=== PATIENT | female | born 1970 | race Caucasian/White ===

== ENCOUNTER → 2020-08-03 10:57 | Outpatient (BNVA) | payer OTHER, SELFPAY | PROVIDERS: PCP Physician Assistant; Visit Provider Anesthesiology | DX: M96.1 Postlaminectomy syndrome, not elsewhere classified (principal); G89.4 Chronic pain syndrome; Z79.891 Long term (current) use of opiate analgesic | CPT/HCPCS: 99213 ==

== ENCOUNTER → 2020-08-19 09:40 | Outpatient (BNVA) | payer OTHER, SELFPAY | PROVIDERS: PCP Hospitalist; Visit Provider Anesthesiology | DX: G89.4 Chronic pain syndrome (principal); M96.1 Postlaminectomy syndrome, not elsewhere classified; Z79.891 Long term (current) use of opiate analgesic; Z91.09 Other allergy status, other than to drugs and biological substances; Z88.0 Allergy status to penicillin; Z88.8 Allergy status to other drugs, medicaments and biological substances | CPT/HCPCS: 99212 ==

== ENCOUNTER → 2020-09-16 16:00 | Outpatient (BNVA) | payer OTHER, SELFPAY | PROVIDERS: PCP Hospitalist; Visit Provider Anesthesiology | DX: M96.1 Postlaminectomy syndrome, not elsewhere classified (principal); G89.4 Chronic pain syndrome; Z79.891 Long term (current) use of opiate analgesic | CPT/HCPCS: 99212 ==

== ENCOUNTER → 2020-10-22 09:17 | Outpatient (BNVA) | payer OTHER, SELFPAY | PROVIDERS: PCP Hospitalist; Visit Provider Anesthesiology | DX: M96.1 Postlaminectomy syndrome, not elsewhere classified (principal); G89.4 Chronic pain syndrome; Z79.891 Long term (current) use of opiate analgesic | CPT/HCPCS: 99212; J3300 ==

== ENCOUNTER → 2020-10-29 09:11 | Outpatient (BNVA) | payer OTHER, SELFPAY | PROVIDERS: PCP Hospitalist; Visit Provider Nurse Practitioner Gerontology | DX: Z13.89 Encounter for screening for other disorder (principal) | CPT/HCPCS: Q3014 ==

== ENCOUNTER → 2020-11-16 09:29 | Outpatient (BNVA) | payer OTHER, SELFPAY | PROVIDERS: PCP Hospitalist; Visit Provider Anesthesiology | DX: M96.1 Postlaminectomy syndrome, not elsewhere classified (principal); G89.4 Chronic pain syndrome; Z79.891 Long term (current) use of opiate analgesic | CPT/HCPCS: 99212 ==

== ENCOUNTER → 2020-12-16 12:59 | Outpatient (BNVA) | payer OTHER, SELFPAY | PROVIDERS: PCP Hospitalist; Visit Provider Anesthesiology | DX: M96.1 Postlaminectomy syndrome, not elsewhere classified (principal); G89.4 Chronic pain syndrome; Z79.891 Long term (current) use of opiate analgesic | CPT/HCPCS: 99212 ==

== ENCOUNTER → 2020-12-18 08:25 | Outpatient (BNVA) | payer OTHER, SELFPAY | PROVIDERS: PCP Hospitalist; Visit Provider Nurse Practitioner Gerontology | DX: M96.1 Postlaminectomy syndrome, not elsewhere classified (principal); G89.4 Chronic pain syndrome; F17.200 Nicotine dependence, unspecified, uncomplicated; Z79.891 Long term (current) use of opiate analgesic; Z71.6 Tobacco abuse counseling | CPT/HCPCS: 82947; 99212 ==

== ENCOUNTER → 2021-01-14 13:40 | Outpatient (BNVA) | payer OTHER, SELFPAY | PROVIDERS: PCP Hospitalist; Visit Provider Anesthesiology | DX: M96.1 Postlaminectomy syndrome, not elsewhere classified (principal); G89.4 Chronic pain syndrome; F17.200 Nicotine dependence, unspecified, uncomplicated; Z79.891 Long term (current) use of opiate analgesic; Z71.6 Tobacco abuse counseling | CPT/HCPCS: 99212 ==

== ENCOUNTER 2021-02-12 09:53 | Outpatient (REF) | payer OTHER, SELFPAY ==
[2021-02-12 11:43] LABS: Alanine Aminotransferase 21 U/L (0-31); Albumin Level 4.1 g/dL (3.5-5.0); Alkaline Phosphatase 67 U/L (39-117); Anion Gap 16 (12-20); Aspartate Amino Transferase 22 U/L (5-31); Bilirubin Total 0.4 mg/dL (0.0-1.0); Blood Urea Nitrogen 13 mg/dL (9-16); Calcium 9.5 mg/dL (8.4-10.2); Carbon Dioxide 25 mmol/L (22-29); Chloride 105 mmol/L (96-108); Cholesterol 211 mg/dL; Estimated Glomerular Filt Rate > 60; Glucose Fasting 80 mg/dL (60-99); HDL Cholesterol 37 mg/dL; LDL Cholesterol Calculated 141 mg/dl; Potassium 4.6 mmol/L (3.3-5.1); Sodium 141 mmol/L (135-145); Total Protein 7.1 g/dL (6.5-8.0); Triglycerides 166 mg/dL
[2021-02-12 12:06] LABS: Creatinine Urine 128.58 mg/dL; Microalbum/Creatinine Ratio Ur 101.1 ug/mg cr
[2021-02-13 04:46] LABS: LDL Cholesterol Direct 154 mg/dL (<100)
== END 2021-02-12 09:54 | disposition home or self-care (01) ==
LOC: HO.WFDLDS 09:53
PROVIDERS: Visit Provider Nurse Practitioner Gerontology
DX: E11.65 Type 2 diabetes mellitus with hyperglycemia (principal); Z79.4 Long term (current) use of insulin
CPT/HCPCS: 36415; 80053; 80061; 82043; 83721

== ENCOUNTER → 2021-02-15 10:46 | Outpatient (BNVA) | payer OTHER, SELFPAY | PROVIDERS: PCP Hospitalist; Visit Provider Anesthesiology | DX: M96.1 Postlaminectomy syndrome, not elsewhere classified (principal); G89.4 Chronic pain syndrome; Z79.891 Long term (current) use of opiate analgesic | CPT/HCPCS: 99212 ==

== ENCOUNTER → 2021-03-03 11:20 | Outpatient (BNVA) | payer OTHER, SELFPAY | PROVIDERS: PCP Hospitalist; Visit Provider Nurse Practitioner Gerontology | DX: E11.65 Type 2 diabetes mellitus with hyperglycemia (principal); E78.5 Hyperlipidemia, unspecified; E66.09 Other obesity due to excess calories; Z79.4 Long term (current) use of insulin; Z68.37 Body mass index [BMI] 37.0-37.9, adult | CPT/HCPCS: 82947; 99212 ==

== ENCOUNTER → 2021-03-17 11:46 | Outpatient (BNVA) | payer OTHER, SELFPAY | PROVIDERS: PCP Hospitalist; Visit Provider Anesthesiology | DX: M96.1 Postlaminectomy syndrome, not elsewhere classified (principal); G89.4 Chronic pain syndrome; Z79.891 Long term (current) use of opiate analgesic | CPT/HCPCS: 99212 ==

== ENCOUNTER → 2021-04-15 10:27 | Outpatient (BNVA) | payer OTHER, SELFPAY | PROVIDERS: PCP Hospitalist; Visit Provider Anesthesiology | DX: M96.1 Postlaminectomy syndrome, not elsewhere classified (principal); G89.4 Chronic pain syndrome; Z79.891 Long term (current) use of opiate analgesic | CPT/HCPCS: 99212 ==

== ENCOUNTER 2021-04-15 11:21 | Outpatient (REF) | payer OTHER, SELFPAY ==
[2021-04-15 14:36] LABS: Estimated Average Glucose 146 mg/dL; Hemoglobin A1C 151.7544 umol/L; Hemoglobin A1c % 6.7 %
[2021-04-15 14:41] LABS: Alanine Aminotransferase 13 U/L (0-31); Albumin Level 3.8 g/dL (3.5-5.0); Alkaline Phosphatase 67 U/L (39-117); Anion Gap 13 (12-20); Aspartate Amino Transferase 17 U/L (5-31); Bilirubin Total 0.5 mg/dL (0.0-1.0); Blood Urea Nitrogen 8 mg/dL (9-16); Calcium 9.3 mg/dL (8.4-10.2); Carbon Dioxide 28 mmol/L (22-29); Chloride 103 mmol/L (96-108); Cholesterol 115 mg/dL; Creatinine Urine 202.89 mg/dL; Estimated Glomerular Filt Rate > 60; Glucose Fasting 78 mg/dL (60-99); HDL Cholesterol 36 mg/dL; LDL Cholesterol Calculated 55 mg/dl; Microalbum/Creatinine Ratio Ur 72.9 ug/mg cr; Potassium 4.5 mmol/L (3.3-5.1); Sodium 139 mmol/L (135-145); Total Protein 6.7 g/dL (6.5-8.0); Triglycerides 120 mg/dL
[2021-04-16 07:26] LABS: LDL Cholesterol Direct 60 mg/dL (<100)
== END 2021-04-15 11:22 | disposition home or self-care (01) ==
LOC: HO.WFDLDS 11:21
PROVIDERS: PCP Hospitalist; Visit Provider Nurse Practitioner Gerontology
DX: E11.65 Type 2 diabetes mellitus with hyperglycemia (principal); Z79.4 Long term (current) use of insulin
CPT/HCPCS: 36415; 80053; 80061; 82043; 83036; 83721

== ENCOUNTER → 2021-05-06 08:31 | Outpatient (BNVA) | payer OTHER, SELFPAY | PROVIDERS: PCP Hospitalist; Visit Provider Nurse Practitioner Gerontology | CPT/HCPCS: Q3014 ==

== ENCOUNTER → 2021-05-13 15:32 | Outpatient (BNVA) | payer OTHER, SELFPAY | PROVIDERS: PCP Hospitalist; Visit Provider Anesthesiology | DX: M96.1 Postlaminectomy syndrome, not elsewhere classified (principal); G89.4 Chronic pain syndrome; Z79.891 Long term (current) use of opiate analgesic | CPT/HCPCS: 99212 ==

== ENCOUNTER 2021-06-13 13:13 | Emergency (ER) | payer OTHER, SELFPAY ==
[2021-06-13] VITALS (7 sets, daily range): BP systolic 113–136; BP diastolic 62–73; PULSE 93–109; RESP 16–20; TEMP 37.1; O2SAT 96–98; BMI 34.2
--- NOTE | ~2021-06-13 | CT_ITS ---
EXAMINATION: CT ABDOMEN AND PELVIS WITH CONTRAST CLINICAL INFORMATION: Right lower quadrant, lower abdominal tenderness to palpation, diarrhea COMPARISON: None TECHNIQUE: Multidetector volumetric images were obtained from the superior aspect of the liver through the pubic symphysis following administration 85 mL of Omnipaque 350 intravenous contrast. Sagittal and coronal reformatted images were obtained on the technologist's workstation. Oral contrast: No This CT examination was performed using dose optimization techniques as appropriate, variously including the following: *Automated exposure control *Adjustment of mA and/or kV according to patient size (this includes techniques or standardized protocols for targeted exams where dose is matched to indication/reason for exam; i.e. extremities or head) *Use of iterative reconstruction technique DLP: 731 mGy-cm FINDINGS: LUNG BASES: The visualized lung bases are unremarkable. LIVER, GALLBLADDER, AND BILIARY TREE: Ill-defined 8 mm low-density in the right lobe of liver image 9/92. The gallbladder is unremarkable with no evidence of radiopaque gallstones, gallbladder wall thickening, or obvious pericholecystic inflammatory changes. PANCREAS: Unremarkable. SPLEEN: Unremarkable. ADRENAL GLANDS: Unremarkable. KIDNEYS AND URETERS: The kidneys are normal in size, shape, and attenuation. No hydronephrosis, hydroureter, or calculi seen. No perinephric stranding. BLADDER: Unremarkable. GASTROINTESTINAL TRACT: The stomach and small bowel are nondilated. There is wall thickening and hyperemia of the terminal ileum and right colon. The distal transverse colon and left colon are normal in appearance. Scattered colonic diverticulosis. ABDOMINAL WALL: Small fat-containing umbilical hernia. LYMPH NODES: Numerous prominent retroperitoneal and babar hepatis lymph nodes are present. There is a 3.0 x 1.2 cm portal caval lymph node. There is a 2.4 x 1.2 cm lymph node in the babar hepatis adjacent the pancreatic head. Innumerable retroperitoneal lymph nodes are present, among the largest measuring 10 x 12 mm. There are prominent right lower quadrant lymph nodes, adjacent the abnormal right colon. VASCULAR: Normal caliber aorta. Moderate calcified atherosclerosis. PELVIC VISCERA: The uterus and adnexa are unremarkable. OSSEOUS STRUCTURES: Multilevel degenerative changes with loss of disc height, endplate sclerosis, osteophytosis, and vacuum disc phenomenon at L4-5 and L5-S1. There is a intrathecal catheter with tip at the level of T10. The generator pack is in the left gluteal soft tissues. CT/CT abdomen pelvis w con IMPRESSION: Wall thickening and hyperemia of the terminal ileum and right colon. The appearance is nonspecific but favors an infectious or inflammatory etiology. Crohn's disease could have this appearance. Prominent to mildly enlarged retroperitoneal and babar hepatis lymphadenopathy, nonspecific, presumably reactive.
[2021-06-13 14:21] LABS: COVID-19 Test Negative (Negative); IDNOW Serial# 55D5AD1C
[2021-06-13] MEDS: Famotidine/PF 20 MG/2 ML VIAL IVPUSH (15:34)
[2021-06-13] MEDS: ondansetron HCL 4 MG/2 ML VIAL IVPUSH (15:34)
[2021-06-13] MEDS: 0.9 % Sodium Chloride 1,000 ML 999 ML IVCONT ×2 (15:34)
[2021-06-13 15:41] LABS: Glucose Urine UA NEG (NEG); Leukocyte Esterase Urine NEG (NEG); Nitrite Urine NEG (NEG); Specific Gravity - Urine >= 1.030 (1.005-1.025); UACC Culture Trigger NO; Urine Blood 1+ (NEG); Urine Ketones 5 MG/DL (NEG); Urine Protein 2+ MG/DL (NEG-TRACE)
[2021-06-13 15:50] LABS: Appearance Urine CLEAR; Color Urine YELLOW
[2021-06-13 15:55] LABS: MANUAL DIFF FLAG NO
[2021-06-13 15:55] LABS: Hyaline Casts Urine 0-2 /LPF; Mucus Urine 1+ /LPF; RBC Urine 0-2 /HPF (0); Squamous Epithelial Cell Urine 4+ /LPF
[2021-06-13 15:56] LABS: Basophils Percent Auto 0.2 % (0-2); Eosinophils Absolute Auto 0.2 X10*3/uL (0.0-0.4); Eosinophils Percent Auto 2.2 % (0-4); Hematocrit 34.2 % (37-47); Hemoglobin 10.7 g/dl (12.0-16.0); Imm Gran Abs Auto 0.07 X10*3/uL (0.00-0.03); Imm Gran Pct Auto 0.6 % (0.0-0.4); Lymphocytes Absolute Auto 2.4 X10*3/uL (1.2-4.9); Mean Corpuscular HGB Conc 31.3 g/dl (31.0-35.0); Mean Corpuscular Hemoglobin 25.8 pg (27.0-33.0); Mean Corpuscular Volume 82.4 fL (80-98); Mean Platelet Volume 8.9 fL (9.4-12.3); Monocytes Percent Auto 8.8 % (2-11); Neutrophils Absolute Auto 7.2 X10*3/uL (2.0-8.3); Neutrophils Percent Auto 66.2 % (45-73); Platelet Count 388 X10*3/uL (160-400); Red Blood Count 4.15 X10*6/uL (4.20-5.50); Red Cell Distribution Width 15.5 % (11.0-16.0); White Blood Count 10.9 X10*3/uL (4.8-10.8)
[2021-06-13 16:07] LABS: Amphetamine Screen Urine Not Detected (Not Detect); Barbiturates, Urine Not Detected (Not Detect); Benzodiazepines Screen Urine Not Detected (Not Detect); Cannabinoid Screen Urine Not Detected (Not Detect); Cocaine Screen Urine Not Detected (Not Detect); Fentanyl, urine POSITIVE (Not Detect); Opiate Screen Urine POSITIVE (Not Detect); Phencyclidine Screen Urine Not Detected (Not Detect)
[2021-06-13 16:19] LABS: Alanine Aminotransferase 17 U/L (0-31); Albumin Level 3.4 g/dL (3.5-5.0); Alkaline Phosphatase 99 U/L (39-117); Anion Gap 16 (12-20); Aspartate Amino Transferase 14 U/L (5-31); Bilirubin Direct 0.2 mg/dL (0.0-0.5); Bilirubin Total 0.4 mg/dL (0.0-1.0); Blood Urea Nitrogen 7 mg/dL (9-16); Calcium 8.3 mg/dL (8.4-10.2); Carbon Dioxide 23 mmol/L (22-29); Chloride 107 mmol/L (96-108); Estimated Glomerular Filt Rate > 60; Glucose Random 103 mg/dL (60-115); Lipase 21 U/L (8-78); Magnesium 1.7 mg/dL (1.6-2.6); Potassium 3.4 mmol/L (3.3-5.1); Sodium 143 mmol/L (135-145); Total Protein 6.3 g/dL (6.5-8.0)
--- NOTE | 2021-06-13 17:35 | ED_ITS ---
HPI - General Adult General Chief complaint: General Medical Stated complaint: fever, diarrhea Time Seen by Provider: 06/13/21 14:41 Source: patient Mode of arrival: ambulatory History of Present Illness HPI narrative: 50-year-old female with past medical history of asthma, chronic pain syndrome, diabetes, PCOS, proteinuria, sleep apnea, diabetes, presenting to the ED complaining of lower abdominal pain, nausea, vomiting, 6-8 episodes of loose diarrhea daily x 12 days with associated myalgias, dry cough, & decreased p.o. intake. Also reports a 20 lb weight loss. Admits was seen at [facility] 12 days ago and told she had the flu, symptoms have been persistent since. States she is most concerned with the diarrhea. Denies bloody stools/melena, dysuria/hematuria, CP/SOB, LE edema, suspicious food intake, recent antibiotics. Denies COVID-19 exposure. Onset (ago): day(s) Related Data Home Medications Medication Instructions Recorded Confirmed blood sugar diagnostic #10 ea 08/03/20 05/06/21 cetirizine 10 mg tablet 10 mg PO DAILY PRN 08/03/20 05/06/21 omeprazole 20 mg capsule,delayed 20 mg PO DAILY 08/03/20 05/06/21 release solriamfetol 150 mg tablet 150 mg PO BEDTIME 05/06/21 05/06/21 Previous Rx's Medication Instructions Recorded varenicline 1 mg tablet (Chantix 1 mg PO BID #56 tab 07/31/20 Continuing Month Box) gabapentin 600 mg tablet 600 mg PO TID 30 Days #90 tab 08/03/20 polyethylene glycol 3350 17 gram 17 g PO DAILY #22 packet 08/27/20 oral powder packet albuterol sulfate 90 mcg/actuation 2 puff PO Q6H PRN #18 g 08/31/20 aerosol inhaler insulin aspart U-100 100 unit/mL 10 - 26 unit SUBCUT TID 90 Days 10/29/20 (3 mL) subcutaneous pen #60 ml magnesium oxide 500 mg capsule 500 mg PO DAILY #90 cap 11/11/20 lancets 28 gauge #100 ea 11/24/20 pen needle, diabetic 32 gauge x #50 ea 11/24/20 1/4 diphenhydramine HCl 25 mg capsule 25 mg PO BEDTIME PRN #30 cap 03/02/21 (Banophen) diabetic supplies, miscellan. #100 ea 01/19/21 fluticasone propionate 50 1 spray INTRANASAL DAILY #16 ml 01/25/21 mcg/actuation nasal spray,suspension metformin 500 mg tablet,extended 1,000 mg PO BID 90 Days #360 tab 02/23/21 release 24 hr dulaglutide 0.75 mg/0.5 mL 0.75 mg SUBCUT QWEEK #2 ml 05/06/21 subcutaneous pen injector (Trulicity) insulin degludec 200 unit/mL (3 50 unit SUBCUT DAILY 30 Days #9 ml 05/06/21 mL) subcutaneous pen (Tresiba FlexTouch U-200 insulin) atorvastatin 40 mg tablet 40 mg PO DAILY #90 tab 05/11/21 flash glucose sensor (FreeStyle #2 ea 05/13/21 Bettye 2 Sensor) naloxegol 12.5 mg tablet (Movantik) 12.5 mg PO QAM 30 Days #30 tab 05/13/21 oxycodone-acetaminophen 10 mg-325 1 tab PO TID PRN 30 Days #90 tab 05/13/21 mg tablet (Percocet) flash glucose scanning reader #1 ea 05/14/21 (FreeStyle Bettye 2 Clyde) blood sugar diagnostic (FreeStyle 1 strip MISCELLANEOUS TID-QID #300 05/20/21 Lite Strips) strip ciprofloxacin HCl 500 mg tablet 500 mg PO Q12H 7 Days #14 tab 06/13/21 metronidazole 500 mg tablet 500 mg PO Q8H 7 Days #21 tab 06/13/21 (Flagyl) Allergies Allergy/AdvReac Type Severity Reaction Status Date / Time amoxicillin [From AUGMENTIN] AdvReac Intermediate VOMITING/DE Verified 05/06/21 08:49 HYDRATION NSAIDS (Non-Steroidal AdvReac Intermediate BLEEDING Verified 05/06/21 08:49 Anti-Inflamma [NSAIDS (NON-STEROIDAL ANTI-INFLAMMA] seasonal Allergy Intermediate Itchy Eyes Uncoded 05/06/21 08:49 Review of Systems Review of Systems: Constitutional: + Weight loss, No Fever, No Chills, No Night Sweats, + Fatigue, + Malaise ENT/Mouth: No Nasal Congestion, No Sinus Pain, No sore throat, No Rhinorrhea Eyes: No Eye Pain, No Discharge Cardiovascular: No Chest Pain, No SOB, No Dyspnea on Exertion Respiratory: No Cough, No Dyspnea Gastrointestinal: + Nausea, + Vomiting, No Diarrhea, No Constipation, + Abdo duncan pain, No Hematochezia, No Melena Genitourinary: No irregular bleeding, No Dysuria, No Urinary Frequency, No Hematuria,No Flank Pain, No Urinary Flow Changes Musculoskeletal: No joint pain, + Myalgias, No Joint Swelling Skin: No Skin Lesions, No rash Neuro: + Weakness, No Numbness, No Dizziness, No Headache Yes all other systems are reviewed and are negative [facility] Past Medical History Attestation statement: The following information was validated with the patient. Medical History (Updated 06/13/21 @ 19:52 by POOL Savage) Asthma BMI 37.0-37.9, adult Chronic pain syndrome 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, uncontrolled Hyperlipidemia LDL goal <100 nursing home (current) use of opiate analgesic Obesity due to excess calories PCOS (polycystic ovarian syndrome) Postlaminectomy syndrome, lumbar Proteinuria Sleep apnea Type 2 diabetes mellitus with hyperglycemia, with long-term current use of insulin Type 2 diabetes mellitus with other diabetic kidney complication Surgical History History of carpal tunnel release History of lumbar surgery History of removal of cyst History of tonsillectomy Hx of spinal surgery Family History Family History Father Diabetes Hypertension Mother Asthma Social History Social History Household Members: Children Cigarettes Per Day: 10 Smoked in Last 30 Days: Yes Use of substances other than those prescribed or required for medical reasons: No Advance Directives: No Advance Directives Information Provided: No Patient : No Physical Exam Vital Signs: Vital Signs: Last Vital Signs Temp 98.7 F 06/13/21 15:15 Pulse 93 06/13/21 19:44 Resp 20 06/13/21 19:44 BP 126/65 06/13/21 19:44 Pulse Ox 97 06/13/21 19:44 Body Mass Index 34.2 Const: General: cooperative, healthy appearing and no acute distress Orientation/consciousness: patient oriented x3 Limitations: no limitations HENMT: Head: Yes normal to inspection and Yes atraumatic Ears: hearing grossly normal bilaterally General nose exam: Normal external nose present Face and sinus: Yes normal facial exam Eyes: General: appearance normal, both eyes and all related structures EOM: EOMs intact bilaterally Neck: Neck: Yes normal visual inspection Resp: Effort & Inspection: normal respiratory effort Auscultation: clear to auscultation bilaterally, no rhonchi and no wheezes Cardio: Rate: regular rate Heart sounds: S1 normal heart sound present and S2 normal heart sound present GI: Inspection: Yes normal to inspection Palpation (GI): Soft to palpation, Tenderness to palpation present (GI) (Lower abdomen) in the RLQ, no guarding and not rigid Skin: Rashes: no rashes Wounds: no wounds Neuro: General: patient oriented x3 Gait exam (Neuro): Normal gait present Extrem: General: Yes normal to inspection Course Course Course Narrative: -mild leukocytosis of 10.9, H&H lower than priors from 2019, labs otherwise unremarkable -UA with 1+ blood and protein/not infected, tox screen positive for opiates and fentanyl -obtain records from [facility] from patient's visit on 06/01 at that time had leukocytosis of 14, negative UA, negative CXR, tested negative for COVID-19, diagnosed with viral syndrome. -C diff negative, stool leukocytes and wbc's negative 1949--CT abdomen pelvis w con IMPRESSION: Wall thickening and hyperemia of the terminal ileum and right colon. The appearance is nonspecific but favors an infectious or inflammatory etiology. Crohn's disease could have this appearance.? ? Prominent to mildly enlarged retroperitoneal and babar hepatis lymphadenopathy, nonspecific, presumably reactive. >> will treat patient as infectious colitis. Is tolerating p.o. at this time. Results discussed including worrisome signs and symptoms and strict return precautions. First dose of p.o. Flagyl given in the ED, patient feels safe for discharge home Medical Decision Making MDM Narrative Medical decision making narrative: 50-year-old female with past medical history of asthma, chronic pain syndrome, diabetes, PCOS, proteinuria, sleep apnea, diabetes, presenting to the ED complaining of lower abdominal pain, nausea, vomiting, 6-8 episodes of loose diarrhea daily x 12 days with associated myalgias, dry cough, & decreased p.o. intake. On exam initially tachycardic, NAD/nontoxic appearing, lungs CTA, abdomen soft with lower/RUQ TTP, no rebound or guarding. Concern for viral syndrome vs gastroenteritis vs appendicitis vs Diverticulitis/colitis vs infectious diarrhea. Rule out metabolic abnormalities Plan: Labs, UA, stool studies, COVID-19 testing, IVF, symptomatic treatment, CT, reassess Lab Data Result diagrams: 06/13/21 15:50 06/13/21 15:50 Labs: Lab Results 06/13/21 06/13/21 06/13/21 Range/Units 13:53 15:19 15:19 WBC (4.8-10.8) X10*3/uL RBC (4.20-5.50) X10*6/uL Hgb (12.0-16.0) g/dl Hct (37-47) % MCV (80-98) fL MCH (27.0-33.0) pg MCHC (31.0-35.0) g/dl RDW (11.0-16.0) % Plt Count (160-400) X10*3/uL MPV (9.4-12.3) fL Immature Gran % (Auto) (0.0-0.4) % Neut % (Auto) (45-73) % Lymph % (Auto) (20-40) % [place] % (Auto) (2-11) % Eos % (Auto) (0-4) % Baso % (Auto) (0-2) % Lymph # (Auto) (1.2-4.9) X10*3/uL [place] # (Auto) (0.1-1.2) X10*3/uL Eos # (Auto) (0.0-0.4) X10*3/uL Baso # (Auto) (0.0-0.2) X10*3/uL Abs Immat Gran (auto) (0.00-0.03) X10*3/uL Absolute Neuts (auto) (2.0-8.3) X10*3/uL Absolute Nucleated RBC (0.0-0.012) X10*3/uL Nucleated RBC % (auto) (0.0-0.2) /100WBC Sodium (135-145) mmol/L Potassium (3.3-5.1) mmol/L Chloride (96-108) mmol/L Carbon Dioxide (22-29) mmol/L Anion Gap (12-20) BUN (9-16) mg/dL Creatinine (0.5-1.4) mg/dL Estim Creat Clear Calc Estimated GFR Random Glucose (60-115) mg/dL Calcium (8.4-10.2) mg/dL Magnesium (1.6-2.6) mg/dL Total Bilirubin (0.0-1.0) mg/dL Direct Bilirubin (0.0-0.5) mg/dL AST (5-31) U/L ALT (0-31) U/L Alkaline Phosphatase (39-117) U/L Total Protein (6.5-8.0) g/dL Albumin (3.5-5.0) g/dL Lipase (8-78) U/L Urine Color YELLOW Urine Appearance CLEAR Urine pH 6.0 (5.0-8.0) Ur Specific [place] >= 1.030 H (1.005-1.025) Urine Protein 2+ H (NEG-TRACE) MG/DL Urine Glucose (UA) NEG (NEG) MG/DL Urine Ketones 5 (NEG) MG/DL Urine Blood 1+ H (NEG) Urine Nitrite NEG (NEG) Ur Leukocyte Esterase NEG (NEG) Urine RBC 0-2 (0) /HPF Urine WBC 1-4 (0-4) /HPF Ur Squamous Epith Cells 4+ /LPF Urine Bacteria NONE /LPF Hyaline Casts 0-2 /LPF Urine Mucus 1+ /LPF Stool Leukocytes, Qual (NEGATIVE) Urine Opiates Screen POSITIVE H (Not Detect) Urine Fentanyl Screen POSITIVE H (Not Detect) Ur Barbiturates Screen Not Detected (Not Detect) Ur Phencyclidine Scrn Not Detected (Not Detect) Ur Amphetamines Screen Not Detected (Not Detect) U Benzodiazepines Scrn Not Detected (Not Detect) Urine Cocaine Screen Not Detected (Not Detect) U Marijuana (THC) Screen Not Detected (Not Detect) C. difficile Tox B Gene (Negative) COVID-19 (FEMI) Negative (Negative) COVID-19 Clin Com See Note 06/13/21 06/13/21 06/13/21 Range/Units 15:50 15:50 17:28 WBC 10.9 H (4.8-10.8) X10*3/uL RBC 4.15 L (4.20-5.50) X10*6/uL Hgb 10.7 L (12.0-16.0) g/dl Hct 34.2 L (37-47) % MCV 82.4 (80-98) fL MCH 25.8 L (27.0-33.0) pg MCHC 31.3 (31.0-35.0) g/dl RDW 15.5 (11.0-16.0) % Plt Count 388 (160-400) X10*3/uL MPV 8.9 L (9.4-12.3) fL Immature Gran % (Auto) 0.6 H (0.0-0.4) % Neut % (Auto) 66.2 (45-73) % Lymph % (Auto) 22.0 (20-40) % [place] % (Auto) 8.8 (2-11) % Eos % (Auto) 2.2 (0-4) % Baso % (Auto) 0.2 (0-2) % Lymph # (Auto) 2.4 (1.2-4.9) X10*3/uL [place] # (Auto) 1.0 (0.1-1.2) X10*3/uL Eos # (Auto) 0.2 (0.0-0.4) X10*3/uL Baso # (Auto) 0.0 (0.0-0.2) X10*3/uL Abs Immat Gran (auto) 0.07 H (0.00-0.03) X10*3/uL Absolute Neuts (auto) 7.2 (2.0-8.3) X10*3/uL Absolute Nucleated RBC 0.000 (0.0-0.012) X10*3/uL Nucleated RBC % (auto) 0.0 (0.0-0.2) /100WBC Sodium 143 (135-145) mmol/L Potassium 3.4 D (3.3-5.1) mmol/L Chloride 107 (96-108) mmol/L Carbon Dioxide 23 (22-29) mmol/L Anion Gap 16 (12-20) BUN 7 L (9-16) mg/dL Creatinine 0.65 (0.5-1.4) mg/dL Estim Creat Clear Calc 111.0 Estimated GFR > 60 Random Glucose 103 (60-115) mg/dL Calcium 8.3 L D (8.4-10.2) mg/dL Magnesium 1.7 (1.6-2.6) mg/dL Total Bilirubin 0.4 (0.0-1.0) mg/dL Direct Bilirubin 0.2 (0.0-0.5) mg/dL AST 14 (5-31) U/L ALT 17 (0-31) U/L Alkaline Phosphatase 99 D (39-117) U/L Total Protein 6.3 L (6.5-8.0) g/dL Albumin 3.4 L (3.5-5.0) g/dL Lipase 21 (8-78) U/L Urine Color Urine Appearance Urine pH (5.0-8.0) Ur Specific Union (1.005-1.025) Urine Protein (NEG-TRACE) MG/DL Urine Glucose (UA) (NEG) MG/DL Urine Ketones (NEG) MG/DL Urine Blood (NEG) Urine Nitrite (NEG) Ur Leukocyte Esterase (NEG) Urine RBC (0) /HPF Urine WBC (0-4) /HPF Ur Squamous Epith Cells /LPF Urine Bacteria /LPF Hyaline Casts /LPF Urine Mucus /LPF Stool Leukocytes, Qual NEGATIVE (NEGATIVE) Urine Opiates Screen (Not Detect) Urine Fentanyl Screen (Not Detect) Ur Barbiturates Screen (Not Detect) Ur Phencyclidine Scrn (Not Detect) Ur Amphetamines Screen (Not Detect) U Benzodiazepines Scrn (Not Detect) Urine Cocaine Screen (Not Detect) U Marijuana (THC) Screen (Not Detect) C. difficile Tox B Gene (Negative) COVID-19 (FEMI) (Negative) COVID-19 Clin Com 06/13/21 Range/Units 17:28 WBC (4.8-10.8) X10*3/uL RBC (4.20-5.50) X10*6/uL Hgb (12.0-16.0) g/dl Hct (37-47) % MCV (80-98) fL MCH (27.0-33.0) pg MCHC (31.0-35.0) g/dl RDW (11.0-16.0) % Plt Count (160-400) X10*3/uL MPV (9.4-12.3) fL Immature Gran % (Auto) (0.0-0.4) % Neut % (Auto) (45-73) % Lymph % (Auto) (20-40) % [place] % (Auto) (2-11) % Eos % (Auto) (0-4) % Baso % (Auto) (0-2) % Lymph # (Auto) (1.2-4.9) X10*3/uL [place] # (Auto) (0.1-1.2) X10*3/uL Eos # (Auto) (0.0-0.4) X10*3/uL Baso # (Auto) (0.0-0.2) X10*3/uL Abs Immat Gran (auto) (0.00-0.03) X10*3/uL Absolute Neuts (auto) (2.0-8.3) X10*3/uL Absolute Nucleated RBC (0.0-0.012) X10*3/uL Nucleated RBC % (auto) (0.0-0.2) /100WBC Sodium (135-145) mmol/L Potassium (3.3-5.1) mmol/L Chloride (96-108) mmol/L Carbon Dioxide (22-29) mmol/L Anion Gap (12-20) BUN (9-16) mg/dL Creatinine (0.5-1.4) mg/dL Estim Creat Clear Calc Estimated GFR Random Glucose (60-115) mg/dL Calcium (8.4-10.2) mg/dL Magnesium (1.6-2.6) mg/dL Total Bilirubin (0.0-1.0) mg/dL Direct Bilirubin (0.0-0.5) mg/dL AST (5-31) U/L ALT (0-31) U/L Alkaline Phosphatase (39-117) U/L Total Protein (6.5-8.0) g/dL Albumin (3.5-5.0) g/dL Lipase (8-78) U/L Urine Color Urine Appearance Urine pH (5.0-8.0) Ur Specific [place] (1.005-1.025) Urine Protein (NEG-TRACE) MG/DL Urine Glucose (UA) (NEG) MG/DL Urine Ketones (NEG) MG/DL Urine Blood (NEG) Urine Nitrite (NEG) Ur Leukocyte Esterase (NEG) Urine RBC (0) /HPF Urine WBC (0-4) /HPF Ur Squamous Epith Cells /LPF Urine Bacteria /LPF Hyaline Casts /LPF Urine Mucus /LPF Stool Leukocytes, Qual (NEGATIVE) Urine Opiates Screen (Not Detect) Urine Fentanyl Screen (Not Detect) Ur Barbiturates Screen (Not Detect) Ur Phencyclidine Scrn (Not Detect) Ur Amphetamines Screen (Not Detect) U Benzodiazepines Scrn (Not Detect) Urine Cocaine Screen (Not Detect) U Marijuana (THC) Screen (Not Detect) C. difficile Tox B Gene NEGATIVE (Negative) COVID-19 ([facility]I) (Negative) COVID-19 Clin Com Discharge Plan Discharge Clinical Impression: Infectious colitis Patient Disposition: Home, Self-Care Instructions: Infectious Colitis (ED) Additional Instructions: You have colitis, Cipro and Flagyl are antibiotics, please take as prescribed Make sure staying hydrated Rest, practice a bland diet Please follow-up with her doctor Follow-up with GI as needed If her symptoms persist or worsen, your unable to eat or drink, pain becomes unbearable, you fevers or developed blood in her stool return to the ED Prescriptions: New metronidazole [Flagyl] 500 mg tablet 500 mg PO Q8H 7 Days Qty: 21 RF: 0 ciprofloxacin HCl 500 mg tablet 500 mg PO Q12H 7 Days Qty: 14 RF: 0 No Action varenicline [Chantix Continuing Month Box] 1 mg tablet 1 mg PO BID Qty: 56 RF: 3 polyethylene glycol 3350 17 gram powder in packet 17 g PO DAILY Qty: 22 RF: 1 albuterol sulfate 90 mcg/actuation HFA aerosol inhaler 2 puff PO Q6H PRN (Reason: shortness of breath or wheezing) Qty: 18 RF: 3 magnesium oxide 500 mg capsule 500 mg PO DAILY Qty: 90 RF: 3 diphenhydramine HCl [Banophen] 25 mg capsule 25 mg PO BEDTIME PRN (Reason: for allergies) Qty: 30 RF: 0 (DME) diabetic supplies, miscellan. Misc See Rx Instructions .ROUTE .MEDSUPPLY Qty: 100 RF: 6 fluticasone propionate 50 mcg/actuation spray,suspension 1 spray intranasal DAILY Qty: 16 RF: 4 metformin 500 mg tablet extended release 24 hr 1,000 mg PO BID 90 Days Qty: 360 RF: 1 atorvastatin 40 mg tablet 40 mg PO DAILY Qty: 90 RF: 1 (DME) FreeStyle Bettye 2 Sensor Kit See Rx Instructions .ROUTE .MEDSUPPLY Qty: 2 RF: 6 (DME) FreeStyle Bettye 2 Clyde Misc See Rx Instructions .ROUTE .MEDSUPPLY Qty: 1 RF: 0 FreeStyle Lite Strips Strip 1 strip miscellaneous TID-QID Qty: 300 RF: 12 (DME) pen needle, diabetic 32 gauge x 1/4 needle See Rx Instructions ea subcut TID Qty: 50 RF: 0 (DME) lancets 28 gauge misc See Rx Instructions ea topical DAILY Qty: 100 RF: 0 cetirizine 10 mg tablet 10 mg PO DAILY PRNRF: 0 omeprazole 20 mg capsule,delayed release(DR/EC) 20 mg PO DAILY RF: 0 (DME) FreeStyle Lite Strips Strip See Rx Instructions ea Not Applicable DAILY Qty: 10 RF: 0 gabapentin 600 mg tablet 600 mg PO TID 30 Days Qty: 90 RF: 11 insulin aspart U-100 100 unit/mL (3 mL) insulin pen 10 - 26 unit subcut TID 90 Days Qty: 60 RF: 0 Sunosi 150 mg tablet 150 mg PO BEDTIME RF: 0 Trulicity 0.75 mg/0.5 mL pen injector 0.75 mg subcut QWEEK Qty: 2 RF: 4 Tresiba FlexTouch U-200 200 unit/mL (3 mL) insulin pen 50 unit subcut DAILY 30 Days Qty: 9 RF: 4 Movantik 12.5 mg tablet 12.5 mg PO QAM 30 Days Qty: 30 RF: 12 oxycodone-acetaminophen [Percocet] 10-325 mg tablet 1 tab PO TID PRN (Reason: pain) 30 Days Qty: 90 RF: 0 Referrals: Lisa Harmon NP [Primary Care Provider] - 2 days
[2021-06-13] MEDS: iohexoL 350 MG/ML 100 ML INFUS..BTL IV (18:25)
[2021-06-13] MEDS: Acetaminophen 325 MG TABLET 650 MG PO (18:36)
[2021-06-13] MEDS: Lidocaine HCl Viscous 2 % 15 ML SOLUTION MUCOUS MEM (18:36)
[2021-06-13 18:39] LABS: CDiff Gene PCR NEGATIVE (Negative)
[2021-06-13 19:02] LABS: Leukocytes Stool Qualitative NEGATIVE (NEGATIVE)
[2021-06-13] MEDS: metroNIDAZOLE 500 MG TABLET PO (19:42)
== END 2021-06-13 20:24 | disposition home or self-care (01) ==
PROVIDERS: Physician Assistant; Emergency Provider Internal Medicine; PCP Hospitalist
DX: A09 Infectious gastroenteritis and colitis, unspecified (principal); R50.9 Fever, unspecified; R10.31 Right lower quadrant pain; E11.9 Type 2 diabetes mellitus without complications; F17.210 Nicotine dependence, cigarettes, uncomplicated; Z20.822 Contact with and (suspected) exposure to COVID-19; Z79.899 Other long term (current) drug therapy; Z71.6 Tobacco abuse counseling
CPT/HCPCS: 36415; 74177; 80048; 80076; 80307; 81001; 83690; 83735; 85025; 87045; 87046; 87186; 87493; 87635; 89055; 96365; 96375; 99284; J2405; Q9967

== ENCOUNTER → 2021-06-16 15:08 | Outpatient (BNVA) | payer OTHER, SELFPAY | PROVIDERS: PCP Hospitalist; Visit Provider Anesthesiology | DX: M96.1 Postlaminectomy syndrome, not elsewhere classified (principal); G89.4 Chronic pain syndrome; Z79.891 Long term (current) use of opiate analgesic | CPT/HCPCS: 99212 ==

== ENCOUNTER → 2021-07-14 11:49 | Outpatient (BNVA) | payer OTHER, SELFPAY | PROVIDERS: PCP Hospitalist; Visit Provider Anesthesiology | DX: Z51.81 Encounter for therapeutic drug level monitoring (principal); M96.1 Postlaminectomy syndrome, not elsewhere classified; G89.4 Chronic pain syndrome; Z79.891 Long term (current) use of opiate analgesic | CPT/HCPCS: 99212 ==

== ENCOUNTER 2021-08-04 10:38 | Outpatient (REF) | payer OTHER, SELFPAY ==
[2021-08-04 13:57] LABS: Appearance Urine CLEAR; Color Urine YELLOW; Glucose Urine UA NEG (NEG); Leukocyte Esterase Urine NEG (NEG); Nitrite Urine NEG (NEG); Urine Blood 1+ (NEG); Urine Ketones NEG (NEG); Urine Protein 1+ MG/DL (NEG-TRACE)
[2021-08-04 14:09] LABS: Squamous Epithelial Cell Urine 1+ /LPF
[2021-08-04 14:22] LABS: Estimated Average Glucose 146 mg/dL; Hemoglobin A1c % 6.7 %
[2021-08-04 14:27] LABS: Alanine Aminotransferase 19 U/L (0-31); Albumin Level 4.3 g/dL (3.5-5.0); Alkaline Phosphatase 89 U/L (39-117); Anion Gap 14 (12-20); Aspartate Amino Transferase 22 U/L (5-31); Bilirubin Total 0.6 mg/dL (0.0-1.0); Blood Urea Nitrogen 11 mg/dL (9-16); Calcium 9.7 mg/dL (8.4-10.2); Carbon Dioxide 29 mmol/L (22-29); Chloride 103 mmol/L (96-108); Estimated Glomerular Filt Rate > 60; Glucose Random 81 mg/dL (60-115); Potassium 4.8 mmol/L (3.3-5.1); Sodium 141 mmol/L (135-145); Total Protein 7.5 g/dL (6.5-8.0)
== END 2021-08-04 10:39 | disposition home or self-care (01) ==
LOC: HO.WFDLDS 10:38
PROVIDERS: Nurse Practitioner Gerontology; Visit Provider Family Medicine
DX: Z00.00 Encounter for general adult medical examination without abnormal findings (principal); E11.29 Type 2 diabetes mellitus with other diabetic kidney complication; E11.65 Type 2 diabetes mellitus with hyperglycemia; Z79.4 Long term (current) use of insulin
CPT/HCPCS: 36415; 80053; 81001; 83036

== ENCOUNTER → 2021-08-11 15:47 | Outpatient (BNVA) | payer OTHER, SELFPAY | PROVIDERS: PCP Hospitalist; Visit Provider Anesthesiology | DX: Z51.81 Encounter for therapeutic drug level monitoring (principal); M96.1 Postlaminectomy syndrome, not elsewhere classified; G89.4 Chronic pain syndrome; Z79.891 Long term (current) use of opiate analgesic | CPT/HCPCS: 99212 ==

== ENCOUNTER → 2021-09-08 08:07 | Outpatient (BNVA) | payer OTHER, SELFPAY | PROVIDERS: PCP Hospitalist; Visit Provider Anesthesiology | DX: Z51.81 Encounter for therapeutic drug level monitoring (principal); M96.1 Postlaminectomy syndrome, not elsewhere classified; G89.4 Chronic pain syndrome; Z79.891 Long term (current) use of opiate analgesic | CPT/HCPCS: 99212 ==

== ENCOUNTER 2021-09-10 14:54 | Outpatient (REF) | payer OTHER, SELFPAY ==
--- NOTE | ~2021-09-10 | MR_ITS ---
EXAMINATION: MR LUMBAR SPINE WITHOUT CONTRAST CLINICAL INFORMATION: Post laminectomy syndrome. COMPARISON: Abdominal CT from 06/13/2021. TECHNIQUE: MRI of the lumbar spine was obtained using routine sequences without contrast. FINDINGS: VERTEBRAL BODIES AND PARASPINAL STRUCTURES: A neurostimulator device is partially visualized with electrode wires entering the canal in the interlaminar spaces at the L1-L2 and T12-L1 levels. There are no compression fractures. Mild retrosubluxation and moderate loss of disc height with reduced intradiscal signal evident at the L4-L5 level. There is severe disc space narrowing with disc degeneration and vacuum phenomenon at the L5-S1 level. No marrow or soft tissue edema visible. Mild leftward curvature of the lumbar spine evident. The paraspinal soft tissues are otherwise unremarkable. The imaged bony pelvis appears normal. CONUS MEDULLARIS AND CAUDA EQUINA: Normal, terminating at the level of L1. No lower cord signal abnormality is seen. The cauda equina nerve roots are normal. There are conspicuous retroperitoneal lymph nodes, also visible on the prior CT examination, slightly improved in appearance on the current study. SPINAL LEVELS: L1-L2 and L2-L3: No disc pathology. [id number] facet arthrosis. No central canal stenosis or foraminal narrowing. L3-L4: No disc pathology. Mild facet arthropathy without central canal stenosis or foraminal narrowing. L4-L5: Moderate disc space narrowing and retrosubluxation with a broad-based central disc protrusion and endplate ridging resulting in ventral thecal sac distortion and mild mass effect upon the left L5 nerve root. Hypertrophic facet arthropathy and mild central canal stenosis. Underlying disc bulge and ossific spurring result in mild right foraminal encroachment. L5-S1: When correlated to the prior CT study, there is a broad-based central disc protrusion with endplate spurring and calcification of the annulus resulting in impression upon the ventral thecal sac and mild mass effect upon the left S1 nerve root. Moderate facet arthropathy noted with a chronic right-sided laminectomy defect. No central canal stenosis. Bulging disc and osseous spurring result in moderate left foraminal encroachment and mild right foraminal narrowing. MR/MR lumbar spine wo con IMPRESSION: Moderate spondylosis at the L4-L5 level with a retrosubluxation and broad-based central disc protrusion in conjunction with endplate ridging which results in ventral thecal sac deformity and mild mass effect upon the left L5 nerve root. Mild central canal stenosis and moderate encroachment upon the subarticular zones. Chronic postoperative changes at L5-S1 with a broad-based central disc protrusion and endplate spurring with calcification of the annulus distorting the ventral thecal sac and resulting in mild mass effect upon the left S1 nerve root. Moderate facet arthropathy and moderate left foraminal narrowing. Mild retroperitoneal adenopathy, improved when compared to the prior abdominal CT examination.
== END 2021-09-10 14:55 | disposition home or self-care (01) ==
LOC: HO.MRI 14:54
PROVIDERS: Visit Provider Anesthesiology
DX: M96.1 Postlaminectomy syndrome, not elsewhere classified (principal); G89.4 Chronic pain syndrome; Z96.82 Presence of neurostimulator; Z79.891 Long term (current) use of opiate analgesic
CPT/HCPCS: 72148

== ENCOUNTER → 2021-09-15 09:03 | Outpatient (BNVA) | payer OTHER, SELFPAY | PROVIDERS: PCP Hospitalist; Visit Provider Nurse Practitioner Gerontology | DX: E11.649 Type 2 diabetes mellitus with hypoglycemia without coma (principal); E11.29 Type 2 diabetes mellitus with other diabetic kidney complication; E78.5 Hyperlipidemia, unspecified; R80.9 Proteinuria, unspecified; E66.09 Other obesity due to excess calories; Z68.35 Body mass index [BMI] 35.0-35.9, adult | CPT/HCPCS: 82947; 99212 ==

== ENCOUNTER → 2021-10-06 10:25 | Outpatient (BNVA) | payer OTHER, SELFPAY | PROVIDERS: PCP Hospitalist; Visit Provider Anesthesiology | DX: Z51.81 Encounter for therapeutic drug level monitoring (principal); M96.1 Postlaminectomy syndrome, not elsewhere classified; G89.4 Chronic pain syndrome; Z79.891 Long term (current) use of opiate analgesic; Z96.82 Presence of neurostimulator | CPT/HCPCS: 99212 ==

== ENCOUNTER → 2021-11-01 15:21 | Outpatient (BNVA) | payer OTHER, SELFPAY | PROVIDERS: PCP Hospitalist; Visit Provider Anesthesiology | DX: G89.4 Chronic pain syndrome (principal); M96.1 Postlaminectomy syndrome, not elsewhere classified; Z79.891 Long term (current) use of opiate analgesic | CPT/HCPCS: 99212 ==

== ENCOUNTER → 2021-12-08 14:52 | Outpatient (BNVA) | payer OTHER, SELFPAY | PROVIDERS: PCP Hospitalist; Visit Provider Anesthesiology | DX: M96.1 Postlaminectomy syndrome, not elsewhere classified (principal); G89.4 Chronic pain syndrome; E11.65 Type 2 diabetes mellitus with hyperglycemia; E11.29 Type 2 diabetes mellitus with other diabetic kidney complication; E66.01 Morbid (severe) obesity due to excess calories; R80.9 Proteinuria, unspecified; J30.2 Other seasonal allergic rhinitis; Z68.37 Body mass index [BMI] 37.0-37.9, adult; Z88.0 Allergy status to penicillin; Z88.8 Allergy status to other drugs, medicaments and biological substances; Z79.891 Long term (current) use of opiate analgesic | CPT/HCPCS: 99212 ==

== ENCOUNTER 2021-12-17 12:56 | Day surgery (SDC) | payer OTHER, SELFPAY ==
--- NOTE | ~2021-12-17 | FL_ITS ---
EXAMINATION: XR FLUOROSCOPY WITH IMAGES CLINICAL INFORMATION: TFESI. COMPARISON: None. TECHNIQUE: Fluoroscopy performed by Dr. Catrachito Stanley. Fluoroscopy time: 0.2 minutes DAP: 1.9 mGy-cm2 Images: 1 FINDINGS: Images demonstrate needle placement and contrast injection adjacent to the left lateral L4 vertebral body. FL/FL guidance in OR IMPRESSION: Fluoroscopy guidance for pain management procedure.
[2021-12-17 12:37] VITALS: BMI 37.5
--- NOTE | 2021-12-17 12:40 | HO.ANESPROP2 ---
[facility] Active Problems Active Problems: All Active Problems (Updated 06/29/21 @ 14:19 by Antolin Adams MD) Diarrhea (Acute) Nausea (Acute) Low blood pressure reading (Acute) Proteinuria (Acute) Type 2 diabetes mellitus with other diabetic kidney complication (Acute) Fatigue (Acute) Type 2 diabetes mellitus with hyperglycemia, with long-term current use of insulin (Acute) Hyperlipidemia LDL goal <100 (Acute) Obesity due to excess calories (Acute) BMI 37.0-37.9, adult (Acute) 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, uncontrolled (Acute) Bursitis of both hips (Acute) Yeast infection involving the vagina and surrounding area (Acute) nursing home (current) use of opiate analgesic (Acute) Chronic pain syndrome (Acute) Postlaminectomy syndrome, lumbar (Acute) Past Medical History Medical History Asthma BMI 37.0-37.9, adult Chronic pain syndrome 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, uncontrolled Hyperlipidemia LDL goal <100 nursing home (current) use of opiate analgesic Obesity due to excess calories PCOS (polycystic ovarian syndrome) Postlaminectomy syndrome, lumbar Proteinuria Sleep apnea Type 2 diabetes mellitus with hyperglycemia, with long-term current use of insulin Type 2 diabetes mellitus with other diabetic kidney complication Family History Family History Father Diabetes Hypertension Mother Asthma Surgical History Surgical History History of carpal tunnel release History of lumbar surgery History of removal of cyst History of tonsillectomy Hx of spinal surgery History of Problems with Anesthesia: No Social History Social History Household Members: Children Housing: Apartment Alcohol intake: current Alcohol intake frequency: holidays/special occasions only Patient Tobacco Use Status: Current everyday Tobacco user Cigarettes Per Day: 10 Use of substances other than those prescribed or required for medical reasons: No Are you DNR?: No Advance Directives: No Advance Directives Information Provided: Yes Current occupational status: disabled Meds Allergies Allergy/AdvReac Type Severity Reaction Status Date / Time amoxicillin [From AUGMENTIN] AdvReac Intermediate VOMITING/DE Verified 11/01/21 15:57 HYDRATION NSAIDS (Non-Steroidal AdvReac Intermediate BLEEDING Verified 11/01/21 15:57 Anti-Inflamma [NSAIDS (NON-STEROIDAL ANTI-INFLAMMA] seasonal Allergy Intermediate Itchy Eyes Uncoded 09/15/21 09:23 Home Medications Medication Instructions Recorded Confirmed Last Taken Type cetirizine 10 mg tablet 10 mg PO DAILY PRN 08/03/20 12/01/21 Unknown History omeprazole 20 mg capsule,delayed 20 mg PO DAILY 08/03/20 12/01/21 Unknown History release solriamfetol 150 mg tablet 150 mg PO BEDTIME 05/06/21 12/01/21 Unknown History Exam Exam Date and Time: December 17, 2021 1240 Height,Weight and Vital Signs: Height 5 ft 3 in Weight 96.162 kg Airway Mallampati Class: II TM Dist: >3cm Neck ROM: Full Loose/Missing/Broken Teeth: No Heart: RRR Lungs: CTA Assessment and Plan Assessment Anesthesia Assessment: Anesthesia Plan Discussed and Chart Reviewed Final Anesthetic Review History of Problems with Anesthesia: No NPO: Yes ASA Class: III Final Preanesthetic Review: Meds/Allgs Chart Reviewed, Consent Obtained/Reviewed and Anes Risks/Benef Reviewed Patient Risk: Intermediate Procedure Risk: Low Anesthetic Plan Anesthetic Plan: MAC: Disposition: Standard PACU
[2021-12-17 13:04] VITALS: BP 155/78; PULSE 84; RESP 18; TEMP 36.4; O2SAT 97
[2021-12-17 13:04] LABS: Glucose, Whole Blood 145 mg/dL (60-115)
[2021-12-17 13:12] LABS: UPreg QC Valid YES; Urine Pregnancy NEGATIVE (NEGATIVE)
--- NOTE | 2021-12-17 13:21 | P.HPSUR_ITS ---
Pre-Procedural Eval Section A Date of Service: 12/17/21 The patient is an INPATIENT: No Changes since office visit: Yes Patient answered all questions The History & Physical has been completed within 30 days and I have reviewed it.: No Section B Chief Complaint: intervertebral disc degeneration lumbar Details of Present Illness: as above Relevant Family History (Specify if Yes): No Relevant Social History: None Present Medications: see Short Stay Collaborative assessment Medical History: No relevant PMH History of Previous Operations: Relevant previous surgery/procedure and date(s) Allergies: Allergies Allergy/AdvReac Type Severity Reaction Status Date / Time amoxicillin [From AUGMENTIN] AdvReac Intermediate VOMITING/DE Verified 11/01/21 15:57 HYDRATION NSAIDS (Non-Steroidal AdvReac Intermediate BLEEDING Verified 11/01/21 15:57 Anti-Inflamma [NSAIDS (NON-STEROIDAL ANTI-INFLAMMA] seasonal Allergy Intermediate Itchy Eyes Uncoded 09/15/21 09:23 Review of Systems Sugical H&P ROS: Negative: Constitution, Cardiovascular, Respiratory, Neurological, Psychiatric, Hem-Onc, Allergic/Immunologic, Gastrointestinal, Genitourinary, Musculoskeletal, Integumentary, Endocrine and Eyes/Ears/Nose/Throat Exam Surgical H&P Exam: Normal: HEENT, Normal: Heart, Normal: Lungs, Normal: Extremit ies, Normal: Abdomen, Normal: Skin and Normal: Neurological Plan Diagnosis/Plan: Unchanged I have reviewed the history and physical and performed a pertinent physical examination on my patient. No changes have occurred unless specified.
[2021-12-17 13:51] VITALS: BP 156/80; PULSE 86; RESP 16; TEMP 36.4; O2SAT 96
--- NOTE | 2021-12-17 13:54 | P.BOP_ITS ---
Brief Operative Note Date of Service: 12/17/21 Pre-op diagnosis: disc degeneration lumbar spine Post-op diagnosis: same Procedure: TFESI Left L4- L5 Surgeon: Catrachito Stanley MD Anesthesia: MAC Was an Medical Anthropology Director used for this Procedure?: No Estimated blood loss (mL): 0 Pathology: none sent Condition: stable Disposition: PACU
--- NOTE | 2021-12-17 13:54 | W.PM.OPN ---
Operative Note Operative Note Date of Service: 12/17/21
--- NOTE | 2021-12-17 13:54 | W.PM.OPN ---
Operative Note Operative Note Date of Service: 12/17/21 Narrative: Carlota is very pleasant pleasant 51 years old female who came to OR for the transforaminal epidural steroid injection S attempt to treat the pain radiating to the left lower extremity. This patient is suffering from postlaminectomy syndrome. She has spinal cord stimulator [employer] which helped to alleviate her pain minimally. Informed consent was obtained all questions were answered. The patient came to the operating room where she was positioned prone repeating table. Lower back of the patient was prepped with ChloraPrep and draped with sterile utility towels. Sq image of the L4 vertebra was demonstrated on the screen. Tilting machine ipsilateral into the left oblique image of the left L4 pedicle was demonstrated on the screen. 3 mm below the lowest point of the pedicle projection to the skin injection of the lidocaine 2% was performed into the skin of the patient. After that 22 gauge 5 in needle was inserted through the skin wheal and was advanced to were the L4-5 foramina on anterior posterior and oblique views. When tip of the needle entered into the silhouette of the spinal canal injection of the contrast was performed demonstrating anterior epidural spread of the contrast. After that 3 cc of lidocaine preservative-free 1% mixed with Kenalog 40 mg was injected into the needle. Upon completion of the injection the needle was removed sterile dressing was applied. The patient tolerated procedure well. She was taking outside of the operating room to recovery room where she recovered uneventfully.
[2021-12-17] MEDS: oxyCODONE HCl Immed Release 5 MG TABLET 10 MG PO (14:05)
[2021-12-17 14:06] VITALS: BP 149/86; PULSE 81; RESP 16; TEMP 36.4; O2SAT 96
[2021-12-17 14:21] VITALS: BP 145/83; PULSE 78; RESP 18; TEMP 36.4; O2SAT 97
== END 2021-12-17 15:17 | disposition home or self-care (01) ==
PROVIDERS: PCP Hospitalist; Visit Provider Anesthesiology
PROC: (CPT 64483; principal; 2021-12-17 14:10)
DX: M51.36 Other intervertebral disc degeneration, lumbar region (principal); M96.1 Postlaminectomy syndrome, not elsewhere classified; G89.4 Chronic pain syndrome; Z79.891 Long term (current) use of opiate analgesic; J45.909 Unspecified asthma, uncomplicated; E78.5 Hyperlipidemia, unspecified; G47.33 Obstructive sleep apnea (adult) (pediatric); E66.09 Other obesity due to excess calories; Z68.37 Body mass index [BMI] 37.0-37.9, adult; Z99.89 Dependence on other enabling machines and devices; E11.29 Type 2 diabetes mellitus with other diabetic kidney complication; N28.9 Disorder of kidney and ureter, unspecified; E11.65 Type 2 diabetes mellitus with hyperglycemia; Z79.4 Long term (current) use of insulin; Z88.0 Allergy status to penicillin; Z88.8 Allergy status to other drugs, medicaments and biological substances; F17.210 Nicotine dependence, cigarettes, uncomplicated; Z98.890 Other specified postprocedural states; Z79.51 Long term (current) use of inhaled steroids
CPT/HCPCS: 64483; 81025; 82947; J2250; J3300; Q9967

== ENCOUNTER → 2022-01-05 11:42 | Outpatient (BNVA) | payer OTHER, SELFPAY | PROVIDERS: PCP Hospitalist; Visit Provider Anesthesiology | DX: Z51.81 Encounter for therapeutic drug level monitoring (principal); F11.20 Opioid dependence, uncomplicated | CPT/HCPCS: 99211 ==

== ENCOUNTER → 2022-02-02 11:36 | Outpatient (BNVA) | payer OTHER, SELFPAY | PROVIDERS: PCP Hospitalist; Visit Provider Anesthesiology | DX: Z51.81 Encounter for therapeutic drug level monitoring (principal); F11.20 Opioid dependence, uncomplicated | CPT/HCPCS: 99211 ==

== ENCOUNTER → 2022-03-02 16:14 | Outpatient (BNVA) | payer OTHER, SELFPAY | PROVIDERS: PCP Hospitalist; Visit Provider Anesthesiology | DX: Z13.89 Encounter for screening for other disorder (principal) ==

== ENCOUNTER → 2022-03-08 13:33 | Outpatient (BNVA) | payer OTHER, SELFPAY | PROVIDERS: PCP Hospitalist; Referring Provider Hospitalist; Visit Provider Physician Assistant | DX: K59.03 Drug induced constipation (principal); Z79.891 Long term (current) use of opiate analgesic | CPT/HCPCS: 99202 ==

== ENCOUNTER → 2022-03-30 15:55 | Outpatient (BNVA) | payer OTHER, SELFPAY | PROVIDERS: PCP Hospitalist; Visit Provider Anesthesiology | DX: Z79.891 Long term (current) use of opiate analgesic (principal) | CPT/HCPCS: 99211 ==

== ENCOUNTER → 2022-04-27 14:50 | Outpatient (BNVA) | payer OTHER, SELFPAY | PROVIDERS: PCP Hospitalist; Visit Provider Anesthesiology | DX: G89.4 Chronic pain syndrome (principal); M96.1 Postlaminectomy syndrome, not elsewhere classified; Z79.891 Long term (current) use of opiate analgesic | CPT/HCPCS: 99212 ==

== ENCOUNTER → 2022-05-03 11:02 | Outpatient (BNVA) | payer OTHER, SELFPAY | PROVIDERS: PCP Hospitalist; Referring Provider Hospitalist; Visit Provider Physician Assistant | DX: K59.03 Drug induced constipation (principal) | CPT/HCPCS: 99212 ==

== ENCOUNTER → 2022-05-25 15:32 | Outpatient (BNVA) | payer OTHER, SELFPAY | PROVIDERS: PCP Hospitalist; Visit Provider Anesthesiology | DX: G89.4 Chronic pain syndrome (principal); M96.1 Postlaminectomy syndrome, not elsewhere classified; Z79.891 Long term (current) use of opiate analgesic | CPT/HCPCS: 99212 ==

== ENCOUNTER → 2022-06-22 15:17 | Outpatient (BNVA) | payer OTHER, SELFPAY | PROVIDERS: PCP Hospitalist; Visit Provider Anesthesiology | DX: Z51.81 Encounter for therapeutic drug level monitoring (principal); F11.20 Opioid dependence, uncomplicated | CPT/HCPCS: 99211 ==

== ENCOUNTER → 2022-08-01 14:51 | Outpatient (BNVA) | payer OTHER, SELFPAY | PROVIDERS: PCP Hospitalist; Visit Provider Anesthesiology | DX: M96.1 Postlaminectomy syndrome, not elsewhere classified (principal); G89.4 Chronic pain syndrome; Z51.81 Encounter for therapeutic drug level monitoring; Z79.891 Long term (current) use of opiate analgesic | CPT/HCPCS: 99212 ==

== ENCOUNTER 2022-08-29 11:45 | Outpatient (REF) | payer OTHER, SELFPAY ==
[2022-08-29 14:38] LABS: Rheumatoid Factor < 13.0 IU/mL (<15.0)
[2022-08-29 14:43] LABS: Erythrocyte Sedimentation Rate 34 MM/HR (0-20)
[2022-08-30 15:06] LABS: CRP High Sensitivity >10.0 mg/L
== END 2022-08-29 11:46 | disposition home or self-care (01) ==
LOC: HO.WFDLDS 11:45
PROVIDERS: Visit Provider Hospitalist
DX: M19.90 Unspecified osteoarthritis, unspecified site (principal); Z82.61 Family history of arthritis
CPT/HCPCS: 36415; 85652; 86141; 86431

== ENCOUNTER → 2022-08-31 11:36 | Outpatient (BNVA) | payer OTHER, SELFPAY | PROVIDERS: PCP Hospitalist; Visit Provider Anesthesiology | DX: Z51.81 Encounter for therapeutic drug level monitoring (principal); F11.20 Opioid dependence, uncomplicated; M96.1 Postlaminectomy syndrome, not elsewhere classified; G89.4 Chronic pain syndrome | CPT/HCPCS: 99212 ==

== ENCOUNTER 2022-09-26 11:23 | Outpatient (REF) | payer OTHER, SELFPAY ==
[2022-09-28 14:37] LABS: CRP High Sensitivity 6.1 mg/L
== END 2022-09-26 11:24 | disposition home or self-care (01) ==
LOC: HO.WFDLDS 11:23
PROVIDERS: Visit Provider Hospitalist
DX: R79.82 Elevated C-reactive protein (CRP) (principal)
CPT/HCPCS: 36415; 86141

== ENCOUNTER → 2022-09-28 12:56 | Outpatient (BNVA) | payer OTHER, SELFPAY | PROVIDERS: PCP Hospitalist; Visit Provider Anesthesiology | DX: Z51.81 Encounter for therapeutic drug level monitoring (principal); F11.20 Opioid dependence, uncomplicated | CPT/HCPCS: 99211 ==

== ENCOUNTER → 2022-10-31 15:48 | Outpatient (BNVA) | payer OTHER, SELFPAY | PROVIDERS: PCP Hospitalist; Visit Provider Anesthesiology | DX: M96.1 Postlaminectomy syndrome, not elsewhere classified (principal); G89.4 Chronic pain syndrome; Z79.891 Long term (current) use of opiate analgesic | CPT/HCPCS: 99212 ==

== ENCOUNTER → 2022-11-30 15:13 | Outpatient (BNVA) | payer OTHER, SELFPAY | PROVIDERS: PCP Hospitalist; Visit Provider Anesthesiology | DX: G89.4 Chronic pain syndrome (principal); M96.1 Postlaminectomy syndrome, not elsewhere classified; Z79.891 Long term (current) use of opiate analgesic | CPT/HCPCS: 99212 ==

== ENCOUNTER 2022-12-13 06:00 | Outpatient (REF) | payer OTHER, SELFPAY ==
--- NOTE | ~2022-12-13 | FL_ITS ---
EXAMINATION: XR FLUOROSCOPY WITH IMAGES CLINICAL INFORMATION: G89.4 - Chronic pain syndrome COMPARISON: Fluoroscopic spot views spine 12/17/2021, 12/13/2019 TECHNIQUE: Fluoroscopy Supervised By: Dr. Catrachito Stanley. Fluoroscopy Time: 0.2 minutes. Cumulative Dose: 5.82 mGy. DAP: 1.47 Gycm2. Images: 2. FINDINGS: There is interlaminar spinal needle seen overlying mid lumbar spine at level L2-L3. There are again spinal stimulator leads again noted ascending the posterior spinal canal, beginning cephalad to the spinal needle towards the thoracic spine and beyond the [id number]. FL/FL guidance in treatment room IMPRESSION: Fluoroscopy for pain management procedure.
== END 2022-12-13 06:01 | disposition home or self-care (01) ==
LOC: CF 06:00
PROVIDERS: Visit Provider Anesthesiology
DX: M96.1 Postlaminectomy syndrome, not elsewhere classified (principal); G89.4 Chronic pain syndrome; Z79.891 Long term (current) use of opiate analgesic
CPT/HCPCS: 62323; J1170

== ENCOUNTER → 2022-12-19 10:50 | Outpatient (BNVA) | payer OTHER, SELFPAY | PROVIDERS: PCP Hospitalist; Visit Provider Anesthesiology | DX: G89.4 Chronic pain syndrome (principal); M96.1 Postlaminectomy syndrome, not elsewhere classified; Z79.891 Long term (current) use of opiate analgesic | CPT/HCPCS: 99212 ==

== ENCOUNTER → 2023-01-06 15:30 | Outpatient (BNVA) | payer OTHER, SELFPAY | PROVIDERS: PCP Hospitalist; Visit Provider Anesthesiology ==

== ENCOUNTER 2023-01-31 06:10 | Outpatient (REF) | payer OTHER, SELFPAY ==
--- NOTE | ~2023-01-31 | FL_ITS ---
EXAMINATION: XR FLUOROSCOPY WITH IMAGES CLINICAL INFORMATION: Chronic lower back pain COMPARISON: 12/13/2022 and 12/17/2021 TECHNIQUE: Fluoroscopy Supervised By: Dr. Catrachito Stanley. Fluoroscopy Time: 0.2 minutes. Cumulative Dose: 5.13 mGy. DAP: 1.4 Gycm2. Images: 1. FINDINGS: Lateral image of the lumbar spine demonstrates a needle projecting from a posterior approach to the L3-L4 disc space FL/FL guidance in treatment room IMPRESSION: Intraoperative fluoroscopy for pain management procedure.
== END 2023-01-31 06:11 | disposition home or self-care (01) ==
LOC: CF 06:10
PROVIDERS: Visit Provider Anesthesiology
DX: M96.1 Postlaminectomy syndrome, not elsewhere classified (principal); G89.4 Chronic pain syndrome; Z79.891 Long term (current) use of opiate analgesic
CPT/HCPCS: 62323; J2270; Q9965

== ENCOUNTER → 2023-02-06 15:28 | Outpatient (BNVA) | payer OTHER, SELFPAY | PROVIDERS: PCP Hospitalist; Visit Provider Anesthesiology | DX: M96.1 Postlaminectomy syndrome, not elsewhere classified (principal); G89.4 Chronic pain syndrome; Z79.891 Long term (current) use of opiate analgesic | CPT/HCPCS: 99212 ==

== ENCOUNTER → 2023-03-06 12:58 | Outpatient (BNVA) | payer OTHER, SELFPAY | PROVIDERS: PCP Hospitalist; Visit Provider Registered Nurse Emergency | DX: Z79.899 Other long term (current) drug therapy (principal); Z51.81 Encounter for therapeutic drug level monitoring | CPT/HCPCS: 99211 ==

== ENCOUNTER → 2023-04-04 13:12 | Outpatient (BNVA) | payer OTHER, SELFPAY | PROVIDERS: PCP Hospitalist; Visit Provider Registered Nurse Emergency | DX: Z51.81 Encounter for therapeutic drug level monitoring (principal); M96.1 Postlaminectomy syndrome, not elsewhere classified; G89.4 Chronic pain syndrome; Z79.891 Long term (current) use of opiate analgesic | CPT/HCPCS: 99212 ==

== ENCOUNTER 2023-05-02 11:27 | Outpatient (AMB) | payer OTHER, SELFPAY ==
--- NOTE | 2023-05-02 11:29 | MHC.OFFVIS ---
Intake Vital Signs 05/02/23 11:31 Height 5 ft 2 in Weight 217 lb BMI 39.7 BP 154/69 H Blood Pressure Location Lt brachial Position Sitting Respiration 14 Pulse 79 Pulse Source Pulse Oximeter Intake Visit Reasons: Pill count/Random UDS Intake Note: Pt states she last took oxy 05/02/23 @ 9am. Pt was supposed to have 63 oxy, she presented 56. Marceilna verified with the pharmacy that Pt picked her script up on 04/23, not 04/21 Patient stated after Rose GRAHAM went into the room that she had another pill bottle in purse with extra tablets. Recounted with Shireen collection officer and total count with tabs from purse was 61 tablets. Patient is aware that at the time of the medication counts ALL medication needs to be in the same medication bottle at the time of the count, we will not except pills from her purse in the future. Patient was also sent for a random UDS, aware that she needs to have this done before 12pm today at the lab on the first floor of this building. Allergies amoxicillin [From Augmentin] Adverse Reaction (Severe, Verified 05/02/23 11:33) n/v/d clavulanic acid [From Augmentin] Adverse Reaction (Severe, Verified 05/02/23 11:33) n/v/d NSAIDS (Non-Steroidal Anti-Inflamma [NSAIDS (NON-STEROIDAL ANTI-INFLAMMA] Adverse Reaction (Intermediate, Verified 05/02/23 11:33) BLEEDING seasonal Allergy (Intermediate, Uncoded 05/02/23 11:33) Itchy Eyes clavulonic acid Adverse Reaction (Severe, Uncoded 05/02/23 11:33) Vomiting Medication List - Last Reconciled 05/02/23 by Isabel Campbell LPN albuterol sulfate 90 mcg/actuation 2 puffs PO Q6H PRN albuterol sulfate mg inhalation atorvastatin 40 mg PO DAILY blood sugar diagnostic (FreeStyle Lite Strips) 1 strip miscellaneous TID-QID celecoxib (Celebrex) 100 mg PO BID 30 days cetirizine 10 mg PO DAILY PRN clonidine HCl 0.1 mg PO BID PRN 30 days diabetic supplies, miscellan. As directed diphenhydramine HCl (Banophen) 25 mg PO BEDTIME PRN flash glucose scanning reader (S[employer] IdeasStyle Bettye 2 [place]) As directed flash glucose sensor (FreeStyle Bettye 2 Sensor kit) As directed every 2 weeks fluticasone propionate 50 mcg/actuation (Allergy Relief (fluticasone)) 2 sprays intranasal DAILY 1 month gabapentin 600 mg PO TID PRN 30 days hydroxyzine HCl 25 mg PO BID PRN 30 days insulin aspart U-100 20 - 30 units (0.2 - 0.3 mL) subcut TID 90 days insulin degludec (Tresiba FlexTouch U-200 insulin) 60 units (0.3 mL) subcut DAILY 30 days lancets 3 to 4 time a day blood sugar checks. linaclotide (Linzess) 72 mcg PO DAILY 30 days lisinopril 2.5 mg PO DAILY magnesium oxide 500 mg PO DAILY metformin ER 1,000 mg (2 x 500 mg) PO BID montelukast (Singulair) 10 mg PO BEDTIME omeprazole 20 mg PO DAILY 90 days oxycodone 10 mg PO TID PRN 30 days pen needle, diabetic tid insulin administration HPI HPI Comments History of Present Illness Details Carlota is a pleasant 52 year old female who presents to the office for follow up chronic pain and chronic opioid therapy management. She prescribed Oxycodone 10mg tablets, take one tablet three times daily as needed. Patient arrived today with the expectation of having 63 pills. Initially she presented 56 pills which were counted in the presence of 2 staff and return to the patient in the original prescription bottle. She was advised that her pill count was short greater than 2 days supply and would result in a suspension. She stated she had other pills in her purse and presented a second prescription bottle for oxycodone with her name and on the original pharmacy label from the previous month. Patient reports she locks the majority of her oxycodone tabs in a lockbox as advised but keeps 1-2 days worth in the second bottle that she carries with her. She is concerned that her purse is not secure and she could lose the bottle or someone could steal her purse so she does not want to carry the entire prescription with her. This demonstrates responsible attitude toward patient's opioid medications. Pain is reported today as 8/10 and last dose of pain medication was taken this morning. Patient denies any recent changes or exacerbations of chronic back pain and states she is able to engage in activities of daily living with the benefit she receives from her chronic opioid therapy. Patient denies untoward effects of her opioid medication including constipation, weakness, somnolence, dizziness, nausea or vomiting. Patient is still interested in trial for IDDD as previously discussed with Dr Stanley. She has trialed with morphine which provided minimal benefit and dilaudid which she had great pain relief but also side effects of nausea/vomiting. She would like to try again with dilaudid if possible, dilaudid is the only thing that helps when I'm in the hospital . Prior: Carlota is back in my office after the trial I DDD with with morphine which was performed on 01/31/2023.? She does not report the same pain evaluation as it was with Dilaudid in September.? She received 150 micro g of morphine intrathecally.? However the patient developed what looks like post dural puncture headache immediately after the procedure.? The headache went away on itself however now we are not ready to implant anything for the patient.? I suggested that we might try in the future instead of fentanyl to go ahead with bupivacaine injections small dose intrathecally and have bupivacaine as the main medication in the intrathecal space if results of the trial will have no side effects and will have good pain relief.? I warned her that she may experience weakness in bilateral lower extremities after bupivacaine injection however the weakness will be only transient. We decided to wait a month or two PA and schedule the bupivacaine trial later. Prior:? Dilaudid which was performed of 10/06/2023.? The patient reports absence of pain for the 1st 48 hours after the procedure.? However she reports severe nausea and vomiting after surgery.? This is unwanted side effects.? I offered her reach trial with morphine versus read trial with fentanyl.? The patient reported that in the past she was taking morphine as a pain medication orally.? She denies any side effects.? I will try to perform the procedure with 150 mcg intrathecally? [facility] Medical History Asthma BMI 37.0-37.9, adult Chronic pain syndrome 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, uncontrolled Hyperlipidemia LDL goal <100 residential (current) use of opiate analgesic Obesity due to excess calories PCOS (polycystic ovarian syndrome) Postlaminectomy syndrome, lumbar Proteinuria Sleep apnea Type 2 diabetes mellitus with hyperglycemia, with long-term current use of insulin Type 2 diabetes mellitus with other diabetic kidney complication Surgical History History of carpal tunnel release History of lumbar surgery History of removal of cyst History of tonsillectomy Hx of spinal surgery Family History Father Diabetes Hypertension Mother Asthma Social History Household Members: Children Housing: Apartment Alcohol intake: current Alcohol intake frequency: holidays/special occasions only Patient Tobacco Use Status: Current everyday Tobacco user Cigarettes Per Day: 10 e-Cigarette/Vaping Use: Never Used service: No Current occupational status: disabled Current occupational exposures/hazards: No Cognitive needs: No Hearing needs: No Vision needs: Yes Review of Systems Const All systems reviewed & are unremarkable except as noted in HPI and below Physical Exam Vital Signs: Last Vital Signs Pulse 79 05/02/23 11:31 Resp 14 05/02/23 11:31 BP 154/69 H 05/02/23 11:31 BMI result Body Mass Index 39.7 General: awake, alert, oriented. Answers questions appropriately. Fully engaged in examination. Skin: warm, dry, intact without visible rashes or lesions. HEENT: Normocephalic. Conjuntivae clear without exudate. Sclera non-icteric. Hearing intact. Cardiac: External chest normal in appearance. Respiratory: No signs of trauma. No signs of respiratory distress. No cough, audible wheezing or stridor. Abdomen: without gross distension. MS: No obvious swelling or deformities. Ambulates with steady gait. Neurological: Oriented to person, place, time and situation. Thought process intact. No gait abnormalities appreciated. Psychiatric: Appropriate mood and affect. Good judgment and insight. Assessment & Plan Assessment & Plan (1) Postlaminectomy syndrome, lumbar: Code(s): M96.1 - Postlaminectomy syndrome, not elsewhere classified (2) Chronic pain syndrome: Code(s): G89.4 - Chronic pain syndrome (3) residential (current) use of opiate analgesic: Comment: Pain Management-chronic pain/back Code(s): Z79.891 - residential (current) use of opiate analgesic Plan [place] was reviewed and without concerns. Patient educated today on proper storage and handling of her opioid medications. She was advised that in the future, current original prescription bottle must be presented with all remaining opioid medication for the pill count. No additional pills, in prescription bottles or not, will be included in any pill counts. If pill count is off per the contract it will result in a suspension from the opioid program; she will remain eligible for interventional procedures. Patient verbalized understanding. Will send in prescription for oxycodone 10mg po tid #90 no refills with an advanced date of 05/23/2023. Patient has narcan at home, trained in use. Random UDS ordered today. Patient would like to proceed with IDDD, has been cleared by psych. Will discuss case with Dr Stanley and schedule for trial per his instruction. Per previous note from Dr Stanley: She reported absence of pain for 48 hours after the trial of Dilaudid. However she reported for 6 hours of severe intractable nausea vomiting. Trial of morphine 150 mcg resulted an substantial less pain improvement compared to Dilaudid. On top of that she developed transient post dural puncture headache. Will wait for couple of months and let her dura matter heal before new trial. I suggest bupivacaine as the start next time. She would need to understand to suspend her opioid medications for 6 weeks before the implant if she likes results of the trial. To help her with opioid withdrawal I will start her on clonidine is 0.1 mg b.i.d. p.r.n. opioid withdrawal as well as hydroxyzine 25 mg p.r.n. opioid withdrawal q.d. Patient to follow-up in the office in 1 month, sooner if needed. All questions and concerns have been answered and patient agrees with the plan. 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
[2023-05-02 11:31] VITALS: BP 154/69; PULSE 79; RESP 14; BMI 39.7
== END 2023-05-02 12:16 | disposition home or self-care (01) ==
PROVIDERS: PCP Hospitalist; Visit Provider Registered Nurse Emergency
DX: M96.1 Postlaminectomy syndrome, not elsewhere classified (principal); G89.4 Chronic pain syndrome; Z79.891 Long term (current) use of opiate analgesic
CPT/HCPCS: 99213

== ENCOUNTER → 2023-05-02 11:27 | Outpatient (BNVA) | payer OTHER, SELFPAY | PROVIDERS: PCP Hospitalist; Visit Provider Registered Nurse Emergency | DX: M96.1 Postlaminectomy syndrome, not elsewhere classified (principal); Z79.891 Long term (current) use of opiate analgesic; G89.4 Chronic pain syndrome | CPT/HCPCS: 99212 ==

== ENCOUNTER 2023-05-22 09:56 | Outpatient (AMB) | payer OTHER, SELFPAY ==
--- NOTE | 2023-05-22 10:03 | MHC.PC.OV ---
Vital Signs 05/22/23 10:05 Height 5 ft 2 in Weight 218 lb 6 oz BMI 39.9 BP 138/72 Blood Pressure Location Rt brachial Position Sitting Respiration 14 Pulse 82 Pulse Source Pulse Oximeter Temp 96.5 F L Temp Source Temporal Artery Scan Pulse Oximetry (%) 95 Oxygen Delivery Method Room Air Intake Visit Reasons: A1C, Medication Issue, Cough Intake Note: Patient presents today for a 3 month follow up for diabetes with a last A1C of 9.5 on 01/16/23. Patient reports she has not had Metformin for about 1 month due to the pharmacy not receiving refills. Patient recalls she is not able to take her Trulicity due to the harsh side effects. The other medication patient has not been able to refill is her lisinopril due to pharmacy states they are waiting for a refill. Patient states she has had a cough from seasonal allergic reaction. This cough began at the end of February 2023 and has not subsided. Patient states the cough wakes her up at night and she has tried cough medicines OTC (i.e. nyquil, robitussin) with no relief. Home Health Assistant Required: No Accompanied by: Self / Same As Patient Allergies amoxicillin [From Augmentin] Adverse Reaction (Severe, Verified 05/22/23 10:16) n/v/d clavulanic acid [From Augmentin] Adverse Reaction (Severe, Verified 05/22/23 10:16) n/v/d NSAIDS (Non-Steroidal Anti-Inflamma [NSAIDS (NON-STEROIDAL ANTI-INFLAMMA] Adverse Reaction (Intermediate, Verified 05/22/23 10:16) BLEEDING seasonal Allergy (Intermediate, Uncoded 05/22/23 10:16) Itchy Eyes clavulonic acid Adverse Reaction (Severe, Uncoded 05/22/23 10:16) Vomiting Medication List - Last Reconciled 05/22/23 by Buddy Martin, PUBLICATIONS SALES REPRESENTATIVE albuterol sulfate 90 mcg/actuation 2 puffs PO Q6H PRN albuterol sulfate mg inhalation atorvastatin 40 mg PO DAILY blood sugar diagnostic (FreeStyle Lite Strips) 1 strip miscellaneous TID-QID celecoxib 100 mg PO BID cetirizine 10 mg PO DAILY PRN clonidine HCl 0.1 mg PO BID PRN 30 days diabetic supplies, miscellan. As directed diphenhydramine HCl (Banophen) 25 mg PO BEDTIME PRN flash glucose scanning reader (FreeStyle Bettye 2 Stirling) As directed flash glucose sensor (FreeStyle Bettye 2 Sensor kit) As directed every 2 weeks fluticasone propionate 50 mcg/actuation (Allergy Relief (fluticasone)) 2 sprays intranasal DAILY 1 month gabapentin 600 mg PO TID PRN 30 days hydroxyzine HCl 25 mg PO BID PRN 30 days insulin aspart U-100 20 - 30 units (0.2 - 0.3 mL) subcut TID 90 days insulin degludec (Tresiba FlexTouch U-200 insulin) 60 units (0.3 mL) subcut DAILY 30 days lancets 3 to 4 time a day blood sugar checks. linaclotide (Linzess) 72 mcg PO DAILY 30 days lisinopril 2.5 mg PO DAILY magnesium oxide 500 mg PO DAILY metformin ER 1,000 mg (2 x 500 mg) PO BID montelukast (Singulair) 10 mg PO BEDTIME omeprazole 20 mg PO DAILY 90 days oxycodone 10 mg PO TID PRN 30 days pen needle, diabetic tid insulin administration Tobacco use date assessed: 01/16/23 Dental Screening Dental Screen Date: 05/22/23 Did you have a dental visit in the last 12 months?: No Did you have a dental problem in the last 6 months where you did not have access to dental care?: No Was dental information given to patient?: Patient has dentist HPI HPI Comments History of Present Illness Details 52-year-old female presents for diabetes follow-up. She states she ran out of metformin a month ago; she is on 1000 mg twice daily. She has also been out of lisinopril for the past 2 months. She states she has been taking Tresiba every night as prescribed. She was followed by [facility] end[facility]inology. She notes she was discharged in December 2021 and was told to follow-up with her PCP for management of her diabetes. She states she is followed by Ophthalmology and had a normal eye exam on 03/30/2023. She reports intermittent nonproductive cough since February; the cough interrupts her sleep; she attributes her symptoms to seasonal allergy. Cetirizine, montelukast, and Benadryl, and vbgd-vmv-qzqjzcu remedies have not provided relief. She has not had blood work in 2 years. [facility] Medical History Asthma BMI 37.0-37.9, adult Chronic pain syndrome 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, uncontrolled Hyperlipidemia LDL goal <100 intermediate (current) use of opiate analgesic Obesity due to excess calories PCOS (polycystic ovarian syndrome) Postlaminectomy syndrome, lumbar Proteinuria Sleep apnea Type 2 diabetes mellitus with hyperglycemia, with long-term current use of insulin Type 2 diabetes mellitus with other diabetic kidney complication Surgical History History of carpal tunnel release History of lumbar surgery History of removal of cyst History of tonsillectomy Hx of spinal surgery Family History Father Diabetes Hypertension Mother Asthma Social History Household Members: Children Housing: Apartment Alcohol intake: current Alcohol intake frequency: holidays/special occasions only Patient Tobacco Use Status: Current everyday Tobacco user Cigarettes Per Day: 10 e-Cigarette/Vaping Use: Never Used service: No Current occupational status: disabled Current occupational exposures/hazards: No Cognitive needs: No Hearing needs: No Vision needs: Yes Questionnaire Thrive Questionnaire Date Thrive assessed: 04/21/22 EDWIGE-7 AMB Questionnaire EDWIGE-7 Date EDWIGE - 7 assessed: 04/21/22 Source: Developed by Drs. Yrn Alexander, Frieda Rivera, John Archuleta and colleagues, with an educational cerdick from [employer]. Review of Systems Const Details: Const Denies chills, Denies fatigue, Denies fever(s), Denies headache(s) and Denies weakness ENT Denies dizziness and Denies headache(s) Card Denies chest pain, Denies lightheadedness, Denies dyspnea and Denies other (Palpitations) Resp Reports cough, Denies dyspnea, Denies wheezing and Denies other ( shortness of breath) GI Denies abdominal pain, Denies melena, Denies hematochezia, Denies change in bowel habits, Denies dyspepsia and Denies nausea Denies hematuria and Denies dysuria Musc Denies abnormal gait, Denies myalgias, Denies arthralgias, Denies numbness and Denies tingling Skin/Breast Denies rash, Denies unusual bruising and Denies wounds Neuro Denies abnormal gait, Denies dizziness, Denies headache(s), Denies memory loss, Denies numbness, Denies Sensory deficit (Neuro), Denies tingling and Denies weakness Psych Denies anxiety, Denies depression, Denies memory loss Endo Denies cold intolerance, Denies fatigue, Denies heat intolerance, Denies polydipsia and Denies polyuria Aller/Immun Denies wheezing Physical exam (Primary Care) Vital Signs: Last Vital Signs Temp 96.5 F L 05/22/23 10:05 Pulse 82 05/22/23 10:05 Resp 14 05/22/23 10:05 BP 138/72 05/22/23 10:05 Pulse Ox 95 05/22/23 10:05 Oxygen Delivery Method Room Air 05/22/23 10:05 BMI result Body Mass Index 39.9 Tobacco/Smoking Status: Tobacco use Status Tobacco use date assessed 01/16/23 05/22/23 10:04 Patient Tobacco Use Status Current everyday Tobacco 05/22/23 10:04 e-Cigarette/Vaping Use Never Used 05/22/23 10:04 Thrive Assessment: Date of Thrive Assessment Date Thrive assessed 04/21/22 05/22/23 10:04 Const Other: General: no acute distress and well developed Nutritional Appearance: well nourished Orientation/consciousness: patient oriented x3 HENMT Head is normocephalic Bilateral ear canal and TM are normal Nasal turbinates and oropharynx are pink and moist Sinuses are nontender with palpation No auricular or cervical lymphadenopathyc Eyes General: appearance normal, both eyes and all related structures Pupils: Equal, round and reactive pupils present EOM: EOMs intact bilaterally Resp Effort & Inspection: normal respiratory effort Auscultation: clear to auscultation bilaterally Cardio Rate: regular rate Rhythm: regular rhythm Heart sounds: S1 normal heart sound present, S2 normal heart sound present, no gallops, no murmurs and no rubs GI Palpation (GI): No Abdominal aortic bruit present, Soft to palpation, nontender, No hepatosplenomegaly present and No Rebound tenderness present Auscultation: normal bowel sounds General: Yes no CVA tenderness Back/Spine/Pelvis Back: no CVA tenderness Cervical Spine: cervical ROM normal and No Cervical spine tenderness Thoracic/Lumbar Spine: thoraco-lumbar ROM normal, No pain with thoraco-lumbar ROM, No thoracic spinal tenderness and No lumbar spinal tenderness Extrem General: Yes normal to inspection, No edema and No calf tenderness Skin General: warm and dry. Normal skin color. Normal skin turgor Lesions: no lesions Rashes: no rashes Trauma: no lacerations or abrasions Wounds: no wounds Nails: normal Neuro General: patient oriented x3, gait normal and no focal neuro deficit Cranial nerves: Yes Equal, round and reactive pupils present Cognition (Neuro): normal cognition Gait exam (Neuro): Normal gait present Sensory Exam: No Sensory deficit (Neuro) Psych Appearance: grossly normal Affect: normal affect Attitude: cooperative Thought process: Normal thought process present Results AMB Hemoglobin A1c AMB Hemoglobin A1c 10.9 % Last Edit by Lyla Rhoades on 05/22/23 10:30 Assessment and Plan Assessment & Plan (1) Type 2 diabetes mellitus with hyperglycemia, with long-term current use of insulin: Code(s): E11.65 - Type 2 diabetes mellitus with hyperglycemia; Z79.4 - 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 Take as prescribed Also refilled lisinopril. Take as prescribed continue to take Tresiba as prescribed ADA diet and routine exercise encouraged Labs ordered Follow-up with PCP in 3 months or return sooner with symptoms or concerns Verbalized understanding and agreed with treatment plan. (2) Cough: Code(s): R05.9 - Cough, unspecified Plan: She reports intermittent nonproductive cough since February; the cough interrupts her sleep; she attributes her symptoms to seasonal allergy. Cetirizine, montelukast, and Benadryl, and xcaf-sfo-sbhytfs remedies have not provided relief. Likely allergies, though possibly viral illness No exam evidence of bacterial infection Viral illness There is no antibiotic medication for viruses.? They must run their course.? Most average 5-7 days but 7-10 days is not uncommon and up to 14 days is still possible.? A cough is often the last symptom to resolve and this can last for weeks in some cases. Rest Hydrate well -? Drink plenty of fluids.? Especially water. Tylenol or ibuprofen for muscle aches, headache, fever/discomfort Allergies Continue with current treatment regimen Dextromethorphan as prescribed Return for new or worsening symptoms Verbalized understanding and agreed with treatment plan. Orders: Orders Complete Blood Count Auto Diff Today E11.65 - Type 2 diabetes mellitus with hyperglycemia, Z79.4 - intermediate (current) use of insulin Comprehensive [place]. Panel Fast Today E11.65 - Type 2 diabetes mellitus with hyperglycemia, Z79.4 - intermediate (current) use of insulin Lipid Panel Today E11.65 - Type 2 diabetes mellitus with hyperglycemia, Z79.4 - middle or intermediate school principal (current) use of insulin TSH reflex Free T4 Today E11.65 - Type 2 diabetes mellitus with hyperglycemia, Z79.4 - middle or intermediate school principal (current) use of insulin Microalbumin, Random (w Creat) Today E11.65 - Type 2 diabetes mellitus with hyperglycemia, Z79.4 - intermediate (current) use of insulin AMB Hemoglobin A1c Today Z13.9 - Encounter for screening, unspecified Medications: New dextromethorphan HBr 20 mg (15 mL) PO TID 5 days PRN 118 mL 1RF cough Refilled lisinopril 2.5 mg PO DAILY 90 tabs 1RF metformin ER 1,000 mg (2 x 500 mg) PO BID 360 tabs 1RF E11.65 - Type 2 diabetes mellitus with hyperglycemia, Z79.4 - middle or intermediate school principal (current) use of insulin Coding Level of Care Code Est Pt Level 3 (51557) Diagnoses Type 2 diabetes mellitus with hyperglycemia, with long-term current use of insulin E11.65; Z79.4 Cough R05.9
[2023-05-22 10:05] VITALS: BP 138/72; PULSE 82; RESP 14; TEMP 35.8; O2SAT 95; BMI 39.9
== END 2023-05-22 10:52 | disposition home or self-care (01) ==
PROVIDERS: PCP Hospitalist; Visit Provider Nurse Practitioner Family
DX: E11.65 Type 2 diabetes mellitus with hyperglycemia (principal); Z79.4 Long term (current) use of insulin; R05.9 Cough, unspecified
CPT/HCPCS: 99213

== ENCOUNTER 2023-05-22 10:55 | Outpatient (REF) | payer OTHER, SELFPAY ==
[2023-05-22 14:16] LABS: MANUAL DIFF FLAG NO
[2023-05-22 14:31] LABS: Basophils Absolute Auto 0.1 X10*3/uL (0.0-0.2); Basophils Percent Auto 0.7 % (0-2); Eosinophils Absolute Auto 0.4 X10*3/uL (0.0-0.4); Hematocrit 42.1 % (37.0-47.0); Hemoglobin 12.8 g/dl (12.0-16.0); Imm Gran Abs Auto 0.05 X10*3/uL (0.00-0.03); Imm Gran Pct Auto 0.4 % (0.0-0.4); Lymphocytes Absolute Auto 2.7 X10*3/uL (1.2-4.9); Lymphocytes Percent Auto 21.8 % (20-40); Mean Corpuscular HGB Conc 30.4 g/dl (31.0-35.0); Mean Corpuscular Hemoglobin 26.1 pg (27.0-33.0); Mean Corpuscular Volume 85.7 fL (80.0-98.0); Mean Platelet Volume 10.3 fL (9.4-12.3); Monocytes Absolute Auto 0.7 X10*3/uL (0.1-1.2); Monocytes Percent Auto 5.8 % (2-11); Neutrophils Absolute Auto 8.4 x10*3/uL (2.0-8.3); Neutrophils Percent Auto 68.3 % (45-73); Platelet Count 332 X10*3/uL (160-400); Red Blood Count 4.91 X10*6/uL (4.20-5.50); Red Cell Distribution Width 15.2 % (11.0-16.0); White Blood Count 12.3 X10*3/uL (4.8-10.8)
[2023-05-22 15:04] LABS: Alanine Aminotransferase 30 U/L (0-31); Albumin Level 3.7 g/dL (3.5-5.0); Alkaline Phosphatase 98 U/L (39-117); Anion Gap 11 (12-20); Aspartate Amino Transferase 45 U/L (5-31); Bilirubin Total 0.8 mg/dL (0.0-1.0); Blood Urea Nitrogen 9 mg/dL (9-16); Calcium 9.3 mg/dL (8.4-10.2); Carbon Dioxide 29 mmol/L (22-29); Chloride 101 mmol/L (96-108); Cholesterol 143 mg/dL; Estimated Glomerular Filt Rate > 60; Glucose Fasting 234 mg/dL (60-99); HDL Cholesterol 29 mg/dL; LDL Cholesterol Calculated 80 mg/dl; Potassium 4.2 mmol/L (3.3-5.1); Sodium 137 mmol/L (135-145); Total Protein 7.4 g/dL (6.5-8.0); Triglycerides 170 mg/dL
[2023-05-22 15:09] LABS: TSH reflex Free T4 3.64 uIU/mL (0.32-4.0)
[2023-05-22 16:20] LABS: Creatinine Urine 167.09 mg/dL
[2023-05-22 16:33] LABS: Microalbum/Creatinine Ratio Ur 1046.7 ug/mg cr
== END 2023-05-22 10:56 | disposition home or self-care (01) ==
LOC: HO.WFDLDS 10:55
PROVIDERS: Visit Provider Nurse Practitioner Family
DX: E11.65 Type 2 diabetes mellitus with hyperglycemia (principal); Z79.4 Long term (current) use of insulin
CPT/HCPCS: 36415; 80053; 80061; 82043; 84443; 85025

== ENCOUNTER 2023-05-30 11:31 | Outpatient (AMB) | payer OTHER, SELFPAY ==
--- NOTE | 2023-05-30 11:56 | MHC.OFFVIS ---
Intake Intake Visit Reasons: PILL COUNT Allergies amoxicillin [From Augmentin] Adverse Reaction (Severe, Verified 05/22/23 10:16) n/v/d clavulanic acid [From Augmentin] Adverse Reaction (Severe, Verified 05/22/23 10:16) n/v/d NSAIDS (Non-Steroidal Anti-Inflamma [NSAIDS (NON-STEROIDAL ANTI-INFLAMMA] Adverse Reaction (Intermediate, Verified 05/22/23 10:16) BLEEDING seasonal Allergy (Intermediate, Uncoded 05/22/23 10:16) Itchy Eyes clavulonic acid Adverse Reaction (Severe, Uncoded 05/22/23 10:16) Vomiting HPI HPI Comments History of Present Illness Details Carlota is a pleasant 52 year old female who presents to the office today for follow up chronic pain and chronic opioid therapy management. Patient is prescribed oxycodone 10mg po TID prn. Patient arrived today with the expectation of having 69 pills, she presented 70 pills which were counted in the presence of two staff members and returned to the patient in the original prescription bottle. This demonstrates responsible attitude toward patient's opioid medications. Pain is reported today as 8/10 and last dose of pain medication was taken at 08:30 this morning. Pain is adequatelyl managed on current opioid regimen. Patient denies any recent changes or exacerbations of chronic back pain and states she is able to engage in activities of daily living with minimal interruption due to chronic pain. Patient denies side effects including somnolence, constipation, itching, dyspnea, rash, dizziness or weakness. Patient is interested in trial for IDDD as previously discussed with Dr Stanley. She has current Psych eval clearance for implant. Previous visit with Dr Stanley: Carlota is back in my office after the trial I DDD with with morphine which was performed on 01/31/2023.? She does not report the same pain evaluation as it was with Dilaudid in September.? She received 150 micro g of morphine intrathecally.? However the patient developed what looks like post dural puncture headache immediately after the procedure.? The headache went away on itself however now we are not ready to implant anything for the patient.? I suggested that we might try in the future instead of fentanyl to go ahead with bupivacaine injections small dose intrathecally and have bupivacaine as the main medication in the intrathecal space if results of the trial will have no side effects and will have good pain relief.? I warned her that she may experience weakness in bilateral lower extremities after bupivacaine injection however the weakness will be only transient. We decided to wait a month or two PA and schedule the bupivacaine trial later. Prior:? Dilaudid which was performed of 10/06/2023.? The patient reports absence of pain for the 1st 48 hours after the procedure.? However she reports severe nausea and vomiting after surgery.? This is unwanted side effects.? I offered her reach trial with morphine versus read trial with fentanyl.? The patient reported that in the past she was taking morphine as a pain medication orally.? She denies any side effects.? I will try to perform the procedure with 150 mcg intrathecally? [facility] Medical History Asthma BMI 37.0-37.9, adult Chronic pain syndrome 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, uncontrolled Hyperlipidemia LDL goal <100 director 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 (current) use of opiate analgesic Obesity due to excess calories PCOS (polycystic ovarian syndrome) Postlaminectomy syndrome, lumbar Proteinuria Sleep apnea Type 2 diabetes mellitus with hyperglycemia, with long-term current use of insulin Type 2 diabetes mellitus with other diabetic kidney complication Surgical History History of carpal tunnel release History of lumbar surgery History of removal of cyst History of tonsillectomy Hx of spinal surgery Family History Father Diabetes Hypertension Mother Asthma Social History Household Members: Children Housing: Apartment Alcohol intake: current Alcohol intake frequency: holidays/special occasions only Patient Tobacco Use Status: Current everyday Tobacco user Cigarettes Per Day: 10 e-Cigarette/Vaping Use: Never Used service: No Current occupational status: disabled Current occupational exposures/hazards: No Cognitive needs: No Hearing needs: No Vision needs: Yes Review of Systems Const All systems reviewed & are unremarkable except as noted in HPI and below Physical Exam General: awake, alert, oriented. Answers questions appropriately. Fully engaged in examination. Skin: warm, dry, intact without visible rashes or lesions. HEENT: Normocephalic. Conjuntivae clear without exudate. Sclera non-icteric. Hearing intact. Cardiac: External chest normal in appearance. Respiratory: No signs of trauma. No signs of respiratory distress. No cough, audible wheezing or stridor. Abdomen: without gross distension. MS: No obvious swelling or deformities. Ambulates with steady gait. Neurological: Oriented to person, place, time and situation. Thought process intact. No gait abnormalities appreciated. Psychiatric: Appropriate mood and affect. Good judgment and insight. Results Reviewed Results Reviewed: A neurostimulator device is partially visualized with electrode wires entering the canal in the interlaminar spaces at the L1-L2 and T12-L1 levels. There are no compression fractures. Mild retrosubluxation and moderate loss of disc height with reduced intradiscal signal evident at the L4-L5 level. There is severe disc space narrowing with disc degeneration and vacuum phenomenon at the L5-S1 level. No marrow or soft tissue edema visible. Mild leftward curvature of the lumbar spine evident. The paraspinal soft tissues are otherwise unremarkable. The imaged bony pelvis appears normal. CONUS MEDULLARIS AND CAUDA EQUINA: Normal, terminating at the level of L1. No lower cord signal abnormality is seen. The cauda equina nerve roots are normal. There are conspicuous retroperitoneal lymph nodes, also visible on the prior CT examination, slightly improved in appearance on the current study. SPINAL LEVELS: L1-L2 and L2-L3: No disc pathology. Bvxy-sb-ncvibxiz facet arthrosis. No central canal stenosis or foraminal narrowing. L3-L4: No disc pathology. Mild facet arthropathy without central canal stenosis or foraminal narrowing. L4-L5: Moderate disc space narrowing and retrosubluxation with a broad-based central disc protrusion and endplate ridging resulting in ventral thecal sac distortion and mild mass effect upon the left L5 nerve root. Hypertrophic facet arthropathy and mild central canal stenosis. Underlying disc bulge and ossific spurring result in mild right foraminal encroachment. L5-S1: When correlated to the prior CT study, there is a broad-based central disc protrusion with endplate spurring and calcification of the annulus resulting in impression upon the ventral thecal sac and mild mass effect upon the left S1 nerve root. Moderate facet arthropathy noted with a chronic right-sided laminectomy defect. No central canal stenosis. Bulging disc and osseous spurring result in moderate left foraminal encroachment and mild right foraminal narrowing. IMPRESSION: Moderate spondylosis at the L4-L5 level with a retrosubluxation and broad-based central disc protrusion in conjunction with endplate ridging which results in ventral thecal sac deformity and mild mass effect upon the left L5 nerve root. Mild central canal stenosis and moderate encroachment upon the subarticular zones. ? Chronic postoperative changes at L5-S1 with a broad-based central disc protrusion and endplate spurring with calcification of the annulus distorting the ventral thecal sac and resulting in mild mass effect upon the left S1 nerve root. Moderate facet arthropathy and moderate left foraminal narrowing. ? Mild retroperitoneal adenopathy, improved when compared to the prior abdominal CT examination. Assessment & Plan Assessment & Plan (1) Postlaminectomy syndrome, lumbar: Code(s): M96.1 - Postlaminectomy syndrome, not elsewhere classified (2) Chronic pain syndrome: Code(s): G89.4 - Chronic pain syndrome (3) director 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 (current) use of opiate analgesic: Comment: Pain Management-chronic pain/back Code(s): Z79.891 - prison (current) use of opiate analgesic Plan [place] was reviewed and without concerns. Will send in prescription for oxycodone 10mg po tid #90 no refills with an advanced date of 06/22/2023. Patient has narcan at home, trained in use. Patient would like to proceed with IDDD, has been cleared by psych. Procedure order placed for ITDDD trial with bupivicaine. Patient aware that she would need to stop opiates for 6 weeks prior to implant and is agreeable to plan. Per previous note from Dr Stanley: She reported absence of pain for 48 hours after the trial of Dilaudid. However she reported for 6 hours of severe intractable nausea vomiting. Trial of morphine 150 mcg resulted an substantial less pain improvement compared to Dilaudid. On top of that she developed transient post dural puncture headache. Will wait for couple of months and let her dura matter heal before new trial. I suggest bupivacaine as the start next time. She would need to understand to suspend her opioid medications for 6 weeks before the implant if she likes results of the trial. To help her with opioid withdrawal I will start her on clonidine is 0.1 mg b.i.d. p.r.n. opioid withdrawal as well as hydroxyzine 25 mg p.r.n. opioid withdrawal q.d. Patient to follow-up in the office in 1 month, sooner if needed. All questions and concerns have been answered and patient agrees with the plan. Coding Level of Care Code Est Pt Level 3 (32154) Diagnoses Postlaminectomy syndrome, lumbar M96.1 Chronic pain syndrome G89.4 director 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 (current) use of opiate analgesic Z79.891
== END 2023-05-30 11:52 | disposition home or self-care (01) ==
PROVIDERS: PCP Hospitalist; Visit Provider Registered Nurse Emergency
DX: M96.1 Postlaminectomy syndrome, not elsewhere classified (principal); G89.4 Chronic pain syndrome; Z79.891 Long term (current) use of opiate analgesic
CPT/HCPCS: 99213

== ENCOUNTER → 2023-05-30 11:31 | Outpatient (BNVA) | payer OTHER, SELFPAY | PROVIDERS: PCP Hospitalist; Visit Provider Registered Nurse Emergency | DX: G89.4 Chronic pain syndrome (principal); M96.1 Postlaminectomy syndrome, not elsewhere classified; Z79.891 Long term (current) use of opiate analgesic | CPT/HCPCS: 99212 ==

== ENCOUNTER 2023-06-27 11:29 | Outpatient (AMB) | payer OTHER, SELFPAY ==
[2023-06-27 11:32] VITALS: BP 172/76; PULSE 93; RESP 14; O2SAT 94; BMI 39.7
--- NOTE | 2023-06-27 11:32 | MHC.OFFVIS ---
Intake Vital Signs 06/27/23 11:32 Height 5 ft 2 in Weight 217 lb BMI 39.7 BP 172/76 H Blood Pressure Location Lt brachial Position Sitting Respiration 14 Pulse 93 Pulse Source Pulse Oximeter Pulse Oximetry (%) 94 Oxygen Delivery Method Room Air Intake Visit Reasons: Pill Count Intake Note: Pt states she last took oxy 06/27/23 @ 8am Allergies amoxicillin [From Augmentin] Adverse Reaction (Severe, Verified 06/27/23 11:35) n/v/d clavulanic acid [From Augmentin] Adverse Reaction (Severe, Verified 06/27/23 11:35) n/v/d NSAIDS (Non-Steroidal Anti-Inflamma [NSAIDS (NON-STEROIDAL ANTI-INFLAMMA] Adverse Reaction (Intermediate, Verified 06/27/23 11:35) BLEEDING seasonal Allergy (Intermediate, Uncoded 06/27/23 11:35) Itchy Eyes clavulonic acid Adverse Reaction (Severe, Uncoded 06/27/23 11:35) Vomiting Medication List - Last Reconciled 06/27/23 by Isabel Campbell LPN albuterol sulfate 90 mcg/actuation 2 puffs PO Q6H PRN albuterol sulfate mg inhalation atorvastatin 40 mg PO DAILY blood sugar diagnostic (FreeStyle Lite Strips) 1 strip miscellaneous TID-QID celecoxib 100 mg PO BID cetirizine 10 mg PO DAILY PRN clonidine HCl 0.1 mg PO BID PRN 30 days diabetic supplies, miscellan. As directed diphenhydramine HCl (Banophen) 25 mg PO BEDTIME PRN flash glucose scanning reader (Everest [employer] Bettye 2 [place]) As directed flash glucose sensor (FreeStyle Bettye 2 Sensor kit) As directed every 2 weeks fluticasone propionate 50 mcg/actuation (Allergy Relief (fluticasone)) 2 sprays intranasal DAILY 1 month gabapentin 600 mg PO TID PRN 30 days hydroxyzine HCl 25 mg PO BID PRN 30 days insulin aspart U-100 20 - 30 units (0.2 - 0.3 mL) subcut TID 90 days insulin degludec (Tresiba FlexTouch U-200 insulin) 60 units (0.3 mL) subcut DAILY 30 days lancets 3 to 4 time a day blood sugar checks. linaclotide (Linzess) 72 mcg PO DAILY 30 days lisinopril 2.5 mg PO DAILY magnesium oxide 500 mg PO DAILY metformin ER 1,000 mg (2 x 500 mg) PO BID montelukast (Singulair) 10 mg PO BEDTIME omeprazole 20 mg PO DAILY 90 days oxycodone 10 mg PO TID PRN 30 days pen needle, diabetic tid insulin administration HPI HPI Comments History of Present Illness Details Carlota is a very pleasant 52 year old female who presents to the office today for follow up chronic pain and chronic opioid therapy management. Patient is prescribed oxycodone 10mg po TID prn. Patient arrived today with the expectation of having 72 pills, she presented 75 pills which were counted in the presence of two staff members and returned to the patient in the original prescription bottle. This demonstrates responsible attitude toward patient's opioid medications. Pain is reported today as 8/10 and last dose of pain medication was taken at 08:00 this morning. Pain is adequately managed on current opioid regimen. She is scheduled for ITDD trial with Bupivacaine in 1 week. She is hoping this will provide some relief, she states pain is worse with the recent weather changes. She is able to engage in activities of daily living with minimal interruption due to chronic pain with relief provided by the opioid pain medications. Patient denies side effects including somnolence, constipation, itching, dyspnea, rash, dizziness or weakness. Previous visit with Dr Stanley: Carlota is back in my office after the trial I DDD with with morphine which was performed on 01/31/2023.? She does not report the same pain evaluation as it was with Dilaudid in September.? She received 150 micro g of morphine intrathecally.? However the patient developed what looks like post dural puncture headache immediately after the procedure.? The headache went away on itself however now we are not ready to implant anything for the patient.? I suggested that we might try in the future instead of fentanyl to go ahead with bupivacaine injections small dose intrathecally and have bupivacaine as the main medication in the intrathecal space if results of the trial will have no side effects and will have good pain relief.? I warned her that she may experience weakness in bilateral lower extremities after bupivacaine injection however the weakness will be only transient. We decided to wait a month or two PA and schedule the bupivacaine trial later. Prior:? Dilaudid which was performed of 10/06/2023.? The patient reports absence of pain for the 1st 48 hours after the procedure.? However she reports severe nausea and vomiting after surgery.? This is unwanted side effects.? I offered her reach trial with morphine versus read trial with fentanyl.? The patient reported that in the past she was taking morphine as a pain medication orally.? She denies any side effects.? I will try to perform the procedure with 150 mcg intrathecally? 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 Obesity due to excess calories PCOS (polycystic ovarian syndrome) Postlaminectomy syndrome, lumbar Proteinuria Sleep apnea Type 2 diabetes mellitus with hyperglycemia, with long-term current use of insulin Type 2 diabetes mellitus with other diabetic kidney complication Surgical History History of carpal tunnel release History of lumbar surgery History of removal of cyst History of tonsillectomy Hx of spinal surgery Family History Father Diabetes Hypertension Mother Asthma Social History Household Members: Children Housing: Apartment Alcohol intake: current Alcohol intake frequency: holidays/special occasions only Patient Tobacco Use Status: Current everyday Tobacco user Cigarettes Per Day: 10 e-Cigarette/Vaping Use: Never Used service: No Current occupational status: disabled Current occupational exposures/hazards: No Cognitive needs: No Hearing needs: No Vision needs: Yes Review of Systems Const All systems reviewed & are unremarkable except as noted in HPI and below Physical Exam Vital Signs: Last Vital Signs Pulse 93 06/27/23 11:32 Resp 14 06/27/23 11:32 BP 172/76 H 06/27/23 11:32 Pulse Ox 94 06/27/23 11:32 Oxygen Delivery Method Room Air 06/27/23 11:32 BMI result Body Mass Index 39.7 General: awake, alert, oriented. Answers questions appropriately. Fully engaged in examination. Skin: warm, dry, intact without visible rashes or lesions. HEENT: Normocephalic. Hearing intact. Cardiac: External chest normal in appearance. Respiratory: No signs of respiratory distress. Abdomen: without gross distension. MS: No obvious swelling or deformities. Ambulates with steady gait. Neurological: Oriented to person, place, time and situation. Thought process intact. No gait abnormalities appreciated. Psychiatric: Appropriate mood and affect. Good judgment and insight. 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 No obvious signs of diversion, abuse or misuse of the opioid medications. Will send in prescription for oxycodone 10mg po tid #90 no refills with an advanced date of 07/22/2023. Patient has been cleared by psych. ITDDD trial with bupivicaine has been scheduled, patient has been notified of the appointment and pre-procedure instructions. Patient aware that she would need to stop opiates for 6 weeks prior to implant and is agreeable to plan. Per previous note from Dr Stanley: She reported absence of pain for 48 hours after the trial of Dilaudid. However she reported for 6 hours of severe intractable nausea vomiting. Trial of morphine 150 mcg resulted an substantial less pain improvement compared to Dilaudid. On top of that she developed transient post dural puncture headache. Will wait for couple of months and let her dura matter heal before new trial. I suggest bupivacaine as the start next time. She would need to understand to suspend her opioid medications for 6 weeks before the implant if she likes results of the trial. To help her with opioid withdrawal I will start her on clonidine is 0.1 mg b.i.d. p.r.n. opioid withdrawal as well as hydroxyzine 25 mg p.r.n. opioid withdrawal q.d. Patient to follow-up in the office in 1 month, sooner if needed. All questions and concerns have been answered and patient agrees with the plan. Medications: Refilled oxycodone Partial Fill upon patient request. 10 mg PO TID PRN 90 tabs 0RF pain 30 days G89.4 - Chronic pain syndrome, M96.1 - Postlaminectomy syndrome, not elsewhere classified Coding Level of Care Code Est Pt Level 3 (09434) Diagnoses Postlaminectomy syndrome, lumbar M96.1 Chronic pain syndrome G89.4 [facility] (current) use of opiate analgesic Z79.891
== END 2023-06-27 11:52 | disposition home or self-care (01) ==
PROVIDERS: PCP Hospitalist; Visit Provider Registered Nurse Emergency
DX: G89.4 Chronic pain syndrome (principal); M96.1 Postlaminectomy syndrome, not elsewhere classified; Z79.891 Long term (current) use of opiate analgesic
CPT/HCPCS: 99213

== ENCOUNTER → 2023-06-27 11:29 | Outpatient (BNVA) | payer OTHER, SELFPAY | PROVIDERS: PCP Hospitalist; Visit Provider Registered Nurse Emergency | DX: G89.4 Chronic pain syndrome (principal); M96.1 Postlaminectomy syndrome, not elsewhere classified; Z79.891 Long term (current) use of opiate analgesic | CPT/HCPCS: 99212 ==

== ENCOUNTER 2023-07-04 06:10 | Outpatient (REF) | payer OTHER, SELFPAY ==
--- NOTE | ~2023-07-04 | FL_ITS ---
EXAMINATION: XR FLUOROSCOPY WITH IMAGES CLINICAL INFORMATION: Chronic pain syndrome. COMPARISON: None available. TECHNIQUE: Fluoroscopy Supervised By: Dr. Catrachito Stanley. Fluoroscopy Time: 0.1 minute. Cumulative Dose: 3.70 mGy. DAP: 0.0642 Gycm2. Images: 1. FINDINGS: Single lateral image demonstrates needle projecting over the lumbar spinal canal. FL/FL guidance in treatment room IMPRESSION: Fluoroscopy guidance for pain management procedure
== END 2023-07-04 06:11 | disposition home or self-care (01) ==
LOC: CF 06:10
PROVIDERS: Visit Provider Anesthesiology
DX: M96.1 Postlaminectomy syndrome, not elsewhere classified (principal); G89.4 Chronic pain syndrome; Z79.891 Long term (current) use of opiate analgesic
CPT/HCPCS: 62323

== ENCOUNTER 2023-07-04 09:04 | Outpatient (AMB) | payer OTHER, SELFPAY ==
[2023-07-04 09:33] VITALS: BP 134/62; PULSE 86; RESP 16; O2SAT 95; BMI 39.7
--- NOTE | 2023-07-04 09:33 | A.OFFVIS_ITS ---
Intake Vital Signs 07/04/23 09:33 07/04/23 09:39 07/04/23 10:39 Height 5 ft 2 in 5 ft 2 in Weight 217 lb 217 lb BMI 39.7 39.7 BP 134/62 138/60 124/60 Blood Pressure Location Lt brachial Lt brachial Rt brachial Position Sitting Supine Sitting Respiration 16 16 16 Pulse 86 71 60 Pulse Source Pulse Oximeter Pulse Oximeter Pulse Oximeter Pulse Oximetry (%) 95 96 94 Oxygen Delivery Method Room Air Room Air Room Air Comment pre-op post-op 10:15 am Intake Visit Reasons: ITDD TRIAL WITH BUPI/LOCAL Allergies amoxicillin [From Augmentin] Adverse Reaction (Severe, Verified 07/04/23 09:34) n/v/d clavulanic acid [From Augmentin] Adverse Reaction (Severe, Verified 07/04/23 09:34) n/v/d NSAIDS (Non-Steroidal Anti-Inflamma [NSAIDS (NON-STEROIDAL ANTI-INFLAMMA] Adverse Reaction (Intermediate, Verified 07/04/23 09:34) BLEEDING seasonal Allergy (Intermediate, Uncoded 06/27/23 11:35) Itchy Eyes clavulonic acid Adverse Reaction (Severe, Uncoded 06/27/23 11:35) Vomiting [facility] Medical History Asthma BMI 37.0-37.9, adult Chronic pain syndrome 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, uncontrolled Hyperlipidemia LDL goal <100 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 Obesity due to excess calories PCOS (polycystic ovarian syndrome) Postlaminectomy syndrome, lumbar Proteinuria Sleep apnea Type 2 diabetes mellitus with hyperglycemia, with long-term current use of insulin Type 2 diabetes mellitus with other diabetic kidney complication Surgical History History of carpal tunnel release History of lumbar surgery History of removal of cyst History of tonsillectomy Hx of spinal surgery Family History Father Diabetes Hypertension Mother Asthma Social History Household Members: Children Housing: Apartment Alcohol intake: current Alcohol intake frequency: holidays/special occasions only Patient Tobacco Use Status: Current everyday Tobacco user Cigarettes Per Day: 10 e-Cigarette/Vaping Use: Never Used service: No Current occupational status: disabled Current occupational exposures/hazards: No Cognitive needs: No Hearing needs: No Vision needs: Yes Physical Exam Vital Signs: Last Vital Signs Pulse 60 07/04/23 10:39 Resp 16 07/04/23 10:39 BP 124/60 07/04/23 10:39 Pulse Ox 94 07/04/23 10:39 Oxygen Delivery Method Room Air 07/04/23 10:39 BMI result Body Mass Index 39.7 Assessment & Plan Assessment & Plan (1) Postlaminectomy syndrome, lumbar: Code(s): M96.1 - Postlaminectomy syndrome, not elsewhere classified Plan: Intrathecal pain pump trial Informed consent was explained to the patient. All questions were explained and answered.? The patient was taken inside of the operating room where he was positioned prone on the operating table.? Time-out was performed delineating patient's name and date of , correct site, side, the nature of the procedure, patient's allergy, preoperative antibiotic if needed.? All operating room staff And the patient were participating in OR time-out procedure. ?the patient's lower back was prepped with ChloraPrep and draped with sterile? utility draped.? Sterilely draped C-arm was brought over the operating field and sq picture of? lumbar vertebrae were delineated on the screen. the target of needle insertion was chosen between L3 and L4 vertebrae. The projection of the left lamina of the L4 vertebra was chosen as the starting point of the injection.? 22 gauge 3-1/2 inch [place] needle was inserted through the skin after skin wheal was raised with lidocaine 2%.? The needle was directed to the L3- L4 interlaminar space.? The advancement of the needle was performed on intermittent anterior posterior and lateral views.? On anterior posterior view needle was kept strictly in the midline.? On the lateral view needle entered in the projection of the center of the spinal canal.? At that moment the stylet was removed from the needle and clear flow CSF was detected in the needle hub.? After that? 0.9 mL of the solution containing 2.25 mg of bupivacaine PF was injected into the needle.? After that needle was removed sterile dressing was applied.? Patient tolerated procedure well.? She was taken outside of the operating room to the recovery room where she recovered uneventfully.? (2) Chronic pain syndrome: Code(s): G89.4 - Chronic pain syndrome (3) 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: Comment: Pain Management-chronic pain/back Code(s): Z79.891 - 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 Plan Continue current doses of the opioid medications. She is due on 11/16/2022. continue gabapentin with her refills. She reports difficulty walking and tiredness with walking. On MRI she had the compression of passing left L5 nerve root at between L4 and L5. Spinal cord stimulator unfortunately does not work for the patient. She was denied surgery in the past. Transforaminal epidural steroid injections unfortunately resulted in no pain improvement. She is interested with the pain pump now. She was approved by psych evaluation. She will be scheduled for the trial. She would need to stop the medication 2 days before trial. She would need to understand to suspend her opioid medications for 6 weeks before the implant if she likes results of the trial. To help her with opioid withdrawal I will start her on clonidine is 0.1 mg b.i.d. p.r.n. opioid withdrawal as well as hydroxyzine 25 mg p.r.n. opioid withdrawal q.d.. 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
[2023-07-04 09:39] VITALS: BP 138/60; PULSE 71; RESP 16; O2SAT 96; BMI 39.7
[2023-07-04 10:39] VITALS: BP 124/60; PULSE 60; RESP 16; O2SAT 94
== END 2023-07-04 10:27 | disposition home or self-care (01) ==
LOC: HO.PMCPRC 09:04
PROVIDERS: PCP Hospitalist; Visit Provider Anesthesiology
DX: G89.4 Chronic pain syndrome (principal); M96.1 Postlaminectomy syndrome, not elsewhere classified; Z79.891 Long term (current) use of opiate analgesic
CPT/HCPCS: 62323

== ENCOUNTER 2023-07-07 09:59 | Outpatient (AMB) | payer OTHER, SELFPAY ==
--- NOTE | 2023-07-07 10:00 | A.OFFVIS_ITS ---
Intake Vital Signs 07/07/23 10:06 Height 5 ft 2 in Weight 217 lb BMI 39.7 BP 137/65 Blood Pressure Location Lt brachial Position Sitting Respiration 16 Pulse 96 Pulse Source Pulse Oximeter Pulse Oximetry (%) 95 Oxygen Delivery Method Room Air Intake Visit Reasons: ITDD TRIAL WITH BUPI 07/04/23 Allergies amoxicillin [From Augmentin] Adverse Reaction (Severe, Verified 07/07/23 10:07) n/v/d clavulanic acid [From Augmentin] Adverse Reaction (Severe, Verified 07/07/23 10:07) n/v/d NSAIDS (Non-Steroidal Anti-Inflamma [NSAIDS (NON-STEROIDAL ANTI-INFLAMMA] Adverse Reaction (Intermediate, Verified 07/07/23 10:07) BLEEDING seasonal Allergy (Intermediate, Uncoded 06/27/23 11:35) Itchy Eyes clavulonic acid Adverse Reaction (Severe, Uncoded 06/27/23 11:35) Vomiting HPI HPI Comments History of Present Illness Details Carlota is a very pleasant 52 year old female who presents to the office today for follow up 2 days s/p ITDDD trial with Bupivacaine. Patient reports relief of bilateral leg pain for several hours after the procedure. Left leg pain returned in the evening and right leg pain returned the following day. She denies relief of her back pain, she states her upper back pain is her most bothersome pain at this time. She reports her chronic opioid medications help her pain and provide improvement in function and mobility. She does not want to continue with ITDDD trials any longer as none have provided her relief of her upper back, lower back and leg pain. She has SCS that has never worked for her, she would like it explanted. She does not charge it any longer, it just sits there . She was told by neurosurgery that surgical intervention for her back pain would only be an option for cauda equina symptoms which she currently denies. Previous visit with Dr Stanley: Carlota is back in my office after the trial I DDD with with morphine which was performed on 01/31/2023.? She does not report the same pain evaluation as it was with Dilaudid in September.? She received 150 micro g of morphine intrathecally.? However the patient developed what looks like post dural puncture headache immediately after the procedure.? The headache went away on itself however now we are not ready to implant anything for the patient.? I suggested that we might try in the future instead of fentanyl to go ahead with bupivacaine injections small dose intrathecally and have bupivacaine as the main medication in the intrathecal space if results of the trial will have no side effects and will have good pain relief.? I warned her that she may experience weakness in bilateral lower extremities after bupivacaine injection however the weakness will be only transient. We decided to wait a month or two PA and schedule the bupivacaine trial later. Prior:? Dilaudid which was performed of 10/06/2023.? The patient reports absence of pain for the 1st 48 hours after the procedure.? However she reports severe nausea and vomiting after surgery.? This is unwanted side effects.? I offered h er reach trial with morphine versus read trial with fentanyl.? The patient reported that in the past she was taking morphine as a pain medication orally.? She denies any side effects.? I will try to perform the procedure with 150 mcg intrathecally? 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 Obesity due to excess calories PCOS (polycystic ovarian syndrome) Postlaminectomy syndrome, lumbar Proteinuria Sleep apnea Type 2 diabetes mellitus with hyperglycemia, with long-term current use of insulin Type 2 diabetes mellitus with other diabetic kidney complication Surgical History History of carpal tunnel release History of lumbar surgery History of removal of cyst History of tonsillectomy Hx of spinal surgery Family History Father Diabetes Hypertension Mother Asthma Social History Household Members: Children Housing: Apartment Alcohol intake: current Alcohol intake frequency: holidays/special occasions only Patient Tobacco Use Status: Current everyday Tobacco user Cigarettes Per Day: 10 e-Cigarette/Vaping Use: Never Used service: No Current occupational status: disabled Current occupational exposures/hazards: No Cognitive needs: No Hearing needs: No Vision needs: Yes Review of Systems Const All systems reviewed & are unremarkable except as noted in HPI and below Physical Exam Vital Signs: Last Vital Signs Pulse 96 07/07/23 10:06 Resp 16 07/07/23 10:06 BP 137/65 07/07/23 10:06 Pulse Ox 95 07/07/23 10:06 Oxygen Delivery Method Room Air 07/07/23 10:06 BMI result Body Mass Index 39.7 General: awake, alert, oriented. Answers questions appropriately. Fully engaged in examination. Skin: warm, dry, intact without visible rashes or lesions. HEENT: Normocephalic. Hearing intact. Cardiac: External chest normal in appearance. Respiratory: No signs of respiratory distress. Abdomen: without gross distension. MS: No obvious swelling or deformities. Ambulates with steady gait. Neurological: Oriented to person, place, time and situation. Thought process intact. No gait abnormalities appreciated. Psychiatric: Appropriate mood and affect. Good judgment and insight. Results Reviewed Results Reviewed: A neurostimulator device is partially visualized with electrode wires entering the canal in the interlaminar spaces at the L1-L2 and T12-L1 levels. There are no compression fractures. Mild retrosubluxation and moderate loss of disc height with reduced intradiscal signal evident at the L4-L5 level. There is severe disc space narrowing with disc degeneration and vacuum phenomenon at the L5-S1 level. No marrow or soft tissue edema visible. Mild leftward curvature of the lumbar spine evident. The paraspinal soft tissues are otherwise unremarkable. The imaged bony pelvis appears normal. CONUS MEDULLARIS AND CAUDA EQUINA: Normal, terminating at the level of L1. No lower cord signal abnormality is seen. The cauda equina nerve roots are normal. There are conspicuous retroperitoneal lymph nodes, also visible on the prior CT examination, slightly improved in appearance on the current study. SPINAL LEVELS: L1-L2 and L2-L3: No disc pathology. Hfck-[id number]-flzftmdr facet arthrosis. No central canal stenosis or foraminal narrowing. L3-L4: No disc pathology. Mild facet arthropathy without central canal stenosis or foraminal narrowing. L4-L5: Moderate disc space narrowing and retrosubluxation with a broad-based central disc protrusion and endplate ridging resulting in ventral thecal sac distortion and mild mass effect upon the left L5 nerve root. Hypertrophic facet arthropathy and mild central canal stenosis. Underlying disc bulge and ossific spurring result in mild right foraminal encroachment. L5-S1: When correlated to the prior CT study, there is a broad-based central disc protrusion with endplate spurring and calcification of the annulus resulting in impression upon the ventral thecal sac and mild mass effect upon the left S1 nerve root. Moderate facet arthropathy noted with a chronic right-sided laminectomy defect. No central canal stenosis. Bulging disc and osseous spurring result in moderate left foraminal encroachment and mild right foraminal narrowing. IMPRESSION: Moderate spondylosis at the L4-L5 level with a retrosubluxation and broad-based central disc protrusion in conjunction with endplate ridging which results in ventral thecal sac deformity and mild mass effect upon the left L5 nerve root. Mild central canal stenosis and moderate encroachment upon the subarticular zones. ? Chronic postoperative changes at L5-S1 with a broad-based central disc protrusion and endplate spurring with calcification of the annulus distorting the ventral thecal sac and resulting in mild mass effect upon the left S1 nerve root. Moderate facet arthropathy and moderate left foraminal narrowing. ? Mild retroperitoneal adenopathy, improved when compared to the prior abdominal CT examination. Assessment & Plan Assessment & Plan (1) Postlaminectomy syndrome, lumbar: Code(s): M96.1 - Postlaminectomy syndrome, not elsewhere classified (2) Chronic pain syndrome: Code(s): G89.4 - Chronic pain syndrome (3) nursing home (current) use of opiate analgesic: Comment: Pain Management-chronic pain/back Code(s): Z79.891 - terminal carman (current) use of opiate analgesic Plan Carlota presented back to the office today for follow-up 2 days status post intrathecal drug delivery trial with bupivacaine. She denies relief of her back pain following the trial. She reports relief of her bilateral leg pain, but states she does not think this warrants proceeding with implant as it does not provide her enough coverage. Discussed with patient that this is targeted drug delivery, and does not provide coverage from cervical through bilateral lower extremities she no longer wishes to proceed with further ITDDD trials. Per previous note from Dr Stanley: She reported absence of pain for 48 hours after the trial of Dilaudid. However she reported for 6 hours of severe intractable nausea vomiting. Trial of morphine 150 mcg resulted an substantial less pain improvement compared to Dilaudid. On top of that she developed transient post dural puncture headache. Will wait for couple of months and let her dura matter heal before new trial. I suggest bupivacaine as the start next time. She would need to understand to suspend her opioid medications for 6 weeks before the implant if she likes results of the trial. To help her with opioid withdrawal I will start her on clonidine is 0.1 mg b.i.d. p.r.n. opioid withdrawal as well as hydroxyzine 25 mg p.r.n. opioid withdrawal q.d. Patient will continue with chronic opioid medication management. All questions and concerns were answered during the visit. Follow-up as scheduled. Coding Level of Care Code Est Pt Level 3 (96731) Diagnoses Postlaminectomy syndrome, lumbar M96.1 Chronic pain syndrome G89.4 nursing home (current) use of opiate analgesic Z79.891
[2023-07-07 10:06] VITALS: BP 137/65; PULSE 96; RESP 16; O2SAT 95; BMI 39.7
== END 2023-07-07 10:16 | disposition home or self-care (01) ==
PROVIDERS: PCP Hospitalist; Visit Provider Registered Nurse Emergency
DX: M96.1 Postlaminectomy syndrome, not elsewhere classified (principal); G89.4 Chronic pain syndrome; Z79.891 Long term (current) use of opiate analgesic
CPT/HCPCS: 99213

== ENCOUNTER → 2023-07-07 09:59 | Outpatient (BNVA) | payer OTHER, SELFPAY | PROVIDERS: PCP Hospitalist; Visit Provider Registered Nurse Emergency | DX: G89.4 Chronic pain syndrome (principal); M96.1 Postlaminectomy syndrome, not elsewhere classified; Z79.891 Long term (current) use of opiate analgesic | CPT/HCPCS: 99212 ==

== ENCOUNTER 2023-07-21 08:10 | Day surgery (SDC) | payer OTHER, SELFPAY ==
[2023-07-19 15:10] VITALS: BMI 39.7
[2023-07-21] VITALS (20 sets, daily range): BP systolic 113–152; BP diastolic 53–84; PULSE 69–88; RESP 16–24; TEMP 36.1–36.6; O2SAT 92–99
--- NOTE | ~2023-07-21 | FL_ITS ---
EXAMINATION: XR FLUOROSCOPY WITH IMAGES CLINICAL INFORMATION: Removal of spinal stimulator. COMPARISON: Prior examinations, most recently 07/12/2023. TECHNIQUE: Fluoroscopy Supervised By: Dr. Catrachito Stanley. Fluoroscopy Time: 0.1 minutes. Cumulative Dose: 6.52 mGy. DAP: 1.77 Gycm2. Images: 1. FINDINGS: Previously noted spinal stimulator leads appear to have been removed. Catheter material projects over the lumbar spine. FL/FL guidance in OR IMPRESSION: Intraoperative fluoroscopic guidance is provided during spinal stimulator explant. Please see the patient's Operative Report for full procedural details.
--- NOTE | 2023-07-21 08:15 | MHC.SHP ---
Pre-Procedural Eval Section A Date of Service: 07/21/23 The patient is an INPATIENT: No Changes since office visit: Yes Patient answered all questions The History & Physical has been completed within 30 days and I have reviewed it.: No Section B Chief Complaint: Postlaminectomy syndrome,Chronic pain syndrome Details of Present Illness: As above Relevant Family History (Specify if Yes): No Relevant Social History: None Present Medications: see Short Stay Collaborative assessment Medical History: No relevant PMH History of Previous Operations: No relevant previous surgery Allergies: Allergies Allergy/AdvReac Type Severity Reaction Status Date / Time amoxicillin [From Augmentin] AdvReac Severe n/v/d Verified 07/07/23 10:07 clavulanic acid AdvReac Severe n/v/d Verified 07/07/23 10:07 [From Augmentin] NSAIDS (Non-Steroidal AdvReac Intermediate BLEEDING Verified 07/07/23 10:07 Anti-Inflamma [NSAIDS (NON-STEROIDAL ANTI-INFLAMMA] clavulonic acid AdvReac Severe Vomiting Uncoded 06/27/23 11:35 Review of Systems Sugical H&P ROS: Negative: Cardiovascular, Respiratory, Neurological, Psychiatric, Hem-Onc, Allergic/Immunologic, Gastrointestinal, Genitourinary, Musculoskeletal, Integumentary, Endocrine and Eyes/Ears/Nose/Throat and Yes, Specify: Constitution Exam Surgical H&P Exam: Normal: HEENT, Normal: Heart, Normal: Lungs, Normal: Extremities, Normal: Abdomen, Normal: Skin and Normal: Neurological Plan Diagnosis/Plan: Unchanged I have reviewed the history and physical and performed a pertinent physical examination on my patient. No changes have occurred unless specified. Time Spent With Patient Time: Total time managing care of this patient today __ 5__ minutes.
--- NOTE | 2023-07-21 08:30 | HO.ANESPROP2 ---
[facility] Active Problems Active Problems: All Active Problems (Updated 07/21/23 @ 08:17 by Sun Fuentes RN) Cough (Acute) Vasomotor symptoms due to menopause (Acute) Morbid obesity (Acute) Elevated C-reactive protein (CRP) (Acute) FHx: rheumatoid arthritis (Acute) Generalized arthritis (Acute) Constipation due to pain medication (Acute) Cigarette smoker motivated to quit (Acute) Seasonal allergies (Acute) Acute viral bronchitis (Acute) Diarrhea (Acute) Nausea (Acute) Low blood pressure reading (Acute) Fatigue (Acute) Bursitis of both hips (Acute) Yeast infection involving the vagina and surrounding area (Acute) Asthma (Acute) Proteinuria (Acute) Type 2 diabetes mellitus with other diabetic kidney complication (Acute) Type 2 diabetes mellitus with hyperglycemia, with long-term current use of insulin (Acute) Hyperlipidemia LDL goal <100 (Acute) Obesity due to excess calories (Acute) BMI 37.0-37.9, adult (Acute) 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, uncontrolled (Acute) 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 (Acute) Chronic pain syndrome (Acute) Postlaminectomy syndrome, lumbar (Acute) Past Medical History Medical History Menopause Proteinuria Type 2 diabetes mellitus with other diabetic kidney complication Sleep apnea PCOS (polycystic ovarian syndrome) Asthma Type 2 diabetes mellitus with hyperglycemia, with long-term current use of insulin Hyperlipidemia LDL goal <100 Obesity due to excess calories BMI 37.0-37.9, adult 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, uncontrolled 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 Chronic pain syndrome Postlaminectomy syndrome, lumbar Family History Family History Father Diabetes Hypertension Mother Asthma Family history of problems with anesthesia: No Surgical History Surgical History Hx of spinal surgery History of removal of cyst History of carpal tunnel release History of lumbar surgery History of tonsillectomy History of Problems with Anesthesia: No Social History Social History Household Members: Children Housing: Apartment Alcohol intake: current Alcohol intake frequency: holidays/special occasions only Patient Tobacco Use Status: Current everyday Tobacco user Cigarettes Per Day: 10 e-Cigarette/Vaping Use: Never Used Advance Directives: No Advance Directives Information Provided: Yes service: No Current occupational status: disabled Current occupational exposures/hazards: No Cognitive needs: No Hearing needs: No Vision needs: Yes Meds Allergies Allergy/AdvReac Type Severity Reaction Status Date / Time amoxicillin [From Augmentin] AdvReac Severe n/v/d Verified 07/21/23 08:21 clavulanic acid AdvReac Severe n/v/d Verified 07/21/23 08:21 [From Augmentin] NSAIDS (Non-Steroidal AdvReac Intermediate BLEEDING Verified 07/21/23 08:21 Anti-Inflamma [NSAIDS (NON-STEROIDAL ANTI-INFLAMMA] clavulonic acid AdvReac Severe Vomiting Uncoded 07/21/23 08:21 Active Medications: Current Medications Lactated Ringer's (Lr) 1,000 mls @ 80 mls/hr IVCONT .[id number] CALI Last Admin: 07/21/23 08:26 Dose: 80 mls/hr Clindamycin Phosphate (Cleocin) 900 mg in 50 mls @ 50 mls/hr IV PREOP ONE Stop: 07/21/23 09:12 Home Medications Medication Instructions Recorded Confirmed Last Taken Type albuterol sulfate 2.5 mg/3 mL mg inhalation 03/24/22 06/27/23 Unknown History (0.083 %) solution for nebulization Exam Exam Date and Time: July 21, 2023 0830 Height,Weight and Vital Signs: Height 5 ft 2 in Weight 98.43 kg Airway Mallampati Class: III TM Dist: >3cm Neck ROM: Full Assessment and Plan Assessment Anesthesia Assessment: Anesthesia Plan Discussed and Chart Reviewed Final Anesthetic Review Family History of Problems with Anesthesia: No History of Problems with Anesthesia: No NPO: Yes ASA Class: III Final Preanesthetic Review: No Changes in Pt Med Stat, Meds/Allgs Chart Reviewed, Consent Obtained/Reviewed and Anes Risks/Benef Reviewed Patient Risk: Intermediate Procedure Risk: Low Anesthetic Plan Anesthetic Plan: GA Disposition: Standard PACU
--- NOTE | 2023-07-21 08:45 | PC.NURSE ---
dr. coy aware that patient is a smoker and lcta but occ. cough noted from smoking. patient instructed by doctor to use three puffs of inhaler. completed. dr. coy also aware that patient gave self 10 units of novolog for poc of 170 at home at 0700. poc here is 172. okay to proceed.
--- NOTE | 2023-07-21 10:06 | PM.OP ---
Brief Operative Note Date of Service: 07/21/23 Pre-op diagnosis: malfunctioning spinal cord stimulator Post-op diagnosis: same Procedure: explantation of spinal cord stimulator and epidural stimulating leads Implants: none Surgeon: Catrachito Stanley MD Anesthesia: GETA Was an Social And Political Studies Professor used for this Procedure?: No Estimated blood loss (mL): 18 Condition: stable Disposition: PACU
--- NOTE | 2023-07-21 10:07 | W.PM.OPN ---
Operative Note Operative Note Date of Service: 07/21/23 Narrative: Carlota is very pleasant 52 years old female who went to the operating room today for removal of spinal cord stimulator. She reported that her spinal cord stimulator lost ability to cover her pain and she stop charging the device. She was very adamant on removal of the spinal cord stimulator. Informed consent was explained including risks benefits and alternatives, she was explained that it is not necessary to remove spinal cord stimulator because she can have MRI with that and it does not affect her life. However she cited discomfort in the area of the spinal cord stimulator and insisted on the removal. The patient came to the operating room positioned supine in stretcher, ASA monitors were applied and general endotracheal anesthesia was induced. The patient was transferred on the operating table prone. All pressure points were protected. Time-out was performed delineating correct site and side of the procedure, name it is worse of the patient, risk of fire, need for DVT prophylaxis, antibiotics administered. She received 900 mg of clindamycin approximately 30 minutes before onset of the procedure. Her entire back and left upper buttock were prepped with ChloraPrep twice and draped with full body drape including Ioban film. Local anesthetic mixture of lidocaine 2% and ropivacaine 0.5% 1-1 was injected in the area of previous incision. 6 cm incision was made along side the previously healed scar using 10 blade scalpel. The capsule of the spinal cord stimulator was found in the wound, small incision was made on the capsule and then hemostat clamp was inserted into the pocket advanced medially and laterally and the capsule was incised over the hemostat. The spinal cord stimulator was found in the pocket the anchoring sutures were severed and the spinal cord stimulator was delivered to the level of the skin. sterilely draped C-arm was brought of the operating field and sq picture of the lumbar spine and thoracic spine were demonstrated on the screen. Gentle traction was applied on both stimulating leads and leads were dislodged from its position the thoracic epidural space and continued to withdraw to the pocket. The leads were completely removed and tips were intact. All 8 electrodes on both leads were intact. The image of the lumbar spine without presence of the any metal artifacts was demonstrated and saved on the screen. After that the capsule of the pocket was excised using sharp dissection and electrocautery, thorough hemostasis was obtained. The pocket was irrigated with normal saline containing vancomycin. After that 0-0 Polysorb suture was used to close the wound and kt were applied to the level of the skin. Sterile dressing with bacitracin was applied and fixed to the skin to the Tegaderm drape. The patient tolerated procedure well she was transferred supine on the stretcher extubated and transferred stable to PACU. She recovered from the procedure without immediate complications.
== END 2023-07-21 13:40 | disposition home or self-care (01) ==
PROVIDERS: PCP Family Medicine; Visit Provider Anesthesiology
PROC: (CPT 63661; principal; 2023-07-21 09:10)
DX: T85.840A Pain due to nervous system prosthetic devices, implants and grafts, initial encounter (principal); G89.4 Chronic pain syndrome; M96.1 Postlaminectomy syndrome, not elsewhere classified; Y75.2 Prosthetic and other implants, materials and neurological devices associated with adverse incidents; E11.65 Type 2 diabetes mellitus with hyperglycemia; J45.909 Unspecified asthma, uncomplicated; Z79.891 Long term (current) use of opiate analgesic; Z88.1 Allergy status to other antibiotic agents; Z88.8 Allergy status to other drugs, medicaments and biological substances; F17.210 Nicotine dependence, cigarettes, uncomplicated
CPT/HCPCS: 63661; 63688; 82947; J0131; J1100; J1170; J2250; J2405; J2795; J3010; J3370

== ENCOUNTER → 2023-07-21 08:10 | Outpatient (BNV) | payer OTHER, SELFPAY | PROVIDERS: PCP Family Medicine; Visit Provider Anesthesiology | DX: T85.112A Breakdown (mechanical) of implanted electronic neurostimulator of spinal cord electrode (lead), initial encounter (principal) | CPT/HCPCS: 63661; 63688 ==

== ENCOUNTER 2023-07-26 11:15 | Outpatient (AMB) | payer OTHER, SELFPAY ==
--- NOTE | 2023-07-26 11:32 | MHC.OFFVIS ---
Intake Vital Signs 07/26/23 11:33 Weight 220 lb BP 150/80 H Blood Pressure Location Lt brachial Position Sitting Respiration 16 Pulse 90 Pulse Source Pulse Oximeter Pulse Oximetry (%) 97 Oxygen Delivery Method Room Air Intake Visit Reasons: PILL COUNT Allergies amoxicillin [From Augmentin] Adverse Reaction (Severe, Verified 07/26/23 11:34) n/v/d clavulanic acid [From Augmentin] Adverse Reaction (Severe, Verified 07/26/23 11:34) n/v/d NSAIDS (Non-Steroidal Anti-Inflamma [NSAIDS (NON-STEROIDAL ANTI-INFLAMMA] Adverse Reaction (Intermediate, Verified 07/26/23 11:34) BLEEDING clavulonic acid Adverse Reaction (Severe, Uncoded 07/21/23 08:21) Vomiting HPI HPI Comments History of Present Illness Details Carlota is a very pleasant 52 year old female who presents to the office today for follow up s/p SCS expland 07/21/2023 and chronic opioid therapy management. Patient reports she tolerated the procedure well. She has been suffering with pain at the site, worse with lying down. Unable to lie on her left side d/t discomfort at the site. She denies redness, drainage or fever. Reports in the days after there was some swelling that has since resolved. After the procedure she was advised by Dr Stanley that she could take up to 5 oxycodone tabs daily as needed for her pain to help with post op pain. She has been taking the extra pills with improvement in her pain. Overall she feels better having the SCS removed. Patient is prescribed oxycodone 10mg po TID prn. Patient arrived today with the expectation of having 78 pills, she presented 73 pills which were counted in the presence of two staff members and returned to the patient in the original prescription bottle. This did not account for the extra pills that she has been taking post op per Dr Stanley. Given extra tabs allowed she would be expected to have the 73 pills she presented with. This demonstrates responsible attitude toward patient's opioid medications. Pain is reported today as 8/10 and last dose of pain medication was taken at 09:00 this morning. Pain is adequately managed on current opioid regimen. She denies side effects including abd pain, constipation, nausea, shortness of breath or drowsiness. Patient has narcan at home and is trained in the use. Prior: Carlota is a very pleasant 52 year old female who presents to the office today for follow up 2 days s/p ITDDD trial with Bupivacaine. Patient reports relief of bilateral leg pain for several hours after the procedure. Left leg pain returned in the evening and right leg pain returned the following day. She denies relief of her back pain, she states her upper back pain is her most bothersome pain at this time. She reports her chronic opioid medications help her pain and provide improvement in function and mobility. She does not want to continue with ITDDD trials any longer as none have provided her relief of her upper back, lower back and leg pain. She has SCS that has never worked for her, she would like it explanted. She does not charge it any longer, it just sits there . She was told by neurosurgery that surgical intervention for her back pain would only be an option for cauda equina symptoms which she currently denies. Previous visit with Dr Stanley: Carlota is back in my office after the trial I DDD with with morphine which was performed on 01/31/2023.? She does not report the same pain evaluation as it was with Dilaudid in September.? She received 150 micro g of morphine intrathecally.? However the patient developed what looks like post dural puncture headache immediately after the procedure.? The headache went away on itself however now we are not ready to implant anything for the patient.? I suggested that we might try in the future instead of fentanyl to go ahead with bupivacaine injections small dose intrathecally and have bupivacaine as the main medication in the intrathecal space if results of the trial will have no side effects and will have good pain relief.? I warned her that she may experience weakness in bilateral lower extremities after bupivacaine injection however the weakness will be only transient. We decided to wait a month or two PA and schedule the bupivacaine trial later. Prior:? Dilaudid which was performed of 10/06/2023.? The patient reports absence of pain for the 1st 48 hours after the procedure.? However she reports severe nausea and vomiting after surgery.? This is unwanted side effects.? I offered her reach trial with morphine versus read trial with fentanyl.? The patient reported that in the past she was taking morphine as a pain medication orally.? She denies any side effects.? I will try to perform the procedure with 150 mcg intrathecally? [facility] Medical History Menopause Proteinuria Type 2 diabetes mellitus with other diabetic kidney complication Sleep apnea PCOS (polycystic ovarian syndrome) Asthma Type 2 diabetes mellitus with hyperglycemia, with long-term current use of insulin Hyperlipidemia LDL goal <100 Obesity due to excess calories BMI 37.0-37.9, adult 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, uncontrolled 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 Chronic pain syndrome Postlaminectomy syndrome, lumbar Surgical History Hx of spinal surgery History of removal of cyst History of carpal tunnel release History of lumbar surgery History of tonsillectomy Family History Father Diabetes Hypertension Mother Asthma Social History Household Members: Children Housing: Apartment Alcohol intake: current Alcohol intake frequency: holidays/special occasions only Patient Tobacco Use Status: Current everyday Tobacco user Cigarettes Per Day: 10 e-Cigarette/Vaping Use: Never Used service: No Current occupational status: disabled Current occupational exposures/hazards: No Cognitive needs: No Hearing needs: No Vision needs: Yes Review of Systems Const All systems reviewed & are unremarkable except as noted in HPI and below Physical Exam Vital Signs: Last Vital Signs Pulse 90 07/26/23 11:33 Resp 16 07/26/23 11:33 BP 150/80 H 07/26/23 11:33 Pulse Ox 97 07/26/23 11:33 Oxygen Delivery Method Room Air 07/26/23 11:33 General: awake, alert, oriented. Answers questions appropriately. Fully engaged in examination. Skin: warm, dry, intact without visible rashes or lesions. Dressing removed, surrounding area cleansed with chloraprep. [place] intact, incision dry, clean without redness, warmth or drainage. New dressing applied. HEENT: Normocephalic. Hearing intact. Cardiac: External chest normal in appearance. Respiratory: No signs of respiratory distress. Abdomen: without gross distension. MS: No obvious swelling or deformities. Ambulates with steady gait. Neurological: Oriented to person, place, time and situation. Thought process intact. No gait abnormalities appreciated. Psychiatric: Appropriate mood and affect. Good judgment and insight. Results Reviewed Results Reviewed: A neurostimulator device is partially visualized with electrode wires entering the canal in the interlaminar spaces at the L1-L2 and T12-L1 levels. There are no compression fractures. Mild retrosubluxation and moderate loss of disc height with reduced intradiscal signal evident at the L4-L5 level. There is severe disc space narrowing with disc degeneration and vacuum phenomenon at the L5-S1 level. No marrow or soft tissue edema visible. Mild leftward curvature of the lumbar spine evident. The paraspinal soft tissues are otherwise unremarkable. The imaged bony pelvis appears normal. CONUS MEDULLARIS AND CAUDA EQUINA: Normal, terminating at the level of L1. No lower cord signal abnormality is seen. The cauda equina nerve roots are normal. There are conspicuous retroperitoneal lymph nodes, also visible on the prior CT examination, slightly improved in appearance on the current study. SPINAL LEVELS: L1-L2 and L2-L3: No disc pathology. [id number] facet arthrosis. No central canal stenosis or foraminal narrowing. L3-L4: No disc pathology. Mild facet arthropathy without central canal stenosis or foraminal narrowing. L4-L5: Moderate disc space narrowing and retrosubluxation with a broad-based central disc protrusion and endplate ridging resulting in ventral thecal sac distortion and mild mass effect upon the left L5 nerve root. Hypertrophic facet arthropathy and mild central canal stenosis. Underlying disc bulge and ossific spurring result in mild right foraminal encroachment. L5-S1: When correlated to the prior CT study, there is a broad-based central disc protrusion with endplate spurring and calcification of the annulus resulting in impression upon the ventral thecal sac and mild mass effect upon the left S1 nerve root. Moderate facet arthropathy noted with a chronic right-sided laminectomy defect. No central canal stenosis. Bulging disc and osseous spurring result in moderate left foraminal encroachment and mild right foraminal narrowing. IMPRESSION: Moderate spondylosis at the L4-L5 level with a retrosubluxation and broad-based central disc protrusion in conjunction with endplate ridging which results in ventral thecal sac deformity and mild mass effect upon the left L5 nerve root. Mild central canal stenosis and moderate encroachment upon the subarticular zones. ? Chronic postoperative changes at L5-S1 with a broad-based central disc protrusion and endplate spurring with calcification of the annulus distorting the ventral thecal sac and resulting in mild mass effect upon the left S1 nerve root. Moderate facet arthropathy and moderate left foraminal narrowing. ? Mild retroperitoneal adenopathy, improved when compared to the prior abdominal CT examination. 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 Dressing changed today, incision healing well without signs of infection. Masspat was reviewed and without concerns. No obvious signs of diversion, abuse or misuse of the opioid medications. Will send in prescription for oxycodone 10mg po tid #90 no refills with an advanced date of 08/17/2023, early refill to accommodate for increased dosing d/t post op pain. Patient to follow-up in the office in 1 week for staple removal, sooner if needed. All questions and concerns have been answered and patient agrees with the plan. 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
[2023-07-26 11:33] VITALS: BP 150/80; PULSE 90; RESP 16; O2SAT 97
== END 2023-07-26 11:40 | disposition home or self-care (01) ==
PROVIDERS: PCP Hospitalist; Visit Provider Registered Nurse Emergency
DX: G89.4 Chronic pain syndrome (principal); Z79.891 Long term (current) use of opiate analgesic; M96.1 Postlaminectomy syndrome, not elsewhere classified
CPT/HCPCS: 99213

== ENCOUNTER → 2023-07-26 11:15 | Outpatient (BNVA) | payer OTHER, SELFPAY | PROVIDERS: PCP Hospitalist; Visit Provider Registered Nurse Emergency | DX: G89.4 Chronic pain syndrome (principal); M96.1 Postlaminectomy syndrome, not elsewhere classified; Z79.891 Long term (current) use of opiate analgesic | CPT/HCPCS: 99212 ==

== ENCOUNTER 2023-08-02 11:02 | Outpatient (AMB) | payer OTHER, SELFPAY ==
--- NOTE | 2023-08-02 11:13 | MHC.OFFVIS ---
Intake Vital Signs 08/02/23 11:16 Height 5 ft 2 in Weight 212 lb BMI 38.8 BP 154/75 H Blood Pressure Location Lt brachial Position Sitting Respiration 18 Pulse 92 Pulse Source Pulse Oximeter Pulse Oximetry (%) 95 Oxygen Delivery Method Room Air Intake Visit Reasons: s/p SCS Explant 07/21/23 Allergies amoxicillin [From Augmentin] Adverse Reaction (Severe, Verified 08/02/23 11:17) n/v/d clavulanic acid [From Augmentin] Adverse Reaction (Severe, Verified 08/02/23 11:17) n/v/d NSAIDS (Non-Steroidal Anti-Inflamma [NSAIDS (NON-STEROIDAL ANTI-INFLAMMA] Adverse Reaction (Intermediate, Verified 08/02/23 11:17) BLEEDING clavulonic acid Adverse Reaction (Severe, Uncoded 07/21/23 08:21) Vomiting HPI HPI Comments History of Present Illness Details Carlota is a very pleasant 52 year old female who presents to the office today for follow up s/p SCS expland 07/21/2023 and staple removal. Patient tolerated well, denies untoward effects. Pain at site improved but still with some tenderness to palpation. Denies fevers, redness, drainage or swelling at site. She has been taking her prescribed opioids as instructed, no longer taking the additional doses that were allowed for her post op pain. Patient has narcan at home and is trained in the use. Previous visit with Dr Stanley: Carlota is back in my office after the trial I DDD with with morphine which was performed on 01/31/2023.? She does not report the same pain evaluation as it was with Dilaudid in September.? She received 150 micro g of morphine intrathecally.? However the patient developed what looks like post dural puncture headache immediately after the procedure.? The headache went away on itself however now we are not ready to implant anything for the patient.? I suggested that we might try in the future instead of fentanyl to go ahead with bupivacaine injections small dose intrathecally and have bupivacaine as the main medication in the intrathecal space if results of the trial will have no side effects and will have good pain relief.? I warned her that she may experience weakness in bilateral lower extremities after bupivacaine injection however the weakness will be only transient. We decided to wait a month or two PA and schedule the bupivacaine trial later. Prior:? Dilaudid which was performed of 10/06/2023.? The patient reports absence of pain for the 1st 48 hours after the procedure.? However she reports severe nausea and vomiting after surgery.? This is unwanted side effects.? I offered her reach trial with morphine versus read trial with fentanyl.? The patient reported that in the past she was taking morphine as a pain medication orally.? She denies any side effects.? I will try to perform the procedure with 150 mcg intrathecally? [facility] Medical History Menopause Proteinuria Type 2 diabetes mellitus with other diabetic kidney complication Sleep apnea PCOS (polycystic ovarian syndrome) Asthma Type 2 diabetes mellitus with hyperglycemia, with long-term current use of insulin Hyperlipidemia LDL goal <100 Obesity due to excess calories BMI 37.0-37.9, adult 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, uncontrolled longterm (current) use of opiate analgesic Chronic pain syndrome Postlaminectomy syndrome, lumbar Surgical History Hx of spinal surgery History of removal of cyst History of carpal tunnel release History of lumbar surgery History of tonsillectomy Family History Father Diabetes Hypertension Mother Asthma Social History Household Members: Children Housing: Apartment Alcohol intake: current Alcohol intake frequency: holidays/special occasions only Patient Tobacco Use Status: Current everyday Tobacco user Cigarettes Per Day: 10 e-Cigarette/Vaping Use: Never Used service: No Current occupational status: disabled Current occupational exposures/hazards: No Cognitive needs: No Hearing needs: No Vision needs: Yes Review of Systems Const All systems reviewed & are unremarkable except as noted in HPI and below Physical Exam Vital Signs: Last Vital Signs Pulse 92 08/02/23 11:16 Resp 18 08/02/23 11:16 BP 154/75 H 08/02/23 11:16 Pulse Ox 95 08/02/23 11:16 Oxygen Delivery Method Room Air 08/02/23 11:16 BMI result Body Mass Index 38.8 General: awake, alert, oriented. Answers questions appropriately. Fully engaged in examination. Skin: Left lower back: Dressing removed, surrounding area cleansed with chloraprep. 9 kt removed. Incision healing well. area dry, clean, without redness, warmth or drainage. New dressing applied. HEENT: Normocephalic. Hearing intact. Cardiac: External chest normal in appearance. Respiratory: No signs of respiratory distress. Abdomen: without gross distension. MS: No obvious swelling or deformities. Ambulates with steady gait. Neurological: Oriented to person, place, time and situation. Thought process intact. No gait abnormalities appreciated. Psychiatric: Appropriate mood and affect. Good judgment and insight. 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 Left lower back: Dressing removed, surrounding area cleansed with chloraprep. 9 kt removed. Incision healing well. area dry, clean, without redness, warmth or drainage. New dressing applied. Patient advised on wound care and precautions. Continue to monitor blood sugars closely. C/W oxycodone as prescribed. All questions and concerns have been answered and patient agrees with the plan. Follow up as planned for next pill count. Coding Level of Care Code Est Pt Level 3 (40874) Diagnoses Postlaminectomy syndrome, lumbar M96.1 Chronic pain syndrome G89.4 longterm (current) use of opiate analgesic Z79.891
[2023-08-02 11:16] VITALS: BP 154/75; PULSE 92; RESP 18; O2SAT 95; BMI 38.8
== END 2023-08-02 11:37 | disposition home or self-care (01) ==
PROVIDERS: PCP Hospitalist; Visit Provider Registered Nurse Emergency
DX: M96.1 Postlaminectomy syndrome, not elsewhere classified (principal); G89.4 Chronic pain syndrome; Z79.891 Long term (current) use of opiate analgesic
CPT/HCPCS: 99213

== ENCOUNTER → 2023-08-02 11:02 | Outpatient (BNVA) | payer OTHER, SELFPAY | PROVIDERS: PCP Hospitalist; Visit Provider Registered Nurse Emergency | DX: M96.1 Postlaminectomy syndrome, not elsewhere classified (principal); G89.4 Chronic pain syndrome; Z79.891 Long term (current) use of opiate analgesic | CPT/HCPCS: 99212 ==

== ENCOUNTER 2023-08-31 10:54 | Outpatient (AMB) | payer OTHER, SELFPAY ==
--- NOTE | 2023-08-31 11:01 | A.OFFVIS_ITS ---
Intake Vital Signs 08/31/23 11:02 Height 5 ft 2 in Weight 212 lb BMI 38.8 BP 145/80 H Blood Pressure Location Lt brachial Position Sitting Respiration 16 Pulse 81 Pulse Source Pulse Oximeter Pulse Oximetry (%) 96 Oxygen Delivery Method Room Air Intake Visit Reasons: PILL COUNT Allergies amoxicillin [From Augmentin] Adverse Reaction (Severe, Verified 08/31/23 11:01) n/v/d clavulanic acid [From Augmentin] Adverse Reaction (Severe, Verified 08/31/23 11:01) n/v/d NSAIDS (Non-Steroidal Anti-Inflamma [NSAIDS (NON-STEROIDAL ANTI-INFLAMMA] Adverse Reaction (Intermediate, Verified 08/31/23 11:01) BLEEDING clavulonic acid Adverse Reaction (Severe, Uncoded 07/21/23 08:21) Vomiting HPI HPI Comments History of Present Illness Details Carlota is a very pleasant 53 year old female who presents to the office today for follow chronic pain and chronic opioid medication managemen. She is prescribed oxycodone 10mg po TID prn. Patient arrived today with the expectation of having 48 pills, she presented 50 pills which were counted in the presence of two staff members and returned to the patient in the original prescription bottle. This demonstrates responsible attitude toward patient's opioid medications. Pain is reported today as 8/10 and last dose of pain medication was taken at 08:30 this morning. Pain is adequately managed on current opioid regimen. She denies side effects including abd pain, constipation, nausea, shortness of breath or drowsiness. Patient has narcan at home and is trained in the use. Today she is requesting xray of thoracic spine d/t continued pain across the bra line. She had discussed previously with Dr Stanley who advised this would be done after her SCS explant incisions healed. Previous visit with Dr Stanley: Carlota is back in my office after the trial I DDD with with morphine which was performed on 01/31/2023.? She does not report the same pain evaluation as it was with Dilaudid in September.? She received 150 micro g of morphine intrathecally.? However the patient developed what looks like post dural puncture headache immediately after the procedure.? The headache went away on itself however now we are not ready to implant anything for the patient.? I suggested that we might try in the future instead of fentanyl to go ahead with bupivacaine injections small dose intrathecally and have bupivacaine as the main medication in the intrathecal space if results of the trial will have no side effects and will have good pain relief.? I warned her that she may experience weakness in bilateral lower extremities after bupivacaine injection however the weakness will be only transient. We decided to wait a month or two PA and schedule the bupivacaine trial later. Prior:? Dilaudid which was performed of 10/06/2023.? The patient reports absence of pain for the 1st 48 hours after the procedure.? However she reports severe nausea and vomiting after surgery.? This is unwanted side effects.? I offered her reach trial with morphine versus read trial with fentanyl.? The patient reported that in the past she was taking morphine as a pain medication orally.? She denies any side effects.? I will try to perform the procedure with 150 mcg intrathecally? [facility] Medical History (Updated 08/31/23 @ 11:16 by Rose Wilson APRN, JEFFERY) Menopause Proteinuria Type 2 diabetes mellitus with other diabetic kidney complication Sleep apnea PCOS (polycystic ovarian syndrome) Asthma Type 2 diabetes mellitus with hyperglycemia, with long-term current use of insulin Hyperlipidemia LDL goal <100 Obesity due to excess calories BMI 37.0-37.9, adult 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, uncontrolled prison (current) use of opiate analgesic Chronic pain syndrome Postlaminectomy syndrome, lumbar Surgical History Hx of spinal surgery History of removal of cyst History of carpal tunnel release History of lumbar surgery History of tonsillectomy Family History Father Diabetes Hypertension Mother Asthma Social History Household Members: Children Housing: Apartment Alcohol intake: current Alcohol intake frequency: holidays/special occasions only Patient Tobacco Use Status: Current everyday Tobacco user Cigarettes Per Day: 10 e-Cigarette/Vaping Use: Never Used service: No Current occupational status: disabled Current occupational exposures/hazards: No Cognitive needs: No Hearing needs: No Vision needs: Yes Review of Systems Const All systems reviewed & are unremarkable except as noted in HPI and below Physical Exam Vital Signs: Last Vital Signs Pulse 81 08/31/23 11:02 Resp 16 08/31/23 11:02 BP 145/80 H 08/31/23 11:02 Pulse Ox 96 08/31/23 11:02 Oxygen Delivery Method Room Air 08/31/23 11:02 BMI result Body Mass Index 38.8 General: awake, alert, oriented. Answers questions appropriately. Fully engaged in examination. Skin: warm, dry, intact without visible rashes or lesions. HEENT: Normocephalic. Hearing intact. Cardiac: External chest normal in appearance. Respiratory: No signs of respiratory distress. Abdomen: without gross distension. MS: No obvious swelling or deformities. Ambulates with steady gait. Neurological: Oriented to person, place, time and situation. Thought process intact. No gait abnormalities appreciated. Psychiatric: Appropriate mood and affect. Good judgment and insight. 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 No obvious signs of diversion, abuse or misuse of the opioid medications. Will send in prescription for oxycodone 10mg po tid #90 no refills with an advanced date of 09/15/2023 Xray thoracic spine ordered All questions and concerns have been answered and patient agrees with the plan. Patient will follow up in 1 month, sooner if needed. Orders: Orders XR thoracic spine 3V Today M54.6 - Pain in thoracic spine Medications: Refilled oxycodone Partial Fill upon patient request. 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
[2023-08-31 11:02] VITALS: BP 145/80; PULSE 81; RESP 16; O2SAT 96; BMI 38.8
== END 2023-08-31 11:18 | disposition home or self-care (01) ==
PROVIDERS: PCP Hospitalist; Visit Provider Registered Nurse Emergency
DX: M96.1 Postlaminectomy syndrome, not elsewhere classified (principal); G89.4 Chronic pain syndrome; Z79.891 Long term (current) use of opiate analgesic
CPT/HCPCS: 99213

== ENCOUNTER → 2023-08-31 10:54 | Outpatient (BNVA) | payer OTHER, SELFPAY | PROVIDERS: PCP Hospitalist; Visit Provider Registered Nurse Emergency | DX: Z51.81 Encounter for therapeutic drug level monitoring (principal); M96.1 Postlaminectomy syndrome, not elsewhere classified; G89.4 Chronic pain syndrome; Z79.891 Long term (current) use of opiate analgesic | CPT/HCPCS: 99212 ==

== ENCOUNTER 2023-09-28 11:04 | Outpatient (AMB) | payer OTHER, SELFPAY ==
--- NOTE | 2023-09-28 11:20 | A.OFFVIS_ITS ---
Intake Vital Signs 09/28/23 11:21 Height 5 ft 2 in Weight 217 lb 2 oz BMI 39.7 BP 160/72 H Blood Pressure Location Lt brachial Position Sitting Respiration 16 Pulse 79 Pulse Source Pulse Oximeter Pulse Oximetry (%) 98 Oxygen Delivery Method Room Air Intake Visit Reasons: Medication Count/confirmed Allergies amoxicillin [From Augmentin] Adverse Reaction (Severe, Verified 09/28/23 11:19) n/v/d clavulanic acid [From Augmentin] Adverse Reaction (Severe, Verified 09/28/23 11:19) n/v/d NSAIDS (Non-Steroidal Anti-Inflamma [NSAIDS (NON-STEROIDAL ANTI-INFLAMMA] Adverse Reaction (Intermediate, Verified 09/28/23 11:19) BLEEDING clavulonic acid Adverse Reaction (Severe, Uncoded 07/21/23 08:21) Vomiting HPI HPI Comments History of Present Illness Details Carlota is a very pleasant 53 year old female who presents to the office today for follow chronic pain and chronic opioid medication managemen. She is prescribed oxycodone 10mg po TID prn. Patient arrived today with the expectation of having 54 pills, she presented 53 pills which were counted in the presence of two staff members and returned to the patient in the original prescription bottle. This demonstrates responsible attitude toward patient's opioid medications. Pain is reported today as 7/10 and last dose of pain medication was taken at 08:00 this morning. Pain is adequately managed on current opioid regimen. She denies side effects including abd pain, constipation, nausea, shortness of breath or drowsiness. Previous visit with Dr Stanley: Carlota is back in my office after the trial I DDD with with morphine which was p erformed on 01/31/2023.? She does not report the same pain evaluation as it was with Dilaudid in September.? She received 150 micro g of morphine intrathecally.? However the patient developed what looks like post dural puncture headache immediately after the procedure.? The headache went away on itself however now we are not ready to implant anything for the patient.? I suggested that we might try in the future instead of fentanyl to go ahead with bupivacaine injections small dose intrathecally and have bupivacaine as the main medication in the intrathecal space if results of the trial will have no side effects and will have good pain relief.? I warned her that she may experience weakness in bilateral lower extremities after bupivacaine injection however the weakness will be only transient. We decided to wait a month or two PA and schedule the bupivacaine trial later. Prior:? Dilaudid which was performed of 10/06/2023.? The patient reports absence of pain for the 1st 48 hours after the procedure.? However she reports severe nausea and vomiting after surgery.? This is unwanted side effects.? I offered her reach trial with morphine versus read trial with fentanyl.? The patient reported that in the past she was taking morphine as a pain medication orally.? She denies any side effects.? I will try to perform the procedure with 150 mcg intrathecally? 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 Chronic pain syndrome Postlaminectomy syndrome, lumbar Surgical History Hx of spinal surgery History of removal of cyst History of carpal tunnel release History of lumbar surgery History of tonsillectomy Family History Father Diabetes Hypertension Mother Asthma Social History Household Members: Children Housing: Apartment Alcohol intake: current Alcohol intake frequency: holidays/special occasions only Patient Tobacco Use Status: Current everyday Tobacco user Cigarettes Per Day: 10 e-Cigarette/Vaping Use: Never Used service: No Current occupational status: disabled Current occupational exposures/hazards: No Cognitive needs: No Hearing needs: No Vision needs: Yes Review of Systems Const All systems reviewed & are unremarkable except as noted in HPI and below Physical Exam Vital Signs: Last Vital Signs Pulse 79 09/28/23 11:21 Resp 16 09/28/23 11:21 BP 160/72 H 09/28/23 11:21 Pulse Ox 98 09/28/23 11:21 Oxygen Delivery Method Room Air 09/28/23 11:21 BMI result Body Mass Index 39.7 General: awake, alert, oriented. Answers questions appropriately. Fully engaged in examination. Skin: warm, dry, intact without visible rashes or lesions. HEENT: Normocephalic. Hearing intact. Cardiac: External chest normal in appearance. Respiratory: No signs of respiratory distress. Abdomen: without gross distension. MS: No obvious swelling or deformities. Ambulates with steady gait. Neurological: Oriented to person, place, time and situation. Thought process intact. No gait abnormalities appreciated. Psychiatric: Appropriate mood and affect. Good judgment and insight. Results Reviewed Results Reviewed: A neurostimulator device is partially visualized with electrode wires entering the canal in the interlaminar spaces at the L1-L2 and T12-L1 levels. There are no compression fractures. Mild retrosubluxation and moderate loss of disc height with reduced intradiscal signal evident at the L4-L5 level. There is severe disc space narrowing with disc degeneration and vacuum phenomenon at the L5-S1 level. No marrow or soft tissue edema visible. Mild leftward curvature of the lumbar spine evident. The paraspinal soft tissues are otherwise unremarkable. The imaged bony pelvis appears normal. CONUS MEDULLARIS AND CAUDA EQUINA: Normal, terminating at the level of L1. No lower cord signal abnormality is seen. The cauda equina nerve roots are normal. There are conspicuous retroperitoneal lymph nodes, also visible on the prior CT examination, slightly improved in appearance on the current study. SPINAL LEVELS: L1-L2 and L2-L3: No disc pathology. Cled-jw-[id number] facet arthrosis. No central canal stenosis or foraminal narrowing. L3-L4: No disc pathology. Mild facet arthropathy without central canal stenosis or foraminal narrowing. L4-L5: Moderate disc space narrowing and retrosubluxation with a broad-based central disc protrusion and endplate ridging resulting in ventral thecal sac distortion and mild mass effect upon the left L5 nerve root. Hypertrophic facet arthropathy and mild central canal stenosis. Underlying disc bulge and ossific spurring result in mild right foraminal encroachment. L5-S1: When correlated to the prior CT study, there is a broad-based central disc protrusion with endplate spurring and calcification of the annulus resulting in impression upon the ventral thecal sac and mild mass effect upon the left S1 nerve root. Moderate facet arthropathy noted with a chronic right-sided laminectomy defect. No central canal stenosis. Bulging disc and osseous spurring result in moderate left foraminal encroachment and mild right foraminal narrowing. IMPRESSION: Moderate spondylosis at the L4-L5 level with a retrosubluxation and broad-based central disc protrusion in conjunction with endplate ridging which results in ventral thecal sac deformity and mild mass effect upon the left L5 nerve root. Mild central canal stenosis and moderate encroachment upon the subarticular zones. ? Chronic postoperative changes at L5-S1 with a broad-based central disc protrusion and endplate spurring with calcification of the annulus distorting the ventral thecal sac and resulting in mild mass effect upon the left S1 nerve root. Moderate facet arthropathy and moderate left foraminal narrowing. ? Mild retroperitoneal adenopathy, improved when compared to the prior abdominal CT examination. 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 No obvious signs of diversion, abuse or misuse of the opioid medications. Will send in prescription for oxycodone 10mg po tid #90 no refills with an advanced date of 10/16/2023 All questions and concerns have been answered and patient agrees with the plan. Patient will follow up in 1 month, sooner if needed. Medications: Refilled oxycodone Partial Fill upon patient request. 10 mg PO TID 30 days PRN 90 tabs 0RF pain G89.4 - Chronic pain syndrome, M96.1 - Postlaminectomy syndrome, not elsewhere classified Coding Level of Care Code Est Pt Level 4 (95146) Diagnoses Postlaminectomy syndrome, lumbar M96.1 Chronic pain syndrome G89.4 senior care (current) use of opiate analgesic Z79.891
[2023-09-28 11:21] VITALS: BP 160/72; PULSE 79; RESP 16; O2SAT 98; BMI 39.7
== END 2023-09-28 11:20 | disposition home or self-care (01) ==
PROVIDERS: PCP Hospitalist; Visit Provider Registered Nurse Emergency
DX: M96.1 Postlaminectomy syndrome, not elsewhere classified (principal); G89.4 Chronic pain syndrome; Z79.891 Long term (current) use of opiate analgesic
CPT/HCPCS: 99214

== ENCOUNTER → 2023-09-28 11:04 | Outpatient (BNVA) | payer OTHER, SELFPAY | PROVIDERS: PCP Hospitalist; Visit Provider Registered Nurse Emergency | DX: Z51.81 Encounter for therapeutic drug level monitoring (principal); M96.1 Postlaminectomy syndrome, not elsewhere classified; G89.4 Chronic pain syndrome; Z79.891 Long term (current) use of opiate analgesic | CPT/HCPCS: 99212 ==

== ENCOUNTER 2023-10-06 10:34 | Outpatient (AMB) | payer OTHER, SELFPAY ==
--- NOTE | 2023-10-06 10:40 | MHC.OFFVIS ---
Intake Vital Signs 10/06/23 10:45 Height 5 ft 2 in Weight 220 lb BMI 40.2 BP 107/56 L Blood Pressure Location Lt brachial Position Sitting Pulse 85 Intake Visit Reasons: F/U - Jenni Patient Intake Note: Carlota presents in the office as a follow up opinion from Jenni. CC: She would like to talk about increasing Linzess. Allergies amoxicillin [From Augmentin] Adverse Reaction (Severe, Verified 10/06/23 10:42) n/v/d clavulanic acid [From Augmentin] Adverse Reaction (Severe, Verified 10/06/23 10:42) n/v/d NSAIDS (Non-Steroidal Anti-Inflamma [NSAIDS (NON-STEROIDAL ANTI-INFLAMMA] Adverse Reaction (Intermediate, Verified 10/06/23 10:42) BLEEDING clavulonic acid Adverse Reaction (Severe, Uncoded 10/06/23 10:42) Vomiting HPI F/U - Jenni Patient HPI Details 53 yr old f here for f/u She has chronic constipation she does really well with linaclotide, but 145 mcg works better for her appetite is good she is on chronic opiate for severe back pain not taking nsaids chronic cough CT 2020-- right sided colonic and TI thickening, hyperemia EXAM: GENERAL: The patient is well developed and nontoxic. VITAL SIGNS:see workflow HEENT: Nonicteric sclerae, PERRLA, EOMI. Oropharynx clear. Moist mucous membranes. Conjunctivae appear well perfused. No thyroid mass. CHEST: Chest wall is nontender. HEART: Regular rate and rhythm without murmurs. LUNGS: Clear to auscultation bilaterally. ABDOMEN: Soft, positive bowel sounds, nontender, no organomegaly.no flank tenderness SKIN: No rash, no excessive bruising, petechiae, or purpura. NEUROLOGIC: Cranial nerves II-XII intact without motor/sensory deficit. Psych: nml affect A/P: 1/constipation--slow transit also due to opiate use--does well with linalcotide, smoker as well 2/ possible corhns with abn imaging 2020 3/ chronic cough, ? 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 Chronic pain syndrome Postlaminectomy syndrome, lumbar Surgical History (Updated 10/06/23 @ 10:42 by RACHEL Winslow) History of esophagogastroduodenoscopy (EGD) Hx of spinal surgery History of removal of cyst History of carpal tunnel release History of lumbar surgery History of tonsillectomy Family History Father Diabetes Hypertension Mother Asthma Social History Household Members: Children Housing: Apartment Alcohol intake: current Alcohol intake frequency: holidays/special occasions only Patient Tobacco Use Status: Current everyday Tobacco user Cigarettes Per Day: 10 e-Cigarette/Vaping Use: Never Used service: No Current occupational status: disabled Current occupational exposures/hazards: No Cognitive needs: No Hearing needs: No Vision needs: Yes Physical Exam Vital Signs: Last Vital Signs Pulse 85 10/06/23 10:45 BP 107/56 L 10/06/23 10:45 BMI result Body Mass Index 40.2 Assessment & Plan Assessment & Plan (1) Cough: Code(s): R05.9 - Cough, unspecified Plan: A/P: 1/constipation--slow transit also due to opiate use--does well with linalcotide, smoker as well 2/ possible corhns with abn imaging 2020 3/ chronic cough, ? copd PLAN: 1/ colonoscopy for further evalaution and r/o crohns, also add EGD 2/ cxr for chronic cough--if neg refer pulm for PFT and eval Orders: Orders XR chest 2V Today R05.9 - Cough, unspecified Medications: New linaclotide 145 mcg PO DAILY 90 caps 2RF Discontinued magnesium oxide Discontinued Reason: Duplicate 500 mg PO DAILY 90 caps 3RF hydroxyzine HCl Discontinued Reason: Patient no longer taking 25 mg PO BID 30 days PRN 60 tabs 8RF for itch clonidine HCl Discontinued Reason: Patient no longer taking 0.1 mg PO BID 30 days PRN 60 tabs 8RF opioid withdrawal Coding Level of Care Code Est Pt Level 4 (09977) Diagnoses Cough R05.9
[2023-10-06 10:45] VITALS: BP 107/56; PULSE 85; BMI 40.2
== END 2023-10-06 11:29 | disposition home or self-care (01) ==
PROVIDERS: PCP Hospitalist; Visit Provider Internal Medicine Gastroenterology
DX: R05.9 Cough, unspecified (principal)
CPT/HCPCS: 99214

== ENCOUNTER → 2023-10-06 10:34 | Outpatient (BNVA) | payer OTHER, SELFPAY | PROVIDERS: PCP Hospitalist; Visit Provider Internal Medicine Gastroenterology | DX: R05.9 Cough, unspecified (principal) | CPT/HCPCS: 99212 ==

== ENCOUNTER 2023-10-12 14:01 | Outpatient (REF) | payer OTHER, SELFPAY | END 2023-10-12 14:02 | disposition home or self-care (01) | LOC: HO.XRAY 14:01 | PROVIDERS: Absent Provider Registered Nurse Emergency; Visit Provider Dentist Pediatric Dentistry | DX: R05.9 Cough, unspecified (principal); M54.6 Pain in thoracic spine | CPT/HCPCS: 71046; 72072 ==

== ENCOUNTER 2023-10-27 11:25 | Outpatient (AMB) | payer OTHER, SELFPAY ==
[2023-10-27 11:38] VITALS: BP 126/67; PULSE 90; RESP 16; O2SAT 96; BMI 40.0
--- NOTE | 2023-10-27 11:38 | MHC.OFFVIS ---
Intake Vital Signs 10/27/23 11:38 Height 5 ft 2 in Weight 218 lb 8 oz BMI 40.0 BP 126/67 Blood Pressure Location Lt brachial Position Sitting Respiration 16 Pulse 90 Pulse Source Pulse Oximeter Pulse Oximetry (%) 96 Oxygen Delivery Method Room Air Intake Visit Reasons: PILL COUNT - Confirmed Allergies amoxicillin [From Augmentin] Adverse Reaction (Severe, Verified 10/27/23 11:37) n/v/d clavulanic acid [From Augmentin] Adverse Reaction (Severe, Verified 10/27/23 11:37) n/v/d NSAIDS (Non-Steroidal Anti-Inflamma [NSAIDS (NON-STEROIDAL ANTI-INFLAMMA] Adverse Reaction (Intermediate, Verified 10/27/23 11:37) BLEEDING clavulonic acid Adverse Reaction (Severe, Uncoded 10/06/23 10:42) Vomiting HPI HPI Comments History of Present Illness Details Carlota is a very pleasant 53 year old female who presents to the office today for follow chronic pain and chronic opioid medication managemen. She is prescribed oxycodone 10mg po TID prn. Patient arrived today with the expectation of having 60 pills, she presented 59 pills which were counted in the presence of two staff members and returned to the patient in the original prescription bottle. This demonstrates responsible attitude toward patient's opioid medications. Pain is reported today as 7/10 and last dose of pain medication was taken at 08:30 this morning. She denies side effects including abd pain, constipation, nausea, shortness of breath or drowsiness. Recent TS XR reviewed, results as per below. Continues with pain across middle back, at bra line. She contributes some of her pain to weight gain since starting menopause. She is on wait list for weight management. Scheduled for pcp visit with new provider as her old pcp has left the practice. She plans to discuss medication for weight loss at that visit. Previous visit with Dr Stanley: Carlota is back in my office after the trial I DDD with with morphine which was performed on 01/31/2023.? She does not report the same pain evaluation as it was with Dilaudid in September.? She received 150 micro g of morphine intrathecally.? However the patient developed what looks like post dural puncture headache immediately after the procedure.? The headache went away on itself however now we are not ready to implant anything for the patient.? I suggested that we might try in the future instead of fentanyl to go ahead with bupivacaine injections small dose intrathecally and have bupivacaine as the main medication in the intrathecal space if results of the trial will have no side effects and will have good pain relief.? I warned her that she may experience weakness in bilateral lower extremities after bupivacaine injection however the weakness will be only transient. We decided to wait a month or two PA and schedule the bupivacaine trial later. Prior:? Dilaudid which was performed of 10/06/2023.? The patient reports absence of pain for the 1st 48 hours after the procedure.? However she reports severe nausea and vomiting after surgery.? This is unwanted side effects.? I offered her reach trial with morphine versus read trial with fentanyl.? The patient reported that in the past she was taking morphine as a pain medication orally.? She denies any side effects.? I will try to perform the procedure with 150 mcg intrathecally? 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 Chronic pain syndrome Postlaminectomy syndrome, lumbar Surgical History (Updated 10/06/23 @ 10:42 by RACHEL Winslow) History of esophagogastroduodenoscopy (EGD) Hx of spinal surgery History of removal of cyst History of carpal tunnel release History of lumbar surgery History of tonsillectomy Family History Father Diabetes Hypertension Mother Asthma Social History Household Members: Children Housing: Apartment Alcohol intake: current Alcohol intake frequency: holidays/special occasions only Patient Tobacco Use Status: Current everyday Tobacco user Cigarettes Per Day: 10 e-Cigarette/Vaping Use: Never Used service: No Current occupational status: disabled Current occupational exposures/hazards: No Cognitive needs: No Hearing needs: No Vision needs: Yes Review of Systems Const All systems reviewed & are unremarkable except as noted in HPI and below Physical Exam Vital Signs: Last Vital Signs Pulse 90 01/12/24 11:38 Resp 16 10/27/23 11:38 BP 126/67 10/27/23 11:38 Pulse Ox 96 10/27/23 11:38 Oxygen Delivery Method Room Air 10/27/23 11:38 BMI result Body Mass Index 40.0 General: awake, alert, oriented. Answers questions appropriately. Fully engaged in examination. Skin: warm, dry, intact without visible rashes or lesions. HEENT: Normocephalic. Hearing intact. Cardiac: External chest normal in appearance. Respiratory: No signs of respiratory distress. Abdomen: without gross distension. MS: No obvious swelling or deformities. Ambulates with steady gait. Neurological: Oriented to person, place, time and situation. Thought process intact. No gait abnormalities appreciated. Psychiatric: Appropriate mood and affect. Good judgment and insight. Results Reviewed Results Reviewed: 10/12/2023 XR/XR thoracic spine 3V FINDINGS: There are mild multilevel degenerative changes of thoracic spine with marginal spurring. Pedicles are preserved there is no evidence of fractures soft tissues unremarkable. There is no spondylolysis or listhesis. IMPRESSION: Mild degenerative changes with marginal spurring. Thoracic spine. Assessment & Plan Assessment & Plan (1) Postlaminectomy syndrome, lumbar: Code(s): M96.1 - Postlaminectomy syndrome, not elsewhere classified (2) Chronic pain syndrome: Code(s): G89.4 - Chronic pain syndrome (3) longterm (current) use of opiate analgesic: Comment: Pain Management-chronic pain/back Code(s): Z79.891 - longterm (current) use of opiate analgesic Plan Masspat was reviewed and without concerns. No obvious signs of diversion, abuse or misuse of the opioid medications. Will send in prescription for oxycodone 10mg po tid #90 no refills with an advanced date of 11/16/2023 Trial Tizanidine 2mg po TID as needed All questions and concerns have been answered and patient agrees with the plan. Patient will follow up in 1 month, sooner if needed. Medications: New tizanidine 2 mg PO TID PRN 90 tabs 0RF muscle spasticity Refilled oxycodone Partial Fill upon patient request. 10 mg PO TID 30 days PRN 90 tabs 0RF pain G89.4 - Chronic pain syndrome, M96.1 - Postlaminectomy syndrome, not elsewhere classified Coding Level of Care Code Est Pt Level 4 (96747) Diagnoses Postlaminectomy syndrome, lumbar M96.1 Chronic pain syndrome G89.4 longterm (current) use of opiate analgesic Z79.891
== END 2023-10-27 11:58 | disposition home or self-care (01) ==
PROVIDERS: PCP Hospitalist; Visit Provider Registered Nurse Emergency
DX: G89.4 Chronic pain syndrome (principal); M96.1 Postlaminectomy syndrome, not elsewhere classified; Z79.891 Long term (current) use of opiate analgesic
CPT/HCPCS: 99214

== ENCOUNTER → 2023-10-27 11:25 | Outpatient (BNVA) | payer OTHER, SELFPAY | PROVIDERS: PCP Hospitalist; Visit Provider Registered Nurse Emergency | DX: G89.4 Chronic pain syndrome (principal); M96.1 Postlaminectomy syndrome, not elsewhere classified; Z79.891 Long term (current) use of opiate analgesic | CPT/HCPCS: 99212 ==

== ENCOUNTER 2023-11-22 10:30 | Outpatient (AMB) | payer OTHER, SELFPAY ==
--- NOTE | 2023-11-22 10:43 | MHC.PC.OV ---
Vital Signs 11/22/23 10:45 Height 5 ft 2 in Weight 223 lb BMI 40.8 BP 124/78 Blood Pressure Location Rt brachial Position Sitting Respiration 13 Pulse 96 Pulse Source Pulse Oximeter Temp 97.6 F Temp Source Temporal Artery Scan Pulse Oximetry (%) 99 Oxygen Delivery Method Room Air Intake Visit Reasons: tranfer care from chon Intake Note: Patient would like to discuss diabetes and hasnt been on her insulin for almost a year. Patient would like to be switched off lipitor and has been having a cough as a side effect from medication.\ Patient needs refills on her pen needles, insulin. Assistant Therapy Aide Required: No Accompanied by: Family/Other Allergies Seasonal Allergies Allergy (Intermediate, Verified 11/22/23 11:21) Cough amoxicillin [From Augmentin] Adverse Reaction (Severe, Verified 11/22/23 11:21) n/v/d clavulanic acid [From Augmentin] Adverse Reaction (Severe, Verified 11/22/23 11:21) n/v/d NSAIDS (Non-Steroidal Anti-Inflamma [NSAIDS (NON-STEROIDAL ANTI-INFLAMMA] Adverse Reaction (Intermediate, Verified 11/22/23 11:21) BLEEDING clavulonic acid Adverse Reaction (Severe, Uncoded 10/06/23 10:42) Vomiting Medication List - Last Reconciled 11/22/[address] [facility]- albuterol sulfate 90 mcg/actuation 2 puffs PO Q6H PRN albuterol sulfate mg inhalation atorvastatin 40 mg PO DAILY blood sugar diagnostic (FreeStyle Lite Strips) 1 strip miscellaneous TID-QID celecoxib 100 mg PO BID cetirizine 10 mg PO DAILY PRN diabetic supplies, miscellan. As directed diphenhydramine HCl (Banophen) 25 mg PO BEDTIME PRN flash glucose scanning reader (FreeStyle Bettye 2 [place]) As directed flash glucose sensor (FreeStyle Bettye 2 Sensor kit) As directed every 2 weeks fluticasone propionate 50 mcg/actuation (Allergy Relief (fluticasone)) 2 sprays intranasal DAILY 1 month gabapentin 600 mg PO TID PRN 30 days insulin aspart U-100 20 - 30 units (0.2 - 0.3 mL) subcut TID 90 days insulin degludec (Tresiba FlexTouch U-200 insulin) 60 units (0.3 mL) subcut DAILY 30 days lancets 3 to 4 time a day blood sugar checks. linaclotide 145 mcg PO DAILY lisinopril 2.5 mg PO DAILY magnesium oxide 500 mg PO DAILY metformin ER 1,000 mg (2 x 500 mg) PO BID montelukast (Singulair) 10 mg PO BEDTIME omeprazole 20 mg PO DAILY 90 days oxycodone 10 mg PO TID PRN 30 days pen needle, diabetic tid insulin administration solriamfetol (Sunosi) 150 mg PO DAILY tizanidine 2 mg PO TID PRN Tobacco use date assessed: 01/16/23 Dental Screening Dental Screen Date: 11/22/23 Did you have a dental visit in the last 12 months?: No Did you have a dental problem in the last 6 months where you did not have access to dental care?: No Was dental information given to patient?: Yes HPI HPI Comments History of Present Illness Details 53-year-old female with type 2 diabetes with complications, diabetic kidney disease hypertension hyperlipidemia, obesity obstructive sleep apnea, PCOS, asthma, chronic pain syndrome, diverticulosis, coronary artery disease, 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 Ordered today Colon: [facility] GI, plan for first colon 01/2024 Dexa: ordered today HgA1c 9.2% today DME [place]: [facility] -2022 - asked to sign SILVINO today to get most recent exam Complex patient. DM was on trulicity but this caused intolerable GI side effects. She is maintained on insulin. At the time of the visit her CGM is reading low blood sugar with a reading of 63. Three glucose tabs were administered and she was monitored for 15 minutes a recheck her blood glucose was 58. She was given another 3 glucose tabs along with a granola bar and monitored until her blood sugar latrell above 80. Obesity - interested in wt loss without surgery -- Refer to [facility] Metabolic clinic Chronic Bronchitis On ACEI - coughing, would like to come off the CLAIRE if she is able. She has not maintained on a daily controller inhaler and does not think that she needs 1. She is not managed by pulmonology. She continues to smoke. Margie only reports she is up-to-date on her vaccinations Unaware for DM kidney disease - discussed today. Plan to repeat labs and refer to Renal. [facility] Medical History (Updated 11/22/23 @ 17:06 by Bhumika Lucas, [facility]) Menopause Proteinuria Type 2 diabetes mellitus with other diabetic kidney complication Sleep apnea PCOS (polycystic ovarian syndrome) Asthma Type 2 diabetes mellitus with hyperglycemia, with long-term current use of insulin Hyperlipidemia LDL goal <100 Obesity due to excess calories BMI 37.0-37.9, adult 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, uncontrolled emt intermediate (current) use of opiate analgesic Chronic pain syndrome Postlaminectomy syndrome, lumbar Surgical History History of esophagogastroduodenoscopy (EGD) Hx of spinal surgery History of removal of cyst History of carpal tunnel release History of lumbar surgery History of tonsillectomy Family History Father Diabetes Hypertension Mother Asthma Social History Household Members: Children Housing: Apartment Alcohol intake: current Alcohol intake frequency: holidays/special occasions only Patient Tobacco Use Status: Current everyday Tobacco user Cigarette Packs Per Day: 0.5 Cigarettes Per Day: 10 Years Smoked: 30 e-Cigarette/Vaping Use: Never Used service: No Current occupational status: disabled Current occupational exposures/hazards: No Cognitive needs: No Hearing needs: No Vision needs: Yes Questionnaire PHQ-9 Over the last 2 weeks, how often have you been bothered by any of the following problems? 1. Little interest or pleasure in doing things: not at all 2. Feeling down, depressed, or hopeless: not at all 3. Trouble falling or staying asleep, or sleeping too much: nearly every day 4. Feeling tired or having little energy: nearly every day 5. Poor appetite or overeating: nearly every day 6. Feeling bad about yourself - or that you are a failure or have let yourself or your family down: not at all 7. Trouble concentrating on things, such as reading the newspaper or watching television: not at all 8. Moving or speaking so slowly that other people could have noticed. Or the opposite - being so fidgety or restless that you have been moving around a lot more than usual: not at all 9. Thoughts that you would be better off or of hurting yourself in some way: not at all Total score: 9 Depression Screening Interpretation: Positive Depression Screening Follow-up: Existing condition and In treatment Depression Screening Done: Yes 32873 - PHQ-9 Billing: Yes Source: Developed by Drs. Yrn Alexander, Frieda Rivera, John Archuleta and colleagues, with an educational cedrick from [employer]. Thrive Questionnaire Date Thrive assessed: 11/22/23 I am a: Patient What is your living situation today?: I have a steady place to live Within the past 12 months, did the food you bought not last and you didn't have the money to get more?: Never true Within the past 12 months, did you worry whether your food would run out before you got money to buy more?: Never true Do you have trouble paying for medicines?: No Do you have trouble getting transportation to medical appointments?: No Do you have trouble paying your heating and electricity bill?: Yes Do you have trouble taking care of your child, family member or friend?: No Do you have trouble with day-to-day activities such as bathing, preparing meals, shopping, managing finances, etc.?: No Are you currently unemployed and looking for a job?: No Are you interested in more education?: No Please select the resources that you would like help with: None Currently or been in a relationship where the following occur: no concerns reported THRIVE Score: 1 AUDIT C Alcohol Use Questionnaire (AUDIT-C) 1. How often do you have a drink containing alcohol?: Monthly or less 2. How many drinks containing alcohol do you have on a typical day when you are drinking?: 1 or 2 3. How often do you have six or more drinks on one occasion?: Never Total Score: 1 EDWIGE-7 AMB Questionnaire EDWIGE-7 Date EDWIGE - 7 assessed: 11/22/23 Feeling nervous, anxious, or on edge: 0 = Not at all Not being able to stop or control worryin = Not at all Worrying too much about different things: 1 = Several days Trouble relaxin = Not at all Being so restless that it is hard to sit still: 0 = Not at all Becoming easily annoyed or irritable: 3 = Nearly every day Feeling afraid as if something awful might happen: 0 = Not at all Total EDWIGE-7 score (0-4 normal; 5-9 mild; 10-14 moderate; 15-21 severe): 4 Source: Developed by Drs. Yrn Alexander, Frieda Rivera, John Archuleta and colleagues, with an educational cedrick from [employer]. EDWIGE-7 Assessment Billing EDWIGE-7 Assessment Tool: EDWIGE-7 Assessment 73038 ACT Questionnaire In the past 4 weeks, how much of the time did your asthma keep you from getting as much done at work, school or at home?: None of the time During the past 4 weeks, how often have you had shortness of breath?: 1-2 times a week During the past 4 weeks, how often did your asthma symptoms wake you up at night or earlier than usual in the morning?: 4 or more nights a week During the past 4 weeks, how often have you had to use your rescue inhaler or nebulizer medication?: Not at all How would you rate your asthma control during the past 4 weeks?: Somewhat controlled ACT Interpretation: Positive Score: 18 Review of Systems Const All systems reviewed & are unremarkable except as noted in HPI and below Physical exam (Primary Care) Vital Signs: Last Vital Signs Temp 97.6 F 11/22/23 10:45 Pulse 96 11/22/23 10:45 Resp 13 11/22/23 10:45 BP 124/78 11/22/23 10:45 Pulse Ox 99 11/22/23 10:45 Oxygen Delivery Method Room Air 11/22/23 10:45 BMI result Body Mass Index 40.8 BMI Assessment/Plan discussion: High BMI High, discussed plan: weight reduction and other (Referred to the metabolic clinic at [facility] [place] Tobacco/Smoking Status: Tobacco use Status Tobacco use date assessed 01/16/23 11/22/23 10:44 Patient Tobacco Use Status Current everyday Tobacco 11/22/23 10:44 e-Cigarette/Vaping Use Never Used 11/22/23 10:44 Are you ready to quit: No Tobacco cessation counseling provided: Yes Items discussed: QuitWorks Relapse Prevention: discussed the importance of a supportive environment, discussed negative mood or depression after quitting and weight gain after smoking is common Number of minutes spent counselin CPT code: 97606 - 4-10 Minutes PHQ-9: PHQ-9 Score PHQ-9: Total score 9 11/22/23 15:43 Depression Screening Interpretation: Positive Depression Screening Follow-up: Existing condition and In treatment Thrive Assessment: Date of Thrive Assessment Date Thrive assessed 11/22/23 11/22/23 11:07 Currently or been in a relationship where the following occur: no concerns reported Const Other: Awake alert oriented accompanied by her mother and 13-year-old daughter Mucous membranes moist Lung sounds clear to auscultation bilat Regular rate and rhythm Bilateral lower extremities with trace edema, skin intact, monofilament testing within normal limits, abnormal vibratory sensations bilat Office Procedures Diabetic Foot Exam G9226 - Diabetic Foot Exam Results AMB Hemoglobin A1c AMB Hemoglobin A1c 9.2 % Last Edit by Latia Haynes MA on 11/22/23 11:50 Results Reviewed Results Reviewed: Laboratory Last Values Hgb A1c (Clinic) 9.2 % (4.0-6.0) H 11/22/23 11:49 Assessment and Plan Assessment & Plan (1) Type 2 diabetes mellitus with other diabetic kidney complication: Comment: Referred to nephrology for further evaluation and treatment Code(s): E11.29 - Type 2 diabetes mellitus with other diabetic kidney complication (2) Type 2 diabetes mellitus with hyperglycemia, with long-term current use of insulin: Comment: On insulin. Not interested in referral to endocrinology at this time. Uses a CGM Diabetic [facility] [place] I do not have the most recent exam I have told her to get this for me. The last night was able to review did have signs of diabetic retinopathy She is on CLAIRE inhibitor however she reports this is causing a cough. I will review her most recent labs that I have ordered today and order an Arb if this is appropriate to do so for renal protection Code(s): E11.65 - Type 2 diabetes mellitus with hyperglycemia; Z79.4 - emt intermediate (current) use of insulin (3) Hyperlipidemia due to type 2 diabetes mellitus: Comment: HGB A1c 9.2% today Code(s): E11.69 - Type 2 diabetes mellitus with other specified complication; E78.5 - Hyperlipidemia, unspecified (4) Menopause: Comment: age 51, DEXA ordered today Code(s): Z78.0 - Asymptomatic menopausal state (5) Peripheral sensory neuropathy due to type 2 diabetes mellitus: Code(s): E11.42 - Type 2 diabetes mellitus with diabetic polyneuropathy (6) Hypoglycemia due to insulin: Code(s): E16.0 - Drug-induced hypoglycemia without coma; T38.3X5A - Adverse effect of insulin and oral hypoglycemic [antidiabetic] drugs, initial encounter Plan: See the treatment provided above in the HPI. This resolved prior to discharge. Plan Total time spent caring for the patient today was 75 minutes. This includes time spent before the visit reviewing the chart, time spent during the visit, and time spent after the visit on documentation This note is constructed using voice recognition software. While every effort has been made to ensure accuracy in service team leader, still errors may have been included Sometimes, these errors may affect the content or meaning of the given sentence . I will see her back in 6 weeks to follow-up on her chronic conditions that will need very close interval follow ups Orders: Orders LDL Cholesterol Direct Today E11.29 - Type 2 diabetes mellitus with other diabetic kidney complication, E11.65 - Type 2 diabetes mellitus with hyperglycemia, E11.69 - Type 2 diabetes mellitus with other specified complication, E78.5 - Hyperlipidemia, unspecified, Z79.4 - MCC (current) use of insulin Vitamin B12 and Folate Today E11.29 - Type 2 diabetes mellitus with other diabetic kidney complication, E11.65 - Type 2 diabetes mellitus with hyperglycemia, E11.69 - Type 2 diabetes mellitus with other specified complication, E78.5 - Hyperlipidemia, unspecified, Z79.4 - emt intermediate (current) use of insulin XR DEXA axial skeleton Today Z78.0 - Asymptomatic menopausal state Comprehensive Met. Panel Today E11.29 - Type 2 diabetes mellitus with other diabetic kidney complication, E11.65 - Type 2 diabetes mellitus with hyperglycemia, E11.69 - Type 2 diabetes mellitus with other specified complication, E78.5 - Hyperlipidemia, unspecified, Z79.4 - emt intermediate (current) use of insulin TSH reflex Free T4 Today E11.29 - Type 2 diabetes mellitus with other diabetic kidney complication, E11.65 - Type 2 diabetes mellitus with hyperglycemia, E11.69 - Type 2 diabetes mellitus with other specified complication, E78.5 - Hyperlipidemia, unspecified, Z79.4 - emt intermediate (current) use of insulin Vitamin D 1,25 dihydroxy Today E11.29 - Type 2 diabetes mellitus with other diabetic kidney complication, E11.65 - Type 2 diabetes mellitus with hyperglycemia, E11.69 - Type 2 diabetes mellitus with other specified complication, E78.5 - Hyperlipidemia, unspecified, Z79.4 - MCC (current) use of insulin Microalbumin, Random (w Creat) Today E11.29 - Type 2 diabetes mellitus with other diabetic kidney complication, E11.65 - Type 2 diabetes mellitus with hyperglycemia, E11.69 - Type 2 diabetes mellitus with other specified complication, E78.5 - Hyperlipidemia, unspecified, Z79.4 - MCC (current) use of insulin MM tomosynthesis screening BI Today Z12.31 - Encounter for screening mammogram for malignant neoplasm of breast AMB Hemoglobin A1c Today E11.29 - Type 2 diabetes mellitus with other diabetic kidney complication, E11.65 - Type 2 diabetes mellitus with hyperglycemia, Z79.4 - emt intermediate (current) use of insulin AMB Diabetic Foot Exam Today E11.42 - Type 2 diabetes mellitus with diabetic polyneuropathy, E11.65 - Type 2 diabetes mellitus with hyperglycemia, Z79.4 - emt intermediate (current) use of insulin Referrals Nephrology Referral E11.29 - Type 2 diabetes mellitus with other diabetic kidney complication Medical Weight Management Referral E11.29 - Type 2 diabetes mellitus with other diabetic kidney complication, E11.65 - Type 2 diabetes mellitus with hyperglycemia, E11.69 - Type 2 diabetes mellitus with other specified complication, E78.5 - Hyperlipidemia, unspecified, Z79.4 - emt intermediate (current) use of insulin Medications: Refilled insulin degludec (Tresiba FlexTouch U-200 insulin) 60 units (0.3 mL) subcut DAILY 30 days 9 mL 4RF E11.65 - Type 2 diabetes mellitus with hyperglycemia pen needle, diabetic tid insulin administration 100 ea 11RF insulin aspart U-100 per sliding scale 20 - 30 units (0.2 - 0.3 mL) subcut TID 90 days 60 mL 2RF E11.65 - Type 2 diabetes mellitus with hyperglycemia, Z79.4 - emt intermediate (current) use of insulin Coding Level of Care Code Est Pt Level 5 (70616) Diagnoses Type 2 diabetes mellitus with other diabetic kidney complication E11.29 Type 2 diabetes mellitus with hyperglycemia, with long-term current use of insulin E11.65; Z79.4 Hyperlipidemia due to type 2 diabetes mellitus E11.69; E78.5 Menopause Z78.0 Peripheral sensory neuropathy due to type 2 diabetes mellitus E11.42 Hypoglycemia due to insulin E16.0; T38.3X5A CPT Codes Diabetic Foot Exam - CPT: G9226 - Diabetic Foot Exam ([id number]) Additional Codes EDWIGE-7 Assessment Billing - EDWIGE-7 Assessment Tool: EDWIGE-7 Assessment 63529 ([id number]) Vital Signs *Quality* - CPT code: 42537 - 4-10 Minutes ([id number])
[2023-11-22 10:45] VITALS: BP 124/78; PULSE 96; RESP 13; TEMP 36.4; O2SAT 99; BMI 40.8
== END 2023-11-22 12:01 | disposition home or self-care (01) ==
PROVIDERS: PCP Nurse Practitioner Family; Visit Provider Nurse Practitioner Family
DX: E11.29 Type 2 diabetes mellitus with other diabetic kidney complication (principal); E11.65 Type 2 diabetes mellitus with hyperglycemia; Z79.4 Long term (current) use of insulin; E11.42 Type 2 diabetes mellitus with diabetic polyneuropathy; E11.69 Type 2 diabetes mellitus with other specified complication; E78.5 Hyperlipidemia, unspecified; Z78.0 Asymptomatic menopausal state; E16.0 Drug-induced hypoglycemia without coma; T38.3X5A Adverse effect of insulin and oral hypoglycemic [antidiabetic] drugs, initial encounter
CPT/HCPCS: 83036; 99215

== ENCOUNTER 2023-11-22 12:02 | Outpatient (REF) | payer OTHER, SELFPAY ==
[2023-11-22 15:44] LABS: Alanine Aminotransferase 39 U/L (0-31); Albumin Level 4.1 g/dL (3.5-5.0); Alkaline Phosphatase 110 U/L (39-117); Anion Gap 11 (12-20); Aspartate Amino Transferase 47 U/L (5-31); Bilirubin Total 0.6 mg/dL (0.0-1.0); Blood Urea Nitrogen 12 mg/dL (9-16); Calcium 9.5 mg/dL (8.4-10.2); Carbon Dioxide 29 mmol/L (22-29); Chloride 104 mmol/L (96-108); Estimated Glomerular Filt Rate > 60; Glucose Random 64 mg/dL (60-115); Potassium 4.1 mmol/L (3.3-5.1); Sodium 140 mmol/L (135-145); Total Protein 7.9 g/dL (6.5-8.0)
[2023-11-22 16:00] LABS: Microalbum/Creatinine Ratio Ur 596.5 ug/mg cr (<30); TSH reflex Free T4 4.33 uIU/mL (0.32-4.0)
[2023-11-22 16:13] LABS: Folate 9.7 ng/mL (> or = 4.0); Vitamin B12 499 pg/mL (200-900)
[2023-11-22 16:46] LABS: Free T4 (Free Thyroxine) 1.02 ng/dL (0.71-1.85)
[2023-11-23 13:14] LABS: LDL Cholesterol Direct 108 mg/dL (<100)
[2023-11-27 01:48] LABS: VITAMIN D (1,25 OH) D3 49 pg/mL; Vit D (1,25-Dihydroxy) Total 49 pg/mL (18-72); Vitamin D (1,25 OH) D2 <8 pg/mL
== END 2023-11-22 12:03 | disposition home or self-care (01) ==
LOC: HO.WFDLDS 12:02
PROVIDERS: Visit Provider Nurse Practitioner Family
DX: E11.69 Type 2 diabetes mellitus with other specified complication (principal); E11.29 Type 2 diabetes mellitus with other diabetic kidney complication; E11.65 Type 2 diabetes mellitus with hyperglycemia; E78.5 Hyperlipidemia, unspecified; Z79.4 Long term (current) use of insulin
CPT/HCPCS: 36415; 80053; 82043; 82570; 82607; 82652; 82746; 83721; 84439; 84443

== ENCOUNTER 2023-11-24 08:33 | Outpatient (REF) | payer OTHER, SELFPAY | END 2023-11-24 08:34 | disposition home or self-care (01) | LOC: HO.LAB 08:33 | PROVIDERS: PCP Nurse Practitioner Family; Visit Provider Physician Assistant Surgical | DX: E66.9 Obesity, unspecified (principal) | CPT/HCPCS: 99453 ==

== ENCOUNTER 2023-11-24 11:41 | Outpatient (AMB) | payer OTHER, SELFPAY ==
--- NOTE | 2023-11-24 12:34 | A.OFFVIS_ITS ---
Intake VS Expanded 11/24/23 12:57 BP 133/64 Blood Pressure Location Rt brachial Blood Pressure Position Sitting Pulse 88 Pulse Source Pulse Oximeter Temp 97.1 F Temperature Source Temporal Artery Scan Pulse Oximetry 95 Oxygen Delivery Method Room Air Height 5 ft 2 in Weight 217 lb 6.4 oz BMI 39.8 Body Fat % 41.9 Body Fat Mass 91.0 Fat Free Mass 126.4 Visceral Fat Rating 12.0 Body Water % 41.4 Body Water Mass 90.0 Muscle Mass/Score 120.0 Basal Metabolic Rate/Score 1,748 Intake Visit Reasons: metabolic group clinic Historiography Professor Required: No Allergies Seasonal Allergies Allergy (Intermediate, Verified 11/24/23 12:36) Cough amoxicillin [From Augmentin] Adverse Reaction (Severe, Verified 11/24/23 12:36) n/v/d clavulanic acid [From Augmentin] Adverse Reaction (Severe, Verified 11/24/23 12:36) n/v/d NSAIDS (Non-Steroidal Anti-Inflamma [NSAIDS (NON-STEROIDAL ANTI-INFLAMMA] Adverse Reaction (Intermediate, Verified 11/24/23 12:36) BLEEDING clavulonic acid Adverse Reaction (Severe, Uncoded 10/06/23 10:42) Vomiting Medication List - Last Reconciled 11/24/23 by POOL Chadwick albuterol sulfate 90 mcg/actuation 2 puffs PO Q6H PRN albuterol sulfate mg inhalation atorvastatin 40 mg PO DAILY blood sugar diagnostic (FreeStyle Lite Strips) 1 strip miscellaneous TID-QID celecoxib 100 mg PO BID cetirizine 10 mg PO DAILY PRN diabetic supplies, [place]an. As directed diphenhydramine HCl (Banophen) 25 mg PO BEDTIME PRN flash glucose scanning reader (FreeStyle Bettye 2 [place]) As directed flash glucose sensor (FreeStyle Bettye 2 Sensor kit) As directed every 2 weeks fluticasone propionate 50 mcg/actuation (Allergy Relief (fluticasone)) 2 sprays intranasal DAILY 1 month gabapentin 600 mg PO TID PRN 30 days insulin aspart U-100 20 - 30 units (0.2 - 0.3 mL) subcut TID 90 days insulin degludec (Tresiba FlexTouch U-200 insulin) 60 units (0.3 mL) subcut KIRILL LY 30 days lancets 3 to 4 time a day blood sugar checks. linaclotide 145 mcg PO DAILY lisinopril 2.5 mg PO DAILY magnesium oxide 500 mg PO DAILY metformin ER 1,000 mg (2 x 500 mg) PO BID montelukast (Singulair) 10 mg PO BEDTIME omeprazole 20 mg PO DAILY 90 days oxycodone 10 mg PO TID PRN 30 days pen needle, diabetic tid insulin administration solriamfetol (Sunosi) 150 mg PO DAILY tizanidine 2 mg PO TID PRN HPI HPI Comments History of Present Illness Details Patient is a pleasant 53-year-old female who presents to the office today for the metabolic clinic. She has a longstanding history of obesity and diabetes. She is tried multiple fad diets without sustained success. She wishes to achieve a healthy lifestyle and improve obesity related conditions including diabetes and hyperlipidemia. [facility] Medical History Menopause Proteinuria Type 2 diabetes mellitus with other diabetic kidney complication Sleep apnea PCOS (polycystic ovarian syndrome) Asthma Type 2 diabetes mellitus with hyperglycemia, with long-term current use of insulin Hyperlipidemia LDL goal <100 Obesity due to excess calories BMI 37.0-37.9, adult 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, uncontrolled cell stripper final (current) use of opiate analgesic Chronic pain syndrome Postlaminectomy syndrome, lumbar Surgical History History of esophagogastroduodenoscopy (EGD) Hx of spinal surgery History of removal of cyst History of carpal tunnel release History of lumbar surgery Family History Father Diabetes Hypertension Mother Asthma Social History Household Members: Children Housing: Apartment Alcohol intake: current Alcohol intake frequency: holidays/special occasions only Patient Tobacco Use Status: Current everyday Tobacco user Cigarette Packs Per Day: 0.5 Cigarettes Per Day: 10 Years Smoked: 30 e-Cigarette/Vaping Use: Never Used service: No Current occupational status: disabled Current occupational exposures/hazards: No Cognitive needs: No Hearing needs: No Vision needs: Yes Physical Exam Vital Signs: Last Vital Signs Temp 97.1 F 11/24/23 12:57 Pulse 88 11/24/23 12:57 BP 133/64 11/24/23 12:57 Pulse Ox 95 11/24/23 12:57 Oxygen Delivery Method Room Air 11/24/23 12:57 BMI result Body Mass Index 39.8 Assessment & Plan Assessment & Plan (1) Obesity (BMI 30-39.9): Code(s): E66.9 - Obesity, unspecified Plan: Pt wishes to continue in the metabolic clinic. Body composition scale was provided. Her most recent HgbA1c was 9.2. She has been given a meal plan using Celebrate protein powder and celebrate bars, 8-10am shake 1.5 scoops in 15 oz almond milk 11-1 pm another shake 1-3pm bar 4-6pm meal with 8 forks protein and 8 forks salad/vegetables Drinking 64 oz water daily Given exercise plan utilizing treadmill/elliptical/rowing machine/stationary bie or walking outside. goal of 300 calories burned daily or 2000 calories burned per week. Coding Level of Care Code 09457 RPM Intital setup, edu Diagnoses Obesity (BMI 30-39.9) E66.9
[2023-11-24 12:57] VITALS: BP 133/64; PULSE 88; TEMP 36.2; O2SAT 95; BMI 39.8
== END 2023-11-24 15:20 | disposition home or self-care (01) ==
LOC: HO.META 11:41
PROVIDERS: PCP Nurse Practitioner Family; Visit Provider Physician Assistant Surgical
DX: E66.9 Obesity, unspecified (principal)

== ENCOUNTER 2023-12-01 14:16 | Outpatient (AMB) | payer OTHER, SELFPAY ==
--- NOTE | 2023-12-01 13:42 | MHC.OFFVISWM ---
Intake Intake Visit Reasons: (tv) f/u Allergies Seasonal Allergies Allergy (Intermediate, Verified 11/24/23 12:36) Cough amoxicillin [From Augmentin] Adverse Reaction (Severe, Verified 11/24/23 12:36) n/v/d clavulanic acid [From Augmentin] Adverse Reaction (Severe, Verified 11/24/23 12:36) n/v/d NSAIDS (Non-Steroidal Anti-Inflamma [NSAIDS (NON-STEROIDAL ANTI-INFLAMMA] Adverse Reaction (Intermediate, Verified 11/24/23 12:36) BLEEDING clavulonic acid Adverse Reaction (Severe, Uncoded 10/06/23 10:42) Vomiting HPI HPI Comments History of Present Illness Details The patient is a pleasant 53-year-old female who returns to the office today for follow-up. She was part of the metabolic clinic. She is following the meal plan although she would like to change one of the bars for a y[place]i yogurt w berries. BS have been under 200 much less than the 300s. Insulin dose has decreased to 1 per day from 3 times per day. 20 down from 30-40 tid. She states she has also stopped the metformin BS running 140-150 Will decrease tresiba to 40 units nightly. State she is interested in SWL at this time. Drinking 48 oz water Exercise plan: walking outside 5 x per week, 20-min gym membership at [facility] Medical History Menopause Proteinuria Type 2 diabetes mellitus with other diabetic kidney complication Sleep apnea PCOS (polycystic ovarian syndrome) Asthma Type 2 diabetes mellitus with hyperglycemia, with long-term current use of insulin Hyperlipidemia LDL goal <100 Obesity due to excess calories BMI 37.0-37.9, adult 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, uncontrolled 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 Chronic pain syndrome Postlaminectomy syndrome, lumbar Surgical History History of esophagogastroduodenoscopy (EGD) Hx of spinal surgery History of removal of cyst History of carpal tunnel release History of lumbar surgery Family History Father Diabetes Hypertension Mother Asthma Social History Household Members: Children Housing: Apartment Alcohol intake: current Alcohol intake frequency: holidays/special occasions only Patient Tobacco Use Status: Current everyday Tobacco user Cigarette Packs Per Day: 0.5 Cigarettes Per Day: 10 Years Smoked: 30 e-Cigarette/Vaping Use: Never Used service: No Current occupational status: disabled Current occupational exposures/hazards: No Cognitive needs: No Hearing needs: No Vision needs: Yes Assessment & Plan Assessment & Plan (1) Obesity (BMI 30-39.9): Code(s): E66.9 - Obesity, unspecified Plan: Patient wishes to join the Surgical weight loss program. We will transition her over. In the meantime, she wishes to use a yogurt with [place] berries instead of 1 of the protein bars which she is able to do. I have also encouraged her to decrease her Tresiba at night from 60 down to 40. We are doing this as she has noticed several episodes of hypoglycemia requiring glucose tabs. She has also discontinued metformin of her own accord. Her rapid acting insulin requirements have decreased now to 1 or 2 times daily, 20 units, down from 30-40 units. Telehealth Telehealth Location of provider rendering services: practice address Location of patient: other Patient Identification confirmed using: Name, : Yes Telehealth method: voice only Patient verbally consented to treatment: Yes Patient verbally consented to billing insurance company: Yes Patient informed of any privacy concerns related to visit: Yes Minutes spent on Phone/Video with Pt.: 20 Coding Level of Care Code Tele Est Pt Level 2 (60771) Diagnoses Obesity (BMI 30-39.9) E66.9 Time Spent (min) 15
== END 2023-12-01 14:16 | disposition home or self-care (01) ==
LOC: HO.META 14:16
PROVIDERS: PCP Nurse Practitioner Family; Visit Provider Physician Assistant Surgical
DX: E66.9 Obesity, unspecified (principal)
CPT/HCPCS: 99212

== ENCOUNTER → 2023-12-01 14:16 | Outpatient (BNVA) | payer OTHER, SELFPAY | PROVIDERS: PCP Nurse Practitioner Family; Visit Provider Physician Assistant Surgical ==

== ENCOUNTER 2023-12-08 10:32 | Outpatient (AMB) | payer OTHER, SELFPAY ==
--- NOTE | 2023-12-08 10:34 | HO.NEPHOV ---
HPI HPI Comments History of Present Illness Details I had the delight of seeing Carlota in consultation for proteinuria. She is 53 years of age and has been a diabetic from her 20s. Her blood sugars had not been well controlled all along. She has dyslipidemia and is on statins. She has no hypertension. She was told that she has some early signs of diabetic retinopathy in the eyes. She denies any coronary artery disease, congestive heart failure, CVA, renal artery stenosis, peripheral arterial disease or carotid stenosis. She is actively trying to lose some weight. Her serum creatinine is normal. She has no edema. She does not get recurrent urinary infections. She denies any macroscopic hematuria. She does not take any nonsteroidal anti-inflammatories. She has no epistaxis, photosensitivity, joint swellings, skin rashes. She is very worried and concerned about her protein in the urine. She has a family member in [place] who recently from ESRD due to diabetic nephropathy. She is smoker [facility] Medical History Menopause Proteinuria Type 2 diabetes mellitus with other diabetic kidney complication Sleep apnea PCOS (polycystic ovarian syndrome) Asthma Type 2 diabetes mellitus with hyperglycemia, with long-term current use of insulin Hyperlipidemia LDL goal <100 Obesity due to excess calories BMI 37.0-37.9, adult 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, uncontrolled residential (current) use of opiate analgesic Chronic pain syndrome Postlaminectomy syndrome, lumbar Surgical History History of esophagogastroduodenoscopy (EGD) Hx of spinal surgery History of removal of cyst History of carpal tunnel release History of lumbar surgery Family History Father Diabetes Hypertension Mother Asthma Social History Household Members: Children Housing: Apartment Alcohol intake: current Alcohol intake frequency: holidays/special occasions only Patient Tobacco Use Status: Current everyday Tobacco user Cigarette Packs Per Day: 0.5 Cigarettes Per Day: 10 Years Smoked: 30 e-Cigarette/Vaping Use: Never Used service: No Current occupational status: disabled Current occupational exposures/hazards: No Cognitive needs: No Hearing needs: No Vision needs: Yes Vital Signs 12/08/23 10:36 Height 5 ft 2 in Weight 217 lb 6 oz BMI 39.8 BP 128/70 Blood Pressure Location Lt brachial Position Sitting Pulse 77 Pulse Source Pulse Oximeter Pulse Oximetry (%) 95 Oxygen Delivery Method Room Air Physical Exam Vital Signs: Last Vital Signs Pulse 77 12/08/23 10:36 BP 128/70 12/08/23 10:36 Pulse Ox 95 12/08/23 10:36 Oxygen Delivery Method Room Air 12/08/23 10:36 BMI result Body Mass Index 39.8 Const General: comfortable and no acute distress Orientation/consciousness: patient oriented x3 HEENT Head: Yes normocephalic Mouth: Normal oral and palatal mucosa present Eyes EOM: EOMs intact bilaterally Neck Neck: Yes supple Resp Auscultation: clear to auscultation bilaterally Cardio Jugular venous distension: no JVD Rate: regular rate GI Palpation (GI): Soft to palpation Auscultation: normal bowel sounds General: Yes no CVA tenderness Back/Spine/Pelvis Back: no CVA tenderness Skin General skin exam: no rashes or lesions noted Neuro General: patient oriented x3 and moves all extremities Extrem General: Yes no pedal edema Assessment & Plan Assessment & Plan (1) Proteinuria: Code(s): R80.9 - Proteinuria, unspecified Qualifiers: Proteinuria type: unspecified Qualified Code(s): R80.9 - Proteinuria, unspecified Plan Carlota has diabetic nephropathy. She has significant proteinuria. Her blood pressure is at goal. Her diabetes is poorly controlled. She is a candidate for Jardiance or Farxiga ( she says she is type 2 diabetic). She does not get recurrent UTIs. She has no edema. I have ordered workup. I increased her lisinopril to 2.5 mg twice daily. She needs to lose weight. She needs to keep her blood sugar better controlled. She should avoid nonsteroidal anti-inflammatories and maintain good hydration. I did not make any other medication changes today. More than 50% of the time spent discussing about proteinuria, chronic kidney disease and management strategies. Answered all her questions. Follow-up appointment given. Orders: Orders UA and rflx microscopic Today E11.21 - Type 2 diabetes mellitus with diabetic nephropathy, R80.9 - Proteinuria, unspecified Hepatitis C Antibody Reflex Today E11.21 - Type 2 diabetes mellitus with diabetic nephropathy, R80.9 - Proteinuria, unspecified Myeloperoxidase Antibody Today E11.21 - Type 2 diabetes mellitus with diabetic nephropathy, R80.9 - Proteinuria, unspecified Proteinase 3 PR3 Antibodies Today E11.21 - Type 2 diabetes mellitus with diabetic nephropathy, R80.9 - Proteinuria, unspecified Anti Glomerular Basement Memb Today E11.21 - Type 2 diabetes mellitus with diabetic nephropathy, R80.9 - Proteinuria, unspecified Complement C4 Today E11.21 - Type 2 diabetes mellitus with diabetic nephropathy, R80.9 - Proteinuria, unspecified Immunoglobulin A Today E11.21 - Type 2 diabetes mellitus with diabetic nephropathy, R80.9 - Proteinuria, unspecified Blood Urea Nitrogen Today E11.21 - Type 2 diabetes mellitus with diabetic nephropathy Electrolytes Today E11.21 - Type 2 diabetes mellitus with diabetic nephropathy Protein Creatinine Ratio, Ur Today E11.21 - Type 2 diabetes mellitus with diabetic nephropathy, R80.9 - Proteinuria, unspecified Immunofixation Pnl, Serum Today E11.21 - Type 2 diabetes mellitus with diabetic nephropathy, R80.9 - Proteinuria, unspecified Hepatitis B Surface Antigen Today E11.21 - Type 2 diabetes mellitus with diabetic nephropathy, R80.9 - Proteinuria, unspecified Hepatitis B Core Antibody Today E11.21 - Type 2 diabetes mellitus with diabetic nephropathy, R80.9 - Proteinuria, unspecified Anti DNA DS Antibody Today E11.21 - Type 2 diabetes mellitus with diabetic nephropathy, R80.9 - Proteinuria, unspecified Complement C3 Today E11.21 - Type 2 diabetes mellitus with diabetic nephropathy, R80.9 - Proteinuria, unspecified Phospholipase A2 Receptor Pnl Today E11.21 - Type 2 diabetes mellitus with diabetic nephropathy, R80.9 - Proteinuria, unspecified Creatinine Today E11.21 - Type 2 diabetes mellitus with diabetic nephropathy Immunofixation, Random Urine Today R80.9 - Proteinuria, unspecified Medications: Changed From lisinopril 2.5 mg PO DAILY 90 tabs 1RF To lisinopril 2.5 mg PO BID 90 days 180 tabs 1RF Coding Level of Care Code New Pt Level 4 (12255) Diagnoses Proteinuria, unspecified type R80.9 Proteinuria type: unspecified Results Reviewed Nephrology Results: Sodium 140 mmol/L (135-145) 11/22/23 Potassium 4.1 mmol/L (3.3-5.1) 11/22/23 Chloride 104 mmol/L (96-108) 11/22/23 Carbon Dioxide 29 mmol/L (22-29) 11/22/23 BUN 12 mg/dL (9-16) 11/22/23 Creatinine 0.68 mg/dL (0.5-1.4) 11/22/23 Calcium 9.5 mg/dL (8.4-10.2) 11/22/23 Urine Creatinine 103.60 mg/dL 11/22/23
[2023-12-08 10:36] VITALS: BP 128/70; PULSE 77; O2SAT 95; BMI 39.8
== END 2023-12-08 11:16 | disposition home or self-care (01) ==
PROVIDERS: PCP Nurse Practitioner Family; Visit Provider Internal Medicine Nephrology
DX: R80.9 Proteinuria, unspecified (principal)
CPT/HCPCS: 99204

== ENCOUNTER → 2023-12-08 10:32 | Outpatient (BNVA) | payer OTHER, SELFPAY | PROVIDERS: PCP Nurse Practitioner Family; Visit Provider Internal Medicine Nephrology | DX: R80.9 Proteinuria, unspecified (principal) | CPT/HCPCS: 99202 ==

== ENCOUNTER 2023-12-22 11:01 | Outpatient (AMB) | payer OTHER, SELFPAY ==
--- NOTE | 2023-12-22 10:29 | A.OFFVIS_ITS ---
Intake VS Expanded 12/22/23 10:30 Height 5 ft 2 in Weight 215 lb 5 oz BMI 39.4 Intake Visit Reasons: Metabolic Clinic to [facility] Allergies Seasonal Allergies Allergy (Intermediate, Verified 12/08/23 10:38) Cough amoxicillin [From Augmentin] Adverse Reaction (Severe, Verified 12/08/23 10:38) n/v/d clavulanic acid [From Augmentin] Adverse Reaction (Severe, Verified 12/08/23 10:38) n/v/d NSAIDS (Non-Steroidal Anti-Inflamma [NSAIDS (NON-STEROIDAL ANTI-INFLAMMA] Adverse Reaction (Intermediate, Verified 12/08/23 10:38) BLEEDING clavulonic acid Adverse Reaction (Severe, Uncoded 10/06/23 10:42) Vomiting HPI HPI Comments History of Present Illness Details The patient is a pleasant 53 year old female who returns to the clinic for pre-operative surgical weight loss management. She started in the metabolic clinic but then decided to transition to the Surgical weight Loss pathway. They were last seen in the office on 12/01/23, recorded weight at that time was 217 pounds, with a BMI of 39.8. Today's weight is 215.5 pounds and BMI is 39.4. There has been a weight loss of 1.5 pounds since initiating the surgical weight loss program on 11/24/2023 with a total body weight loss of 0.87 %. Pre op work up completed as follows: [facility] classes:? 0 appts: needs scheduling ? ? RD appts: needs scheduling Labs: ordered H. pylori: ordered CXR: ordered EKG: ordered ABD U/S: needs scheduling UGI: needs scheduling The patient reports she has been following the meal plan, feels she is hungry late morning and around 2 pm. She sticks to to the plan. The patient does have a body composition scale. They also have been communicating weekly. Blood sugars have improved. 15 u fast acting insulin after dinner (down from 30-40 TID). States she has been using wolof dressing on her salad. Long acting insulin down to 40 u daily (from 60). No more metformin, BS 120 during the day. Current meal plan includes: Celebrate rebuild 1.5 scoops in 12 oz unsweetened almond milk at 8-10am another shake 11-1 pm Celebrate protein bar at 1-3 pm meal at 4-6 pm 8 forks protein and 8 forks salad/veg another bar at 7-9 pm Drinking 48-64 oz water, no soda or juice Still smoking little under 1/2 PPD Current exercise plan includes: Joined PF treadmill, weights 30 min on treadmill, 150 calories, speed 2, incline 0 PFSH Medical History Menopause Proteinuria Type 2 diabetes mellitus with other diabetic kidney complication Sleep apnea PCOS (polycystic ovarian syndrome) Asthma Type 2 diabetes mellitus with hyperglycemia, with long-term current use of insulin Hyperlipidemia LDL goal <100 Obesity due to excess calories BMI 37.0-37.9, adult 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, uncontrolled 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) use of opiate analgesic Chronic pain syndrome Postlaminectomy syndrome, lumbar Surgical History History of esophagogastroduodenoscopy (EGD) Hx of spinal surgery History of removal of cyst History of carpal tunnel release History of lumbar surgery Family History Father Diabetes Hypertension Mother Asthma Social History Household Members: Children Housing: Apartment Alcohol intake: current Alcohol intake frequency: holidays/special occasions only Patient Tobacco Use Status: Current everyday Tobacco user Cigarette Packs Per Day: 0.5 Cigarettes Per Day: 10 Years Smoked: 30 e-Cigarette/Vaping Use: Never Used service: No Current occupational status: disabled Current occupational exposures/hazards: No Cognitive needs: No Hearing needs: No Vision needs: Yes Review of Systems Const All systems reviewed & are unremarkable except as noted in HPI and below Assessment & Plan Assessment & Plan (1) Obesity (BMI 30-39.9): Code(s): E66.9 - Obesity, unspecified Plan: Discussed the importance of following the meal plan closely. She will stop using [place] dressing and just have vegetables at night to see if this positively impact her sugars. She has already discontinued the metformin, decrease her reliance on insulin significantly and overall is satisfied with the meal plan. She has been using 8 oz of milk instead of the initial recommended 15. I have suggested she decrease this now to 12 oz of milk. With regards to exercise, she will increase her speed on the treadmill to 2.2, changing incline from 0 through 4 every 3 minutes. She will start the recumbent bike with a goal of 12 mph, increasing the resistance has previously discussed. She will try to go to the gym 5 days per week with a goal of burning 400 calories per session. Additionally, I have requested that she buy a yoga mat for at home and watch stretching for beginning as videos. She was instructed to stretch every morning when she wakes up and before exercise. Orders: Orders Insulin Today E11.21 - Type 2 diabetes mellitus with diabetic nephropathy, E11.6 5 - Type 2 diabetes mellitus with hyperglycemia, E11.69 - Type 2 diabetes mellitus with other specified complication, E66.9 - Obesity, unspecified, E78.5 - Hyperlipidemia, unspecified H Pylori Breath Test Today E11.21 - Type 2 diabetes mellitus with diabetic nephropathy, E11.65 - Type 2 diabetes mellitus with hyperglycemia, E11.69 - Type 2 diabetes mellitus with other specified complication, E66.9 - Obesity, unspecified, E78.5 - Hyperlipidemia, unspecified IRON PROFILE Today E11.21 - Type 2 diabetes mellitus with diabetic nephropathy, E11.65 - Type 2 diabetes mellitus with hyperglycemia, E11.69 - Type 2 diabetes mellitus with other specified complication, E66.9 - Obesity, unspecified, E78.5 - Hyperlipidemia, unspecified Vitamin B1 Today E11.21 - Type 2 diabetes mellitus with diabetic nephropathy, E11.65 - Type 2 diabetes mellitus with hyperglycemia, E11.69 - Type 2 diabetes mellitus with other specified complication, E66.9 - Obesity, unspecified, E78.5 - Hyperlipidemia, unspecified Vitamin A Today E11.21 - Type 2 diabetes mellitus with diabetic nephropathy, E11.65 - Type 2 diabetes mellitus with hyperglycemia, E11.69 - Type 2 diabetes mellitus with other specified complication, E66.9 - Obesity, unspecified, E78.5 - Hyperlipidemia, unspecified Ferritin Today E11.21 - Type 2 diabetes mellitus with diabetic nephropathy, E11.65 - Type 2 diabetes mellitus with hyperglycemia, E11.69 - Type 2 diabetes mellitus with other specified complication, E66.9 - Obesity, unspecified, E78.5 - Hyperlipidemia, unspecified Vitamin D 25-OH Total Today E11.21 - Type 2 diabetes mellitus with diabetic nephropathy, E11.65 - Type 2 diabetes mellitus with hyperglycemia, E11.69 - Type 2 diabetes mellitus with other specified complication, E66.9 - Obesity, unspecified, E78.5 - Hyperlipidemia, unspecified ECG 12 lead EKG Today E11.21 - Type 2 diabetes mellitus with diabetic nephropathy, E11.65 - Type 2 diabetes mellitus with hyperglycemia, E11.69 - Type 2 diabetes mellitus with other specified complication, E66.9 - Obesity, unspecified, E78.5 - Hyperlipidemia, unspecified FL upper GI w air Today E11.21 - Type 2 diabetes mellitus with diabetic nephropathy, E11.65 - Type 2 diabetes mellitus with hyperglycemia, E11.69 - Type 2 diabetes mellitus with other specified complication, E66.9 - Obesity, unspecified, E78.5 - Hyperlipidemia, unspecified Complete Blood Count Auto Diff Today E11.21 - Type 2 diabetes mellitus with diabetic nephropathy, E11.65 - Type 2 diabetes mellitus with hyperglycemia, E11.69 - Type 2 diabetes mellitus with other specified complication, E66.9 - Obesity, unspecified, E78.5 - Hyperlipidemia, unspecified Lipid Panel Today E11.21 - Type 2 diabetes mellitus with diabetic nephropathy, E11.65 - Type 2 diabetes mellitus with hyperglycemia, E11.69 - Type 2 diabetes mellitus with other specified complication, E66.9 - Obesity, unspecified, E78.5 - Hyperlipidemia, unspecified Vitamin B12 and Folate Today E11.21 - Type 2 diabetes mellitus with diabetic nephropathy, E11.65 - Type 2 diabetes mellitus with hyperglycemia, E11.69 - Type 2 diabetes mellitus with other specified complication, E66.9 - Obesity, unspecified, E78.5 - Hyperlipidemia, unspecified Zinc Today E11.21 - Type 2 diabetes mellitus with diabetic nephropathy, E11.65 - Type 2 diabetes mellitus with hyperglycemia, E11.69 - Type 2 diabetes mellitus with other specified complication, E66.9 - Obesity, unspecified, E78.5 - Hyperlipidemia, unspecified C Reactive Protein Today E11.21 - Type 2 diabetes mellitus with diabetic nephropathy, E11.65 - Type 2 diabetes mellitus with hyperglycemia, E11.69 - Type 2 diabetes mellitus with other specified complication, E66.9 - Obesity, unspecified, E78.5 - Hyperlipidemia, unspecified US abdomen comp w elastography Today E11.21 - Type 2 diabetes mellitus with diabetic nephropathy, E11.65 - Type 2 diabetes mellitus with hyperglycemia, E11.69 - Type 2 diabetes mellitus with other specified complication, E66.9 - Obesity, unspecified, E78.5 - Hyperlipidemia, unspecified XR chest 2V Today E11.21 - Type 2 diabetes mellitus with diabetic nephropathy, E11.65 - Type 2 diabetes mellitus with hyperglycemia, E11.69 - Type 2 diabetes mellitus with other specified complication, E66.9 - Obesity, unspecified, E78.5 - Hyperlipidemia, unspecified Referrals Nutrition/Dietitian Referral E11.21 - Type 2 diabetes mellitus with diabetic nephropathy, E11.65 - Type 2 diabetes mellitus with hyperglycemia, E11.69 - Type 2 diabetes mellitus with other specified complication, E66.9 - Obesity, unspecified, E78.5 - Hyperlipidemia, unspecified Behavioral Health Referral E11.21 - Type 2 diabetes mellitus with diabetic nephropathy, E11.65 - Type 2 diabetes mellitus with hyperglycemia, E11.69 - Type 2 diabetes mellitus with other specified complication, E66.9 - Obesity, unspecified, E78.5 - Hyperlipidemia, unspecified Telehealth Telehealth Location of provider rendering services: practice address Location of patient: address on file Patient Identification confirmed using: Name, : Yes Telehealth method: voice only Patient verbally consented to treatment: Yes Patient verbally consented to billing insurance company: Yes Patient informed of any privacy concerns related to visit: Yes Minutes spent on Phone/Video with Pt.: 20 Coding Level of Care Code Tele Est Pt Level 3 (87845) Diagnoses Obesity (BMI 30-39.9) E66.9 Time Spent (min) 35
[2023-12-22 10:30] VITALS: BMI 39.4
== END 2023-12-22 11:42 | disposition home or self-care (01) ==
LOC: HO.HBS 11:01
PROVIDERS: PCP Nurse Practitioner Family; Visit Provider Physician Assistant Surgical
DX: E66.9 Obesity, unspecified (principal); Z68.39 Body mass index [BMI] 39.0-39.9, adult
CPT/HCPCS: 99442

== ENCOUNTER → 2023-12-22 11:01 | Outpatient (BNVA) | payer OTHER, SELFPAY | PROVIDERS: PCP Nurse Practitioner Family; Visit Provider Physician Assistant Surgical | DX: E11.21 Type 2 diabetes mellitus with diabetic nephropathy (principal); E66.9 Obesity, unspecified; E11.69 Type 2 diabetes mellitus with other specified complication; E78.5 Hyperlipidemia, unspecified; E11.65 Type 2 diabetes mellitus with hyperglycemia ==

== ENCOUNTER 2023-12-29 11:08 | Outpatient (AMB) | payer OTHER, SELFPAY ==
[2023-12-29 11:18] VITALS: BP 136/62; PULSE 80; RESP 18; O2SAT 95; BMI 38.5
--- NOTE | 2023-12-29 11:18 | A.OFFVIS_ITS ---
Intake Vital Signs 12/29/23 11:18 Height 5 ft 2 in Weight 210 lb 4 oz BMI 38.5 BP 136/62 Blood Pressure Location Lt brachial Position Sitting Respiration 18 Pulse 80 Pulse Source Pulse Oximeter Pulse Oximetry (%) 95 Oxygen Delivery Method Room Air Intake Visit Reasons: Pill count Allergies Seasonal Allergies Allergy (Intermediate, Verified 12/29/23 11:18) Cough amoxicillin [From Augmentin] Adverse Reaction (Severe, Verified 12/29/23 11:18) n/v/d clavulanic acid [From Augmentin] Adverse Reaction (Severe, Verified 12/29/23 11:18) n/v/d NSAIDS (Non-Steroidal Anti-Inflamma [NSAIDS (NON-STEROIDAL ANTI-INFLAMMA] Adverse Reaction (Intermediate, Verified 12/29/23 11:18) BLEEDING clavulonic acid Adverse Reaction (Severe, Uncoded 10/06/23 10:42) Vomiting HPI HPI Comments History of Present Illness Details Carlota is a very pleasant 53 year old female who presents to the office today for follow chronic pain and chronic opioid medication managemen. She is prescribed oxycodone 10mg po TID prn. Patient arrived today with the expectation of having 48 pills, she presented 48 pills which were counted in the presence of two staff members and returned to the patient in the original prescription bottle. This demonstrates responsible attitude toward patient's opioid medications. Pain is reported today as 8/10 and last dose of pain medication was taken at 08:00 this morning. She denies side effects including abd pain, constipation, nausea, shortness of breath or drowsiness. Initially patient presented bottle for Pill count, 44 pills in the bottle. Patient was advised that her count was short by #4 Pills which would ultimately result in a suspension. She immediately reached into her purse and retrieved her weekly medication organizer and retrieved 4 Tablets. A 2nd staff member was brought into the room to confirm, pill identification was verified against the description on the bottle. With these additional 4 pills her account was then appropriate. She was recently evaluated by weight management, discussed surgical options. Advised to start carb restriction and 6 days per week at the gym. She went to the gym 1 day and states that her chronic pain became significant and she could not tolerate it. She is going to put weight loss surgery on hold at this time Previous visit with Dr Stanley: Carlota is back in my office after the trial I DDD with with morphine which was performed on 01/31/2023.? She does not report the same pain evaluation as it was with Dilaudid in September.? She received 150 micro g of morphine intrathecally.? However the patient developed what looks like post dural puncture headache immediately after the procedure.? The headache went away on itself however now we are not ready to implant anything for the patient.? I suggested that we might try in the future instead of fentanyl to go ahead with bupivacaine injections small dose intrathecally and have bupivacaine as the main medication in the intrathecal space if results of the trial will have no side effects and will have good pain relief.? I warned her that she may experience weakness in bilateral lower extremities after bupivacaine injection however the weakness will be only transient. We decided to wait a month or two PA and schedule the bupivacaine trial later. Prior:? Dilaudid which was performed of 10/06/2023.? The patient reports absence of pain for the 1st 48 hours after the procedure.? However she reports severe nausea and vomiting after surgery.? This is unwanted side effects.? I offered her reach trial with morphine versus read trial with fentanyl.? The patient reported that in the past she was taking morphine as a pain medication orally.? She denies any side effects.? I will try to perform the procedure with 150 mcg intrathecally? [facility] Medical History Menopause Proteinuria Type 2 diabetes mellitus with other diabetic kidney complication Sleep apnea PCOS (polycystic ovarian syndrome) Asthma Type 2 diabetes mellitus with hyperglycemia, with long-term current use of insulin Hyperlipidemia LDL goal <100 Obesity due to excess calories BMI 37.0-37.9, adult 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, uncontrolled senior living (current) use of opiate analgesic Chronic pain syndrome Postlaminectomy syndrome, lumbar Surgical History History of esophagogastroduodenoscopy (EGD) Hx of spinal surgery History of removal of cyst History of carpal tunnel release History of lumbar surgery Family History Father Diabetes Hypertension Mother Asthma Social History Household Members: Children Housing: Apartment Alcohol intake: current Alcohol intake frequency: holidays/special occasions only Patient Tobacco Use Status: Current everyday Tobacco user Cigarette Packs Per Day: 0.5 Cigarettes Per Day: 10 Years Smoked: 30 e-Cigarette/Vaping Use: Never Used service: No Current occupational status: disabled Current occupational exposures/hazards: No Cognitive needs: No Hearing needs: No Vision needs: Yes Review of Systems Const All systems reviewed & are unremarkable except as noted in HPI and below Physical Exam Vital Signs: Last Vital Signs Pulse 80 12/29/23 11:18 Resp 18 12/29/23 11:18 BP 136/62 12/29/23 11:18 Pulse Ox 95 12/29/23 11:18 Oxygen Delivery Method Room Air 12/29/23 11:18 BMI result Body Mass Index 38.5 General: awake, alert, oriented. Answers questions appropriately. Fully engaged in examination. Skin: warm, dry, intact without visible rashes or lesions. HEENT: Normocephalic. Hearing intact. Cardiac: External chest normal in appearance. Respiratory: No signs of respiratory distress. Abdomen: without gross distension. MS: No obvious swelling or deformities. Ambulates with steady gait. Neurological: Oriented to person, place, time and situation. Thought process intact. No gait abnormalities appreciated. Psychiatric: Appropriate mood and affect. Good judgment and insight. Results Reviewed Results Reviewed: 10/12/2023 XR/XR thoracic spine 3V FINDINGS: There are mild multilevel degenerative changes of thoracic spine with marginal spurring. Pedicles are preserved there is no evidence of fractures soft tissues unremarkable. There is no spondylolysis or listhesis. IMPRESSION: Mild degenerative changes with marginal spurring. Thoracic spine. Assessment & Plan Assessment & Plan (1) Postlaminectomy syndrome, lumbar: Code(s): M96.1 - Postlaminectomy syndrome, not elsewhere classified (2) Chronic pain syndrome: Code(s): G89.4 - Chronic pain syndrome (3) senior living (current) use of opiate analgesic: Comment: Pain Management-chronic pain/back Code(s): Z79.891 - senior living (current) use of opiate analgesic Plan [place] was reviewed and without concerns. No obvious signs of diversion, abuse or misuse of the opioid medications. Contract rules and guidelines were reiterated with patient today. Patient was advised that at every appointment all of her pills must be the original prescription container. Patient verbalized understanding. Will send in prescription for oxycodone 10mg po tid #90 no refills with an advanced date of 01/14/2024 Continue with tizanidine 3 times daily as needed All questions and concerns have been answered and patient agrees with the plan. Patient will follow up in 1 month, sooner if needed. Medications: Refilled oxycodone Partial Fill upon patient request. 10 mg PO TID 30 days PRN 90 tabs 0RF pain G89.4 - Chronic pain syndrome, M96.1 - Postlaminectomy syndrome, not elsewhere classified Coding Level of Care Code Est Pt Level 4 (65761) Diagnoses Postlaminectomy syndrome, lumbar M96.1 Chronic pain syndrome G89.4 senior living (current) use of opiate analgesic Z79.891
== END 2023-12-29 11:41 | disposition home or self-care (01) ==
PROVIDERS: PCP Nurse Practitioner Family; Visit Provider Registered Nurse Emergency
DX: G89.4 Chronic pain syndrome (principal); M96.1 Postlaminectomy syndrome, not elsewhere classified; Z79.891 Long term (current) use of opiate analgesic
CPT/HCPCS: 99214

== ENCOUNTER → 2023-12-29 11:08 | Outpatient (BNVA) | payer OTHER, SELFPAY | PROVIDERS: PCP Nurse Practitioner Family; Visit Provider Registered Nurse Emergency | DX: M96.1 Postlaminectomy syndrome, not elsewhere classified (principal); G89.4 Chronic pain syndrome; Z79.891 Long term (current) use of opiate analgesic; Z51.81 Encounter for therapeutic drug level monitoring | CPT/HCPCS: 99212 ==

== ENCOUNTER 2024-01-03 10:23 | Outpatient (AMB) | payer OTHER, SELFPAY ==
--- NOTE | 2024-01-03 10:30 | A.OFFPC_ITS ---
Vital Signs 01/03/24 10:37 Height 5 ft 3 in Weight 215 lb 6 oz BMI 38.1 BP 110/60 Blood Pressure Location Rt brachial Position Sitting Pulse 69 Pulse Source Pulse Oximeter Pulse Oximetry (%) 98 Oxygen Delivery Method Room Air Intake Visit Reasons: complex dz mgmt Allergies Seasonal Allergies Allergy (Intermediate, Verified 01/03/24 10:40) Cough amoxicillin [From Augmentin] Adverse Reaction (Severe, Verified 01/03/24 10:40) n/v/d clavulanic acid [From Augmentin] Adverse Reaction (Severe, Verified 01/03/24 10:40) n/v/d NSAIDS (Non-Steroidal Anti-Inflamma [NSAIDS (NON-STEROIDAL ANTI-INFLAMMA] Adverse Reaction (Intermediate, Verified 01/03/24 10:40) BLEEDING clavulonic acid Adverse Reaction (Severe, Uncoded 10/06/23 10:42) Vomiting Medication List - Last Reconciled 01/03/24 by Bhumika Lucas, PLASTIC MOLDING OPERATOR- albuterol sulfate 90 mcg/actuation 2 puffs PO Q6H PRN albuterol sulfate mg inhalation atorvastatin 40 mg PO DAILY blood sugar diagnostic (FreeStyle Lite Strips) 1 strip miscellaneous TID-QID celecoxib 100 mg PO BID cetirizine 10 mg PO DAILY PRN diabetic supplies, miscellan. As directed diphenhydramine HCl (Banophen) 25 mg PO BEDTIME PRN flash glucose scanning reader (FreeStyle Bettye 2 [place]) As directed flash glucose sensor (FreeStyle Bettye 2 Sensor kit) As directed every 2 weeks fluticasone propionate 50 mcg/actuation (Allergy Relief (fluticasone)) 2 sprays intranasal DAILY 1 month gabapentin 600 mg PO TID PRN 30 days insulin aspart U-100 20 - 30 units (0.2 - 0.3 mL) subcut TID 90 days insulin degludec (Tresiba FlexTouch U-200 insulin) 40 units subcut DAILY lancets 3 to 4 time a day blood sugar checks. linaclotide 145 mcg PO DAILY lisinopril 2.5 mg PO BID 90 days magnesium oxide 500 mg PO DAILY metformin ER 1,000 mg (2 x 500 mg) PO BID montelukast (Singulair) 10 mg PO BEDTIME omeprazole 20 mg PO DAILY 90 days oxycodone 10 mg PO TID PRN 30 days pen needle, diabetic tid insulin administration solriamfetol (Sunosi) 150 mg PO DAILY tizanidine 2 mg PO TID PRN Tobacco use date assessed: 01/16/23 HPI HPI Comments History of Present Illness Details 53-year-old female with type 2 diabetes with complications, diabetic kidney disease hypertension hyperlipidemia, obesity obstructive sleep apnea, PCOS, asthma, chronic pain syndrome, diverticulosis, coronary artery disease, 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 Ordered 11/2023 Colon: [facility] [place] [facility], plan for first colon 01/2024 Dexa: ordered 11/2023 HgA1c 9.2% 11/2023 DME [place]: [facility] -2022 - asked to sign SILVINO to get most recent exam Here today to f/u on chronic dz mgmt: Had appt w/ Met[facility]. Feels overwhelmed by this. Was referred to Surgical pathway. She is not interested in this. Feels like she is starving herself. Working out as much as she can. Pain limits her. DM: cont to use insulin and CGM. Having lots of low sugars w/ diet change. Tresi ba decreased to 40 units by [facility]. She stopped using Metformin about the same time d/t cont low blood sugars. No longer taking Fast acting before each meal, uses depending on what she eats and what her sugar is. Has had some readings 300 mg/dl. CGM using as directed; log reviewed today. CGM 30 day avg 152 14 day 160 Time in target 64% 10% > 240, 23% 181-240, < 3% <70 Labs from 11/22/2023 show a BUN of 12, creatinine 0.68, EGFR greater than 60, AST 47, ALT 39, direct LDL 108, TSH 4.33, urine microalbumin creatinine ratio elevated at 596.5 12/08/23 Renal increased lisinopril to 2. 5 mg b.i.d. states she has a candidate for Jardiance or Farxiga Plan: start janumet, stop metformin, tresiba 40 units at lunch time, 10 units TID and only ISS for correction at HS < 200 NO insulin 201-250 2 251-300 4 301-250 6 351-400 8 401 > 10 units PFSH Medical History (Updated 01/03/24 @ 12:22 by Bhumika Lucas, [facility]) Thoracic back pain Vasomotor symptoms due to menopause Elevated C-reactive protein (CRP) Menopause Proteinuria Type 2 diabetes mellitus with other diabetic kidney complication Sleep apnea PCOS (polycystic ovarian syndrome) Asthma Type 2 diabetes mellitus with hyperglycemia, with long-term current use of insulin Hyperlipidemia LDL goal <100 Obesity due to excess calories BMI 37.0-37.9, adult 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5 Cigarettes Per Day: 10 Years Smoked: 30 e-Cigarette/Vaping Use: Never Used service: No Current occupational status: disabled Current occupational exposures/hazards: No Cognitive needs: No Hearing needs: No Vision needs: Yes Questionnaire PHQ-9 Over the last 2 weeks, how often have you been bothered by any of the following problems? Depression Screening Interpretation: Positive Depression Screening Follow-up: Existing condition and In treatment Depression Screening Done: Yes Source: Developed by Drs. Yrn Alexander, Frieda Rivera, John Archuleta and colleagues, with an educational cedrick from [employer]. Thrive Questionnaire Date Thrive assessed: 11/22/23 Currently or been in a relationship where the following occur: no concerns reported THRIVE Score: 0 EDWIGE-7 AMB Questionnaire EDWIGE-7 Date EDWIGE - 7 assessed: 11/22/23 Source: Developed by Frieda Copeland Kurt Kroenke and colleagues, with an educational cedrick from [employer]. Physical exam (Primary Care) Vital Signs: Last Vital Signs Pulse 69 01/03/24 10:37 Pulse Ox 98 01/03/24 10:37 Oxygen Delivery Method Room Air 01/03/24 10:37 BMI result Body Mass Index 38.1 BMI Assessment/Plan discussion: High BMI High, discussed plan: weight reduction and other (Referred to the metabolic clinic at [facility] [place]) Tobacco/Smoking Status: Tobacco use Status Tobacco use date assessed 01/16/23 01/03/24 10:30 Patient Tobacco Use Status Current everyday Tobacco 01/03/24 10:30 e-Cigarette/Vaping Use Never Used 01/03/24 10:30 Are you ready to quit: No Tobacco cessation counseling provided: Yes Items discussed: [employer]uitWorks Relapse Prevention: discussed the importance of a supportive environment, discussed negative mood or depression after quitting and weight gain after smoking is common Number of minutes spent counselin CPT code: 05995 - 4-10 Minutes Depression Screening Interpretation: Positive Depression Screening Follow-up: Existing condition and In treatment Thrive Assessment: Date of Thrive Assessment Date Thrive assessed 11/22/23 01/03/24 10:30 Currently or been in a relationship where the following occur: no concerns reported Const Other: Awake alert oriented Mucous membranes moist Lung sounds clear to auscultation bilat Regular rate and rhythm Bilateral lower extremities with trace edema, skin intact, monofilament testing within normal limits, abnormal vibratory sensations bilat Assessment and Plan Assessment & Plan (1) Diabetic nephropathy: Comment: renal 12/08/23 diabetic nephropathy. She has significant proteinuria. Her blood pressure is at goal. Her diabetes is poorly controlled. She is a candidate for Jardiance or Farxiga ( she says she is type 2 diabetic). She does not get recurrent UTIs. She has no edema. I have ordered workup. I increased her lisinopril to 2.5 mg twice daily. She needs to lose weight. She needs to keep her blood sugar better controlled. She should avoid nonsteroidal anti- inflammatories and maintain good hydration. I did not make any other medication changes today. More than 50% of the time spent discussing about proteinuria, chronic kidney disease and management strategies. Code(s): E11.21 - Type 2 diabetes mellitus with diabetic nephropathy Qualifiers: Diabetes mellitus type: type 2 Qualified Code(s): E11.21 - Type 2 diabetes mellitus with diabetic nephropathy (2) Morbid obesity: Comment: was referred to Met clinic, did not like. Sent to surgical wt loss, has no interest in surgery discussed Macronutrient style eating. Given specific info tailored to her today. She voiced interest in enrolling in [employer]. Code(s): E66.01 - Morbid (severe) obesity due to excess calories (3) Type 2 diabetes mellitus with hyperglycemia, with long-term current use of insulin: Comment: On insulin. Not interested in referral to endocrinology at this time. Uses a CGM Diabetic [facility] [place] I do not have the most recent exam I have told her to get this for me. The last note I was able to review did have signs of diabetic retinopathy She is on CLAIRE inhibitor lisinopril 2.5 mg po BID increased by renal 11/2023, tolerating w/o uptick in cough. BP at goal. On Metformin ER 1000mg BID, Tresiba 60 units at HS and Aspart 20-30 units TID. She has been skipping her metformin and not taking aspart consistently. CGM reviewed. Plan: DC metformin 1000mg BID. START Janumet 50/1000mg po BID. DECREASE tresiba from 60 units QHS to 40 units Q noon. DECREASE preprandial Insulin aspart to 10 units TID w meals. ISS at HS only. 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 THIS INCLUDES TIME SPENT BEFORE THE VISIT REVIEWING THE CHART, TIME SPENT DURING THE VISIT, AND TIME SPENT AFTER THE VISIT ON DOCUMENTATION THIS NOTE IS CONSTRUCTED USING VOICE RECOGNITION SOFTWARE. WHILE EVERY EFFORT HAS BEEN MADE TO ENSURE ACCURACY IN PRINTER SLOTTER HELPER, STILL ERRORS MAY HAVE BEEN INCLUDED SOMETIMES, THESE ERRORS MAY AFFECT THE CONTENT OR MEANING OF THE GIVEN SENTENCE . Medications: New sitagliptin phos-metformin 50-1,000 mg ER (Janumet XR) 1 tab PO DAILY 60 tabs 3RF Changed From insulin degludec (Tresiba FlexTouch U-200 insulin) 40 units subcut DAILY E11.65 - Type 2 diabetes mellitus with hyperglycemia To insulin degludec (Tresiba FlexTouch U-200 insulin) 40 units (0.2 mL) subcut DAILY 30 days 6 mL 0RF E11.65 - Type 2 diabetes mellitus with hyperglycemia Discontinued metformin ER Discontinued Reason: Doctor's Order 1,000 mg (2 x 500 mg) PO BID 360 tabs 1RF E11.65 - Type 2 diabetes mellitus with hyperglycemia, Z79.4 - penitentiary (current) use of insulin Patient Instructions: Protein 84?Range: 81 - 117 CarbsIncludes Sugar 183?Range: 146 - 204 FatIncludes Saturated Fat 39?Range: 31 - 55 Sugar <37? Saturated Fat <16? Food Energy 1,371? Coding Level of Care Code Est Pt Level 5 (51346) Diagnoses Diabetic nephropathy associated with type 2 diabetes mellitus E11.21 Diabetes mellitus type: type 2 Morbid obesity E66.01 Type 2 diabetes mellitus with hyperglycemia, with long-term current use of insulin E11.65; Z79.4 Additional Codes Vital Signs *Quality* - CPT code: 60989 - 4-10 Minutes ([id number])
[2024-01-03 10:37] VITALS: BP 110/60; PULSE 69; O2SAT 98; BMI 38.1
== END 2024-01-03 11:18 | disposition home or self-care (01) ==
PROVIDERS: PCP Nurse Practitioner Family; Visit Provider Nurse Practitioner Family
DX: E11.21 Type 2 diabetes mellitus with diabetic nephropathy (principal); E11.65 Type 2 diabetes mellitus with hyperglycemia; Z79.4 Long term (current) use of insulin; E66.01 Morbid (severe) obesity due to excess calories; Z68.38 Body mass index [BMI] 38.0-38.9, adult
CPT/HCPCS: 99215

== ENCOUNTER 2024-01-10 11:53 | Outpatient (AMB) | payer OTHER, SELFPAY ==
--- NOTE | 2024-01-10 12:00 | A.OFFPC_ITS ---
Vital Signs 01/10/24 12:03 Height 5 ft 3 in Weight 214 lb BMI 37.9 BP 108/62 Blood Pressure Location Lt brachial Position Sitting Pulse 89 Pulse Source Pulse Oximeter Pulse Oximetry (%) 96 Oxygen Delivery Method Room Air Intake Visit Reasons: DM f/u Intake Note: Patient is here for her diabetes follow up. Allergies Seasonal Allergies Allergy (Intermediate, Verified 01/10/24 12:04) Cough amoxicillin [From Augmentin] Adverse Reaction (Severe, Verified 01/10/24 12:04) n/v/d clavulanic acid [From Augmentin] Adverse Reaction (Severe, Verified 01/10/24 12:04) n/v/d NSAIDS (Non-Steroidal Anti-Inflamma [NSAIDS (NON-STEROIDAL ANTI-INFLAMMA] Adverse Reaction (Intermediate, Verified 01/10/24 12:04) BLEEDING clavulonic acid Adverse Reaction (Severe, Uncoded 01/10/24 12:04) Vomiting Medication List - Last Reconciled 01/10/24 by Bhumika Lucas, [facility]- albuterol sulfate 90 mcg/actuation 2 puffs PO Q6H PRN albuterol sulfate mg inhalation atorvastatin 40 mg PO DAILY blood sugar diagnostic (FreeStyle Lite Strips) USE 1 STRIP 3 TO 4 TIMES DAILY celecoxib 100 mg PO BID cetirizine 10 mg PO DAILY PRN diabetic supplies, miscellan. As directed diphenhydramine HCl (Banophen) 25 mg PO BEDTIME PRN flash glucose scanning reader (FreeStyle Bettye 2 [place]) As directed flash glucose sensor (FreeStyle Bettye 2 Sensor kit) As directed every 2 weeks fluticasone propionate 50 mcg/actuation (Allergy Relief (fluticasone)) 2 sprays intranasal DAILY 1 month gabapentin 600 mg PO TID PRN 30 days insulin aspart U-100 20 - 30 units (0.2 - 0.3 mL) subcut TID 90 days insulin degludec (Tresiba FlexTouch U-200 insulin) 40 units (0.2 mL) subcut DAILY 30 days lancets 3 to 4 time a day blood sugar checks. linaclotide 145 mcg PO DAILY lisinopril 2.5 mg PO BID 90 days magnesium oxide 500 mg PO DAILY montelukast 10 mg PO BEDTIME omeprazole 20 mg PO DAILY oxycodone 10 mg PO TID PRN 30 days pen needle, diabetic tid insulin administration sitagliptin phos-metformin 50-1,000 mg ER (Janumet XR) 1 tab PO BID solriamfetol (Sunosi) 150 mg PO DAILY tizanidine 2 mg PO TID PRN Tobacco use date assessed: 01/10/24 Dental Screening Dental Screen Date: 01/10/24 HPI HPI Comments History of Present Illness Details 53-year-old female with type 2 diabetes with complications, diabetic kidney disease hypertension hyperlipidemia, obesity obstructive sleep apnea, PCOS, asthma, chronic pain syndrome, diverticulosis, coronary artery disease, 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 Ordered 11/2023 Colon: [facility], plan for first colon 01/2024 Dexa: ordered 11/2023 HgA1c 9.2% 11/2023 DME [place]: [facility] -2022 - asked to sign SILVINO to get most recent exam Labs from 11/22/2023 show a BUN of 12, creatinine 0.68, EGFR greater than 60, AST 47, ALT 39, direct LDL 108, TSH 4.33, urine microalbumin creatinine ratio elevated at 596.5 Here today for close interval fu of DM: Has lost 1 lb. No side effects. Feels really good after medication changes; has not needed ISS. time in target 88% !!! >240 3% <1% less than 70 [facility] Medical History (Updated 01/10/24 @ 12:30 by Bhumika Lucas, [facility]-) Thoracic back pain Vasomotor symptoms due to menopause Elevated C-reactive protein (CRP) Menopause Proteinuria Type 2 diabetes mellitus with other diabetic kidney complication Sleep apnea PCOS (polycystic ovarian syndrome) Asthma Type 2 diabetes mellitus with hyperglycemia, with long-term current use of insulin Hyperlipidemia LDL goal <100 Obesity due to excess calories BMI 37.0-37.9, adult 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, uncontrolled [facility] (current) use of opiate analgesic Chronic pain syndrome Postlaminectomy syndrome, lumbar Surgical History History of esophagogastroduodenoscopy (EGD) Hx of spinal surgery History of removal of cyst History of carpal tunnel release History of lumbar surgery Family History Father Diabetes Hypertension Mother Asthma Social History Household Members: Children Housing: Apartment Alcohol intake: current Alcohol intake frequency: holidays/special occasions only Patient Tobacco Use Status: Current everyday Tobacco user Cigarette Packs Per Day: 0.5 Cigarettes Per Day: 10 Years Smoked: 30 e-Cigarette/Vaping Use: Never Used service: No Current occupational status: disabled Current occupational exposures/hazards: No Cognitive needs: No Hearing needs: No Vision needs: Yes Questionnaire Thrive Questionnaire Date Thrive assessed: 11/22/23 EDWIGE-7 AMB Questionnaire EDWIGE-7 Date EDWIGE - 7 assessed: 11/22/23 Source: Developed by Drs. Yrn Alexander, Frieda Rivera, John Archuleta and colleagues, with an educational cedrick from [employer]. Review of Systems Const All systems reviewed & are unremarkable except as noted in HPI and below Physical exam (Primary Care) Vital Signs: Last Vital Signs Pulse 89 01/10/24 12:03 BP 108/62 01/10/24 12:03 Pulse Ox 96 01/10/24 12:03 Oxygen Delivery Method Room Air 01/10/24 12:03 BMI result Body Mass Index 37.9 Tobacco/Smoking Status: Tobacco use Status Tobacco use date assessed 01/10/24 01/10/24 12:05 Patient Tobacco Use Status Current everyday Tobacco 01/10/24 12:00 e-Cigarette/Vaping Use Never Used 01/10/24 12:00 Thrive Assessment: Date of Thrive Assessment Date Thrive assessed 11/22/23 01/10/24 12:00 Const Other: awake alert accompanied by Inocente Oconnor Speaking in full sentences Assessment and Plan Assessment & Plan (1) Type 2 diabetes mellitus with hyperglycemia, with long-term current use of insulin: Comment: On insulin. Not interested in referral to endocrinology at this time. Uses a CGM Di[facility] [place] I do not have the most recent exam I have told her to get this for me. The last note I was able to review did have signs of diabetic retinopathy She is on CLAIRE inhibitor lisinopril 2.5 mg po BID increased by renal 11/2023, tolerating w/o uptick in cough. BP at goal. Plan: Doing GREAT with current regimen. CGM in target 88%, Cont Janumet 50/1000mg po BID, tresiba 40 units Q noon & preprandial Insulin asp art to 10 units TID w meals. ISS at HS only. 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 While every effort has been made to ensure accuracy in multi disciplined language analyst, still errors may have been included Sometimes, these errors may affect the content or meaning of the given sentence . Total time spent caring for the patient today was 40 minutes. This includes time spent before the visit reviewing the chart, time spent during the visit, and time spent after the visit on documentation Plan RTO in February with labs 1 week before for chronic dz mgmt, sooner PRN Orders: Orders Comprehensive [place]. 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
[2024-01-10 12:03] VITALS: BP 108/62; PULSE 89; O2SAT 96; BMI 37.9
== END 2024-01-10 12:26 | disposition home or self-care (01) ==
PROVIDERS: PCP Nurse Practitioner Family; Visit Provider Nurse Practitioner Family
DX: E11.65 Type 2 diabetes mellitus with hyperglycemia (principal); Z79.4 Long term (current) use of insulin
CPT/HCPCS: 99214

== ENCOUNTER 2024-01-24 09:56 | Outpatient (REF) | payer OTHER, SELFPAY ==
--- NOTE | ~2024-01-24 | MM_ITS ---
EXAMINATION: BONE DENSITOMETRY CLINICAL INDICATION: Asymptomatic menopausal state. COMPARISON: This is the patient's baseline examination. TECHNIQUE: Using a [employer] DXA System (software version: 13.1) manufactured by [employer], dual-energy x-ray absorptiometry was performed of the lumbar spine and left hip. The images are of good technical quality. Summary results are attached. FINDINGS: LEFT FEMUR, NECK: BMD 1.234 g/cm2, Z-score 1.6, T-score 1.4, normal. LEFT FEMUR, TOTAL: BMD 1.219 g/cm2, Z-score 1.4, T-score 1.7, normal. AP SPINE L1-L4: BMD 1.527 g/cm2, Z-score 2.3, T-score 2.9, normal. IDENTIFIED RISK FACTORS: Menopause, current smoker. HISTORY OF FRACTURE: None listed. MEDICATIONS: None listed. MM/XR DEXA axial skeleton IMPRESSION: 1. DIAGNOSIS: Normal bone density based on the lowest T-score value of 1.4 in the femoral neck applying World Health Organization criteria. 2. 10-YEAR FRACTURE RISK PREDICTION, FRAX: According to the guidelines, FRAX calculation should only be performed on patients in the osteopenia bone density category. Therefore, FRAX was not performed on this patient. 3. Treatment Recommendations: NOF guidelines recommend consideration for treatment in postmenopausal women and men age 50 and older presenting with the following: -A hip or vertebral (clinical or morphometric) fracture. -T-score less than or equal to -2.5 at the femoral neck or spine after appropriate evaluation to exclude secondary causes. -Low bone mass at the hip or spine and a 10-year fracture probability by FRAX of greater than or equal to 3% for hip fracture or greater than or equal to 20% for major osteoporotic fracture based on the [place] adapted WHO algorithm. 4. Other Recommendations: All treatment decisions require clinical judgment and consideration of individual patient factors, including patient preferences, comorbidities, previous drug use, risk factors not captured in the FRAX model (e.g. frailty, falls, vitamin D deficiency, increased bone turnover, interval significant decline in bone density) and possible under or overestimation of fracture risk by FRAX. FUTURE SCAN RECOMMENDATION: People with diagnosed cases of osteoporosis or at high risk for fracture should have regular bone mineral density tests. For patients eligible for Medicare, routine testing is allowed once every 2 years. The testing frequency can be increased to one year for patients who have rapidly progressing disease, those who are receiving or discontinuing medical therapy to restore bone mass, or have additional risk factors.
--- NOTE | ~2024-01-24 | MM_ITS ---
EXAMINATION: MM SCREENING DIGITAL BREAST TOMOSYNTHESIS, BILATERAL CLINICAL INFORMATION: Screening. Asymptomatic. COMPARISON: Mammography: There are no prior mammograms for comparison. TECHNIQUE: Digital breast tomosynthesis is performed in both the craniocaudal and mediolateral oblique views along with computer-aided detection (CAD). Synthesized 2D images are generated from the tomosynthesis. FINDINGS: There are scattered areas of fibroglandular density (ACR BI-RADS breast composition Category b). There are no significant masses, abnormal calcifications, or other abnormalities. MM/MM tomosynthesis screening BI IMPRESSION: No mammographic evidence of malignancy. ASSESSMENT: BI-RADS BI-RADS 1 - Negative RECOMMENDATION: Routine annual mammography screening. 1 year F/U This examination should not preclude the clinical evaluation of a suspicious palpable abnormality. This patient's information was entered into a reminder system with a target due date for their next mammogram.
== END 2024-01-24 09:57 | disposition home or self-care (01) ==
LOC: HO.MAMMO 09:56
PROVIDERS: PCP Nurse Practitioner Family; Visit Provider Nurse Practitioner Family
DX: Z12.31 Encounter for screening mammogram for malignant neoplasm of breast (principal); Z13.820 Encounter for screening for osteoporosis; Z78.0 Asymptomatic menopausal state
CPT/HCPCS: 77063; 77067; 77080

== ENCOUNTER → 2024-01-24 11:00 | Outpatient (BNV) | payer OTHER, SELFPAY | PROVIDERS: PCP Nurse Practitioner Family; Visit Provider Radiology Diagnostic Radiology | DX: Z12.31 Encounter for screening mammogram for malignant neoplasm of breast (principal) | CPT/HCPCS: 77063; 77067 ==

== ENCOUNTER 2024-01-25 10:46 | Day surgery (SDC) | payer OTHER, SELFPAY ==
[2024-01-22 15:57] VITALS: BMI 37.9
[2024-01-23 14:22] VITALS: BMI 38.1
--- NOTE | 2024-01-24 10:34 | P.CONAN_ITS ---
Documented by User: Dee Shah NP 01/24/24 10:39 HPI - Anesthesia Eval Consult details Narrative: 53yo F for Upper Endoscopy and Colonoscopy s/p spinal stim implant 07/2023 with GA-ETT 7 Anesthesia Pre-Procedure Meds Is the patient on any of the following meds?: Any other SGL-1 drugs or drugs that delay gastric emptying (Januvia combo) PMFSH Active Problems Active Problems: All Active Problems Diabetic nephropathy (Acute) Obesity (BMI 30-39.9) (Acute) Peripheral sensory neuropathy due to type 2 diabetes mellitus (Acute) Hyperlipidemia due to type 2 diabetes mellitus (Acute) Morbid obesity (Acute) FHx: rheumatoid arthritis (Acute) Generalized arthritis (Acute) Constipation due to pain medication (Acute) Cigarette smoker motivated to quit (Acute) Seasonal allergies (Acute) Bursitis of both hips (Acute) Menopause (Acute) Asthma (Acute) Proteinuria (Acute) Type 2 diabetes mellitus with other diabetic kidney complication (Acute) Type 2 diabetes mellitus with hyperglycemia, with long-term current use of insulin (Acute) Hyperlipidemia LDL goal <100 (Acute) 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, uncontrolled (Acute) 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 (Acute) Chronic pain syndrome (Acute) Postlaminectomy syndrome, lumbar (Acute) Past Medical History Medical History (Updated 01/23/24 @ 14:21 by Ketty Carnes RN) Chronic cough Chronic prescription opiate use Thoracic back pain Menopause Vasomotor symptoms due to menopause Elevated C-reactive protein (CRP) Proteinuria Type 2 diabetes mellitus with other diabetic kidney complication Sleep apnea PCOS (polycystic ovarian syndrome) Asthma Type 2 diabetes mellitus with hyperglycemia, with long-term current use of insulin Hyperlipidemia LDL goal <100 Obesity due to excess calories BMI 37.0-37.9, adult 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, uncontrolled 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 Chronic pain syndrome Postlaminectomy syndrome, lumbar Family History Family History Father Diabetes Hypertension Mother Asthma Family history of problems with anesthesia: No Surgical History Surgical History History of esophagogastroduodenoscopy (EGD) Hx of spinal surgery History of removal of cyst History of carpal tunnel release History of lumbar surgery History of Problems with Anesthesia: No Social History Social History (Updated 01/23/24 @ 14:21 by Ketty Carnes RN) Household Members: Family and Children Housing: Apartment Are you a primary dog day care attendant to a significant other at home: No Do you presently have visiting nurse or other home services: No Alcohol intake: current Alcohol intake frequency: holidays/special occasions only Patient Tobacco Use Status: Current everyday Tobacco user Tobacco use type: Cigarette Cigarettes Per Day: 4 Years Smoked: 30 e-Cigarette/Vaping Use: Never Used Use of substances other than those prescribed or required for medical reasons: No Are you DNR?: No Advance Directives: No Advance Directives Information Provided: Yes Advance Directives on File: No Recently lost weight without trying: No Nutrition Risks: No Nutritional Risk Patient : No FDLMP: 05/2022 Poor oral hygiene: No service: No Current occupational status: disabled Current occupational exposures/hazards: No Cognitive needs: No Hearing needs: No Vision needs: Yes Meds Allergies Allergy/AdvReac Type Severity Reaction Status Date / Time Seasonal Allergies Allergy Intermediate Cough Verified 01/25/24 11:10 amoxicillin [From Augmentin] AdvReac Severe n/v/d Verified 01/25/24 11:10 clavulanic acid AdvReac Severe n/v/d Verified 01/25/24 11:10 [From Augmentin] NSAIDS (Non-Steroidal AdvReac Intermediate BLEEDING Verified 01/25/24 11:10 Anti-Inflamma [NSAIDS (NON-STEROIDAL ANTI-INFLAMMA] Home Medications ?Medication ?Instructions ?Recorded ?Confirmed ?Last Taken ?Type albuterol sulfate 2.5 mg/3 mL mg inhalation 03/24/22 01/10/24 Unknown History (0.083 %) solution for nebulization magnesium oxide 500 mg PO DAILY 09/28/23 01/23/24 Unknown History solriamfetol 150 mg tablet (Sunosi) 150 mg PO DAILY 10/06/23 01/23/24 Unknown History Exam Height,Weight and Vital Signs: Height 5 ft 3 in Weight 97.522 kg Pertinent Lab Results Pertinent Lab Results: Laboratory Tests 05/22/23 11/22/23 11:00 12:05 WBC 12.3 H Hgb 12.8 Hct 42.1 Plt Count 332 Sodium 140 Potassium 4.1 Chloride 104 Carbon Dioxide 29 BUN 12 Creatinine 0.68 Assessment and Plan Assessment Anesthesia Assessment: Chart Reviewed Final Anesthetic Review Family History of Problems with Anesthesia: No History of Problems with Anesthesia: No Documented by User: Kevan Guillaume MD 01/25/24 11:16 HPI - Anesthesia Eval Anesthesia Pre-Procedure Meds If Yes to any meds - educate patient: Pt education - increased risk of aspiration PMFSH Past Medical History Medical History (Updated 01/23/24 @ 14:21 by Ketty Carnes, RN) Chronic cough Chronic prescription opiate use Thoracic back pain Menopause Vasomotor symptoms due to menopause Elevated C-reactive protein (CRP) Proteinuria Type 2 diabetes mellitus with other diabetic kidney complication Sleep apnea PCOS (polycystic ovarian syndrome) Asthma Type 2 diabetes mellitus with hyperglycemia, with long-term current use of insulin Hyperlipidemia LDL goal <100 Obesity due to excess calories BMI 37.0-37.9, adult 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, uncontrolled 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 Chronic pain syndrome Postlaminectomy syndrome, lumbar Family History Family History Father Diabetes Hypertension Mother Asthma Surgical History Surgical History History of esophagogastroduodenoscopy (EGD) Hx of spinal surgery History of removal of cyst History of carpal tunnel release History of lumbar surgery Social History Social History (Updated 01/23/24 @ 14:21 by Ketty Carnes RN) Household Members: Family and Children Housing: Apartment Are you a primary dog day care attendant to a significant other at home: No Do you presently have visiting nurse or other home services: No Alcohol intake: current Alcohol intake frequency: holidays/special occasions only Patient Tobacco Use Status: Current everyday Tobacco user Tobacco use type: Cigarette Cigarettes Per Day: 4 Years Smoked: 30 e-Cigarette/Vaping Use: Never Used Use of substances other than those prescribed or required for medical reasons: No Are you DNR?: No Advance Directives: No Advance Directives Information Provided: Yes Advance Directives on File: No Recently lost weight without trying: No Nutrition Risks: No Nutritional Risk Patient : No FDLMP: 05/2022 Poor oral hygiene: No service: No Current occupational status: disabled Current occupational exposures/hazards: No Cognitive needs: No Hearing needs: No Vision needs: Yes Meds Allergies Allergy/AdvReac Type Severity Reaction Status Date / Time Seasonal Allergies Allergy Intermediate Cough Verified 01/25/24 11:10 amoxicillin [From Augmentin] AdvReac Severe n/v/d Verified 01/25/24 11:10 clavulanic acid AdvReac Severe n/v/d Verified 01/25/24 11:10 [From Augmentin] NSAIDS (Non-Steroidal AdvReac Intermediate BLEEDING Verified 01/25/24 11:10 Anti-Inflamma [NSAIDS (NON-STEROIDAL ANTI-INFLAMMA] Home Medications ?Medication ?Instructions ?Recorded ?Confirmed ?Last Taken ?Type albuterol sulfate 2.5 mg/3 mL mg inhalation 03/24/22 01/10/24 Unknown History (0.083 %) solution for nebulization magnesium oxide 500 mg PO DAILY 09/28/23 01/23/24 Unknown History solriamfetol 150 mg tablet (Sunosi) 150 mg PO DAILY 10/06/23 01/23/24 Unknown History Exam Airway Mallampati Class: II TM Dist: >3cm Neck ROM: Full Loose/Missing/Broken Teeth: No Heart: rrr Lungs: rhonchi Assessment and Plan Assessment Anesthesia Assessment: Anesthesia Plan Discussed and Smoking Cess. Discussed Final Anesthetic Review NPO: Yes ASA Class: III Final Preanesthetic Review: No Changes in Pt Med Stat, Meds/Allgs Chart Reviewed, Consent Obtained/Reviewed and Anes Risks/Benef Reviewed Patient Risk: Intermediate Procedure Risk: Intermediate Anesthetic Plan Anesthetic Plan: MAC: Disposition: Standard PACU
[2024-01-25] MEDS: Lactated Ringers 1,000 ML 100 ML IVCONT (11:27)
[2024-01-25 11:28] VITALS: BP 106/56; PULSE 84; RESP 18; TEMP 36.6; O2SAT 96
[2024-01-25 11:36] LABS: Glucose, Whole Blood 133 mg/dL (60-115)
--- NOTE | 2024-01-25 11:58 | P.HPSUR_ITS ---
Pre-Procedural Eval Section A - 24 Hr Update-Section A only Date of Service: 01/25/24 Section B - Complete if H&P > 30 days Chief Complaint: abdominal pain Relevant Family History (Specify if Yes): No Relevant Social History: Tobacco Use Present Medications: see Short Stay Collaborative assessment Medical History: Significant History (Chronic cough Chronic prescription opiate use Thoracic back pain Menopause Vasomotor symptoms due to menopause Elevated C- reactive protein (CRP) Proteinuria Type 2 diabetes mellitus with other diabetic kidney complication Sleep apnea PCOS (polycystic ovarian syndrome) Asthma Type 2 diabetes mellitus) History of Previous Operations: Relevant previous surgery/procedure and date(s) (History of esophagogastroduodenoscopy (EGD) Hx of spinal surgery History of removal of cyst History of carpal tunnel release History of lumbar surgery) Allergies: Allergies Allergy/AdvReac Type Severity Reaction Status Date / Time Seasonal Allergies Allergy Intermediate Cough Verified 01/25/24 11:10 amoxicillin [From Augmentin] AdvReac Severe n/v/d Verified 01/25/24 11:10 clavulanic acid AdvReac Severe n/v/d Verified 01/25/24 11:10 [From Augmentin] NSAIDS (Non-Steroidal AdvReac Intermediate BLEEDING Verified 01/25/24 11:10 Anti-Inflamma [NSAIDS (NON-STEROIDAL ANTI-INFLAMMA] Review of Systems Sugical H&P ROS: Negative: Constitution, Cardiovascular, Respiratory, Neurological, Psychiatric, Hem-Onc, Allergic/Immunologic, Gastrointestinal, Genitourinary, Musculoskeletal, Integumentary, Endocrine and Eyes/Ears/Nose/Throat Exam Surgical H&P Exam: Normal: HEENT, Normal: Heart, Normal: Lungs, Normal: Extremities, Normal: Abdomen, Normal: Skin and Normal: Neurological Plan Diagnosis/Plan: Unchanged I have reviewed the history and physical and performed a pertinent physical examination on my patient. No changes have occurred unless specified. Time Spent With Patient Time: Total time managing care of this patient today ____ minutes.
--- NOTE | 2024-01-25 11:59 | P.OP_ITS ---
Operative Note Operative Note Date of Service: 01/25/24 Narrative: Operative Information Procedure Description: EGD, Colonoscopy Indication: abdominal pain Anesthesia: MAC FLEXIBLE TRANSORAL UPPER GASTROINTESTINAL ENDOSCOPY AND COLONOSCOPY PROCEDURE NOTE UPPER ENDOSCOPY Consent: Indications for the procedure and potential complications of bleeding, perforation, reaction to medications and missed diagnosis were discussed with the patient and informed consent was obtained. Instrument: Olympus GIF H 190 J mid size upper endoscope Monitoring: Vital signs and clinical assessment, continuous EKG monitoring, Pulse oximetry, Carbon Dioxide monitoring and blood pressure monitoring were done throughout the procedure. Procedure: The patient was placed in the left lateral decubitis position and pre-procedure medications were administered and a bite block was placed. The endoscope was inserted into the mouth and advanced under direct vision to the third part of duodenum. A careful inspection was made as the upper endoscope was withdrawn including a retroflexed examination of the proximal stomach; Findings and interventions are described below. Findings: Larynx:normal Esophagus: GE junction at 40 cm, diaphragm hiatus at 40 cm, normal mucosa Stomach: Patchy erythema with bilious fluid noted in stomach. Biopsies were obtained. Grade 2 flap valve on retroflexed examination of the cardia. Duodenum: Normal bulb and descending duodenum, bx taken Intervention: Biopsies as noted above, COLONOSCOPY Instrument: Olympus variable stiffness pediatric scope 190L Colonoscopy Monitoring: Vital signs and clinical assessment, continuous EKG monitoring, Pulse oximetry, Carbon Dioxide monitoring and blood pressure monitoring were done throughout the procedure. Colon withdrawal time was 12 minutes. Procedure: The patient was placed in the left lateral decubitis position and pre-procedure medications were administered. After a digital rectal examination of the ano-rectum, the video colonoscope was inserted into the rectum and advanced through the colon to the cecum/TI. The colonoscope was slowly withdrawn in a retrograde panoramic fashion and the colon mucosa was carefully examined including a retroflexed view of the rectum. Findings and interventions are described below. Procedure Difficulty:moderate Findings: Terminal Ileum-normal, bx taken Random bx taken from right and then left colon in separate jars Cecum:normal Ascending Colon: normal Transverse Colon -normal Descending Colon: 6-8 mm sessile polyp removed with cold snare Sigmoid Colon: normal Rectum: Retroflexion with small to medium internal hemorrhoids, grade I Anorectum - normal Colon preparation: [place] Bowel Preparation Scale Right colon; 2 Transverse colon: 2 Left colon; 3 (0 = Unprepared colon segment with mucosa not seen due to solid stool that cannot be cleared. 1 = Portion of mucosa of the colon segment seen, but other areas of the colon segment not well seen due to staining, residual stool and/or opaque liquid. 2 = Minor amount of residual staining, small fragments of stool and/or opaque liquid, but mucosa of colon segment seen well. 3 = Entire mucosa of colon segment seen well with no residual staining, small fragments of stool or opaque liquid) Impression and Post Procedure Diagnosis: Endoscopy Findings: bile acid reflux gastritis Colonoscopy Findings: colon polyp internal hemorrhoids Plan: Await Pathology results Repeat Colonoscopy in 5-6 years due to polyp or earlier if clinically indicated High fiber diet leaflet avoid straining at stool, epsom salts and sitz bath, anusol supps or cream can consider trial of ursodiol or welchol for bile acid xs Above findings were reviewed with the patient and relevant handouts were provided if indicated.
[2024-01-25 13:00] VITALS: BP 106/57; PULSE 75; RESP 12; TEMP 36.1; O2SAT 97
[2024-01-25 13:15] VITALS: BP 108/37; PULSE 77; RESP 16; TEMP 36.1; O2SAT 96
== END 2024-01-25 13:40 | disposition home or self-care (01) ==
PROVIDERS: PCP Nurse Practitioner Family; Visit Provider Internal Medicine Gastroenterology
PROC: (CPT 45385; principal; 2024-01-25 13:00)
DX: R10.9 Unspecified abdominal pain (principal); K63.5 Polyp of colon; K64.0 First degree hemorrhoids; K59.09 Other constipation; K29.50 Unspecified chronic gastritis without bleeding; K21.9 Gastro-esophageal reflux disease without esophagitis; G89.4 Chronic pain syndrome; M54.9 Dorsalgia, unspecified; R05.3 Chronic cough; I10 Essential (primary) hypertension; E78.5 Hyperlipidemia, unspecified; E11.29 Type 2 diabetes mellitus with other diabetic kidney complication; N28.9 Disorder of kidney and ureter, unspecified; E11.3292 Type 2 diabetes mellitus with mild nonproliferative diabetic retinopathy without macular edema, left eye; E11.65 Type 2 diabetes mellitus with hyperglycemia; E66.09 Other obesity due to excess calories; J45.909 Unspecified asthma, uncomplicated; G47.33 Obstructive sleep apnea (adult) (pediatric); Z68.37 Body mass index [BMI] 37.0-37.9, adult; Z79.891 Long term (current) use of opiate analgesic; Z79.4 Long term (current) use of insulin; Z79.51 Long term (current) use of inhaled steroids; Z79.899 Other long term (current) drug therapy; Z88.1 Allergy status to other antibiotic agents; F17.210 Nicotine dependence, cigarettes, uncomplicated
CPT/HCPCS: 45385; 45380; 43239; 82947; 88305; 88313; 88342; J2704

== ENCOUNTER → 2024-01-25 10:46 | Outpatient (BNV) | payer OTHER, SELFPAY | PROVIDERS: PCP Nurse Practitioner Family; Visit Provider Internal Medicine Gastroenterology | DX: K63.5 Polyp of colon (principal); K64.0 First degree hemorrhoids; K29.60 Other gastritis without bleeding; K31.9 Disease of stomach and duodenum, unspecified; R10.9 Unspecified abdominal pain | CPT/HCPCS: 43239; 45380; 45385 ==

== ENCOUNTER 2024-01-26 10:58 | Outpatient (AMB) | payer OTHER, SELFPAY ==
[2024-01-26 11:07] VITALS: BP 153/67; PULSE 84; RESP 18; O2SAT 96; BMI 38.3
--- NOTE | 2024-01-26 11:07 | A.OFFVIS_ITS ---
Intake Vital Signs 01/26/24 11:07 Height 5 ft 3 in Weight 216 lb BMI 38.3 BP 153/67 H Blood Pressure Location Lt brachial Position Sitting Respiration 18 Pulse 84 Pulse Source Pulse Oximeter Pulse Oximetry (%) 96 Oxygen Delivery Method Room Air Intake Visit Reasons: PILL COUNT/ Random UDS Allergies Seasonal Allergies Allergy (Intermediate, Verified 01/26/24 11:05) Cough amoxicillin [From Augmentin] Adverse Reaction (Severe, Verified 01/26/24 11:05) n/v/d clavulanic acid [From Augmentin] Adverse Reaction (Severe, Verified 01/26/24 11:05) n/v/d NSAIDS (Non-Steroidal Anti-Inflamma [NSAIDS (NON-STEROIDAL ANTI-INFLAMMA] Adverse Reaction (Intermediate, Verified 01/26/24 11:05) BLEEDING HPI HPI Comments History of Present Illness Details Carlota is a very pleasant 53 year old female who presents to the office today for follow chronic pain and chronic opioid medication managemen. She is prescribed oxycodone 10mg po TID prn. Patient arrived today with the expectation of having 54 pills, she presented 53 pills which were counted in the presence of two staff members and returned to the patient in the original prescription bottle. This demonstrates responsible attitude toward patient's opioid medications. Pain is reported today as 8/10 and last dose of pain medication was taken at 08:00 this morning. Denies side effects including abd pain, constipation, nausea, shortness of jordy ath, urinary retention or drowsiness. Previous visit with Dr Stanley: Carlota is back in my office after the trial I DDD with with morphine which was performed on 01/31/2023.? She does not report the same pain evaluation as it was with Dilaudid in September.? She received 150 micro g of morphine intrathecally.? However the patient developed what looks like post dural puncture headache immediately after the procedure.? The headache went away on itself however now we are not ready to implant anything for the patient.? I suggested that we might try in the future instead of fentanyl to go ahead with bupivacaine injections small dose intrathecally and have bupivacaine as the main medication in the intrathecal space if results of the trial will have no side effects and will have good pain relief.? I warned her that she may experience weakness in bilateral lower extremities after bupivacaine injection however the weakness will be only transient. We decided to wait a month or two PA and schedule the bupivacaine trial later. Prior:? Dilaudid which was performed of 10/06/2023.? The patient reports absence of pain for the 1st 48 hours after the procedure.? However she reports severe nausea and vomiting after surgery.? This is unwanted side effects.? I offered her reach trial with morphine versus read trial with fentanyl.? The patient reported that in the past she was taking morphine as a pain medication orally.? She denies any side effects.? I will try to perform the procedure with 150 mcg intrathecally? 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 Chronic pain syndrome Postlaminectomy syndrome, lumbar Surgical History History of esophagogastroduodenoscopy (EGD) Hx of spinal surgery History of removal of cyst History of carpal tunnel release History of lumbar surgery Family History Father Diabetes Hypertension Mother Asthma Social History (Updated 01/23/24 @ 14:21 by Ketty Carnes RN) Household Members: Family and Children Housing: Apartment Are you a primary personal care aid to a significant other at home: No Do you presently have visiting nurse or other home services: No Alcohol intake: current Alcohol intake frequency: holidays/special occasions only Patient Tobacco Use Status: Current everyday Tobacco user Tobacco use type: Cigarette Cigarettes Per Day: 4 Years Smoked: 30 e-Cigarette/Vaping Use: Never Used service: No Current occupational status: disabled Current occupational exposures/hazards: No Cognitive needs: No Hearing needs: No Vision needs: Yes Review of Systems Const All systems reviewed & are unremarkable except as noted in HPI and below Physical Exam Vital Signs: Last Vital Signs Pulse 84 01/26/24 11:07 Resp 18 01/26/24 11:07 BP 153/67 H 01/26/24 11:07 Pulse Ox 96 01/26/24 11:07 Oxygen Delivery Method Room Air 01/26/24 11:07 BMI result Body Mass Index 38.3 General: awake, alert, oriented. Answers questions appropriately. Fully engaged in examination. Skin: warm, dry, intact without visible rashes or lesions. HEENT: Normocephalic. Hearing intact. Cardiac: External chest normal in appearance. Respiratory: No signs of respiratory distress. Abdomen: without gross distension. MS: No obvious swelling or deformities. Ambulates with steady gait. Neurological: Oriented to person, place, time and situation. Thought process intact. No gait abnormalities appreciated. Psychiatric: Appropriate mood and affect. Good judgment and insight. Results Reviewed Results Reviewed: 10/12/2023 XR/XR thoracic spine 3V FINDINGS: There are mild multilevel degenerative changes of thoracic spine with marginal spurring. Pedicles are preserved there is no evidence of fractures soft tissues unremarkable. There is no spondylolysis or listhesis. IMPRESSION: Mild degenerative changes with marginal spurring. Thoracic spine. 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 No obvious signs of diversion, abuse or misuse of the opioid medications. Random UDS clinic today, review at next visit Will send in prescription for oxycodone 10mg po tid #90 no refills with an advanced date of 02/13/2024 Continue with tizanidine 3 times daily as needed All questions and concerns have been answered and patient agrees with the plan. Patient will follow up in 1 month, sooner if needed. Medications: Refilled oxycodone Partial Fill upon patient request. 10 mg PO TID 30 days PRN 90 tabs 0RF pain G89.4 - Chronic pain syndrome, M96.1 - Postlaminectomy syndrome, not elsewhere classified Coding Level of Care Code Est Pt Level 4 (60048) Diagnoses Postlaminectomy syndrome, lumbar M96.1 Chronic pain syndrome G89.4 [facility] (current) use of opiate analgesic Z79.891
== END 2024-01-26 11:20 | disposition home or self-care (01) ==
PROVIDERS: PCP Nurse Practitioner Family; Visit Provider Registered Nurse Emergency
DX: G89.4 Chronic pain syndrome (principal); M96.1 Postlaminectomy syndrome, not elsewhere classified; Z79.891 Long term (current) use of opiate analgesic
CPT/HCPCS: 99214

== ENCOUNTER → 2024-01-26 10:58 | Outpatient (BNVA) | payer OTHER, SELFPAY | PROVIDERS: PCP Nurse Practitioner Family; Visit Provider Registered Nurse Emergency | DX: Z51.81 Encounter for therapeutic drug level monitoring (principal); M96.1 Postlaminectomy syndrome, not elsewhere classified; G89.4 Chronic pain syndrome; Z79.891 Long term (current) use of opiate analgesic | CPT/HCPCS: 99212 ==

== ENCOUNTER 2024-02-05 10:49 | Outpatient (AMB) | payer OTHER, SELFPAY ==
--- NOTE | 2024-02-05 10:51 | A.OFFVIS_ITS ---
Vital Signs 02/05/24 10:56 Height 5 ft 3 in Weight 218 lb BMI 38.6 BP 123/58 L Blood Pressure Location Lt brachial Position Sitting Pulse 75 Intake Visit Reasons: S/P Double; Dr. Huang Intake Note: Carlota presents in the office as a follow up EGD and COLO. CC: Was a January patient but wants to establish care with Sal. No concerns since her procedures. Allergies Seasonal Allergies Allergy (Intermediate, Verified 02/05/24 10:57) Cough amoxicillin [From Augmentin] Adverse Reaction (Severe, Verified 02/05/24 10:57) n/v/d clavulanic acid [From Augmentin] Adverse Reaction (Severe, Verified 02/05/24 10:57) n/v/d NSAIDS (Non-Steroidal Anti-Inflamma [NSAIDS (NON-STEROIDAL ANTI-INFLAMMA] Adverse Reaction (Intermediate, Verified 02/05/24 10:57) BLEEDING HPI HPI S/P Double; Dr. Huang: Details: 53 yr old f here for f/u INTERIM: Constipation well controlled with linaclotide she has issues with bloating occ abdominal pain issues with heartburn--prilosec works well for her for the most part reviewed path results with her TESTS: CT 2020-- right sided colonic and TI thickening, hyperemia EGD/Colonoscopy:02/06 Endoscopy Findings: bile acid reflux gastritis Colonoscopy Findings: colon polyp internal hemorrhoids Plan: Await Pathology results Repeat Colonoscopy in 5-6 years due to polyp or earlier if clinically indicated High fiber diet leaflet avoid straining at stool, epsom salts and sitz bath, anusol supps or cream can consider trial of ursodiol or welchol for bile acid xs PAth: reactive gastropathy, lymphoid aggregates EXAM: GENERAL: The patient is well developed and nontoxic. VITAL SIGNS:see workflow HEENT: Nonicteric sclerae, PERRLA, EOMI. Oropharynx clear. Moist mucous membranes. Conjunctivae appear well perfused. No thyroid mass. CHEST: Chest wall is nontender. HEART: Regular rate and rhythm without murmurs. LUNGS: Clear to auscultation bilaterally. ABDOMEN: Soft, positive bowel sounds, tender epigastric area, no organomegaly.no flank tenderness SKIN: No rash, no excessive bruising, petechiae, or purpura. NEUROLOGIC: Cranial nerves II-XII intact without motor/sensory deficit. Psych: nml affect A/P: 1/constipation--slow transit also due to opiate use--doing well with linalcotide, smoker as well 2/ possible corhns with abn imaging 2020 but colonoscopy was normal apart from lymphoid aggregates 3/ suspected bile acid reflux gastritis PLAN: 1/ trial of urosdiol to see if helps, hold on mesalamine for the moment [facility]LY [facility] Medical History (Updated 02/05/24 @ 11:33 by Kera Huang MD) Chronic cough Chronic prescription opiate use Thoracic back pain Menopause Vasomotor symptoms due to menopause Elevated C-reactive protein (CRP) Proteinuria Type 2 diabetes mellitus with other diabetic kidney complication Sleep apnea PCOS (polycystic ovarian syndrome) Asthma Type 2 diabetes mellitus with hyperglycemia, with long-term current use of insulin Hyperlipidemia LDL goal <100 Obesity due to excess calories BMI 37.0-37.9, adult 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, uncontrolled 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 Chronic pain syndrome Postlaminectomy syndrome, lumbar Surgical History (Updated 02/05/24 @ 10:57 by RACHEL Winslow) Hx of colonoscopy History of esophagogastroduodenoscopy (EGD) Hx of spinal surgery History of removal of cyst History of carpal tunnel release History of lumbar surgery Family History Father Diabetes Hypertension Mother Asthma Social History Household Members: Family and Children Housing: Apartment Are you a primary social worker palliative care to a significant other at home: No Do you presently have visiting nurse or other home services: No Alcohol intake: current Alcohol intake frequency: holidays/special occasions only Patient Tobacco Use Status: Current everyday Tobacco user Tobacco use type: Cigarette Cigarettes Per Day: 4 Years Smoked: 30 e-Cigarette/Vaping Use: Never Used service: No Current occupational status: disabled Current occupational exposures/hazards: No Cognitive needs: No Hearing needs: No Vision needs: Yes Physical Exam Vital Signs: Last Vital Signs Pulse 75 02/05/24 10:56 BP 123/58 L 02/05/24 10:56 BMI result Body Mass Index 38.6 Assessment & Plan Assessment & Plan (1) Gastritis, bile acid reflux: Code(s): K29.60 - Other gastritis without bleeding Category: Medical Plan: A/P: 1/constipation--slow transit also due to opiate use--doing well with linalcotide, smoker as well 2/ possible corhns with abn imaging 2020 but colonoscopy was normal apart from lymphoid aggregates 3/ suspected bile acid reflux gastritis PLAN: 1/ trial of urosdiol to see if helps, hold on mesalamine for the moment Medications: New ursodiol 500 mg PO BID 90 tabs 2RF
[2024-02-05 10:56] VITALS: BP 123/58; PULSE 75; BMI 38.6
== END 2024-02-05 11:47 | disposition home or self-care (01) ==
LOC: HO.HGI 10:49
PROVIDERS: PCP Nurse Practitioner Family; Visit Provider Internal Medicine Gastroenterology
DX: K29.60 Other gastritis without bleeding (principal)
CPT/HCPCS: 99213

== ENCOUNTER → 2024-02-05 10:49 | Outpatient (BNVA) | payer OTHER, SELFPAY | PROVIDERS: PCP Nurse Practitioner Family; Visit Provider Internal Medicine Gastroenterology | DX: K29.60 Other gastritis without bleeding (principal); K59.01 Slow transit constipation; F17.210 Nicotine dependence, cigarettes, uncomplicated | CPT/HCPCS: 99212 ==

== ENCOUNTER 2024-02-22 10:10 | Outpatient (REF) | payer OTHER, SELFPAY ==
[2024-02-22 11:53] LABS: Estimated Average Glucose 177 mg/dL; Hemoglobin A1c % 7.8 % (<6.0)
[2024-02-22 11:55] LABS: Appearance Urine Clear; Color Urine Yellow; Glucose Urine UA Negative (Negative); Leukocyte Esterase Urine Trace (Negative); Nitrite Urine Negative (Negative); PH 8.5 (5.0-9.0); UMIC TRIGGER UA YES; Urine Blood Negative (Negative); Urine Ketones Negative (Negative); Urine Protein 100 (2+) mg/dL (Neg-Trace)
[2024-02-22 12:17] LABS: Bacteria Urine None Seen (None Seen); Hyaline Casts Urine 0-2 /LPF (0-2); RBC Urine 0-2 /HPF (0-2); WBC Urine 0-5 /HPF (0-5)
[2024-02-22 12:17] LABS: Alanine Aminotransferase 26 U/L (0-31); Albumin Level 3.9 g/dL (3.5-5.0); Alkaline Phosphatase 86 U/L (39-117); Anion Gap 15 (12-20); Aspartate Amino Transferase 30 U/L (5-31); Bilirubin Total 0.5 mg/dL (0.0-1.0); Blood Urea Nitrogen 12 mg/dL (9-16); Calcium 9.5 mg/dL (8.4-10.2); Carbon Dioxide 27 mmol/L (22-29); Chloride 102 mmol/L (96-108); Cholesterol 166 mg/dL (<200); Estimated Glomerular Filt Rate > 60; Glucose Fasting 161 mg/dL (60-99); HDL Cholesterol 35 mg/dL (>40); LDL Cholesterol Calculated 98 mg/dL (<100); Potassium 4.3 mmol/L (3.3-5.1); Sodium 140 mmol/L (135-145); Total Protein 7.5 g/dL (6.5-8.0); Triglycerides 168 mg/dL (<150)
[2024-02-22 12:41] LABS: Protein/Creatinine Ratio, Ur 1.12 (<0.2); Total Protein Urine Random 123 mg/dL (<12)
[2024-02-22 12:43] LABS: HBsAGNum1 0.28 S/CO (0.00-0.99); Hepatitis B Core Antibody Nonreactive (Nonreactive); Hepatitis B Surface Antigen Negative (Negative); ~HepC Num1 0.22 S/CO (0.00-0.79); ~Hepatitis C Antibody Nonreactive (Nonreactive)
[2024-02-22 12:46] LABS: Vitamin B12 504 pg/mL (200-900)
[2024-02-23 11:09] LABS: Complement C3 124 mg/dL (83-193)
[2024-02-27 23:28] LABS: IgA 336 mg/dL (47-310); IgG 1068 mg/dL (600-1640); IgM 251 mg/dL (50-300)
[2024-02-29 08:04] LABS: Anti DNA DS Antibody <1 IU/mL; Anti Glomerular Basement Memb <1.0 AI; Myeloperoxidase Antibody <1.0 AI; Proteinase 3 PR3 Antibodies <1.0 AI
[2024-03-01 23:09] LABS: Phospholipase A2 IgG ELISA <4 RU/mL; Phospholipase A2 IgG IFA NEGATIVE (NEGATIVE)
== END 2024-02-22 10:11 | disposition home or self-care (01) ==
LOC: HO.WFDLDS 10:10
PROVIDERS: Internal Medicine Nephrology; Visit Provider Nurse Practitioner Family
DX: R80.9 Proteinuria, unspecified (principal); E11.21 Type 2 diabetes mellitus with diabetic nephropathy; E11.65 Type 2 diabetes mellitus with hyperglycemia; Z79.4 Long term (current) use of insulin
CPT/HCPCS: 36415; 80053; 80061; 81001; 82570; 82607; 82784; 83036; 83520; 84156; 86021; 86160; 86225; 86255; 86334; 86335; 86704; 86803; 87340

== ENCOUNTER 2024-02-23 11:28 | Outpatient (AMB) | payer OTHER, SELFPAY ==
[2024-02-23 11:37] VITALS: BP 151/72; PULSE 93; RESP 16; O2SAT 94; BMI 38.6
--- NOTE | 2024-02-23 11:37 | A.OFFVIS_ITS ---
Vital Signs 02/23/24 11:37 Height 5 ft 3 in Weight 218 lb BMI 38.6 BP 151/72 H Blood Pressure Location Lt brachial Position Sitting Respiration 16 Pulse 93 Pulse Source Pulse Oximeter Pulse Oximetry (%) 94 Oxygen Delivery Method Room Air Intake Visit Reasons: PILL COUNT Allergies Seasonal Allergies Allergy (Intermediate, Verified 02/23/24 11:38) Cough amoxicillin [From Augmentin] Adverse Reaction (Severe, Verified 02/23/24 11:38) n/v/d clavulanic acid [From Augmentin] Adverse Reaction (Severe, Verified 02/23/24 11:38) n/v/d NSAIDS (Non-Steroidal Anti-Inflamma [NSAIDS (NON-STEROIDAL ANTI-INFLAMMA] Adverse Reaction (Intermediate, Verified 02/23/24 11:38) BLEEDING HPI Comments Details: Carolta is a very pleasant 53 year old female who presents to the office today for follow chronic pain and chronic opioid medication management. She is prescribed oxycodone 10mg po TID prn. Patient arrived today with the expectation of having 60 pills, she presented 59 pills which were counted in the presence of two staff members and returned to the patient in the original prescription bottle. This demonstrates responsible attitude toward patient's opioid medications. Pain is reported today as 9/10 and last dose of pain medication was taken at 08:00 this morning. Denies side effects including abd pain, constipation, nausea, shortness of breath, urinary retention or drowsiness. Patient with right hip pain, has received steroid injection in the past with good effect. Would like to repeat the injection. Previous visit with Dr Stanley: Carlota is back in my office after the trial I DDD with with morphine which was performed on 01/31/2023.? She does not report the same pain evaluation as it was with Dilaudid in September.? She received 150 micro g of morphine intrathecally.? However the patient developed what looks like post dural puncture headache immediately after the procedure.? The headache went away on itself however now we are not ready to implant anything for the patient.? I suggested that we might try in the future instead of fentanyl to go ahead with bupivacaine injections small dose intrathecally and have bupivacaine as the main medication in the intrathecal space if results of the trial will have no side effects and will have good pain relief.? I warned her that she may experience weakness in bilateral lower extremities after bupivacaine injection however the weakness will be only transient. We decided to wait a month or two PA and schedule the bupivacaine trial later. Prior:? Dilaudid which was performed of 10/06/2023.? The patient reports absence of pain for the 1st 48 hours after the procedure.? However she reports severe nausea and vomiting after surgery.? This is unwanted side effects.? I offered her reach trial with morphine versus read trial with fentanyl.? The patient reported that in the past she was taking morphine as a pain medication orally.? She denies any side effects.? I will try to perform the procedure with 150 mcg intrathecally? 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 Chronic pain syndrome Postlaminectomy syndrome, lumbar Surgical History (Updated 02/05/24 @ 10:57 by RACHEL Winslow) Hx of colonoscopy History of esophagogastroduodenoscopy (EGD) Hx of spinal surgery History of removal of cyst History of carpal tunnel release History of lumbar surgery Family History Father Diabetes Hypertension Mother Asthma Social History Household Members: Family and Children Housing: Apartment Are you a primary childcare provider to a significant other at home: No Do you presently have visiting nurse or other home services: No Alcohol intake: current Alcohol intake frequency: holidays/special occasions only Patient Tobacco Use Status: Current everyday Tobacco user Tobacco use type: Cigarette Cigarettes Per Day: 4 Years Smoked: 30 e-Cigarette/Vaping Use: Never Used service: No Current occupational status: disabled Current occupational exposures/hazards: No Cognitive needs: No Hearing needs: No Vision needs: Yes Review of Systems Const All systems reviewed & are unremarkable except as noted in HPI and below Physical Exam Vital Signs: Last Vital Signs Pulse 93 02/23/24 11:37 Resp 16 02/23/24 11:37 BP 151/72 H 02/23/24 11:37 Pulse Ox 94 02/23/24 11:37 Oxygen Delivery Method Room Air 02/23/24 11:37 BMI result Body Mass Index 38.6 General: awake, alert, oriented. Answers questions appropriately. Fully engaged in examination. Skin: warm, dry, intact without visible rashes or lesions. HEENT: Normocephalic. Hearing intact. Cardiac: External chest normal in appearance. Respiratory: No signs of respiratory distress. Abdomen: without gross distension. MS: No obvious swelling or deformities. Ambulates with steady gait. Pain with I/E rotation right hip Neurological: Oriented to person, place, time and situation. Thought process intact. Psychiatric: Appropriate mood and affect. Good judgment and insight. Results Reviewed Results Reviewed: 10/12/2023 XR/XR thoracic spine 3V FINDINGS: There are mild multilevel degenerative changes of thoracic spine with marginal spurring. Pedicles are preserved there is no evidence of fractures soft tissues unremarkable. There is no spondylolysis or listhesis. IMPRESSION: Mild degenerative changes with marginal spurring. Thoracic spine. 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 No obvious signs of diversion, abuse or misuse of the opioid medications. Will send in prescription for oxycodone 10mg po tid #90 no refills with an advanced date of 03/14/2024 Continue with tizanidine 3 times daily as needed Will schedule for right fluoroscopy guided intra-articular hip injection with local anesthetic. All questions and concerns have been answered and patient agrees with the plan. Patient will follow up in 1 month, sooner if needed. Medications: Refilled oxycodone Partial Fill upon patient request. 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
== END 2024-02-23 11:54 | disposition home or self-care (01) ==
PROVIDERS: PCP Nurse Practitioner Family; Visit Provider Registered Nurse Emergency
DX: G89.4 Chronic pain syndrome (principal); M16.11 Unilateral primary osteoarthritis, right hip; M96.1 Postlaminectomy syndrome, not elsewhere classified; Z79.891 Long term (current) use of opiate analgesic
CPT/HCPCS: 99214

== ENCOUNTER → 2024-02-23 11:28 | Outpatient (BNVA) | payer OTHER, SELFPAY | PROVIDERS: PCP Nurse Practitioner Family; Visit Provider Registered Nurse Emergency | DX: G89.4 Chronic pain syndrome (principal); M96.1 Postlaminectomy syndrome, not elsewhere classified; M16.11 Unilateral primary osteoarthritis, right hip; Z79.891 Long term (current) use of opiate analgesic | CPT/HCPCS: 99212 ==

== ENCOUNTER 2024-03-06 11:57 | Outpatient (AMB) | payer OTHER, SELFPAY ==
--- NOTE | 2024-03-06 11:58 | HO.NEPHOV ---
Vital Signs 03/06/24 11:59 Height 5 ft 3 in Weight 216 lb 4 oz BMI 38.3 BP 140/70 H Blood Pressure Location Lt brachial Position Sitting Pulse 80 Pulse Source Pulse Oximeter Pulse Oximetry (%) 95 Oxygen Delivery Method Room Air Intake Visit Reasons: Proteinuria/ 3 MO FU/ Confirmed Preparation Room Manager Required: No Accompanied by: Spouse Allergies Seasonal Allergies Allergy (Intermediate, Verified 03/06/24 12:01) Cough amoxicillin [From Augmentin] Adverse Reaction (Severe, Verified 03/06/24 12:01) n/v/d clavulanic acid [From Augmentin] Adverse Reaction (Severe, Verified 03/06/24 12:01) n/v/d NSAIDS (Non-Steroidal Anti-Inflamma [NSAIDS (NON-STEROIDAL ANTI-INFLAMMA] Adverse Reaction (Intermediate, Verified 03/06/24 12:01) BLEEDING HPI Comments Details: I had the delight of seeing Carlota in consultation for proteinuria. She is 53 years of age and has been a diabetic from her 20s. Her blood sugars had not been well controlled all along. She has dyslipidemia and is on statins. She has no hypertension. She was told that she has some early signs of diabetic retinopathy in the eyes. She denies any coronary artery disease, congestive heart failure, CVA, renal artery stenosis, peripheral arterial disease or carotid stenosis. She is actively trying to lose some weight. Her serum creatinine is normal. She has no edema. She does not get recurrent urinary infections. She denies any macroscopic hematuria. She does not take any nonsteroidal anti-inflammatories. She has no epistaxis, photosensitivity, joint swellings, skin rashes. She is very worried and concerned about her protein in the urine. She has a family member in [place] who recently from ESRD due to diabetic nephropathy. 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 Chronic pain syndrome Postlaminectomy syndrome, lumbar Surgical History (Updated 02/05/24 @ 10:57 by RACHEL Winslow) Hx of colonoscopy History of esophagogastroduodenoscopy (EGD) Hx of spinal surgery History of removal of cyst History of carpal tunnel release History of lumbar surgery Family History Father Diabetes Hypertension Mother Asthma Social History Household Members: Family and Children Housing: Apartment Are you a primary medicare interviewer to a significant other at home: No Do you presently have visiting nurse or other home services: No Alcohol intake: current Alcohol intake frequency: holidays/special occasions only Patient Tobacco Use Status: Current everyday Tobacco user Tobacco use type: Cigarette Cigarettes Per Day: 4 Years Smoked: 30 e-Cigarette/Vaping Use: Never Used service: No Current occupational status: disabled Current occupational exposures/hazards: No Cognitive needs: No Hearing needs: No Vision needs: Yes Physical Exam Const General: comfortable and no acute distress Orientation/consciousness: patient oriented x3 HEENT Head: Yes normocephalic Mouth: Normal oral and palatal mucosa present Eyes EOM: EOMs intact bilaterally Neck Neck: Yes supple Resp Auscultation: clear to auscultation bilaterally Cardio Jugular venous distension: no JVD Rate: regular rate GI Palpation (GI): Soft to palpation Auscultation: normal bowel sounds General: Yes no CVA tenderness Back/Spine/Pelvis Back: no CVA tenderness Skin General skin exam: no rashes or lesions noted Neuro General: patient oriented x3 and moves all extremities Extrem General: Yes no pedal edema Results Reviewed Nephrology Results: Sodium 140 mmol/L (135-145) 02/22/24 Potassium 4.3 mmol/L (3.3-5.1) 02/22/24 Chloride 102 mmol/L (96-108) 02/22/24 Carbon Dioxide 27 mmol/L (22-29) 02/22/24 BUN 12 mg/dL (9-16) 02/22/24 Creatinine 0.64 mg/dL (0.5-1.4) 02/22/24 Calcium 9.5 mg/dL (8.4-10.2) 02/22/24 Urine Protein 100 (2+) mg/dL (Neg-Trace) H 02/22/24 Urine Creatinine 110.20 mg/dL 02/22/24 Protein/Creatinin Ratio 1.12 (<0.2) H 02/22/24 Assessment & Plan Assessment & Plan (1) Proteinuria: Code(s): R80.9 - Proteinuria, unspecified Category: Medical Qualifiers: Proteinuria type: unspecified Qualified Code(s): R80.9 - Proteinuria, unspecified Plan Carlota likely has diabetic nephropathy. She has significant proteinuria. Her blood pressure is at goal. Her diabetes is poorly controlled. She is a candidate for Jardiance or Farxiga ( she says she is type 2 diabetic). She does not get recurrent UTIs. She has no edema. Workup has been negative to date. I increased her lisinopril to 5 mg twice daily. I have discussed about renal biopsy which she wants to wait . She needs to lose weight. She needs to keep her blood sugar better controlled. She is a great candidate for Jardiance or Farxiga. She should avoid nonsteroidal anti-inflammatories and maintain good hydration. I did not make any other medication changes today. More than 50% of the time spent discussing about proteinuria, chronic kidney disease and management strategies. Answered all her questions. Follow-up appointment given. Orders: Orders Protein Creatinine Ratio, Ur Today R80.9 - Proteinuria, unspecified Medications: Changed From lisinopril 2.5 mg PO BID 90 days 180 tabs 1RF To lisinopril 5 mg PO BID 90 days 180 tabs 1RF Coding Level of Care Code Est Pt Level 4 (32240) Diagnoses Proteinuria, unspecified type R80.9 Proteinuria type: unspecified
[2024-03-06 11:59] VITALS: BP 140/70; PULSE 80; O2SAT 95; BMI 38.3
== END 2024-03-06 12:22 | disposition home or self-care (01) ==
PROVIDERS: PCP Nurse Practitioner Family; Visit Provider Internal Medicine Nephrology
DX: R80.9 Proteinuria, unspecified (principal)
CPT/HCPCS: 99214

== ENCOUNTER → 2024-03-06 11:57 | Outpatient (BNVA) | payer OTHER, SELFPAY | PROVIDERS: PCP Nurse Practitioner Family; Visit Provider Internal Medicine Nephrology | DX: R80.9 Proteinuria, unspecified (principal); E11.65 Type 2 diabetes mellitus with hyperglycemia; E11.29 Type 2 diabetes mellitus with other diabetic kidney complication; E78.5 Hyperlipidemia, unspecified; Z79.899 Other long term (current) drug therapy | CPT/HCPCS: 99212 ==

== ENCOUNTER 2024-03-14 12:14 | Outpatient (AMB) | payer OTHER, SELFPAY ==
--- NOTE | 2024-03-14 12:29 | MHC.PC.OV ---
Vital Signs 03/14/24 12:31 Height 5 ft 3 in Weight 213 lb 2 oz BMI 37.7 BP 118/70 Blood Pressure Location Rt brachial Position Sitting Respiration 14 Pulse 73 Pulse Source Pulse Oximeter Pulse Oximetry (%) 94 Oxygen Delivery Method Room Air Intake Visit Reasons: DM f/u Intake Note: Follow up diabetes Hand Driller Required: No Allergies Seasonal Allergies Allergy (Intermediate, Verified 03/14/24 12:46) Cough amoxicillin [From Augmentin] Adverse Reaction (Severe, Verified 03/14/24 12:46) n/v/d clavulanic acid [From Augmentin] Adverse Reaction (Severe, Verified 03/14/24 12:46) n/v/d NSAIDS (Non-Steroidal Anti-Inflamma [NSAIDS (NON-STEROIDAL ANTI-INFLAMMA] Adverse Reaction (Intermediate, Verified 03/14/24 12:46) BLEEDING Medication List - Last Reconciled 03/14/24 by Bhumika Lucas, LEASING PROPERTY MANAGER- albuterol sulfate 90 mcg/actuation 2 puffs PO Q6H PRN albuterol sulfate mg inhalation atorvastatin 40 mg PO DAILY blood sugar diagnostic (FreeStyle Lite Strips) USE 1 STRIP 3 TO 4 TIMES DAILY celecoxib 100 mg PO BID cetirizine 10 mg PO DAILY diabetic supplies, miscellan. As directed diphenhydramine HCl (Banophen) 25 mg PO BEDTIME PRN flash glucose scanning reader (FreeStyle Bettye 2 Opal) As directed flash glucose sensor (FreeStyle Bettye 2 Sensor kit) As directed every 2 weeks fluticasone propionate 50 mcg/actuation 1 spray intranasal BID gabapentin 600 mg PO TID PRN 30 days insulin aspart U-100 20 - 30 units (0.2 - 0.3 mL) subcut TID 90 days insulin degludec (Tresiba FlexTouch U-200 insulin) 40 units (0.2 mL) subcut DAILY 30 days lancets 3 to 4 time a day blood sugar checks. linaclotide 145 mcg PO DAILY lisinopril 5 mg PO BID 90 days magnesium oxide mg PO DAILY montelukast 10 mg PO BEDTIME omeprazole 20 mg PO DAILY oxycodone 10 mg PO TID PRN 30 days pen needle, diabetic tid insulin administration sitagliptin phos-metformin 50-1,000 mg ER (Janumet XR) 1 tab PO BID solriamfetol (Sunosi) 150 mg PO DAILY tizanidine 2 mg PO TID PRN ursodiol 500 mg PO BID Tobacco use date assessed: 03/14/24 Dental Screening Dental Screen Date: 01/10/24 HPI HPI Comments History of Present Illness Details 53-year-old female with type 2 diabetes with complications, diabetic kidney disease hypertension hyperlipidemia, obesity obstructive sleep apnea, PCOS, asthma, chronic pain syndrome, diverticulosis, coronary artery disease, mild nonproliferative diabetic retinopathy in the left eye, current smoker, bile acid gastritis s/p spinal surgery, tonsillectomy carpal tunnel release Specialists Endocrinology - no longer active GI Pain management Optho Bariatrics Renal Health maintenance Mammo:01/2024 BI-RADS BI-RADS 1 - Negative Colon: [facility], Colon and EGD 01/2024: Plan: Await Pathology results Repeat Colonoscopy in 5-6 years due to polyp or earlier if clinically indicated High fiber diet leaflet avoid straining at stool, epsom salts and sitz bath, anusol supps or cream can consider trial of ursodiol or welchol for bile acid xs Dexa: 01/2024 WNL HgA1c 9.2% 11/2023 DME [place]: [facility] -2022 - asked to sign SILVINO to get most recent exam Here today for complex disease management. Since the last office visit she was diagnosed with bile acid gastritis and started on Urosdial. Reports she was having epigastric pain which is now resolved after taking the medication. Her A1c has improved to 7.8% on her current medication regimen. She reports tolerance and compliance. She continues to use the CGM. Her lipid profile continues to show an LDL greater than 70. Additional details on labs listed below. Today she reports concern about not losing weight. She was following a controlled diet and losing some weight however she has returned to a regular diet. She wonders if she can started GLP 1. Taking 15 units of fast acting before meals, self increased from 10 units after restarting a regular diet. Cont to take 40 units of tresiba at noon time Denies hypoglycemia. cont to be ff'd by Renal, further increase in lisinopril from 2.5mg BID to 5mg BID d/t proteinuria. Next appt 05/2024 Labs 02/22/2024 showed normal electrolytes, normal renal function, fasting glucose 161, hemoglobin A1c 7.8%, normal LFTs, triglycerides 168, total cholesterol 166, LDL 98, HDL 35, vitamin B12 normal [facility] Medical History (Updated 03/15/24 @ 16:53 by Bhumika Lucas, [facility]) Diabetic nephropathy Chronic cough Chronic prescription opiate use Thoracic back pain Menopause Vasomotor symptoms due to menopause Elevated C-reactive protein (CRP) Proteinuria Type 2 diabetes mellitus with other diabetic kidney complication Sleep apnea PCOS (polycystic ovarian syndrome) Asthma Type 2 diabetes mellitus with hyperglycemia, with long-term current use of insulin Hyperlipidemia LDL goal <100 Obesity due to excess calories BMI 37.0-37.9, adult 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, 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 Chronic pain syndrome Postlaminectomy syndrome, lumbar Surgical History Hx of colonoscopy History of esophagogastroduodenoscopy (EGD) Hx of spinal surgery History of removal of cyst History of carpal tunnel release History of lumbar surgery Family History Father Diabetes Hypertension Mother Asthma Social History Household Members: Family and Children Housing: Apartment Are you a primary care manager cna to a significant other at home: No Do you presently have visiting nurse or other home services: No Alcohol intake: current Alcohol intake frequency: holidays/special occasions only Patient Tobacco Use Status: Current everyday Tobacco user Tobacco use type: Cigarette Cigarettes Per Day: 4 Years Smoked: 30 e-Cigarette/Vaping Use: Never Used service: No Current occupational status: disabled Current occupational exposures/hazards: No Cognitive needs: No Hearing needs: No Vision needs: Yes Questionnaire Thrive Questionnaire Date Thrive assessed: 11/22/23 EDWIGE-7 AMB Questionnaire EDWIGE-7 Date EDWIGE - 7 assessed: 11/22/23 Source: Developed by Drs. Yrn Alexander, Frieda Rivera, John Archuleta and colleagues, with an educational cedrick from [employer]. Review of Systems Const All systems reviewed & are unremarkable except as noted in HPI and below Physical exam (Primary Care) Vital Signs: Last Vital Signs Pulse 73 03/14/24 12:31 Resp 14 05/30/24 12:31 BP 118/70 03/14/24 12:31 Pulse Ox 94 03/14/24 12:31 Oxygen Delivery Method Room Air 03/14/24 12:31 BMI result Body Mass Index 37.7 BMI Assessment/Plan discussion: High BMI High, discussed plan: lifestyle Tobacco/Smoking Status: Tobacco use Status Tobacco use date assessed 03/14/24 03/14/24 12:30 Patient Tobacco Use Status Current everyday Tobacco 03/14/24 12:30 Tobacco use type Cigarette 03/14/24 12:30 e-Cigarette/Vaping Use Never Used 03/14/24 12:30 Thrive Assessment: Date of Thrive Assessment Date Thrive assessed 11/22/23 03/14/24 12:30 Const Other: Awake alert oriented accompanied by her mother and 13-year-old daughter Mucous membranes moist Lung sounds clear to auscultation bilat Regular rate and rhythm Bilateral lower extremities with trace edema, skin intact, monofilament testing within normal limits, abnormal vibratory sensations bilat Assessment and Plan Assessment & Plan (1) Hyperlipidemia due to type 2 diabetes mellitus: Code(s): E11.69 - Type 2 diabetes mellitus with other specified complication; E78.5 - Hyperlipidemia, unspecified (2) Morbid obesity: Code(s): E66.01 - Morbid (severe) obesity due to excess calories (3) Type 2 diabetes mellitus with hyperglycemia, with long-term current use of insulin: Comment: On insulin. Not interested in referral to endocrinology at this time. Uses a CGM Di[facility] [place] I do not have the most recent exam I have told her to get this for me. The last note I was able to review did have signs of diabetic retinopathy She is on CLAIRE inhibitor lisinopril 2.5 mg po BID increased by renal 11/2023, tolerating w/o uptick in cough. BP at goal. Plan: Doing GREAT with current regimen. CGM in target 88%, Cont Janumet 50/1000mg po BID, tresiba 40 units Q noon & preprandial Insulin aspart to 10 units TID w meals. ISS at HS only. < 200 NO insulin 201-250 2 251-300 4 301-250 6 351-400 8 401 > 10 units Code(s): E11.65 - Type 2 diabetes mellitus with hyperglycemia; Z79.4 - correction (current) use of insulin Plan This note is constructed using voice recognition software. While every effort has been made to ensure accuracy in vfx artist, still errors may have been included Sometimes, these errors may affect the content or meaning of the given sentence . Total time spent caring for the patient today was 50 minutes. This includes time spent before the visit reviewing the chart, time spent during the visit, and time spent after the visit on documentation Orders: Orders Hemoglobin A1c 05/13/24 E11.65 - Type 2 diabetes mellitus with hyperglycemia, E11.69 - Type 2 diabetes mellitus with other specified complication, E78.5 - Hyperlipidemia, unspecified, Z79.4 - terminal computer operator (current) use of insulin Lipid Panel 05/13/24 E11.65 - Type 2 diabetes mellitus with hyperglycemia, E11.69 - Type 2 diabetes mellitus with other specified complication, E78.5 - Hyperlipidemia, unspecified, Z79.4 - terminal computer operator (current) use of insulin Medications: New atorvastatin 80 mg PO QPM 90 tabs 0RF semaglutide (Ozempic) for 4 weeks 0.25 mg (0.368 mL) subcut QWEEK 12 mL 0RF Discontinued atorvastatin Discontinued Reason: Doctor's Order 40 mg PO DAILY 90 tabs 3RF E78.5 - Hyperlipidemia, unspecified Patient Instructions: The plan for today will be to increase her statin from 40 mg to 80 mg daily to achieve an LDL goal of less than 70. She wishes to start a GLP 1 to help control her diabetes as well as assist in weight loss. I have sent in a prescription for Ozempic. I have advised for her to let me know if she has an affordable [id number] cost and that she is able to get this medication. Once we confirm this we can start to taper down on her insulin with a goal of getting her off of her insulin. Return to the office 3 months with me 30 min fu chronic conditions, labs 1 week before Coding Level of Care Code Est Pt Level 5 (63385) Diagnoses Hyperlipidemia due to type 2 diabetes mellitus E11.69; E78.5 Morbid obesity E66.01 Type 2 diabetes mellitus with hyperglycemia, with long-term current use of insulin E11.65; Z79.4
[2024-03-14 12:31] VITALS: BP 118/70; PULSE 73; RESP 14; O2SAT 94; BMI 37.7
== END 2024-03-14 13:07 | disposition home or self-care (01) ==
PROVIDERS: PCP Nurse Practitioner Family; Visit Provider Nurse Practitioner Family
DX: E11.69 Type 2 diabetes mellitus with other specified complication (principal); E66.01 Morbid (severe) obesity due to excess calories; E11.65 Type 2 diabetes mellitus with hyperglycemia; Z79.4 Long term (current) use of insulin; Z68.37 Body mass index [BMI] 37.0-37.9, adult; E78.5 Hyperlipidemia, unspecified
CPT/HCPCS: 99215

== ENCOUNTER 2024-03-22 10:48 | Outpatient (AMB) | payer OTHER, SELFPAY ==
--- NOTE | 2024-03-22 11:01 | A.OFFVIS_ITS ---
Vital Signs 03/22/24 11:02 Height 5 ft 3 in Weight 208 lb BMI 36.8 BP 133/66 Blood Pressure Location Lt brachial Position Sitting Respiration 18 Pulse 83 Pulse Source Pulse Oximeter Pulse Oximetry (%) 96 Oxygen Delivery Method Room Air Intake Visit Reasons: PILL COUNT Allergies Seasonal Allergies Allergy (Intermediate, Verified 03/14/24 12:46) Cough amoxicillin [From Augmentin] Adverse Reaction (Severe, Verified 03/14/24 12:46) n/v/d clavulanic acid [From Augmentin] Adverse Reaction (Severe, Verified 03/14/24 12:46) n/v/d NSAIDS (Non-Steroidal Anti-Inflamma [NSAIDS (NON-STEROIDAL ANTI-INFLAMMA] Adverse Reaction (Intermediate, Verified 03/14/24 12:46) BLEEDING HPI Comments Details: Carlota is a very pleasant 53 year old female who presents to the office today for follow chronic pain and chronic opioid medication management. She is prescribed oxycodone 10mg po TID prn. Patient arrived today with the expectation of having 66 pills, she presented 65 pills which were counted in the presence of two staff members and returned to the patient in the original prescription bottle. This demonstrates responsible attitude toward patient's opioid medications. Pain is reported today as 7/10 and last dose of pain medication was taken at 07:30 this morning. Denies side effects including abd pain, constipation, nausea, shortness of breath, urinary retention or drowsiness. Just starting on Ozempic for diabetes/weight loss. hoping weight loss with improve her pain. Previous visit with Dr Stanley: Carlota is back in my office after the trial I DDD with with morphine which was performed on 01/31/2023.? She does not report the same pain evaluation as it was with Dilaudid in September.? She received 150 micro g of morphine intrathecally.? However the patient developed what looks like post dural puncture headache immediately after the procedure.? The headache went away on itself however now we are not ready to implant anything for the patient.? I suggested that we might try in the future instead of fentanyl to go ahead with bupivacaine injections small dose intrathecally and have bupivacaine as the main medication in the intrathecal space if results of the trial will have no side effects and will have good pain relief.? I warned her that she may experience weakness in dewayne ateral lower extremities after bupivacaine injection however the weakness will be only transient. We decided to wait a month or two PA and schedule the bupivacaine trial later. Prior:? Dilaudid which was performed of 10/06/2023.? The patient reports absence of pain for the 1st 48 hours after the procedure.? However she reports severe nausea and vomiting after surgery.? This is unwanted side effects.? I offered her reach trial with morphine versus read trial with fentanyl.? The patient reported that in the past she was taking morphine as a pain medication orally.? She denies any side effects.? I will try to perform the procedure with 150 mcg intrathecally? 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 Chronic pain syndrome Postlaminectomy syndrome, lumbar Surgical History Hx of colonoscopy History of esophagogastroduodenoscopy (EGD) Hx of spinal surgery History of removal of cyst History of carpal tunnel release History of lumbar surgery Family History Father Diabetes Hypertension Mother Asthma Social History Household Members: Family and Children Housing: Apartment Are you a primary resident care aid to a significant other at home: No Do you presently have visiting nurse or other home services: No Alcohol intake: current Alcohol intake frequency: holidays/special occasions only Patient Tobacco Use Status: Current everyday Tobacco user Tobacco use type: Cigarette Cigarettes Per Day: 4 Years Smoked: 30 e-Cigarette/Vaping Use: Never Used service: No Current occupational status: disabled Current occupational exposures/hazards: No Cognitive needs: No Hearing needs: No Vision needs: Yes Review of Systems Const All systems reviewed & are unremarkable except as noted in HPI and below Physical Exam Vital Signs: Last Vital Signs Pulse 83 06/07/24 11:02 Resp 18 03/22/24 11:02 BP 133/66 03/22/24 11:02 Pulse Ox 96 03/22/24 11:02 Oxygen Delivery Method Room Air 03/22/24 11:02 BMI result Body Mass Index 36.8 General: awake, alert, oriented. Answers questions appropriately. Fully engaged in examination. Skin: warm, dry, intact without visible rashes or lesions. HEENT: Normocephalic. Hearing intact. Cardiac: External chest normal in appearance. Respiratory: No signs of respiratory distress. Abdomen: without gross distension. MS: No obvious swelling or deformities. Neurological: Oriented to person, place, time and situation. Thought process intact. Psychiatric: Appropriate mood and affect. Good judgment and insight. Results Reviewed Results Reviewed: 10/12/2023 XR/XR thoracic spine 3V FINDINGS: There are mild multilevel degenerative changes of thoracic spine with marginal spurring. Pedicles are preserved there is no evidence of fractures soft tissues unremarkable. There is no spondylolysis or listhesis. IMPRESSION: Mild degenerative changes with marginal spurring. Thoracic spine. 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 No obvious signs of diversion, abuse or misuse of the opioid medications. Will send in prescription for oxycodone 10mg po tid #90 no refills with an advanced date of 04/13/2024 Continue with tizanidine 3 times daily as needed All questions and concerns have been answered and patient agrees with the plan. Patient will follow up in 1 month, sooner if needed. Medications: Refilled oxycodone Partial Fill upon patient request. 10 mg PO TID PRN 90 tabs 0RF pain 30 days G89.4 - Chronic pain syndrome, M96.1 - Postlaminectomy syndrome, not elsewhere classified Coding Level of Care Code Est Pt Level 4 (49526) Diagnoses Postlaminectomy syndrome, lumbar M96.1 Chronic pain syndrome G89.4 half-way (current) use of opiate analgesic Z79.891
[2024-03-22 11:02] VITALS: BP 133/66; PULSE 83; RESP 18; O2SAT 96; BMI 36.8
== END 2024-03-22 11:13 | disposition home or self-care (01) ==
PROVIDERS: PCP Nurse Practitioner Family; Visit Provider Registered Nurse Emergency
DX: G89.4 Chronic pain syndrome (principal); M96.1 Postlaminectomy syndrome, not elsewhere classified; Z79.891 Long term (current) use of opiate analgesic
CPT/HCPCS: 99214

== ENCOUNTER → 2024-03-22 10:48 | Outpatient (BNVA) | payer OTHER, SELFPAY | PROVIDERS: PCP Nurse Practitioner Family; Visit Provider Registered Nurse Emergency | DX: Z51.81 Encounter for therapeutic drug level monitoring (principal); M96.1 Postlaminectomy syndrome, not elsewhere classified; G89.4 Chronic pain syndrome; Z79.891 Long term (current) use of opiate analgesic | CPT/HCPCS: 99212 ==

== ENCOUNTER 2024-04-02 06:11 | Outpatient (REF) | payer OTHER, SELFPAY ==
--- NOTE | ~2024-04-02 | FL_ITS ---
EXAMINATION: XR FLUOROSCOPY WITH IMAGES CLINICAL INFORMATION: Right hip bursitis. COMPARISON: None available. TECHNIQUE: Fluoroscopy Supervised By: Dr. Catrachito Stanley. Fluoroscopy Time: 0.2 minutes. Cumulative Dose: 5.32 mGy. DAP: 1.42 Gy-cm2. Images: 1. FINDINGS: Intraoperative fluoroscopy and spot films were performed during a procedure in the OR. A needle is seen overlying the right hip joint with contrast media seen intra-articular. Please correlate with Dr. Catrachito Stanley's report for complete details. FL/FL guidance in treatment room IMPRESSION: Intraoperative fluoroscopy and spot films were obtained. Please see Dr. Catrachito Stanley's report for complete details.
== END 2024-04-02 06:12 | disposition home or self-care (01) ==
LOC: CF 06:11
PROVIDERS: Visit Provider Anesthesiology
DX: M70.71 Other bursitis of hip, right hip (principal); M70.72 Other bursitis of hip, left hip; M16.11 Unilateral primary osteoarthritis, right hip
CPT/HCPCS: 20610; J2795; J3301; Q9967

== ENCOUNTER 2024-04-02 13:18 | Outpatient (AMB) | payer OTHER, SELFPAY ==
--- NOTE | 2024-04-02 13:29 | A.OFFVIS_ITS ---
Vital Signs 04/02/24 13:30 04/02/24 14:41 Height 5 ft 3 in 5 ft 3 in Weight 208 lb 208 lb BMI 36.8 36.8 BP 110/60 114/62 Blood Pressure Location Lt brachial Lt brachial Position Sitting Sitting Respiration 16 16 Pulse 82 92 Pulse Source Pulse Oximeter Pulse Oximeter Pulse Oximetry (%) 96 96 Oxygen Delivery Method Room Air Room Air Comment pre-op post-op Intake Visit Reasons: RIGHT HIP INJECTION Allergies Seasonal Allergies Allergy (Intermediate, Verified 04/02/24 13:29) Cough amoxicillin [From Augmentin] Adverse Reaction (Severe, Verified 04/02/24 13:29) n/v/d clavulanic acid [From Augmentin] Adverse Reaction (Severe, Verified 04/02/24 13:29) n/v/d NSAIDS (Non-Steroidal Anti-Inflamma [NSAIDS (NON-STEROIDAL ANTI-INFLAMMA] Adverse Reaction (Intermediate, Verified 04/02/24 13:29) [facility] Medical History (Updated 04/02/24 @ 15:27 by Catrachito Stanley MD) Diabetic nephropathy Chronic cough Chronic prescription opiate use Thoracic back pain Menopause Vasomotor symptoms due to menopause Elevated C-reactive protein (CRP) Proteinuria Type 2 diabetes mellitus with other diabetic kidney complication Sleep apnea PCOS (polycystic ovarian syndrome) Asthma Type 2 diabetes mellitus with hyperglycemia, with long-term current use of insulin Hyperlipidemia LDL goal <100 Obesity due to excess calories BMI 37.0-37.9, adult 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, 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 Chronic pain syndrome Postlaminectomy syndrome, lumbar Surgical History Hx of colonoscopy History of esophagogastroduodenoscopy (EGD) Hx of spinal surgery History of removal of cyst History of carpal tunnel release History of lumbar surgery Family History Father Diabetes Hypertension Mother Asthma Social History Household Members: Family and Children Housing: Apartment Are you a primary summer child caregiver to a significant other at home: No Do you presently have visiting nurse or other home services: No Alcohol intake: current Alcohol intake frequency: holidays/special occasions only Patient Tobacco Use Status: Current everyday Tobacco user Tobacco use type: Cigarette Cigarettes Per Day: 4 Years Smoked: 30 e-Cigarette/Vaping Use: Never Used service: No Current occupational status: disabled Current occupational exposures/hazards: No Cognitive needs: No Hearing needs: No Vision needs: Yes Physical Exam Vital Signs: Last Vital Signs Pulse 92 04/02/24 14:41 Resp 16 04/02/24 14:41 BP 114/62 04/02/24 14:41 Pulse Ox 96 04/02/24 14:41 Oxygen Delivery Method Room Air 04/02/24 14:41 BMI result Body Mass Index 36.8 Assessment & Plan Assessment & Plan (1) Osteoarthritis of right hip: Code(s): M16.11 - Unilateral primary osteoarthritis, right hip Category: Medical (2) Right hip pain: Code(s): M25.551 - Pain in right hip Category: Medical Plan Right hip steroid injection. Informed consent was explained to the patient. All questions were explained and answered. The patient was taken inside of the operating room where she was positioned left lateral decubitus on operating table.. Time-out was performed delineating patient's name and date of , correct site, side, the nature of the procedure, patient's allergy, preoperative antibiotic if needed, need for VT prophylaxis.. All operating room staff was participating in OR time-out procedure. Right hip area of the patient was prepped with ChloraPrep and draped with sterile towels. C-arm was brought over the operating field and picture of left and right lateral views of the bilateral hip joints were delineated on the screen. The smaller joint silhouette was chosen as the target. Projection of the right trochanter to the skin was chosen as the initial needle insertion point. After that the skin and subcutaneous tissues was anesthetized with 2% lidocaine 2.5 mL. 22 gauge 5 in long needle was inserted through the skin and started to advance to the joint space under intermittent lateral and anterior posterior views. When needle entered the capsule of the joint small amount of the contrast was injected delineating intra-articular space. After that treatment solution containing 3 cc of lidocaine 2%, 2 cc of bupivacaine 0.5% and 40 mg of Kenalog was injected into the joint. The needle was withdrawn sterile dressing was applied.The patient tolerated procedure well Orders: Orders FL guidance in treatment room Today M70.71 - Other bursitis of hip, right hip, M70.72 - Other bursitis of hip, left hip Coding Level of Care Code Procedure Only Diagnoses Osteoarthritis of right hip M16.11 Right hip pain M25.551
[2024-04-02 13:30] VITALS: BP 110/60; PULSE 82; RESP 16; O2SAT 96; BMI 36.8
[2024-04-02 14:41] VITALS: BP 114/62; PULSE 92; RESP 16; O2SAT 96; BMI 36.8
== END 2024-04-02 14:03 | disposition home or self-care (01) ==
LOC: HO.PMCPRC 13:18
PROVIDERS: PCP Nurse Practitioner Family; Visit Provider Anesthesiology
DX: M16.11 Unilateral primary osteoarthritis, right hip (principal); M25.551 Pain in right hip
CPT/HCPCS: 20610; 77002

== ENCOUNTER 2024-04-26 12:51 | Outpatient (AMB) | payer OTHER, SELFPAY ==
--- NOTE | 2024-04-26 13:08 | MHC.OFFVIS ---
Vital Signs 04/26/24 13:09 Height 5 ft 3 in BP 153/73 H Blood Pressure Location Lt brachial Position Sitting Pulse 86 Pulse Source Pulse Oximeter Pulse Oximetry (%) 96 Oxygen Delivery Method Room Air Intake Visit Reasons: RIGHT HIP INJECTION/PILL COUNT Allergies Seasonal Allergies Allergy (Intermediate, Verified 04/02/24 13:29) Cough amoxicillin [From Augmentin] Adverse Reaction (Severe, Verified 04/02/24 13:29) n/v/d clavulanic acid [From Augmentin] Adverse Reaction (Severe, Verified 04/02/24 13:29) n/v/d NSAIDS (Non-Steroidal Anti-Inflamma [NSAIDS (NON-STEROIDAL ANTI-INFLAMMA] Adverse Reaction (Intermediate, Verified 04/02/24 13:29) BLEEDING HPI Comments Details: Carlota is a very pleasant 53 year old female who presents to the office today for follow chronic pain and chronic opioid medication management. She is prescribed oxycodone 10mg po TID prn. Patient arrived today with the expectation of having 48 pills, she presented 50 pills which were counted in the presence of two staff members and returned to the patient in the original prescription bottle. This demonstrates responsible attitude toward patient's opioid medications. Pain is reported today as 7/10 and last dose of pain medication was taken at 08:00 this morning. Denies side effects including abd pain, constipation, nausea, shortness of breath, urinary retention or drowsiness. Right hip injection performed last month, patient reports 70% pain relief with improvement in function and mobility. Has been suffering with some right thoracic muscle spasms for last 1 week. She was evaluated in the emergency room and given Toradol injections with some improvement of her pain. Reports the tizanidine does not provide her any improvement, she would like to try to for muscle relaxer. Previous visit with Dr Stanley: Carlota is back in my office after the trial I DDD with with morphine which was performed on 01/31/2023.? She does not report the same pain evaluation as it was with Dilaudid in September.? She received 150 micro g of morphine intrathecally.? However the patient developed what looks like post dural puncture headache immediately after the procedure.? The headache went away on itself however now we are not ready to implant anything for the patient.? I suggested that we might try in the future instead of fentanyl to go ahead with bupivacaine injections small dose intrathecally and have bupivacaine as the main medication in the intrathecal space if results of the trial will have no side effects and will have good pain relief.? I warned her that she may experience weakness in bilateral lower extremities after bupivacaine injection however the weakness will be only transient. We decided to wait a month or two PA and schedule the bupivacaine trial later. Prior:? Dilaudid which was performed of 10/06/2023.? The patient reports absence of pain for the 1st 48 hours after the procedure.? However she reports severe nausea and vomiting after surgery.? This is unwanted side effects.? I offered her reach trial with morphine versus read trial with fentanyl.? The patient reported that in the past she was taking morphine as a pain medication orally.? She denies any side effects.? I will try to perform the procedure with 150 mcg intrathecally? 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 Chronic pain syndrome Postlaminectomy syndrome, lumbar Surgical History Hx of colonoscopy History of esophagogastroduodenoscopy (EGD) Hx of spinal surgery History of removal of cyst History of carpal tunnel release History of lumbar surgery Family History Father Diabetes Hypertension Mother Asthma Social History Household Members: Family and Children Housing: Apartment Are you a primary home care music therapist to a significant other at home: No Do you presently have visiting nurse or other home services: No Alcohol intake: current Alcohol intake frequency: holidays/special occasions only Patient Tobacco Use Status: Current everyday Tobacco user Tobacco use type: Cigarette Cigarettes Per Day: 4 Years Smoked: 30 e-Cigarette/Vaping Use: Never Used service: No Current occupational status: disabled Current occupational exposures/hazards: No Cognitive needs: No Hearing needs: No Vision needs: Yes Review of Systems Const All systems reviewed & are unremarkable except as noted in HPI and below Physical Exam Vital Signs: Last Vital Signs Pulse 86 04/26/24 13:09 BP 153/73 H 04/26/24 13:09 Pulse Ox 96 04/26/24 13:09 Oxygen Delivery Method Room Air 04/26/24 13:09 General: awake, alert, oriented. Answers questions appropriately. Fully engaged in examination. Skin: warm, dry, intact without visible rashes or lesions. HEENT: Normocephalic. Hearing intact. Cardiac: External chest normal in appearance. Respiratory: No signs of respiratory distress. Abdomen: without gross distension. MS: No obvious swelling or deformities. Neurological: Oriented to person, place, time and situation. Thought process intact. Psychiatric: Appropriate mood and affect. Good judgment and insight. Results Reviewed Results Reviewed: 10/12/2023 XR/XR thoracic spine 3V FINDINGS: There are mild multilevel degenerative changes of thoracic spine with marginal spurring. Pedicles are preserved there is no evidence of fractures soft tissues unremarkable. There is no spondylolysis or listhesis. IMPRESSION: Mild degenerative changes with marginal spurring. Thoracic spine. Assessment & Plan Assessment & Plan (1) Postlaminectomy syndrome, lumbar: Code(s): M96.1 - Postlaminectomy syndrome, not elsewhere classified Category: Medical (2) Chronic pain syndrome: Code(s): G89.4 - Chronic pain syndrome Category: Medical (3) FDC (current) use of opiate analgesic: Comment: Pain Management-chronic pain/back Code(s): Z79.891 - superintendent terminal (current) use of opiate analgesic Category: Medical (4) Myofascial muscle pain: Code(s): M79.18 - Myalgia, other site Category: Medical Plan Masspat was reviewed and without concerns. No obvious signs of diversion, abuse or misuse of the opioid medications. Will send in prescription for oxycodone 10mg po tid #90 no refills with an advanced date of 05/13/2024 Discontinue tizanidine, new Rx for cyclobenzaprine 5 mg p.o. t.i.d.. Patient advised on cautions for use. May cause drowsiness, no driving while taking this medication. Diclofenac 3% topical, apply to most painful area twice daily as needed All questions and concerns have been answered and patient agrees with the plan. Patient will follow up in 1 month, sooner if needed. Medications: New cyclobenzaprine 5 mg PO TID PRN 90 tabs 1RF muscle spasm diclofenac sodium 3% apply to most painful area twice daily as needed for pain 1 appl topical BID 100 grams 0RF Refilled oxycodone Partial Fill upon patient request. 10 mg PO TID PRN 90 tabs 0RF pain 30 days G89.4 - Chronic pain syndrome, M96.1 - Postlaminectomy syndrome, not elsewhere classified Discontinued tizanidine Discontinued Reason: Patient no longer taking 2 mg PO TID PRN 90 tabs 6RF muscle spasticity Coding Level of Care Code Est Pt Level 4 (81235) Diagnoses Postlaminectomy syndrome, lumbar M96.1 Chronic pain syndrome G89.4 FDC (current) use of opiate analgesic Z79.891 Myofascial muscle pain M79.18
[2024-04-26 13:09] VITALS: BP 153/73; PULSE 86; O2SAT 96
== END 2024-04-26 13:28 | disposition home or self-care (01) ==
PROVIDERS: PCP Nurse Practitioner Family; Visit Provider Registered Nurse Emergency
DX: G89.4 Chronic pain syndrome (principal); M96.1 Postlaminectomy syndrome, not elsewhere classified; M79.18 Myalgia, other site; Z79.891 Long term (current) use of opiate analgesic
CPT/HCPCS: 99214

== ENCOUNTER → 2024-04-26 12:51 | Outpatient (BNVA) | payer OTHER, SELFPAY | PROVIDERS: PCP Nurse Practitioner Family; Visit Provider Registered Nurse Emergency | DX: Z51.81 Encounter for therapeutic drug level monitoring (principal); M96.1 Postlaminectomy syndrome, not elsewhere classified; M79.18 Myalgia, other site; G89.4 Chronic pain syndrome; Z79.891 Long term (current) use of opiate analgesic | CPT/HCPCS: 99212 ==

== ENCOUNTER 2024-06-01 20:09 | Emergency (ER) | payer OTHER, SELFPAY ==
--- NOTE | ~2024-06-01 | US_ITS ---
EXAMINATION: US ABDOMEN LIMITED CLINICAL INFORMATION: Right upper quadrant pain.. COMPARISON: None available. TECHNIQUE: Real-time imaging of the right upper quadrant abdominal viscera. FINDINGS: PANCREAS: The visualized portions of the pancreas are unremarkable. LIVER: Liver is of increased parenchymal echotexture with apparent focal fatty sparing near the gallbladder. No focal hepatic lesion. There is no intrahepatic biliary duct dilatation seen. GALLBLADDER: Normal. The gallbladder is physiologically distended without evidence of stones, sludge, polyps, wall thickening or pericholecystic fluid. COMMON BILE DUCT: Normal in caliber measuring 0.6 cm in diameter. RIGHT KIDNEY: Normal. No hydronephrosis. No renal calculi or focal parenchymal lesions. The kidney measures 11.7 cm in maximum dimension. FREE FLUID: None. US/US abdomen limited IMPRESSION: There is generalized increase in hepatic echotexture, consistent with fatty infiltration or hepatocellular disease. No focal hepatic mass or intrahepatic biliary dilatation is seen. No gallstones.
--- NOTE | ~2024-06-01 | CT_ITS ---
EXAMINATION: CT ABDOMEN AND PELVIS WITHOUT CONTRAST CLINICAL INFORMATION: Abdominal pain. COMPARISON: None available. TECHNIQUE: Multidetector volumetric imaging was performed from the superior aspect of the liver through the pubic symphysis. Sagittal and coronal reformatted images were obtained on the technologist's workstation. This CT examination was performed using dose optimization techniques as appropriate, variously including the following: *Automated exposure control *Adjustment of mA and/or kV according to patient size (this includes techniques or standardized protocols for targeted exams where dose is matched to indication/reason for exam; i.e. extremities or head) *Use of iterative reconstruction technique DLP: 752 mGy-cm FINDINGS: LUNG BASES: The visualized lung bases are unremarkable. LIVER, GALLBLADDER, AND BILIARY TREE: The liver is of diminished attenuation. No focal liver lesions are seen. There is no intrahepatic biliary duct dilatation. The gallbladder is unremarkable with no evidence of radiopaque gallstones, gallbladder wall thickening, or obvious pericholecystic inflammatory changes. PANCREAS: There appears to be infiltrative change along the pancreatic head. SPLEEN: Unremarkable. ADRENAL GLANDS: Unremarkable. KIDNEYS AND URETERS: The kidneys are normal in size, shape, and attenuation. There is a 5 mm calculus lower pole left kidney. There is no hydronephrosis. BLADDER: Unremarkable. GASTROINTESTINAL TRACT: The small and large bowel are unremarkable. The appendix is not seen. ABDOMINAL WALL: No significant hernia is appreciated. LYMPH NODES: There are numerous nonspecific retroperitoneal lymph nodes measuring up to 1.8 cm. VASCULAR: There is mild atherosclerotic plaque of the abdominal aorta and iliac arteries. PELVIC VISCERA: Unremarkable. OSSEOUS STRUCTURES: There is diffuse thoracolumbar degenerative change most pronounced at L4-L5 and L5-S1 with prominent posterior osteophytes at L4-L5 and L5-S1 resulting in spinal canal and neuroforaminal narrowing. CT/CT abdomen pelvis wo IV con IMPRESSION: 1. There appears to be mild infiltrative change along the pancreatic head. This is a very subtle finding and needs correlation with pancreatic enzymes. 2. There are numerous nonspecific retroperitoneal lymph nodes measuring up to 1.8 cm. 3. There is a 5 mm calculus lower pole left kidney. There is no hydronephrosis. 4. Hepatic steatosis. 5. There is diffuse thoracolumbar degenerative change most pronounced at L4-L5 and L5-S1 with prominent posterior osteophytes at L4-L5 and L5-S1 resulting in spinal canal and neuroforaminal narrowing. Fleischner guidelines were followed.
--- NOTE | 2024-06-01 20:30 | ED_ITS ---
HPI - Abdominal Pain General Chief Complaint: Abdominal Pain Stated Complaint: upper abd pain Time Seen by Provider: 06/01/24 23:09 Source: patient Mode of arrival: ambulatory Limitations: no limitations History of Present Illness ED Provider: marline MALAVE narrative: Patient's history of diabetes no known history of gallstones or significant abdominal complaints in the past comes here for epigastric and right upper quadrant pain for last 1 week with increased gas bloatedness and nausea vomited once no fever no chills no diarrhea pain getting worse in last 3 - 4 days Related Data Home Medications ?Medication ?Instructions ?Recorded ?Confirmed albuterol sulfate 2.5 mg/3 mL mg inhalation 03/24/22 03/14/24 (0.083 %) solution for nebulization solriamfetol 150 mg tablet (Sunosi) 150 mg PO DAILY 10/06/23 03/14/24 cetirizine 10 mg tablet 10 mg PO DAILY for allergies 02/05/24 03/14/24 magnesium oxide 500 mg capsule mg PO DAILY 02/05/24 03/14/24 Previous Rx's ?Medication ?Instructions ?Recorded lancets 28 gauge #100 ea 11/24/20 flash glucose sensor (FreeStyle #2 ea 05/13/21 Bettye 2 Sensor kit) flash glucose scanning reader #1 ea 05/14/21 (FreeStyle Bettye 2 [place]) albuterol sulfate 90 mcg/actuation 2 puff PO Q6H PRN shortness of 12/21/21 aerosol inhaler breath or wheezing #18 grams diabetic supplies, miscellan. #100 ea 01/16/23 diphenhydramine HCl 25 mg capsule 25 mg PO BEDTIME PRN for allergies 09/04/23 (Banophen) #30 caps linaclotide 145 mcg capsule 145 mcg PO DAILY #90 caps 10/06/23 insulin aspart U-100 100 unit/mL 20 - 30 unit (0.2 - 0.3 mL) subcut 11/22/23 (3 mL) subcutaneous pen TID 90 days #60 mL pen needle, diabetic 32 gauge x #100 ea 11/22/23 1/ celecoxib 100 mg capsule 100 mg PO BID #60 caps 01/04/24 sitagliptin phos 50 mg-metformin 1 tab PO BID #60 tabs 01/04/24 ER 1,000 mg tablet,extend rel 24h mp (Janumet XR) blood sugar diagnostic (FreeStyle #300 strips 01/05/24 Lite Strips) montelukast 10 mg tablet 10 mg PO BEDTIME #90 tabs 01/05/24 omeprazole 20 mg capsule,delayed 20 mg PO DAILY #90 caps 01/05/24 release ursodiol 500 mg tablet 500 mg PO BID #180 tabs 02/23/24 lisinopril 5 mg tablet 5 mg PO BID 90 days #180 tabs 03/06/24 fluticasone propionate 50 1 spray intranasal BID #16 mL 03/12/24 mcg/actuation nasal spray,suspension atorvastatin 80 mg tablet 80 mg PO QPM #90 tabs 03/14/24 semaglutide 0.25 mg or 0.5 mg (2 0.25 mg (0.368 mL) subcut QWEEK 03/15/24 mg/3 mL) subcutaneous pen injector #12 mL ([employer]) cyclobenzaprine 5 mg tablet 5 mg PO TID PRN muscle spasm #90 04/26/24 tabs diclofenac sodium 3 % topical gel 1 appl topical BID #100 grams 04/26/24 oxycodone 10 mg tablet 10 mg PO TID PRN pain 30 days #90 04/26/24 tabs gabapentin 600 mg tablet 600 mg PO TID PRN for pain 30 days 05/13/24 #90 tabs insulin degludec 200 unit/mL (3 40 unit (0.2 mL) subcut DAILY 30 05/30/24 mL) subcutaneous pen (Tresiba days #6 mL FlexTouch U-200 insulin) sucralfate 1 gram tablet 1 g PO TID #90 tabs 06/02/24 Allergies Allergy/AdvReac Type Severity Reaction Status Date / Time Seasonal Allergies Allergy Intermediate Cough Verified 06/01/24 20:35 amoxicillin [From Augmentin] AdvReac Severe n/v/d Verified 06/01/24 20:35 clavulanic acid AdvReac Severe n/v/d Verified 06/01/24 20:35 [From Augmentin] NSAIDS (Non-Steroidal AdvReac Intermediate BLEEDING Verified 06/01/24 20:35 Anti-Inflamma [NSAIDS (NON-STEROIDAL ANTI-INFLAMMA] Review of Systems Review of Systems Yes all other systems are reviewed and are negative PMFSH Past Medical History Medical History Diabetic nephropathy Chronic cough Chronic prescription opiate use Thoracic back pain Menopause Vasomotor symptoms due to menopause Elevated C-reactive protein (CRP) Proteinuria Type 2 diabetes mellitus with other diabetic kidney complication Sleep apnea PCOS (polycystic ovarian syndrome) Asthma Type 2 diabetes mellitus with hyperglycemia, with long-term current use of insulin Hyperlipidemia LDL goal <100 Obesity due to excess calories BMI 37.0-37.9, adult 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, uncontrolled FDC (current) use of opiate analgesic Chronic pain syndrome Postlaminectomy syndrome, lumbar Surgical History Hx of colonoscopy History of esophagogastroduodenoscopy (EGD) Hx of spinal surgery History of removal of cyst History of carpal tunnel release History of lumbar surgery Family History Family History Father Diabetes Hypertension Mother Asthma Social History Social History Household Members: Family and Children Housing: Apartment Are you a primary day care center director to a significant other at home: No Do you presently have visiting nurse or other home services: No Alcohol intake: current Alcohol intake frequency: holidays/special occasions only Patient Tobacco Use Status: Current everyday Tobacco user Tobacco use type: Cigarette Cigarettes Per Day: 4 Years Smoked: 30 Smoked in Last 30 Days: Yes e-Cigarette/Vaping Use: Never Used Use of substances other than those prescribed or required for medical reasons: No Advance Directives: No Advance Directives Information Provided: No Do you have a plan to hurt others: No Plan Patient : No service: No Current occupational status: disabled Current occupational exposures/hazards: No Cognitive needs: No Hearing needs: No Vision needs: Yes Physical Exam ED Vital Signs: Vital Signs - 24 hr 06/01/24 20:31 06/01/24 22:16 Temperature 98.3 F 98.2 F Pulse Rate 86 91 Respiratory Rate 18 16 Blood Pressure 117/62 127/42 L Pulse Oximetry 97 96 Oxygen Delivery Method Room Air Room Air BMI result Body Mass Index 36.2 Appearance: Alert. Oriented X3. No acute distress. Obese Eyes: Pallor or icterus ENT: Pharynx normal. Oral Mucosa moist Neck: Normal inspection. Neck supple. CVS: Normal heart rate and rhythm. Pulses normal. Respiratory: No respiratory distress. Equal air entry bilateral, no wheezing/rales/rhonchi Abdomen: Soft , tenderness right upper quadrant and epigastric area with guarding no rebound tenderness Bowel sounds are present, no mass palpable, no CVA tenderness Skin: Skin warm and dry. Normal skin color. Normal skin turgor. Extremities: No lower extremity edema. No calf tenderness Neuro: Oriented X 3. No motor deficit. Course Course Course Narrative: This is a rapid medical exam. Deferred additional HPI, ROS, PE to primary provider. 53 yo female with history of OA, DM here with complaints of upper abdominal pain. No nausea, vomiting, diarrhea, cough, shortness of breath. Has appt with Dr Huang on Monday. Will need labs, UA, EKG VSS -Vanessa De La Garza NIGHT CUSTODIAN Medical Decision Making Medical Decision Making [facility] Narrative: Patient has diffuse upper abdominal pain ultrasound CT scan negative for acute no gallstones seen no kidney stone seen likely patient has gastritis patient improved after Maalox discharge patient home patient is supposed to follow with GI Differential Diagnosis Differential Diagnoses: The differential diagnosis associated with the presentation includes Gastritis/pancreatitis/cholecystitis/cholelithiasis Admission/Observation Consideration of admission/observation: Escalation of care including admission/observation considered Lab Data [facility] Lab Attestation statement: I reviewed the patient's lab results. 06/01/24 20:59 06/01/24 20:59 Labs: Lab Results 06/01/24 Range/Units 20:59 WBC 11.9 H (4.8-10.8) X10*3/uL RBC 4.66 (4.20-5.50) X10*6/uL Hgb 12.9 (12.0-16.0) g/dl Hct 38.4 (37.0-47.0) % MCV 82.4 (80.0-98.0) fL MCH 27.7 (27.0-33.0) pg MCHC 33.6 (31.0-35.0) g/dl RDW 14.5 (11.0-16.0) % Plt Count 309 (160-400) X10*3/uL MPV 9.9 (9.4-12.3) fL Immature Gran % (Auto) 0.4 (0.0-0.4) % Neut % (Auto) 67.3 (45-73) % Lymph % (Auto) 23.5 (20-40) % [place] % (Auto) 6.1 (2-11) % Eos % (Auto) 2.4 (0-4) % Baso % (Auto) 0.3 (0-2) % Lymph # (Auto) 2.8 (1.2-4.9) X10*3/uL [place] # (Auto) 0.7 (0.1-1.2) X10*3/uL Eos # (Auto) 0.3 (0.0-0.4) X10*3/uL Baso # (Auto) 0.0 (0.0-0.2) X10*3/uL Abs Immat Gran (auto) 0.05 H (0.00-0.03) X10*3/uL Absolute Neuts (auto) 8.0 (2.0-8.3) x10*3/uL Absolute Nucleated RBC 0.000 (0.0-0.012) X10*3/uL Nucleated RBC % (auto) 0.0 (0.0-0.2) /100WBC Sodium 139 (135-145) mmol/L Potassium 3.3 D (3.3-5.1) mmol/L Chloride 100 (96-108) mmol/L Carbon Dioxide 27 (22-29) mmol/L Anion Gap 15 (12-20) BUN 10 (9-16) mg/dL Creatinine 0.83 (0.5-1.4) mg/dL Estim Creat Clear Calc 86.7 Estimated GFR > 60 Random Glucose 283 H (60-115) mg/dL Calcium 9.8 (8.4-10.2) mg/dL Total Bilirubin 0.9 (0.0-1.0) mg/dL Direct Bilirubin 0.3 (0.0-0.5) mg/dL AST 40 H (5-31) U/L ALT 24 (0-31) U/L Alkaline Phosphatase 95 (39-117) U/L Troponin I High Sens < 2.7 (<3.5-17.0) ng/L Total Protein 7.6 (6.5-8.0) g/dL Albumin 3.9 (3.5-5.0) g/dL Lipase 29 (8-78) U/L Urine Color Dark Yellow Urine Appearance Clear Urine pH 5.5 (5.0-9.0) Ur Specific [place] 1.025 (1.005-1.025) Urine Protein 300 (3+) H (Neg-Trace) mg/dL Urine Glucose (UA) 100 H (Negative) mg/dL Urine Ketones Trace (Negative) mg/dL Urine Blood Trace H (Negative) Urine Nitrite Negative (Negative) Ur Leukocyte Esterase Trace H (Negative) Urine RBC 6-10 H (0-2) /HPF Urine WBC 0-5 (0-5) /HPF Ur Squamous Epith Cells 3-5 (0-2) /HPF Urine Bacteria None Seen (None Seen) Hyaline Casts 0-2 (0-2) /LPF Urine Test NEGATIVE (NEGATIVE) Independent Interpretation I performed an independent interpretation of an: CT Scan Radiology Impression Discussion of test interpretation with radiology: I have reviewed the radiologist's reading. Medications Administered Discontinued Medications Generic Name Dose Route Start Last Admin Trade Name Foreign PRN Reason Stop Dose Admin Al Hydroxide/Mg Hydroxide 30 ml 06/02/24 01:28 06/02/24 01:47 Magnesium Hydrox/Alum Hydrox 30 Ml Oral.Susp PO 06/02/24 01:29 30 ml ONCE ONE Administration Famotidine 20 mg 06/01/24 23:36 06/01/24 23:49 Famotidine/Pf 20 Mg/2 Ml Vial IVPUSH 06/01/24 23:37 20 mg ONCE ONE Administration Hydromorphone HCl 1 mg 06/02/24 01:29 06/02/24 01:47 Hydromorphone Hcl 1 Mg/Ml Syringe IVPUSH 06/02/24 01:30 1 mg ONCE ONE Administration Protocol Sodium Chloride 1,000 mls @ 999 mls/hr 06/01/24 23:27 06/02/24 00:55 Ns IV 06/02/24 00:27 Infused .Q1H1M ONE Infusion Lidocaine HCl 15 ml 06/02/24 01:28 06/02/24 01:47 Lidocaine Hcl Viscous 2 % 15 Ml Solution MUCOUS MEM 06/02/24 01:29 15 ml ONCE ONE Administration Morphine Sulfate 4 mg 06/01/24 23:27 06/01/24 23:49 Morphine Sulfate 4 Mg/Ml Cartridge IVPUSH 06/01/24 23:28 4 mg ONCE ONE Administration Protocol Ondansetron HCl 4 mg 06/01/24 23:27 06/01/24 23:49 Ondansetron Hcl 4 Mg/2 Ml Vial IVPUSH 06/01/24 23:28 4 mg ONCE ONE Administration Discharge Plan Discharge Clinical Impression: Acute gastritis Patient Disposition: Home, Self-Care Instructions: Gastritis (ED) Additional Instructions: Drink plenty of fluids Avoid fried foods Increase the dose of omeprazole to 40 mg daily Take sucralfate 1 tablet 3 times a day before meals Follow up with your pressure steamer tender for further management including endoscopy Prescriptions: New sucralfate 1 gram tablet 1 g PO TID Qty: 90 0RF No Action (DME) FreeStyle Bettye 2 Sensor Kit See Rx Instructions .ROUTE .MEDSUPPLY Qty: 2 6RF Rx Instructions: As directed every 2 weeks (DME) FreeStyle Bettye 2 [place] Misc See Rx Instructions .ROUTE .MEDSUPPLY Qty: 1 0RF Rx Instructions: As directed diphenhydramine HCl [Banophen] 25 mg capsule 25 mg PO BEDTIME PRN (Reason: for allergies) Qty: 30 6RF celecoxib 100 mg capsule 100 mg PO BID Qty: 60 8RF Janumet XR 50-1,000 mg tablet, ER multiphase 24 hr 1 tab PO BID Qty: 60 3RF omeprazole 20 mg capsule,delayed release(DR/EC) 20 mg PO DAILY Qty: 90 3RF montelukast 10 mg tablet 10 mg PO BEDTIME Qty: 90 3RF (DME) FreeStyle Lite Strips Strip See Rx Instructions .ROUTE .COMPLEX Qty: 300 12RF Dose Instruction: USE 1 STRIP 3 TO 4 TIMES DAILY Rx Instructions: USE 1 STRIP 3 TO 4 TIMES DAILY ursodiol 500 mg tablet 500 mg PO BID Qty: 180 1RF fluticasone propionate 50 mcg/actuation spray,suspension 1 spray intranasal BID Qty: 16 9RF gabapentin 600 mg tablet 600 mg PO TID PRN (Reason: for pain) 30 Days Qty: 90 11RF Tresiba FlexTouch U-200 200 unit/mL (3 mL) insulin pen 40 unit subcut DAILY 30 Days Qty: 6 4RF (DME) lancets 28 gauge misc See Rx Instructions topical DAILY Qty: 100 0RF Rx Instructions: 3 to 4 time a day blood sugar checks. albuterol sulfate 90 mcg/actuation HFA aerosol inhaler 2 puff PO Q6H PRN (Reason: shortness of breath or wheezing) Qty: 18 3RF albuterol sulfate 2.5 mg /3 mL (0.083 %) solution for nebulization inhalation (DME) diabetic supplies, miscellan. Misc See Rx Instructions .ROUTE .MEDSUPPLY Qty: 100 6RF Rx Instructions: As directed atorvastatin 80 mg tablet 80 mg PO QPM Qty: 90 0RF Ozempic 0.25 mg or 0.5 mg (2 mg/3 mL) pen injector 0.25 mg subcut QWEEK Qty: 12 0RF Rx Instructions: for 4 weeks (DME) pen needle, diabetic 32 gauge x 1/4 needle See Rx Instructions subcut TID Qty: 100 11RF Rx Instructions: tid insulin administration insulin aspart U-100 100 unit/mL (3 mL) insulin pen 20 - 30 unit subcut TID 90 Days Qty: 60 2RF Rx Instructions: per sliding scale Sunosi 150 mg tablet 150 mg PO DAILY linaclotide 145 mcg capsule 145 mcg PO DAILY Qty: 90 2RF cetirizine 10 mg tablet 10 mg PO DAILY magnesium oxide 500 mg capsule PO DAILY lisinopril 5 mg tablet 5 mg PO BID 90 Days Qty: 180 1RF oxycodone 10 mg tablet 10 mg PO TID PRN (Reason: pain) 30 Days Qty: 90 0RF Rx Instructions: Partial Fill upon patient request. cyclobenzaprine 5 mg tablet 5 mg PO TID PRN (Reason: muscle spasm) Qty: 90 1RF diclofenac sodium 3 % gel 1 appl topical BID Qty: 100 0RF Rx Instructions: apply to most painful area twice daily as needed for pain Interventions: ED Discharge Assessment Last Done: 06/02/24 03:33 Discharge Date/Time: 06/02/24 03:34 Print Language: Welsh
[2024-06-01 20:31] VITALS: BP 117/62; PULSE 86; RESP 18; TEMP 36.8; O2SAT 97; BMI 36.2
--- NOTE | 2024-06-01 20:32 | ECG_ITS ---
Test Reason : epigastric pain Blood Pressure : / mmHG Vent. Rate : 087 BPM Atrial Rate : 087 BPM P-R Int : 158 ms QRS Dur : 092 ms QT Int : 384 ms P-R-T Axes : 059 -32 047 degrees QTc Int : 462 ms Normal sinus rhythm Left axis deviation Abnormal ECG No previous ECGs available Referred By: Wendy De La Garza Electronically Signed By:JAZMIN VALVERDE
[2024-06-01 21:11] LABS: MANUAL DIFF FLAG NO
[2024-06-01 21:14] LABS: Appearance Urine Clear; Basophils Percent Auto 0.3 % (0-2); Color Urine Dark Yellow; Eosinophils Absolute Auto 0.3 X10*3/uL (0.0-0.4); Eosinophils Percent Auto 2.4 % (0-4); Glucose Urine UA 100 mg/dL (Negative); Hematocrit 38.4 % (37.0-47.0); Hemoglobin 12.9 g/dl (12.0-16.0); Imm Gran Abs Auto 0.05 X10*3/uL (0.00-0.03); Imm Gran Pct Auto 0.4 % (0.0-0.4); Leukocyte Esterase Urine Trace (Negative); Lymphocytes Absolute Auto 2.8 X10*3/uL (1.2-4.9); Lymphocytes Percent Auto 23.5 % (20-40); Mean Corpuscular HGB Conc 33.6 g/dl (31.0-35.0); Mean Corpuscular Hemoglobin 27.7 pg (27.0-33.0); Mean Corpuscular Volume 82.4 fL (80.0-98.0); Mean Platelet Volume 9.9 fL (9.4-12.3); Monocytes Absolute Auto 0.7 X10*3/uL (0.1-1.2); Monocytes Percent Auto 6.1 % (2-11); Neutrophils Percent Auto 67.3 % (45-73); Nitrite Urine Negative (Negative); PH 5.5 (5.0-9.0); Platelet Count 309 X10*3/uL (160-400); Red Blood Count 4.66 X10*6/uL (4.20-5.50); Red Cell Distribution Width 14.5 % (11.0-16.0); Specific Gravity - Urine 1.025 (1.005-1.025); UMIC TRIGGER UACC YES; Urine Blood Trace (Negative); Urine Ketones Trace mg/dL (Negative); Urine Protein 300 (3+) mg/dL (Neg-Trace); White Blood Count 11.9 X10*3/uL (4.8-10.8)
[2024-06-01 21:15] LABS: UPreg QC Valid YES; Urine Pregnancy NEGATIVE (NEGATIVE)
[2024-06-01 21:19] LABS: Bacteria Urine None Seen (None Seen); Hyaline Casts Urine 0-2 /LPF (0-2); WBC Urine 0-5 /HPF (0-5)
[2024-06-01 21:37] LABS: Alanine Aminotransferase 24 U/L (0-31); Albumin Level 3.9 g/dL (3.5-5.0); Alkaline Phosphatase 95 U/L (39-117); Anion Gap 15 (12-20); Aspartate Amino Transferase 40 U/L (5-31); Bilirubin Direct 0.3 mg/dL (0.0-0.5); Bilirubin Total 0.9 mg/dL (0.0-1.0); Blood Urea Nitrogen 10 mg/dL (9-16); Calcium 9.8 mg/dL (8.4-10.2); Carbon Dioxide 27 mmol/L (22-29); Chloride 100 mmol/L (96-108); Creatinine Clr Calc Pharmacy 86.7; Estimated Glomerular Filt Rate > 60; Glucose Random 283 mg/dL (60-115); Lipase 29 U/L (8-78); Potassium 3.3 mmol/L (3.3-5.1); Sodium 139 mmol/L (135-145); Total Protein 7.6 g/dL (6.5-8.0)
[2024-06-01 21:45] LABS: Troponin-I High Sensitivity < 2.7 ng/L (<3.5-17.0)
[2024-06-01 22:16] VITALS: BP 127/42; PULSE 91; RESP 16; TEMP 36.8; O2SAT 96
[2024-06-01] MEDS: Famotidine/PF 20 MG/2 ML VIAL IVPUSH (23:49)
[2024-06-01] MEDS: ondansetron HCL 4 MG/2 ML VIAL IVPUSH (23:49)
[2024-06-01] MEDS: Morphine Sulfate 4 MG/ML CARTRIDGE IVPUSH (23:49)
[2024-06-01] MEDS: 0.9 % Sodium Chloride 1,000 ML 999 ML IV (23:49)
[2024-06-02] VITALS: BP 122/75; PULSE 81; RESP 16; TEMP 37.1; O2SAT 93
--- NOTE | 2024-06-02 00:22 | PC.NURSE ---
pt medicated per mar for pain. axox4 speaking full clear sentences. ivf infusing. awaiting u/s.
[2024-06-02] MEDS: HYDROmorphone HCl 1 MG/ML SYRINGE IVPUSH (01:47)
[2024-06-02] MEDS: Lidocaine HCl Viscous 2 % 15 ML SOLUTION MUCOUS MEM (01:47)
[2024-06-02] MEDS: Magnesium Hydrox/Alum Hydrox 30 ML ORAL.SUSP PO (01:47)
[2024-06-02 02:00] VITALS: BP 154/75; PULSE 91; RESP 16; TEMP 36.4; O2SAT 95
[2024-06-02 03:33] VITALS: BP 154/75; PULSE 91; RESP 16; TEMP 36.4; O2SAT 95
== END 2024-06-02 03:34 | disposition home or self-care (01) ==
PROVIDERS: Nurse Practitioner Family; Emergency Provider Internal Medicine; PCP Nurse Practitioner Family
DX: K29.00 Acute gastritis without bleeding (principal); R10.11 Right upper quadrant pain; E11.9 Type 2 diabetes mellitus without complications; E78.5 Hyperlipidemia, unspecified; G89.4 Chronic pain syndrome; Z79.4 Long term (current) use of insulin; Z79.891 Long term (current) use of opiate analgesic; Z79.02 Long term (current) use of antithrombotics/antiplatelets; Z79.899 Other long term (current) drug therapy
CPT/HCPCS: 36415; 74176; 76705; 80048; 80076; 81001; 81025; 83690; 84484; 85025; 93005; 99285; J1170; J2270; J2405

== ENCOUNTER 2024-06-03 08:57 | Outpatient (AMB) | payer OTHER, SELFPAY ==
--- NOTE | 2024-06-03 09:12 | A.OFFVIS_ITS ---
Vital Signs 06/03/24 09:16 Height 5 ft 3 in Weight 198 lb 6.656 oz BMI 35.1 BP 155/73 H Blood Pressure Location Lt brachial Position Sitting Pulse 95 Intake Visit Reasons: PT req appointment Intake Note: Carlota presents in the office as a follow up. CC: Been in the hospital due to epigastric pains. She does not have gall stones. She states that there was a CT scan done and around her pancreas something showed up. Allergies Seasonal Allergies Allergy (Intermediate, Verified 06/03/24 09:16) Cough amoxicillin [From Augmentin] Adverse Reaction (Severe, Verified 06/03/24 09:16) n/v/d clavulanic acid [From Augmentin] Adverse Reaction (Severe, Verified 06/03/24 09:16) n/v/d NSAIDS (Non-Steroidal Anti-Inflamma [NSAIDS (NON-STEROIDAL ANTI-INFLAMMA] Adverse Reaction (Intermediate, Verified 06/03/24 09:16) BLEEDING HPI HPI PT req appointment: Details: 53 yr old f here for f/u Recap: constipation controlled with linaclotide TESTS: CT 2020-- right sided colonic and TI thickening, hyperemia EGD/Colonoscopy:02/06 Endoscopy Findings: bile acid reflux gastritis Colonoscopy Findings: colon polyp internal hemorrhoids INTERIM:]' she went to ED with upper abdominal pain she had US and CT scan pain started epigastrium burning sensation, 10/10 pain worse with food, she had nausea she has been getting pain meds from ED and has constipation no alcohol or recreational drugs recently no fevers or chills before this she was doing well one episode of gross hematuria she increased PPI recently after ED visit LABS: minor ALT elevation, nml lipase (at [facility] mild alk phos and AST elevation) imaging with possible pancreatic infiltrate, small LN, small kidney stone repeat CT with contrast 06/03/24 at [facility] with ?pancreatitis vs duodenitis, ?ovarian lesion ECG was normal EXAM: GENERAL: The patient is well developed and nontoxic. VITAL SIGNS:see workflow HEENT: Nonicteric sclerae, PERRLA, EOMI. Oropharynx clear. Moist mucous membranes. Conjunctivae appear well perfused. No thyroid mass. CHEST: Chest wall is nontender. HEART: Regular rate and rhythm without murmurs. LUNGS: Clear to auscultation bilaterally. ABDOMEN: Soft, reduced bowel sounds, tender epigastric area, no organomegaly.no flank tenderness SKIN: No rash, no excessive bruising, petechiae, or purpura. NEUROLOGIC: Cranial nerves II-XII intact without motor/sensory deficit. Psych: nml affect A/P: 1/constipation--slow transit also due to opiate use-and recent illness 2/ ?pancreatitis vs duodenitis 3/ hematuria, prob from kidney stone 4/ possible ovarian lesion PLAN: 1/ recommned admission will need pain meds, IV fluids, can use IV PPI 2/ depending on clinical course might need MRI pancreas vs EGD< PFSH Medical History Diabetic nephropathy Chronic cough Chronic prescription opiate use Thoracic back pain Menopause Vasomotor symptoms due to menopause Elevated C-reactive protein (CRP) Proteinuria Type 2 diabetes mellitus with other diabetic kidney complication Sleep apnea PCOS (polycystic ovarian syndrome) Asthma Type 2 diabetes mellitus with hyperglycemia, with long-term current use of insulin Hyperlipidemia LDL goal <100 Obesity due to excess calories BMI 37.0-37.9, adult 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, uncontrolled 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 Chronic pain syndrome Postlaminectomy syndrome, lumbar Surgical History Hx of colonoscopy History of esophagogastroduodenoscopy (EGD) Hx of spinal surgery History of removal of cyst History of carpal tunnel release History of lumbar surgery Family History Father Diabetes Hypertension Mother Asthma Social History Household Members: Family and Children Housing: Apartment Are you a primary career placement specialist to a significant other at home: No Do you presently have visiting nurse or other home services: No Alcohol intake: current Alcohol intake frequency: holidays/special occasions only Patient Tobacco Use Status: Current everyday Tobacco user Tobacco use type: Cigarette Cigarettes Per Day: 4 Years Smoked: 30 e-Cigarette/Vaping Use: Never Used service: No Current occupational status: disabled Current occupational exposures/hazards: No Cognitive needs: No Hearing needs: No Vision needs: Yes Physical Exam Vital Signs: BMI result Body Mass Index 35.1 Assessment & Plan Assessment & Plan (1) Duodenitis: Code(s): K29.80 - Duodenitis without bleeding Category: Medical Plan: see above, records from [facility] reviewed Coding Level of Care Code Est Pt Level 4 (60693) Diagnoses Duodenitis K29.80
[2024-06-03 09:16] VITALS: BP 155/73; PULSE 95; BMI 35.1
== END 2024-06-03 10:27 | disposition home or self-care (01) ==
PROVIDERS: PCP Nurse Practitioner Family; Visit Provider Internal Medicine Gastroenterology
DX: K29.80 Duodenitis without bleeding (principal)
CPT/HCPCS: 99214

== ENCOUNTER → 2024-06-03 08:57 | Outpatient (BNVA) | payer OTHER, SELFPAY | PROVIDERS: PCP Nurse Practitioner Family; Visit Provider Internal Medicine Gastroenterology ==

== ENCOUNTER 2024-06-03 09:56 | Inpatient (IN) | payer OTHER, SELFPAY ==
--- NOTE | ~2024-06-03 | MR_ITS ---
EXAMINATION: MR ABDOMEN WITHOUT AND WITH CONTRAST MR CHOLANGIOPANCREATOGRAPHY CLINICAL INFORMATION: Pancreatitis, abdominal pain COMPARISON: CT scan of abdomen and pelvis on 06/03/2024 TECHNIQUE: Examination was performed in a high field strength MRI scanner. Multiplanar multisequence MR imaging of the abdomen was performed without IV contrast enhancement. Multiphasic Axial T1-weighted fat-suppressed images of the upper abdomen were obtained after IV injection of 9 mL Gadavist. Coronal T1-weighted fat-suppressed images of the abdomen were obtained following the dynamic axial series. MR cholangiopancreatography was performed with heavily T2 weighted sequences. 3-dimensional reconstruction of image data was performed. This was performed under concurrent direct supervision and monitoring by radiologist. Maximum intensity projection images were constructed. FINDINGS: MR CHOLANGIOPANCREATOGRAPHY: Normal gallbladder without filling defects. Cystic duct is unremarkable. Bilateral intra hepatic bile ducts, common hepatic duct and common bile duct are normal in size without filling defects. Pancreatic duct is normal in size. LIVER: The liver shows no focal lesion. The calculated hepatic fat percentage is 14.6%, compatible with mild hepatic steatosis. PANCREAS: Pancreas appears to be diffusely atrophic. Trace T2 hyperintense inflammatory exudate is seen surrounding the pancreatic uncinate process right lateral border, bordering the descending duodenum. No well loculated pseudocyst could be identified. No focal pancreatic lesion with abnormal signal can be seen. Persistent enhancing proximal superior peripancreatic lymph node is seen, measuring 1.3 cm in AP diameter, 3.0 cm in width, series 16 image #47. Posterior periportal enhancing lymph node measures 1.2 cm in AP diameter, 3.3 cm in width. SPLEEN: Spleen is normal in size without focal lesion. ADRENAL: Bilateral adrenal glands are normal in shape and size. KIDNEYS: Bilateral kidneys are normal in size with T2 hyperintense nonenhancing simple cysts at the posterior mid right renal cortex measuring 0.5 cm in diameter, posterior medial superior left renal cortical simple cyst measuring 0.7 cm in diameter, for which no follow-up imaging is recommended. Advanced L5-S1 degenerative lumbar disc disease, moderate posterior L4-L5 and marked L5-S1 disc protrusions are present. Small medical hernia containing mesenteric fat is present. MR/MR abdomen wo/w con IMPRESSION: 1. No evidence of gallstone or hepatobiliary duct dilatation. 2. Unchanged Mild hepatic steatosis. 3. Unchanged Atrophic pancreas with trace inflammatory exudate surrounding the pancreatic uncinate process, compatible with residual interstitial edematous pancreatitis. No well loculated pseudocyst could be identified. 4. Persistent enhancing proximal superior peripancreatic lymph node and posterior periportal lymph node. 5. Bilateral renal cortical simple cysts are seen for which no follow-up imaging is recommended. 6. Advanced L5-S1 degenerative lumbar disc disease, moderate posterior L4-L5 and marked L5-S1 disc protrusions. 7. Small mesenteric hernia containing mesenteric fat. Electronically signed by: Flory Baldwin MD 06/06/2024 11:27 AM EDT
--- NOTE | ~2024-06-03 | CT_ITS ---
EXAMINATION: CT ABDOMEN AND PELVIS WITHOUT CONTRAST CLINICAL INFORMATION: Question pancreatitis and abdominal pain. COMPARISON: 06/02/2024 TECHNIQUE: Multidetector volumetric imaging was performed from the superior aspect of the liver through the pubic symphysis. Sagittal and coronal reformatted images were obtained on the technologist's workstation. This CT examination was performed using dose optimization techniques as appropriate, variously including the following: *Automated exposure control *Adjustment of mA and/or kV according to patient size (this includes techniques or standardized protocols for targeted exams where dose is matched to indication/reason for exam; i.e. extremities or head) *Use of iterative reconstruction technique DLP: 713 mGy-cm FINDINGS: LUNG BASES: The visualized lung bases are unremarkable. LIVER, GALLBLADDER, AND BILIARY TREE: There is mildly diminished hepatic attenuation diffusely with focal fatty sparing around the gallbladder fossa, consistent with mild hepatic steatosis. Liver is normal in size and contour. No focal lesions are identified on this unenhanced study. No biliary ductal dilatation. The gallbladder is unremarkable with no evidence of radiopaque gallstones, gallbladder wall thickening, or obvious pericholecystic inflammatory changes. PANCREAS: Fat stranding is noted around the head of the pancreas as well as the adjacent duodenum. This is similar in appearance to the prior study from 06/02/2024. Mild pancreatic atrophy. No pancreatic ductal dilatation or calcifications. No focal lesions are identified on these images. SPLEEN: Unremarkable. ADRENAL GLANDS: Unremarkable. KIDNEYS AND URETERS: Again seen is a 4 mm calculus within a calyx within the left lower renal pole. This has an attenuation value of 1100 Hounsfield units and is situated 11 cm from the skin surface at the left posterior mid axillary line. No additional renal or ureteral calculi. Kidneys normal in size and contour. No focal lesions are identified. No hydroureter or hydronephrosis. BLADDER: Unremarkable. GASTROINTESTINAL TRACT: Stomach, small bowel, and colon are normal in caliber. There is mild wall thickening in the second portion of the duodenum which could be due to a mild reactive duodenitis or a primary duodenitis. No intraperitoneal free fluid or free air. Small bowel is relatively decompressed, as is the colon. No other areas of bowel inflammation are identified. Appendix is normal. ABDOMINAL WALL: Small fat-containing umbilical hernia. No bowel involvement. LYMPH NODES: Borderline enlarged portal caval lymph node measures 1.3 cm in diameter. Numerous additional prominent retroperitoneal lymph nodes are noted, the majority of which are within normal limits in size. No separate areas of adenopathy are identified. No fluid collections. VASCULAR: Atherosclerotic calcifications are present in the abdominal aorta and iliac arteries. No aneurysmal dilatation. PELVIC VISCERA: The uterus is normal in size and contour. No adnexal lesions.. OSSEOUS STRUCTURES: Marked degenerative disc disease in the lower lumbar spine with prominent posterior disc osteophyte complexes at L4-L5 and L5-S1 as well as facet arthropathy. [id number] osteoarthritis in both hips and SI joints. CT/CT abdomen pelvis wo IV con IMPRESSION: 1. Persistent fat stranding around the head of the pancreas and adjacent duodenum, most consistent with acute pancreatitis. No new pancreatic collections. No calcifications. Recommend correlation with serum amylase and lipase. Mild wall thickening in the second portion of the duodenum is most likely reactive to the pancreatitis, though a primary duodenitis is also on the differential.. 2. Mild hepatic steatosis. 3. Nonobstructing 4 mm calculus in the left lower renal pole. 4. Mild retroperitoneal adenopathy, unchanged. Fleischner guidelines were followed.
[2024-06-03 10:16] VITALS: BP 136/67; PULSE 90; RESP 16; TEMP 36.9; O2SAT 92; BMI 36.1
[2024-06-03 11:17] LABS: MANUAL DIFF FLAG NO
[2024-06-03 11:20] LABS: Basophils Absolute Auto 0.1 X10*3/uL (0.0-0.2); Basophils Percent Auto 0.6 % (0-2); Eosinophils Absolute Auto 0.3 X10*3/uL (0.0-0.4); Eosinophils Percent Auto 2.3 % (0-4); Hematocrit 40.5 % (37.0-47.0); Hemoglobin 13.3 g/dl (12.0-16.0); Imm Gran Abs Auto 0.06 X10*3/uL (0.00-0.03); Imm Gran Pct Auto 0.5 % (0.0-0.4); Lymphocytes Absolute Auto 2.4 X10*3/uL (1.2-4.9); Lymphocytes Percent Auto 19.1 % (20-40); Mean Corpuscular HGB Conc 32.8 g/dl (31.0-35.0); Mean Corpuscular Hemoglobin 27.8 pg (27.0-33.0); Mean Corpuscular Volume 84.6 fL (80.0-98.0); Mean Platelet Volume 10.3 fL (9.4-12.3); Monocytes Absolute Auto 0.7 X10*3/uL (0.1-1.2); Monocytes Percent Auto 5.3 % (2-11); Neutrophils Absolute Auto 8.9 x10*3/uL (2.0-8.3); Neutrophils Percent Auto 72.2 % (45-73); Platelet Count 271 X10*3/uL (160-400); Red Blood Count 4.79 X10*6/uL (4.20-5.50); Red Cell Distribution Width 14.2 % (11.0-16.0); White Blood Count 12.4 X10*3/uL (4.8-10.8)
[2024-06-03 11:59] LABS: Alanine Aminotransferase 27 U/L (0-31); Albumin Level 3.9 g/dL (3.5-5.0); Alkaline Phosphatase 96 U/L (39-117); Anion Gap 16 (12-20); Aspartate Amino Transferase 39 U/L (5-31); Bilirubin Direct 0.3 mg/dL (0.0-0.5); Bilirubin Total 0.8 mg/dL (0.0-1.0); Blood Urea Nitrogen 10 mg/dL (9-16); Calcium 9.6 mg/dL (8.4-10.2); Carbon Dioxide 21 mmol/L (22-29); Chloride 101 mmol/L (96-108); Creatinine Clr Calc Pharmacy 84.6; Estimated Glomerular Filt Rate > 60; Glucose Random 359 mg/dL (60-115); Lipase 36 U/L (8-78); Potassium 4.3 mmol/L (3.3-5.1); Sodium 134 mmol/L (135-145); Total Protein 7.6 g/dL (6.5-8.0)
--- NOTE | 2024-06-03 16:19 | ED.ABDPAIN ---
HPI - Abdominal Pain General Chief Complaint: Abdominal Pain Stated Complaint: Swollen abd sent by Sal Time Seen by Provider: 06/03/24 18:25 Source: patient History of Present Illness ED Provider: Stephy MALAVE narrative: 53-year-old female with past medical history of diabetes, PCOS, asthma, obesity presents for abdominal pain. Patient has been experiencing epigastric pain radiates to her back inside since last . She was seen here for this and had abdominal ultrasound and dry CT abdomen and pelvis with findings of hepatic steatosis, pancreatic infiltrative changes. Patient states that she was seen by her GI doctor today who recommended admission. I reviewed Kera Simmons notes and he would like the patient be admitted for pain meds, IV fluids and IV PPI. Related Data Home Medications ?Medication ?Instructions ?Recorded ?Confirmed albuterol sulfate 2.5 mg/3 mL 2.5 mg inhalation Q6H PRN 03/24/22 06/03/24 (0.083 %) solution for nebulization SOB/Wheezing solriamfetol 150 mg tablet (Sunosi) 150 mg PO DAILY PRN Sleepiness 10/06/23 06/03/24 cetirizine 10 mg tablet 10 mg PO DAILY for allergies 02/05/24 06/03/24 magnesium oxide 500 mg capsule 500 mg PO BEDTIME 02/05/24 06/03/24 atorvastatin 40 mg tablet 40 mg PO BEDTIME 06/03/24 06/03/24 fluticasone propionate 50 1 spray intranasal BID PRN 06/03/24 06/03/24 mcg/actuation nasal Congestion spray,suspension insulin aspart U-100 100 unit/mL 15 - 25 unit subcut TID 06/03/24 06/03/24 (3 mL) subcutaneous pen lisinopril 5 mg tablet 5 mg PO BID 06/03/24 06/03/24 omeprazole 20 mg capsule,delayed 20 mg PO BID 06/03/24 06/03/24 release Previous Rx's ?Medication ?Instructions ?Recorded lancets 28 gauge #100 ea 11/24/20 flash glucose sensor (FreeStyle #2 ea 05/13/21 Bettye 2 Sensor kit) flash glucose scanning reader #1 ea 05/14/21 (FreeStyle Bettye 2 [place]) diabetic supplies, [employer]. #100 ea 01/16/23 linaclotide 145 mcg capsule 145 mcg PO DAILY #90 caps 12/22/23 pen needle, diabetic 32 gauge x #100 ea 11/22/23 1/ sitagliptin phos 50 mg-metformin 1 tab PO BID #60 tabs 01/04/24 ER 1,000 mg tablet,extend rel 24h mp (Janumet XR) blood sugar diagnostic (FreeStyle #300 strips 01/05/24 Lite Strips) montelukast 10 mg tablet 10 mg PO BEDTIME #90 tabs 01/05/24 ursodiol 500 mg tablet 500 mg PO BID #180 tabs 02/23/24 cyclobenzaprine 5 mg tablet 5 mg PO TID PRN muscle spasm #90 04/26/24 tabs gabapentin 600 mg tablet 600 mg PO TID PRN for pain 30 days 05/13/24 #90 tabs insulin degludec 200 unit/mL (3 40 unit (0.2 mL) subcut DAILY 30 05/30/24 mL) subcutaneous pen ( #6 mL FlexTouch U-200 insulin) sucralfate 1 gram tablet 1 g PO TID #90 tabs 06/02/24 diphenhydramine HCl 25 mg capsule 25 mg PO BEDTIME PRN for allergies 06/05/24 (Banophen) #30 caps albuterol sulfate 90 mcg/actuation 2 puff PO Q6H PRN shortness of 06/06/24 aerosol inhaler breath or wheezing #18 grams oxycodone 10 mg tablet 10 mg PO TID PRN pain 30 days #90 06/11/24 tabs Allergies Allergy/AdvReac Type Severity Reaction Status Date / Time Seasonal Allergies Allergy Intermediate Cough Verified 06/03/24 10:20 amoxicillin [From Augmentin] AdvReac Severe n/v/d Verified 06/03/24 10:20 clavulanic acid AdvReac Severe n/v/d Verified 06/03/24 10:20 [From Augmentin] NSAIDS (Non-Steroidal AdvReac Intermediate BLEEDING Verified 06/03/24 10:20 Anti-Inflamma [NSAIDS (NON-STEROIDAL ANTI-INFLAMMA] Review of Systems Review of Systems Patient endorses abdominal pain, nausea Patient denies shortness of breath, chest pain, fevers, chills, vomiting, urinary symptoms, diarrhea Yes all other systems are reviewed and are negative PMF Past Medical History Attestation statement: The following information was validated with the patient. [facility] Narrative: diabetes, PCOS, asthma, obesity Source: old records reviewed Medical History Diabetic nephropathy Chronic cough Chronic prescription opiate use Thoracic back pain Menopause Vasomotor symptoms due to menopause Elevated C-reactive protein (CRP) Proteinuria Type 2 diabetes mellitus with other diabetic kidney complication Sleep apnea PCOS (polycystic ovarian syndrome) Asthma Type 2 diabetes mellitus with hyperglycemia, with long-term current use of insulin Hyperlipidemia LDL goal <100 Obesity due to excess calories BMI 37.0-37.9, adult 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, uncontrolled terminal superintendent (current) use of opiate analgesic Chronic pain syndrome Postlaminectomy syndrome, lumbar Surgical History Hx of colonoscopy History of esophagogastroduodenoscopy (EGD) Hx of spinal surgery History of removal of cyst History of carpal tunnel release History of lumbar surgery Family History Family History Father Diabetes Hypertension Mother Asthma Social History Social History Household Members: Family Housing: Apartment Are you a primary caregiver services home to a significant other at home: No Do you presently have visiting nurse or other home services: Yes (PERSONAL SECURITY SPECIALIST) Alcohol intake: current Alcohol intake frequency: holidays/special occasions only Patient Tobacco Use Status: Current everyday Tobacco user Tobacco use type: Cigarette Cigarette Packs Per Day: 1 Cigarettes Per Day: 20.0 Years Smoked: 30 e-Cigarette/Vaping Use: Never Used Second Hand Smoke Exposure: Yes service: No Current occupational status: disabled Current occupational exposures/hazards: No Cognitive needs: No Hearing needs: No Vision needs: Yes Physical Exam ED Vital Signs: Vital Signs - 24 hr 06/03/24 10:16 06/03/24 16:20 06/03/24 18:00 Temperature 98.5 F 98.2 F Pulse Rate 90 95 99 Respiratory Rate 16 18 18 Blood Pressure 136/67 124/65 163/72 H Pulse Oximetry 92 95 92 Oxygen Delivery Method Room Air Room Air Room Air BMI result Body Mass Index 36.1 Lungs clear auscultation bilaterally; normal S1-S2 regular rate rhythm; abdomen soft, diffusely tender with localization to epigastric region, otherwise soft and mildly distended Course Course Course Narrative: This is a Rapid Medical Examination (RME) performed by Vanessa Holt PA-C in triage. Full HPI, ROS, assessment and treatment plan per primary provider in the Main ED. 53 yo female with history of DM2 on insulin, gastritis, chronic pain syndrome, arthritis, duodenitis, obesity who presents to the ER for evaluation of 5 days of epigastric abdominal pain. Pain radiates to both sides, up the chest and around to the back. Worse with food. CT scan of the abdomen done yesterday showing possible subtle lesion in the head of the pancreas. She was sent to the ER by Dr. Huang for possible admission. Lipase is normal. Plan: Treat pain, Follow up with Dr. Huang Medical Decision Making Medical Decision Making MDM Narrative: Concerns for the following; pancreatitis, duodenitis, peptic ulcer disease, biliary colic Less likely ACS/angina however will obtain EKG and troponin Less likely ectopic /UTI I spoke with patient's svp research and strategic analysis Dr. Huang who is considering upper endoscopy tomorrow morning. Recommends NPO at midnight. Protonix, morphine and fluids or food patient Patient admitted Differential Diagnosis Differential Diagnoses: The differential diagnosis associated with the presentation includes Pancreatitis, duodenitis, peptic ulcer disease, biliary colic Consult Healthcare Provider Management of the patient was discussed with: Hospitalist Accepted patient for admission Lab Data MDM Lab Attestation statement: I reviewed the patient's lab results. Leukocytosis, stable H&H, hypoglycemic, 06/04/24 04:56 06/04/24 04:56 Labs: Lab Results 06/03/24 06/03/24 06/03/24 Range/Units 11:13 16:22 19:12 WBC 12.4 H (4.8-10.8) X10*3/uL RBC 4.79 (4.20-5.50) X10*6/uL Hgb 13.3 (12.0-16.0) g/dl Hct 40.5 (37.0-47.0) % MCV 84.6 (80.0-98.0) fL MCH 27.8 (27.0-33.0) pg MCHC 32.8 (31.0-35.0) g/dl RDW 14.2 (11.0-16.0) % Plt Count 271 (160-400) X10*3/uL MPV 10.3 (9.4-12.3) fL Immature Gran % (Auto) 0.5 H (0.0-0.4) % Neut % (Auto) 72.2 (45-73) % Lymph % (Auto) 19.1 L (20-40) % [place] % (Auto) 5.3 (2-11) % Eos % (Auto) 2.3 (0-4) % Baso % (Auto) 0.6 (0-2) % Lymph # (Auto) 2.4 (1.2-4.9) X10*3/uL [place] # (Auto) 0.7 (0.1-1.2) X10*3/uL Eos # (Auto) 0.3 (0.0-0.4) X10*3/uL Baso # (Auto) 0.1 (0.0-0.2) X10*3/uL Abs Immat Gran (auto) 0.06 H (0.00-0.03) X10*3/uL Absolute Neuts (auto) 8.9 H (2.0-8.3) x10*3/uL Absolute Nucleated RBC 0.000 (0.0-0.012) X10*3/uL Nucleated RBC % (auto) 0.0 (0.0-0.2) /100WBC Sodium 134 L (135-145) mmol/L Potassium 4.3 D (3.3-5.1) mmol/L Chloride 101 (96-108) mmol/L Carbon Dioxide 21 L (22-29) mmol/L Anion Gap 16 (12-20) BUN 10 (9-16) mg/dL Creatinine 0.85 (0.5-1.4) mg/dL Estim Creat Clear Calc 84.6 Estimated GFR > 60 POC Glucose 442 H* (60-115) mg/dL Random Glucose 359 H* (60-115) mg/dL Calcium 9.6 (8.4-10.2) mg/dL Total Bilirubin 0.8 (0.0-1.0) mg/dL Direct Bilirubin 0.3 (0.0-0.5) mg/dL AST 39 H (5-31) U/L ALT 27 (0-31) U/L Alkaline Phosphatase 96 (39-117) U/L Troponin I High Sens (<3.5-17.0) ng/L Total Protein 7.6 (6.5-8.0) g/dL Albumin 3.9 (3.5-5.0) g/dL Triglycerides 194 H (<150) mg/dL Lipase 36 (8-78) U/L Urine Color Yellow Urine Appearance Clear Urine pH 5.5 (5.0-9.0) Ur Specific [place] >= 1.030 H (1.005-1.025) Urine Protein 300 (3+) H (Neg-Trace) mg/dL Urine Glucose (UA) >=1000 H (Negative) mg/dL Urine Ketones Trace (Negative) mg/dL Urine Blood Small (1+) H (Negative) Urine Nitrite Negative (Negative) Ur Leukocyte Esterase Negative (Negative) Urine RBC 0-2 (0-2) /HPF Urine WBC 0-5 (0-5) /HPF Ur Squamous Epith Cells 0-2 (0-2) /HPF Urine Bacteria None Seen (None Seen) Hyaline Casts 0-2 (0-2) /LPF Urine Test NEGATIVE (NEGATIVE) 06/03/24 Range/Units 19:14 WBC (4.8-10.8) X10*3/uL RBC (4.20-5.50) X10*6/uL Hgb (12.0-16.0) g/dl Hct (37.0-47.0) % MCV (80.0-98.0) fL MCH (27.0-33.0) pg MCHC (31.0-35.0) g/dl RDW (11.0-16.0) % Plt Count (160-400) X10*3/uL MPV (9.4-12.3) fL Immature Gran % (Auto) (0.0-0.4) % Neut % (Auto) (45-73) % Lymph % (Auto) (20-40) % [place] % (Auto) (2-11) % Eos % (Auto) (0-4) % Baso % (Auto) (0-2) % Lymph # (Auto) (1.2-4.9) X10*3/uL [place] # (Auto) (0.1-1.2) X10*3/uL Eos # (Auto) (0.0-0.4) X10*3/uL Baso # (Auto) (0.0-0.2) X10*3/uL Abs Immat Gran (auto) (0.00-0.03) X10*3/uL Absolute Neuts (auto) (2.0-8.3) x10*3/uL Absolute Nucleated RBC (0.0-0.012) X10*3/uL Nucleated RBC % (auto) (0.0-0.2) /100WBC Sodium (135-145) mmol/L Potassium (3.3-5.1) mmol/L Chloride (96-108) mmol/L Carbon Dioxide (22-29) mmol/L Anion Gap (12-20) BUN (9-16) mg/dL Creatinine (0.5-1.4) mg/dL Estim Creat Clear Calc Estimated GFR POC Glucose (60-115) mg/dL Random Glucose (60-115) mg/dL Calcium (8.4-10.2) mg/dL Total Bilirubin (0.0-1.0) mg/dL Direct Bilirubin (0.0-0.5) mg/dL AST (5-31) U/L ALT (0-31) U/L Alkaline Phosphatase (39-117) U/L Troponin I High Sens < 2.7 (<3.5-17.0) ng/L Total Protein (6.5-8.0) g/dL Albumin (3.5-5.0) g/dL Triglycerides (<150) mg/dL Lipase (8-78) U/L Urine Color Urine Appearance Urine pH (5.0-9.0) Ur Specific [place] (1.005-1.025) Urine Protein (Neg-Trace) mg/dL Urine Glucose (UA) (Negative) mg/dL Urine Ketones (Negative) mg/dL Urine Blood (Negative) Urine Nitrite (Negative) Ur Leukocyte Esterase (Negative) Urine RBC (0-2) /HPF Urine WBC (0-5) /HPF Ur Squamous Epith Cells (0-2) /HPF Urine Bacteria (None Seen) Hyaline Casts (0-2) /LPF Urine Test (NEGATIVE) Independent Interpretation I performed an independent interpretation of an: EKG Interpretation: No signs of ischemia seen on EKG Medications Administered Discontinued Medications Generic Name Dose Route Start Last Admin Trade Name Freq PRN Reason Stop Dose Admin Atorvastatin Calcium 40 mg 06/04/24 21:00 06/05/24 20:39 Atorvastatin Calcium 40 Mg Tablet PO 40 mg BEDTIME CALI Administration Enoxaparin Sodium 40 mg 06/03/24 19:45 06/05/24 20:38 Enoxaparin Sodium 40 Mg/0.4 Ml Syringe SUBCUT 40 mg Q24H CALI Administration Gadobutrol 10 ml 06/04/24 20:48 06/04/24 20:49 Gadobutrol 10 Ml Vial IVPUSH 06/04/24 20:49 9 ml ONCE ONE Administration Hydromorphone HCl 1 mg 06/03/24 19:41 06/06/24 10:30 Hydromorphone Hcl 1 Mg/Ml Syringe IVPUSH 1 mg Q4H PRN Administration Pain, Severe (Pain Scale 7-10) Protocol Lactated Ringer's 1,000 mls @ 125 mls/hr 06/03/24 19:45 06/05/24 22:33 Lr IVCONT 0 mls/hr .Q8H CALI Infusion Sodium Chloride 1,000 mls @ 999 mls/hr 06/03/24 20:00 06/03/24 21:23 Ns IV 06/03/24 21:00 Infused .Q1H1M CALI Infusion Lactated Ringer's 1,000 mls @ 50 mls/hr 06/04/24 10:15 06/04/24 12:23 Lr IVCONT Infused .Q20H CALI Infusion Insulin Glargine 10 unit 06/03/24 19:38 06/03/24 20:16 Insulin Glargine,Hum.Rec.Anlog 100 Unit/Ml 10 Ml Vial SUBCUT 06/03/24 19:39 10 unit ONCE ONE Administration Insulin Glargine 20 unit 06/04/24 14:30 06/05/24 07:23 Insulin Glargine,Hum.Rec.Anlog 100 Unit/Ml 10 Ml Vial SUBCUT 20 unit DAILY CALI Administration Insulin Glargine 30 unit 06/05/24 09:00 06/06/24 08:19 Insulin Glargine,Hum.Rec.Anlog 100 Unit/Ml 10 Ml Vial SUBCUT 30 unit DAILY CALI Administration Insulin Human Lispro 0 unit 06/04/24 00:00 06/04/24 16:18 Insulin Lispro 100 Unit/Ml 3 Ml Vial SUBCUT 10 unit Q6H CALI Administration Protocol Insulin Human Lispro 0 unit 06/05/24 07:30 06/06/24 11:53 Insulin Lispro 100 Unit/Ml 3 Ml Vial SUBCUT 4 unit QIDACHS CALI Administration Protocol Lisinopril 5 mg 06/04/24 21:00 06/06/24 08:18 Lisinopril 5 Mg Tablet PO 5 mg BID CALI Administration Protocol Loratadine 10 mg 06/05/24 09:00 06/06/24 08:18 Loratadine 10 Mg Tablet PO 10 mg DAILY CALI Administration Magnesium Oxide 400 mg 06/04/24 21:00 06/05/24 20:39 Magnesium Oxide 400 Mg Tablet PO 400 mg BEDTIME CALI Administration Metformin HCl 1,000 mg 06/05/24 21:00 06/06/24 08:18 Metformin Hcl Er 500 Mg Tab.Er.24h PO 1,000 mg BID CALI Administration Montelukast Sodium 10 mg 06/04/24 21:00 06/05/24 20:39 Montelukast Sodium 10 Mg Tablet PO 10 mg BEDTIME CALI Administration Morphine Sulfate 4 mg 06/03/24 19:54 06/03/24 20:17 Morphine Sulfate 4 Mg/Ml Cartridge IVPUSH 06/03/24 19:55 Not Given ONCE ONE Protocol Nicotine 21 mg 06/04/24 12:15 06/06/24 08:19 Nicotine 21 Mg Patch.Td24 TRANSDERMA 21 mg DAILY CALI Administration Omeprazole 20 mg 06/04/24 16:30 06/06/24 06:09 Omeprazole 20 Mg Capsule.Dr PO 20 mg BID@0630,1630 CALI Administration Pantoprazole Sodium 40 mg 06/03/24 18:57 06/03/24 19:20 Pantoprazole Sodium 40 Mg/10 Ml Vial IVPUSH 06/03/24 18:58 40 mg ONCE ONE Administration Pantoprazole Sodium 40 mg 06/04/24 06:30 06/06/24 06:09 Pantoprazole Sodium 40 Mg/10 Ml Vial IVPUSH 40 mg BID@0630,1630 CALI Administration Simethicone 80 mg 06/06/24 12:00 06/06/24 11:53 Simethicone 80 Mg Tab.Chew PO 80 mg QIDWMHS CALI Administration Sitagliptin Phosphate 50 mg 06/05/24 21:00 06/06/24 08:18 Sitagliptin Phosphate 50 Mg Tablet PO 50 mg BID CALI Administration Sodium Chloride 3 ml 06/04/24 00:00 06/06/24 08:22 0.9 % Sodium Chloride Flush 3 Ml Syringe IVFLUSH 3 ml QSHIFT CALI Administration Sucralfate 1 gm 06/04/24 15:00 06/06/24 08:18 Sucralfate 1 Gm Tablet PO 1 gm TID CALI Administration Discharge Plan Discharge Clinical Impression: Abdominal pain Qualifiers: Abdominal location: epigastric Qualified Code(s): R10.13 - Epigastric pain Patient Disposition: Admitted As Inpatient Interventions: Admission Worksheet (ED) Last Done: 06/04/24 07:47 Discharge Date/Time: 06/04/24 08:26
[2024-06-03 16:20] VITALS: BP 124/65; PULSE 95; RESP 18; O2SAT 95
--- NOTE | 2024-06-03 16:22 | PC.NURSE ---
abd pain continues. took home insulin 20 units in WR just p/t check with triage nurse. POC 442. asked to please stop eating in WR
[2024-06-03 16:29] LABS: Glucose, Whole Blood 442 mg/dL (60-115)
[2024-06-03 18:00] VITALS: BP 163/72; PULSE 99; RESP 18; TEMP 36.8; O2SAT 92
--- NOTE | 2024-06-03 19:00 | ECG_ITS ---
Test Reason : EPIGASTRIC PAIN Blood Pressure : / mmHG Vent. Rate : 090 BPM Atrial Rate : 090 BPM P-R Int : 170 ms QRS Dur : 096 ms QT Int : 380 ms P-R-T Axes : 058 -05 046 degrees QTc Int : 464 ms Normal sinus rhythm Normal ECG When compared with ECG of 01-JUN-2024 20:47, QRS axis Shifted right Referred By: John Keyes Electronically Signed By:JAZMIN VALVERDE
[2024-06-03] MEDS: Pantoprazole Sodium 40 MG/10 ML VIAL IVPUSH (19:20)
--- NOTE | 2024-06-03 19:34 | P.HPHOSP_ITS ---
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 Patient states her symptoms started 4 days prior to presentation. It progressed and patient had severe pain about 2 days ago. She describes it as a sharp epigastric pain which radiates to the back. No change with p.o. intake. Has associated nausea. Patient was seen in the ER on 06/01 and discharged home with sucralfate for acute gastritis. Patient saw her reprographics technician, Dr. Huang on 06/03 who recommended admission for IV analgesia. Patient states she has never had pancreatitis before. No fever, chills, chest discomfort, palpitations, shortness of breath, changes in urinary or bowel habits. Review of Systems 2 Constitutional: Constitutional: Reports fatigue Cardiovascular: Cardiovascular: Reports no additional cardiovascular complaints Respiratory: Respiratory: Reports no additional respiratory complaints Gastrointestinal: Gastrointestinal: Reports abdominal pain and Reports nausea Genitourinary: Genitourinary: Reports no additional female genitourinary complaints Endocrine: Endocrine: Reports fatigue [facility] Medical History Diabetic nephropathy Chronic cough Chronic prescription opiate use Thoracic back pain Menopause Vasomotor symptoms due to menopause Elevated C-reactive protein (CRP) Proteinuria Type 2 diabetes mellitus with other diabetic kidney complication Sleep apnea PCOS (polycystic ovarian syndrome) Asthma Type 2 diabetes mellitus with hyperglycemia, with long-term current use of insulin Hyperlipidemia LDL goal <100 Obesity due to excess calories BMI 37.0-37.9, adult 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, uncontrolled intermediate card tender (current) use of opiate analgesic Chronic pain syndrome Postlaminectomy syndrome, lumbar Family History Father Diabetes Hypertension Mother Asthma Surgical History Hx of colonoscopy History of esophagogastroduodenoscopy (EGD) Hx of spinal surgery History of removal of cyst History of carpal tunnel release History of lumbar surgery Social History Household Members: Family and Children Housing: Apartment Are you a primary home care provider to a significant other at home: No Do you presently have visiting nurse or other home services: No Alcohol intake: current Alcohol intake frequency: holidays/special occasions only Patient Tobacco Use Status: Current everyday Tobacco user Tobacco use type: Cigarette Cigarettes Per Day: 4 Years Smoked: 30 e-Cigarette/Vaping Use: Never Used Advance Directives: No Advance Directives Information Provided: No service: No Current occupational status: disabled Current occupational exposures/hazards: No Cognitive needs: No Hearing needs: No Vision needs: Yes Meds Allergies Allergy/AdvReac Type Severity Reaction Status Date / Time Seasonal Allergies Allergy Intermediate Cough Verified 06/03/24 10:20 amoxicillin [From Augmentin] AdvReac Severe n/v/d Verified 06/03/24 10:20 clavulanic acid AdvReac Severe n/v/d Verified 06/03/24 10:20 [From Augmentin] NSAIDS (Non-Steroidal AdvReac Intermediate BLEEDING Verified 06/03/24 10:20 Anti-Inflamma [NSAIDS (NON-STEROIDAL ANTI-INFLAMMA] Active Medications: Current Medications Acetaminophen (Acetaminophen 325 Mg Tablet) 650 mg PO Q6H PRN PRN Reason: Pain, Mild (Pain Scale 1-3), fever or headache Calcium Carbonate (Calcium Carbonate 750 Mg Tab.Chew) 750 mg PO Q4H PRN PRN Reason: Heartburn Magnesium Hydroxide (Milk Of Magnesia 30 Ml Oral.Susp) 30 ml PO DAILY PRN PRN Reason: Constipation Melatonin (Melatonin 3 Mg Tablet) 6 mg PO BEDTIME PRN PRN Reason: Insomnia Sodium Chloride (0.9 % Sodium Chloride Flush 3 Ml Syringe) 3 ml IVFLUSH [facility] Medications ?Medication ?Instructions ?Recorded ?Confirmed ?Last Taken ?Type albuterol sulfate 2.5 mg/3 mL 2.5 mg inhalation Q6H PRN 03/24/22 06/03/24 2 Days Ago History (0.083 %) solution for nebulization SOB/Wheezing ~06/01/24 solriamfetol 150 mg tablet (Sunosi) 150 mg PO DAILY PRN Sleepiness 10/06/23 06/03/24 2 Days Ago History ~06/01/24 cetirizine 10 mg tablet 10 mg PO DAILY for allergies 02/05/24 06/03/24 2 Days Ago History ~06/01/24 magnesium oxide 500 mg capsule 500 mg PO BEDTIME 02/05/24 06/03/24 2 Days Ago History ~06/01/24 atorvastatin 40 mg tablet 40 mg PO BEDTIME 06/03/24 06/03/24 2 Days Ago History ~06/01/24 fluticasone propionate 50 1 spray intranasal BID PRN 06/03/24 06/03/24 2 Days Ago History mcg/actuation nasal Congestion ~06/01/24 spray,suspension insulin aspart U-100 100 unit/mL 15 - 25 unit subcut TID 06/03/24 06/03/24 2 Days Ago History (3 mL) subcutaneous pen ~06/01/24 lisinopril 5 mg tablet 5 mg PO BID 06/03/24 06/03/24 2 Days Ago History ~06/01/24 omeprazole 20 mg capsule,delayed 20 mg PO BID 06/03/24 06/03/24 2 Days Ago History release ~06/01/24 Physical Exam 2 Vital Signs and Narrative: Vital Signs: Last Vital Signs Temp 98.2 F 06/03/24 18:00 Pulse 99 06/03/24 18:00 Resp 18 06/03/24 18:00 BP 163/72 H 06/03/24 18:00 Pulse Ox 92 06/03/24 18:00 O2 Del Method Room Air 06/03/24 18:00 BMI result Body Mass Index 36.1 Middle-aged female lying in bed in no distress Neck supple, no JVD Regular rate and rhythm, S1-S2 heard Regular breath sounds bilaterally, no wheezing or crackles appreciated Abdomen with epigastric tenderness, no rigidity, no rebound tenderness Patient is awake, alert and oriented to self, place, time and person ; no focal motor deficit Psych: Normal mood No pedal edema Results Labs 06/03/24 11:13 06/03/24 11:13 Labs: Laboratory Results - last 24 hr 06/03/24 06/03/24 11:13 16:22 MCV 84.6 MCH 27.8 MCHC 32.8 RDW 14.2 Plt Count 271 MPV 10.3 Immature Gran % (Auto) 0.5 H Neut % (Auto) 72.2 Lymph % (Auto) 19.1 L [place] % (Auto) 5.3 Eos % (Auto) 2.3 Baso % (Auto) 0.6 Lymph # (Auto) 2.4 [place] # (Auto) 0.7 Eos # (Auto) 0.3 Baso # (Auto) 0.1 Abs Immat Gran (auto) 0.06 H Absolute Neuts (auto) 8.9 H Absolute Nucleated RBC 0.000 Nucleated RBC % (auto) 0.0 Anion Gap 16 Estim Creat Clear Calc 84.6 Estimated GFR > 60 POC Glucose 442 H* Random Glucose 359 H* Calcium 9.6 Total Bilirubin 0.8 Direct Bilirubin 0.3 AST 39 H ALT 27 Alkaline Phosphatase 96 Total Protein 7.6 Albumin 3.9 Lipase 36 Assessment and Plan (1) Abdominal pain: Status: Acute Plan This is a 53-year-old female with pertinent history of IBS-C, 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 #. Acute pancreatitis. Imaging with pancreatic infiltrative changes. Although lipase normal, patient does meet 2/3 criteria for pancreatitis. No gallstones or significant alcohol use. Other differential is duodenitis but thickening around duodenum likely due to pancreatitis. Consulting Gastroenterology, appreciate assistance. Initiated IV ppi. IV Dilaudid p.r.n. for analgesia. Continue IV crystalloid resuscitation. Will keep patient NPO for bowel rest #. Insulin-dependent diabetes mellitus with hyperglycemia, neuropathy and nephropathy: Initiating basal plus insulin regimen. On gabapentin and lisinopril for neuropathy and proteinuria respectively #. AURA: On CPAP at bedtime #. Asthma: No exacerbation during admission. Continue home inhaler #. Reactive leukocytosis #. Mixed hyperlipidemia: On statin Med rec pending DVT prophylaxis: Lovenox Full code Admit as inpatient and will require two night minimum hospital stay for IV analgesia, IV crystalloid resuscitation, IV ppi (as above), which is not possible in a lesser acute setting. Specialist consult pending Quality Stroke Does the patient have a stroke diagnosis?: No VTE Prior VTE?: No VTE Risk Level:: Medical - moderate - high VTE Device Contraindication: Treatment Not Indicated VTE Drug Contraindication: N/A - Med Ordered
[2024-06-03 19:44] LABS: Glucose, Whole Blood 341 mg/dL (60-115)
[2024-06-03 19:53] LABS: Appearance Urine Clear; Color Urine Yellow; Glucose Urine UA >=1000 mg/dL (Negative); Leukocyte Esterase Urine Negative (Negative); Nitrite Urine Negative (Negative); PH 5.5 (5.0-9.0); Specific Gravity - Urine >= 1.030 (1.005-1.025); UMIC TRIGGER UACC YES; Urine Blood Small (1+) (Negative); Urine Ketones Trace mg/dL (Negative); Urine Protein 300 (3+) mg/dL (Neg-Trace)
[2024-06-03 19:54] LABS: UPreg QC Valid YES; Urine Pregnancy NEGATIVE (NEGATIVE)
[2024-06-03 20:02] LABS: Triglycerides 194 mg/dL (<150)
[2024-06-03 20:13] LABS: Troponin-I High Sensitivity < 2.7 ng/L (<3.5-17.0)
[2024-06-03 20:16] VITALS: RESP 18
[2024-06-03] MEDS: HYDROmorphone HCl 1 MG/ML SYRINGE IVPUSH (20:16)
[2024-06-03] MEDS: Insulin Glargine,Hum.rec.anlog 100 UNIT/ML 10 ML VIAL 10 UNIT SUBCUT (20:16)
[2024-06-03 20:17] LABS: Bacteria Urine None Seen (None Seen); Hyaline Casts Urine 0-2 /LPF (0-2); RBC Urine 0-2 /HPF (0-2); Squamous Epithelial Cell Urine 0-2 /HPF (0-2); WBC Urine 0-5 /HPF (0-5)
[2024-06-03] MEDS: 0.9 % Sodium Chloride 1,000 ML 999 ML IV (20:17)
--- NOTE | 2024-06-03 21:07 | PHA.MEDREC ---
Addendum entered by Anmol Sanchez RP 06/03/24 21:17: med rec checked by [facility] Original Note: Pharmacy Consult ? Medication Reconciliation Pharmacy has completed the medication reconciliation. Confirmed mediations with patient. Patient has not been compliant with her medications this past weekend stating she has not taken anything in about 2-3 days. She confirmed her Novolog 100mg/ml insulin injection and she states she does 15-25 units TID per her sliding scale. She also is on Tresiba 200un/ml and she does 40units Daily. She was taking Ozempic 0.25mg once a week but she states she ran out of refills about 2 weeks ago and has not gotten it since. She just started a Sucralfate 1g TID regimen but states she only did one dose of it last night 06/02.
[2024-06-03] MEDS: Lactated Ringers 1,000 ML 125 ML IVCONT (21:31)
[2024-06-03] MEDS: Enoxaparin Sodium 40 MG/0.4 ML SYRINGE SUBCUT (21:31)
[2024-06-04] VITALS (15 sets, daily range): BP systolic 124–156; BP diastolic 62–87; PULSE 63–82; RESP 16–20; TEMP 36–36.9; O2SAT 91–97; BMI 36.3
[2024-06-04] MEDS: HYDROmorphone HCl 1 MG/ML SYRINGE IVPUSH ×6 (01:16→22:36)
[2024-06-04] MEDS: 0.9 % Sodium Chloride Flush 3 ML SYRINGE IVFLUSH ×2 (01:17→20:43)
[2024-06-04 01:55] LABS: Glucose, Whole Blood 298 mg/dL (60-115)
[2024-06-04] MEDS: Insulin Lispro 100 UNIT/ML 3 ML VIAL SUBCUT ×4 (02:25→16:18)
[2024-06-04 05:12] LABS: MANUAL DIFF FLAG NO
[2024-06-04 05:17] LABS: Basophils Percent Auto 0.3 % (0-2); Eosinophils Absolute Auto 0.3 X10*3/uL (0.0-0.4); Hematocrit 35.9 % (37.0-47.0); Hemoglobin 11.5 g/dl (12.0-16.0); Imm Gran Abs Auto 0.04 X10*3/uL (0.00-0.03); Imm Gran Pct Auto 0.4 % (0.0-0.4); Lymphocytes Absolute Auto 3.2 X10*3/uL (1.2-4.9); Lymphocytes Percent Auto 30.7 % (20-40); Mean Corpuscular Hemoglobin 27.1 pg (27.0-33.0); Mean Corpuscular Volume 84.7 fL (80.0-98.0); Monocytes Absolute Auto 0.6 X10*3/uL (0.1-1.2); Monocytes Percent Auto 5.7 % (2-11); Neutrophils Absolute Auto 6.2 x10*3/uL (2.0-8.3); Neutrophils Percent Auto 59.9 % (45-73); Platelet Count 257 X10*3/uL (160-400); Red Blood Count 4.24 X10*6/uL (4.20-5.50); Red Cell Distribution Width 14.1 % (11.0-16.0); White Blood Count 10.4 X10*3/uL (4.8-10.8)
[2024-06-04 05:32] LABS: Anion Gap 14 (12-20); Blood Urea Nitrogen 9 mg/dL (9-16); Calcium 9.2 mg/dL (8.4-10.2); Carbon Dioxide 25 mmol/L (22-29); Chloride 104 mmol/L (96-108); Creatinine Clr Calc Pharmacy 99.8; Estimated Glomerular Filt Rate > 60; Glucose Random 223 mg/dL (60-115); Potassium 3.5 mmol/L (3.3-5.1); Sodium 139 mmol/L (135-145)
[2024-06-04] MEDS: Lactated Ringers 1,000 ML 125 ML IVCONT ×2 (05:37→16:17)
[2024-06-04 06:19] LABS: Glucose, Whole Blood 196 mg/dL (60-115)
[2024-06-04] MEDS: Pantoprazole Sodium 40 MG/10 ML VIAL IVPUSH ×2 (06:28→16:17)
--- NOTE | 2024-06-04 06:33 | PM.GICN ---
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 Patient presented to the ED twice in last 3-4 d with acute onset severe sharp epigastric pain 10/10 with radiation into the back worse with food and associated with nausea and poor appetite. Imaging on CT here and at [facility] with pancreatitis vs duodenitis, patient been taking PPI. She denies fever, chills, chest discomfort, palpitations, shortness of breath, changes in urinary or bowel habits. No melena or rectal bleeding. she did have gross hematuria a week ago or so and CT does show kidney stones today she is feeling improved with fluids and pain meds Last endoscopies: EGD/Colonoscopy:02/06 Endoscopy Findings: bile acid reflux gastritis Colonoscopy Findings: colon polyp internal hemorrhoids Review of Systems Review of Systems: Constitutional : No Weight loss, No Fever, No Chills ENT/Mouth : No sore throat, No Rhinorrhea Eyes: No Swelling, No Redness Cardiovascular : No Chest Pain, No SOB, No Edema Respiratory : No Cough, No Sputum, No Wheezing Gastrointestinal : see HPI Genitourinary : NO Dysuria, No Urinary Frequency, + Hematuria, No Urgency Musculoskeletal : + joint pain, No Myalgias, No Joint Swelling Skin : No Skin Lesions, No rash Neuro : No Weakness, No Numbness, No Dizziness, No Headache Psych : No Anxiety/Panic, No Depression Heme/Lymph: No Bruising, No Lymphadenopathy Endocrine : No Polyuria, No Polydipsia All other systems reviewed and are negative. 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 Chronic pain syndrome Postlaminectomy syndrome, lumbar Family History Family History Father Diabetes Hypertension Mother Asthma Surgical History Surgical History Hx of colonoscopy History of esophagogastroduodenoscopy (EGD) Hx of spinal surgery History of removal of cyst History of carpal tunnel release History of lumbar surgery Social History Social History Household Members: Family Housing: Apartment Are you a primary lawn care specialist to a significant other at home: No 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) Alcohol intake: current Alcohol intake frequency: holidays/special occasions only Patient Tobacco Use Status: Current everyday Tobacco user Tobacco use type: Cigarette Cigarette Packs Per Day: 1 Cigarettes Per Day: 20.0 Years Smoked: 30 e-Cigarette/Vaping Use: Never Used Second Hand Smoke Exposure: Yes service: No Current occupational status: disabled Current occupational exposures/hazards: No Cognitive needs: No Hearing needs: No Vision needs: Yes Meds Allergies Allergy/AdvReac Type Severity Reaction Status Date / Time Seasonal Allergies Allergy Intermediate Cough Verified 06/03/24 10:20 amoxicillin [From Augmentin] AdvReac Severe n/v/d Verified 06/03/24 10:20 clavulanic acid AdvReac Severe n/v/d Verified 06/03/24 10:20 [From Augmentin] NSAIDS (Non-Steroidal AdvReac Intermediate BLEEDING Verified 06/03/24 10:20 Anti-Inflamma [NSAIDS (NON-STEROIDAL ANTI-INFLAMMA] Active Medications: Current Medications Acetaminophen (Acetaminophen 325 Mg Tablet) 650 mg PO Q6H PRN PRN Reason: Pain, Mild (Pain Scale 1-3), fever or headache Calcium Carbonate (Calcium Carbonate 750 Mg Tab.Chew) 750 mg PO Q4H PRN PRN Reason: Heartburn Enoxaparin Sodium (Enoxaparin Sodium 40 Mg/0.4 Ml Syringe) 40 mg SUBCUT Q24H CALI Last Admin: 06/03/24 21:31 Dose: 40 mg Glucose (Glucose Gel 15 Gm Gel..Gram.) 15 gm PO Q15M PRN; Protocol PRN Reason: per Hypoglycemia Standing Ord. Hydromorphone HCl (Hydromorphone Hcl 1 Mg/Ml Syringe) 1 mg IVPUSH Q4H PRN; Protocol PRN Reason: Pain, Severe (Pain Scale 7-10) Last Admin: 06/04/24 05:21 Dose: 1 mg Dextrose (D10) 250 mls @ 750 mls/hr IV Q15M PRN; Protocol PRN Reason: per Hypoglycemia Standing Ord. Lactated Ringer's (Lr) 1,000 mls @ 125 mls/hr IVCONT .Q8H [facility] Last Admin: 06/04/24 05:37 Dose: 125 mls/hr Insulin Human Lispro (Insulin Lispro 100 Unit/Ml 3 Ml Vial) 0 unit SUBCUT Q6H [facility]; Protocol Last Admin: 06/04/24 06:28 Dose: 4 unit Magnesium Hydroxide (Milk Of Magnesia 30 Ml Oral.Susp) 30 ml PO DAILY PRN PRN Reason: Constipation Melatonin (Melatonin 3 Mg Tablet) 6 mg PO BEDTIME PRN PRN Reason: Insomnia Ondansetron HCl (Ondansetron Hcl 4 Mg/2 Ml Vial) 4 mg IVPUSH Q8H PRN PRN Reason: Nausea and Vomiting Pantoprazole Sodium (Pantoprazole Sodium 40 Mg/10 Ml Vial) 40 mg IVPUSH BID@0630,1630 [facility] Last Admin: 06/04/24 06:28 Dose: 40 mg Sodium Chloride (0.9 % Sodium Chloride Flush 3 Ml Syringe) 3 [facility] Last Admin: 06/04/24 01:17 Dose: 3 ml Home Medications ?Medication ?Instructions ?Recorded ?Confirmed ?Last Taken ?Type albuterol sulfate 2.5 mg/3 mL 2.5 mg inhalation Q6H PRN 03/24/22 06/03/24 2 Days Ago History (0.083 %) solution for nebulization SOB/Wheezing ~06/01/24 solriamfetol 150 mg tablet (Sunosi) 150 mg PO DAILY PRN Sleepiness 10/06/23 06/03/24 2 Days Ago History ~06/01/24 cetirizine 10 mg tablet 10 mg PO DAILY for allergies 02/05/24 06/03/24 2 Days Ago History ~06/01/24 magnesium oxide 500 mg capsule 500 mg PO BEDTIME 02/05/24 06/03/24 2 Days Ago History ~06/01/24 atorvastatin 40 mg tablet 40 mg PO BEDTIME 06/03/24 06/03/24 2 Days Ago History ~06/01/24 fluticasone propionate 50 1 spray intranasal BID PRN 06/03/24 06/03/24 2 Days Ago History mcg/actuation nasal Congestion ~06/01/24 spray,suspension insulin aspart U-100 100 unit/mL 15 - 25 unit subcut TID 06/03/24 06/03/24 2 Days Ago History (3 mL) subcutaneous pen ~06/01/24 lisinopril 5 mg tablet 5 mg PO BID 06/03/24 06/03/24 2 Days Ago History ~06/01/24 omeprazole 20 mg capsule,delayed 20 mg PO BID 06/03/24 06/03/24 2 Days Ago History release ~06/01/24 Physical Exam Vital Signs: Vital Signs: Last Vital Signs Temp 98.4 F 06/04/24 05:40 Pulse 63 06/04/24 05:40 Resp 16 06/04/24 05:40 BP 148/73 H 06/04/24 05:40 Pulse Ox 96 06/04/24 05:40 O2 Del Method Room Air 06/04/24 05:40 BMI result Body Mass Index 36.1 EXAM: GENERAL: The patient is well developed and nontoxic. VITAL SIGNS:see workflow HEENT: Nonicteric sclerae, PERRLA, EOMI. Oropharynx clear. Moist mucous membranes. Conjunctivae appear well perfused. No thyroid mass. CHEST: Chest wall is nontender. HEART: Regular rate and rhythm without murmurs. LUNGS: Clear to auscultation bilaterally. ABDOMEN: Soft, neg bowel sounds, tender epigastrium, no organomegaly.no flank tenderness SKIN: No rash, no excessive bruising, petechiae, or purpura. NEUROLOGIC: Cranial nerves II-XII intact without motor/sensory deficit. Psych: normal affect Results Labs 06/04/24 04:56 06/04/24 04:56 Labs: Short CBC 06/03/24 06/04/24 Range/Units 11:13 04:56 WBC 12.4 H 10.4 (4.8-10.8) X10*3/uL Hgb 13.3 11.5 L (12.0-16.0) g/dl Hct 40.5 35.9 L (37.0-47.0) % Plt Count 271 257 (160-400) X10*3/uL BMP 06/03/24 06/04/24 11:13 04:56 Sodium 134 L 139 Potassium 4.3 D 3.5 Chloride 101 104 Carbon Dioxide 21 L 25 BUN 10 9 Creatinine 0.85 0.72 Calcium 9.6 9.2 Liver Function 06/03/24 Range/Units 11:13 Total Bilirubin 0.8 (0.0-1.0) mg/dL Direct Bilirubin 0.3 (0.0-0.5) mg/dL AST 39 H (5-31) U/L ALT 27 (0-31) U/L Alkaline Phosphatase 96 (39-117) U/L Albumin 3.9 (3.5-5.0) g/dL Urine 06/03/24 Range/Units 19:12 Urine Color Yellow Urine Appearance Clear Urine pH 5.5 (5.0-9.0) Ur Specific Marshall >= 1.030 H (1.005-1.025) Urine Protein 300 (3+) H (Neg-Trace) mg/dL Urine Glucose (UA) >=1000 H (Negative) mg/dL Imaging CT scan - abdomen: My impression: some stranding around pancreatic head and duodenum, also around left kidney, degen spinal disease Assessment and Plan (1) Abdominal pain: Qualifiers: Abdominal location: epigastric Qualified Code(s): R10.13 - Epigastric pain Status: Acute Plan 1/ Acute abdominal pain, with possible pancreatitis vs duodenitis, with nml lipase, and unremarkable LFT. Might have an ileus as well on clinical exam PLAN: /1 --cont with PPI 2/ EGD today for further assessment 3/ optimize lytes, try to limit opiates 4/ if EGD neg then MRI with and without contrast to check pancreas Procedures Date of Service Date of Service: 06/04/24
[2024-06-04 08:01] LABS: Glucose, Whole Blood 235 mg/dL (60-115)
--- NOTE | 2024-06-04 09:51 | MHC.CM.PN ---
IMM delivered. Patient lives in an apartment alone. 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 PCP Bhumika Lucas [facility] No HCP. CM provided education and offered assistance. Patient declined. DP: Goal is home, resume LIBRARY ATTENDANT services, transport TBD. CM will continue to follow.
--- NOTE | 2024-06-04 10:06 | PC.NURSE ---
michael forearm 20g iv. asymptomatic. flushes patently..
[2024-06-04] MEDS: Lactated Ringers 1,000 ML 50 ML IVCONT (10:10)
--- NOTE | 2024-06-04 10:15 | MHC.SHP ---
Pre-Procedural Eval Section A - 24 Hr Update-Section A only Date of Service: 06/04/24 The patient is an INPATIENT: Yes The patient has been examined within 24 hours of the surgical procedure. The History & Physical has been completed within 30 days and I have reviewed it.: Yes Section B - Complete if H&P > 30 days Chief Complaint: Abdominal pain Allergies: Allergies Allergy/AdvReac Type Severity Reaction Status Date / Time Seasonal Allergies Allergy Intermediate Cough Verified 06/03/24 10:20 amoxicillin [From Augmentin] AdvReac Severe n/v/d Verified 06/03/24 10:20 clavulanic acid AdvReac Severe n/v/d Verified 06/03/24 10:20 [From Augmentin] NSAIDS (Non-Steroidal AdvReac Intermediate BLEEDING Verified 06/03/24 10:20 Anti-Inflamma [NSAIDS (NON-STEROIDAL ANTI-INFLAMMA] Plan Diagnosis/Plan: Unchanged I have reviewed the history and physical and performed a pertinent physical examination on my patient. No changes have occurred unless specified. Time Spent With Patient Time: Total time managing care of this patient today ____ minutes.
--- NOTE | 2024-06-04 10:15 | W.PM.OPN ---
Operative Note Operative Note Date of Service: 06/04/24 Narrative: Procedure Description: EGD Indication: abdominal pain Anesthesia: MAC FLEXIBLE TRANSORAL UPPER GASTROINTESTINAL ENDOSCOPY UPPER ENDOSCOPY Consent: Indications for the procedure and potential complications of bleeding, perforation, reaction to medications and missed diagnosis were discussed with the patient and informed consent was obtained. Instrument: Olympus GIF H 190 J mid size upper endoscope Monitoring: Vital signs and clinical assessment, continuous EKG monitoring, Pulse oximetry, Carbon Dioxide monitoring and blood pressure monitoring were done throughout the procedure. Procedure: The patient was placed in the left lateral decubitis position and pre-procedure medications were administered and a bite block was placed. The endoscope was inserted into the mouth and advanced under direct vision to the third part of duodenum. A careful inspection was made as the upper endoscope was withdrawn including a retroflexed examination of the proximal stomach; Findings and interventions are described below. Findings: Larynx:normal Esophagus: GE junction at 40 cm, diaphragm hiatus at 40 cm, normal mucosa Stomach: Patchy erythema noted in stomach. Biopsies were obtained. Grade 2 flap valve on retroflexed examination of the cardia. Duodenum: Normal bulb and descending duodenum, bx taken Intervention: Biopsies as noted above, Impression/Findings: gastritis PLAN: cont with PPI MRI pancreas protocol for further Ix of pain
--- NOTE | 2024-06-04 10:16 | P.CONAN_ITS ---
HPI - Anesthesia Eval Consult details Narrative: 53 yo F presenting for EGD. Admitted for abdominal pain. Anesthesia Pre-Procedure Meds Is the patient on any of the following meds?: GLP1/DPP4 If yes to any meds - educate patient: Pt education - increased risk of aspiration and/or euvolemic DKA PMFSH Active Problems Active Problems: All Active Problems Abdominal pain (Acute) Abdominal pain (Acute) Duodenitis (Acute) Myofascial muscle pain (Acute) Right hip pain (Acute) Osteoarthritis of right hip (Acute) Gastritis, bile acid reflux (Acute) Diabetic nephropathy (Acute) Obesity (BMI 30-39.9) (Acute) Peripheral sensory neuropathy due to type 2 diabetes mellitus (Acute) Hyperlipidemia due to type 2 diabetes mellitus (Acute) Morbid obesity (Acute) FHx: rheumatoid arthritis (Acute) Generalized arthritis (Acute) Constipation due to pain medication (Acute) Cigarette smoker motivated to quit (Acute) Seasonal allergies (Acute) Bursitis of both hips (Acute) Menopause (Acute) Asthma (Acute) Proteinuria (Acute) Type 2 diabetes mellitus with other diabetic kidney complication (Acute) Type 2 diabetes mellitus with hyperglycemia, with long-term current use of insulin (Acute) Hyperlipidemia LDL goal <100 (Acute) 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 (Acute) Chronic pain syndrome (Acute) Postlaminectomy syndrome, lumbar (Acute) Past Medical History Medical History Diabetic nephropathy Chronic cough Chronic prescription opiate use Thoracic back pain Menopause Vasomotor symptoms due to menopause Elevated C-reactive protein (CRP) Proteinuria Type 2 diabetes mellitus with other diabetic kidney complication Sleep apnea PCOS (polycystic ovarian syndrome) Asthma Type 2 diabetes mellitus with hyperglycemia, with long-term current use of insulin Hyperlipidemia LDL goal <100 Obesity due to excess calories BMI 37.0-37.9, adult 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, uncontrolled 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 Chronic pain syndrome Postlaminectomy syndrome, lumbar Family History Family History Father Diabetes Hypertension Mother Asthma Family history of problems with anesthesia: No Surgical History Surgical History Hx of colonoscopy History of esophagogastroduodenoscopy (EGD) Hx of spinal surgery History of removal of cyst History of carpal tunnel release History of lumbar surgery History of Problems with Anesthesia: No Social History Social History Household Members: Family Housing: Apartment Are you a primary infant caregiver to a significant other at home: No Do you presently have visiting nurse or 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) Alcohol intake: current Alcohol intake frequency: holidays/special occasions only Patient Tobacco Use Status: Current everyday Tobacco user Tobacco use type: Cigarette Cigarette Packs Per Day: 1 Cigarettes Per Day: 20.0 Years Smoked: 30 e-Cigarette/Vaping Use: Never Used Second Hand Smoke Exposure: Yes service: No Current occupational status: disabled Current occupational exposures/hazards: No Cognitive needs: No Hearing needs: No Vision needs: Yes Meds Allergies Allergy/AdvReac Type Severity Reaction Status Date / Time Seasonal Allergies Allergy Intermediate Cough Verified 06/03/24 10:20 amoxicillin [From Augmentin] AdvReac Severe n/v/d Verified 06/03/24 10:20 clavulanic acid AdvReac Severe n/v/d Verified 06/03/24 10:20 [From Augmentin] NSAIDS (Non-Steroidal AdvReac Intermediate BLEEDING Verified 06/03/24 10:20 Anti-Inflamma [NSAIDS (NON-STEROIDAL ANTI-INFLAMMA] Active Medications: Current Medications Acetaminophen (Acetaminophen 325 Mg Tablet) 650 mg PO Q6H PRN PRN Reason: Pain, Mild (Pain Scale 1-3), fever or headache Calcium Carbonate (Calcium Carbonate 750 Mg Tab.Chew) 750 mg PO Q4H PRN PRN Reason: Heartburn Enoxaparin Sodium (Enoxaparin Sodium 40 Mg/0.4 Ml Syringe) 40 mg SUBCUT Q24H [facility] Last Admin: 06/03/24 21:31 Dose: 40 mg Glucose (Glucose Gel 15 Gm Gel..Gram.) 15 gm PO Q15M PRN; Protocol PRN Reason: per Hypoglycemia Standing Ord. Hydromorphone HCl (Hydromorphone Hcl 1 Mg/Ml Syringe) 1 mg IVPUSH Q4H PRN; Protocol PRN Reason: Pain, Severe (Pain Scale 7-10) Last Admin: 06/04/24 09:22 Dose: 1 mg Dextrose (D10) 250 mls @ 750 mls/hr IV Q15M PRN; Protocol PRN Reason: per Hypoglycemia Standing Ord. Lactated Ringer's (Lr) 1,000 mls @ 125 mls/hr IVCONT .Q8H [facility] Last Admin: 06/04/24 05:37 Dose: 125 mls/hr Lactated Ringer's (Lr) 1,000 mls @ 50 mls/hr IVCONT .Q20H [facility] Last Admin: 06/04/24 10:10 Dose: 50 mls/hr Insulin Human Lispro (Insulin Lispro 100 Unit/Ml 3 Ml Vial) 0 unit SUBCUT Q6H [facility]; Protocol Last Admin: 06/04/24 06:28 Dose: 4 unit Magnesium Hydroxide (Milk Of Magnesia 30 Ml Oral.Susp) 30 ml PO DAILY PRN PRN Reason: Constipation Melatonin (Melatonin 3 Mg Tablet) 6 mg PO BEDTIME PRN PRN Reason: Insomnia Ondansetron HCl (Ondansetron Hcl 4 Mg/2 Ml Vial) 4 mg IVPUSH Q8H PRN PRN Reason: Nausea and Vomiting Pantoprazole Sodium (Pantoprazole Sodium 40 Mg/10 Ml Vial) 40 mg IVPUSH BID@0630,1630 [facility] Last Admin: 06/04/24 06:28 Dose: 40 mg Sodium Chloride (0.9 % Sodium Chloride Flush 3 Ml Syringe) 3 ml IVFLUSH QSHIFT [facility] Last Admin: 06/04/24 07:50 Dose: Not Given Home Medications ?Medication ?Instructions ?Recorded ?Confirmed ?Last Taken ?Type albuterol sulfate 2.5 mg/3 mL 2.5 mg inhalation Q6H PRN 03/24/22 06/03/24 2 Days Ago History (0.083 %) solution for nebulization SOB/Wheezing ~06/01/24 solriamfetol 150 mg tablet (Sunosi) 150 mg PO DAILY PRN Sleepiness 10/06/23 06/03/24 2 Days Ago History ~06/01/24 cetirizine 10 mg tablet 10 mg PO DAILY for allergies 02/05/24 06/03/24 2 Days Ago History ~06/01/24 magnesium oxide 500 mg capsule 500 mg PO BEDTIME 02/05/24 06/03/24 2 Days Ago History ~06/01/24 atorvastatin 40 mg tablet 40 mg PO BEDTIME 06/03/24 06/03/24 2 Days Ago History ~06/01/24 fluticasone propionate 50 1 spray intranasal BID PRN 06/03/24 06/03/24 2 Days Ago History mcg/actuation nasal Congestion ~06/01/24 spray,suspension insulin aspart U-100 100 unit/mL 15 - 25 unit subcut TID 06/03/24 06/03/24 2 Days Ago History (3 mL) subcutaneous pen ~06/01/24 lisinopril 5 mg tablet 5 mg PO BID 06/03/24 06/03/24 2 Days Ago History ~06/01/24 omeprazole 20 mg capsule,delayed 20 mg PO BID 06/03/24 06/03/24 2 Days Ago History release ~06/01/24 Exam Exam Date and Time: June 04, 2024 1015 Height,Weight and Vital Signs: Height 5 ft 3 in Weight 93 kg Last Vital Signs Temp 97.4 F 06/04/24 09:58 Pulse 68 06/04/24 09:58 Resp 16 06/04/24 09:58 BP 133/68 06/04/24 09:58 Pulse Ox 91 L 06/04/24 09:58 O2 Del Method Room Air 06/04/24 09:58 Pertinent Lab Results Pertinent Lab Results: Laboratory Tests 06/03/24 06/03/24 06/03/24 11:13 16:22 19:12 WBC 12.4 H RBC 4.79 Hgb 13.3 Hct 40.5 MCV 84.6 MCH 27.8 MCHC 32.8 RDW 14.2 Plt Count 271 MPV 10.3 Immature Gran % (Auto) 0.5 H Neut % (Auto) 72.2 Lymph % (Auto) 19.1 L [place] % (Auto) 5.3 Eos % (Auto) 2.3 Baso % (Auto) 0.6 Lymph # (Auto) 2.4 [place] # (Auto) 0.7 Eos # (Auto) 0.3 Baso # (Auto) 0.1 Abs Immat Gran (auto) 0.06 H Absolute Neuts (auto) 8.9 H Absolute Nucleated RBC 0.000 Nucleated RBC % (auto) 0.0 Sodium 134 L Potassium 4.3 D Chloride 101 Carbon Dioxide 21 L Anion Gap 16 BUN 10 Creatinine 0.85 Estim Creat Clear Calc 84.6 Estimated GFR > 60 POC Glucose 442 H* Random Glucose 359 H* Calcium 9.6 Total Bilirubin 0.8 Direct Bilirubin 0.3 AST 39 H ALT 27 Alkaline Phosphatase 96 Troponin I High Sens Total Protein 7.6 Albumin 3.9 Triglycerides 194 H Lipase 36 Urine Color Yellow Urine Appearance Clear Urine pH 5.5 Ur Specific [place] >= 1.030 H Urine Protein 300 (3+) H Urine Glucose (UA) >=1000 H Urine Ketones Trace Urine Blood Small (1+) H Urine Nitrite Negative Ur Leukocyte Esterase Negative Urine RBC 0-2 Urine WBC 0-5 Ur Squamous Epith Cells 0-2 Urine Bacteria None Seen Hyaline Casts 0-2 Urine Test NEGATIVE 06/03/24 06/03/24 06/04/24 19:14 19:38 01:49 WBC RBC Hgb Hct MCV MCH MCHC RDW Plt Count MPV Immature Gran % (Auto) Neut % (Auto) Lymph % (Auto) [place] % (Auto) Eos % (Auto) Baso % (Auto) Lymph # (Auto) [place] # (Auto) Eos # (Auto) Baso # (Auto) Abs Immat Gran (auto) Absolute Neuts (auto) Absolute Nucleated RBC Nucleated RBC % (auto) Sodium Potassium Chloride Carbon Dioxide Anion Gap BUN Creatinine Estim Creat Clear Calc Estimated GFR POC Glucose 341 H 298 H Random Glucose Calcium Total Bilirubin Direct Bilirubin AST ALT Alkaline Phosphatase Troponin I High Sens < 2.7 Total Protein Albumin Triglycerides Lipase Urine Color Urine Appearance Urine pH Ur Specific [place] Urine Protein Urine Glucose (UA) Urine Ketones Urine Blood Urine Nitrite Ur Leukocyte Esterase Urine RBC Urine WBC Ur Squamous Epith Cells Urine Bacteria Hyaline Casts Urine Test 06/04/24 06/04/24 06/04/24 04:56 06:12 07:55 WBC 10.4 RBC 4.24 Hgb 11.5 L Hct 35.9 L MCV 84.7 MCH 27.1 MCHC 32.0 RDW 14.1 Plt Count 257 MPV 10.0 Immature Gran % (Auto) 0.4 Neut % (Auto) 59.9 Lymph % (Auto) 30.7 [place] % (Auto) 5.7 Eos % (Auto) 3.0 Baso % (Auto) 0.3 Lymph # (Auto) 3.2 [place] # (Auto) 0.6 Eos # (Auto) 0.3 Baso # (Auto) 0.0 Abs Immat Gran (auto) 0.04 H Absolute Neuts (auto) 6.2 Absolute Nucleated RBC 0.000 Nucleated RBC % (auto) 0.0 Sodium 139 Potassium 3.5 Chloride 104 Carbon Dioxide 25 Anion Gap 14 BUN 9 Creatinine 0.72 Estim Creat Clear Calc 99.8 Estimated GFR > 60 POC Glucose 196 H 235 H Random Glucose 223 H Calcium 9.2 Total Bilirubin Direct Bilirubin AST ALT Alkaline Phosphatase Troponin I High Sens Total Protein Albumin Triglycerides Lipase Urine Color Urine Appearance Urine pH Ur Specific [place] Urine Protein Urine Glucose (UA) Urine Ketones Urine Blood Urine Nitrite Ur Leukocyte Esterase Urine RBC Urine WBC Ur Squamous Epith Cells Urine Bacteria Hyaline Casts Urine Test Airway Mallampati Class: II TM Dist: >3cm Neck ROM: Full Loose/Missing/Broken Teeth: Yes (broken molar left upper jaw) Heart: S1S2 Lungs: CTAB Assessment and Plan Assessment Anesthesia Assessment: Anesthesia Plan Discussed and Chart Reviewed Final Anesthetic Review Family History of Problems with Anesthesia: No History of Problems with Anesthesia: No NPO: Yes ASA Class: III Final Preanesthetic Review: No Changes in Pt Med Stat, Meds/Allgs Chart Reviewed, Consent Obtained/Reviewed and Anes Risks/Benef Reviewed Patient Risk: Intermediate Procedure Risk: Low Anesthetic Plan Anesthetic Plan: MAC: and Agree w/ Assess. and Plan Disposition: Standard PACU
[2024-06-04 12:15] LABS: Glucose, Whole Blood 231 mg/dL (60-115)
[2024-06-04] MEDS: Nicotine 21 MG PATCH.TD24 TRANSDERMA (12:26)
--- NOTE | 2024-06-04 15:37 | P.PNIM_ITS ---
Subjective Subjective Date of Service: 06/04/24 Interval History: Abd pain Review of Systems abd pain somewhat improving no nausea /vomiting Physical Exam 2 Vital Signs: Vital Signs: Last Vital Signs Temp 97 F 06/04/24 15:31 Pulse 75 06/04/24 15:31 Resp 20 06/04/24 15:31 BP 137/66 06/04/24 15:31 Pulse Ox 96 06/04/24 15:31 O2 Del Method Room Air 06/04/24 15:31 BMI result Body Mass Index 36.3 Appearance: Alert.? Oriented X3.? cvs: rrr, [id number] , no murmur res: clear to auscultation ,no rhonchii or wheezing abd: no rebound or guarding ,epigatric discomfort, bs present. ext pulses present , no cyanosis . neuro: axo3 , nonfocal. Objective Data Active Medications Acetaminophen (Acetaminophen 325 Mg Tablet) 650 mg PO Q6H PRN PRN Reason: Pain, Mild (Pain Scale 1-3), fever or headache Albuterol Sulfate (Albuterol Sulfate (0.083%) 2.5 Mg/3 Ml Vial.Neb) 2.5 mg INHALE Q6H PRN PRN Reason: SOB/Wheezing Albuterol Sulfate (Albuterol Sulfate 90 Mcg 8 Gm Inhaler) 2 puff INHALE Q6H PRN PRN Reason: shortness of breath or wheezing Atorvastatin Calcium (Atorvastatin Calcium 40 Mg Tablet) 40 mg PO BEDTIME [facility] Calcium Carbonate (Calcium Carbonate 750 Mg Tab.Chew) 750 mg PO Q4H PRN PRN Reason: Heartburn Cyclobenzaprine HCl (Cyclobenzaprine Hcl 5 Mg Tablet) 5 mg PO TID PRN PRN Reason: muscle spasm Diphenhydramine HCl (Diphenhydramine Hcl 25 Mg Capsule) 25 mg PO BEDTIME PRN PRN Reason: for allergies Enoxaparin Sodium (Enoxaparin Sodium 40 Mg/0.4 Ml Syringe) 40 mg SUBCUT Q24H [facility] Last Admin: 06/03/24 21:31 Dose: 40 mg Documented By: EB Fluticasone Propionate (Fluticasone Propionate Nasal 16 Gm [place]) 1 spray NOSTRIL-B BID PRN PRN Reason: Congestion Gabapentin (Gabapentin 600 Mg Tablet) 600 mg PO TID PRN PRN Reason: for pain Glucose (Glucose Gel 15 Gm Gel..Gram.) 15 gm PO Q15M PRN; Protocol PRN Reason: per Hypoglycemia Standing Ord. Hydromorphone HCl (Hydromorphone Hcl 1 Mg/Ml Syringe) 1 mg IVPUSH Q4H PRN; Protocol PRN Reason: Pain, Severe (Pain Scale 7-10) Last Admin: 06/04/24 13:54 Dose: 1 mg Documented By: COTEMA Dextrose (D10) 250 mls @ 750 mls/hr IV Q15M PRN; Protocol PRN Reason: per Hypoglycemia Standing Ord. Lactated Ringer's (Lr) 1,000 mls @ 125 mls/hr IVCONT .Q8H [facility] Last Infusion: 06/04/24 12:26 Dose: 125 mls/hr Documented By: COTEMA Insulin Glargine (Insulin Glargine,Hum.Rec.Anlog 100 Unit/Ml 10 Ml Vial) 20 unit SUBCUT DAILY [facility] Insulin Human Lispro (Insulin Lispro 100 Unit/Ml 3 Ml Vial) 0 unit SUBCUT Q6H [facility]; Protocol Last Admin: 06/04/24 12:26 Dose: 4 unit Documented By: COTEMA Lisinopril (Lisinopril 5 Mg Tablet) 5 mg PO BID [facility]; Protocol Loratadine (Loratadine 10 Mg Tablet) 10 mg PO DAILY [facility] Magnesium Hydroxide (Milk Of Magnesia 30 Ml Oral.Susp) 30 ml PO DAILY PRN PRN Reason: Constipation Magnesium Oxide (Magnesium Oxide 400 Mg Tablet) 400 mg PO BEDTIME [facility] Melatonin (Melatonin 3 Mg Tablet) 6 mg PO BEDTIME PRN PRN Reason: Insomnia Montelukast Sodium (Montelukast Sodium 10 Mg Tablet) 10 mg PO BEDTIME [facility] Nicotine (Nicotine 21 Mg Patch.Td24) 21 mg TRANSDERMA DAILY [facility] Last Admin: 06/04/24 12:26 Dose: 21 mg Documented By: COTEMA Non-Formulary Medication (Linaclotide) 145 mcg PO DAILY [facility] Non-Formulary Medication (Semaglutide [Ozempic]) 0.25 mg SUBCUT Q7D [facility] Non-Formulary Medication (Sitagliptin Phos-Metformin [Janumet Xr]) 1 tab PO BID [facility] Non-Formulary Medication (Solriamfetol [Sunosi]) 150 mg PO DAILY PRN PRN Reason: Sleepiness Non-Formulary Medication (Ursodiol) 500 mg PO BID [facility] Omeprazole (Omeprazole 20 Mg Capsule.Dr) 20 mg PO BID@0630,1630 [facility] Ondansetron HCl (Ondansetron Hcl 4 Mg/2 Ml Vial) 4 mg IVPUSH Q8H PRN PRN Reason: Nausea and Vomiting Pantoprazole Sodium (Pantoprazole Sodium 40 Mg/10 Ml Vial) 40 mg IVPUSH BID@0630,1630 [facility] Last Admin: 06/04/24 06:28 Dose: 40 mg Documented By: EB Sodium Chloride (0.9 % Sodium Chloride Flush 3 Ml Syringe) 3 ml IVFLUSH QSHIFT [facility] Last Admin: 06/04/24 14:55 Dose: Not Given Documented By: MAYI Non-Admin Reason: IV Running Sucralfate (Sucralfate 1 Gm Tablet) 1 gm PO TID [facility] Labs 06/04/24 04:56 06/04/24 04:56 Labs: Laboratory Results - last 24 hr 06/03/24 06/03/24 06/03/24 11:13 16:22 19:12 MCV MCH MCHC RDW Plt Count MPV Immature Gran % (Auto) Neut % (Auto) Lymph % (Auto) [place] % (Auto) Eos % (Auto) Baso % (Auto) Lymph # (Auto) [place] # (Auto) Eos # (Auto) Baso # (Auto) Abs Immat Gran (auto) Absolute Neuts (auto) Absolute Nucleated RBC Nucleated RBC % (auto) Anion Gap Estim Creat Clear Calc Estimated GFR POC Glucose 442 H* Random Glucose Calcium Troponin I High Sens Triglycerides 194 H Urine Color Yellow Urine Appearance Clear Urine pH 5.5 Ur Specific [place] >= 1.030 H Urine Protein 300 (3+) H Urine Glucose (UA) >=1000 H Urine Ketones Trace Urine Blood Small (1+) H Urine Nitrite Negative Ur Leukocyte Esterase Negative Urine RBC 0-2 Urine WBC 0-5 Ur Squamous Epith Cells 0-2 Urine Bacteria None Seen Hyaline Casts 0-2 Urine Test NEGATIVE 06/03/24 06/03/24 06/04/24 19:14 19:38 01:49 MCV MCH MCHC RDW Plt Count MPV Immature Gran % (Auto) Neut % (Auto) Lymph % (Auto) [place] % (Auto) Eos % (Auto) Baso % (Auto) Lymph # (Auto) [place] # (Auto) Eos # (Auto) Baso # (Auto) Abs Immat Gran (auto) Absolute Neuts (auto) Absolute Nucleated RBC Nucleated RBC % (auto) Anion Gap Estim Creat Clear Calc Estimated GFR POC Glucose 341 H 298 H Random Glucose Calcium Troponin I High Sens < 2.7 Triglycerides Urine Color Urine Appearance Urine pH Ur Specific [place] Urine Protein Urine Glucose (UA) Urine Ketones Urine Blood Urine Nitrite Ur Leukocyte Esterase Urine RBC Urine WBC Ur Squamous Epith Cells Urine Bacteria Hyaline Casts Urine Test 06/04/24 06/04/24 06/04/24 04:56 06:12 07:55 MCV 84.7 MCH 27.1 MCHC 32.0 RDW 14.1 Plt Count 257 MPV 10.0 Immature Gran % (Auto) 0.4 Neut % (Auto) 59.9 Lymph % (Auto) 30.7 [place] % (Auto) 5.7 Eos % (Auto) 3.0 Baso % (Auto) 0.3 Lymph # (Auto) 3.2 [place] # (Auto) 0.6 Eos # (Auto) 0.3 Baso # (Auto) 0.0 Abs Immat Gran (auto) 0.04 H Absolute Neuts (auto) 6.2 Absolute Nucleated RBC 0.000 Nucleated RBC % (auto) 0.0 Anion Gap 14 Estim Creat Clear Calc 99.8 Estimated GFR > 60 POC Glucose 196 H 235 H Random Glucose 223 H Calcium 9.2 Troponin I High Sens Triglycerides Urine Color Urine Appearance Urine pH Ur Specific [place] Urine Protein Urine Glucose (UA) Urine Ketones Urine Blood Urine Nitrite Ur Leukocyte Esterase Urine RBC Urine WBC Ur Squamous Epith Cells Urine Bacteria Hyaline Casts Urine Test 06/04/24 12:09 MCV MCH MCHC RDW Plt Count MPV Immature Gran % (Auto) Neut % (Auto) Lymph % (Auto) [place] % (Auto) Eos % (Auto) Baso % (Auto) Lymph # (Auto) [place] # (Auto) Eos # (Auto) Baso # (Auto) Abs Immat Gran (auto) Absolute Neuts (auto) Absolute Nucleated RBC Nucleated RBC % (auto) Anion Gap Estim Creat Clear Calc Estimated GFR POC Glucose 231 H Random Glucose Calcium Troponin I High Sens Triglycerides Urine Color Urine Appearance Urine pH Ur Specific [place] Urine Protein Urine Glucose (UA) Urine Ketones Urine Blood Urine Nitrite Ur Leukocyte Esterase Urine RBC Urine WBC Ur Squamous Epith Cells Urine Bacteria Hyaline Casts Urine Test Assessment and Plan (1) Abdominal pain: Status: Acute (2) Duodenitis: Status: Acute Assessment and Plan: 53-year-old female with pertinent history of IBS-C, 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 Acute pancreatitis. Imaging with pancreatic infiltrative changes. Although lipase normal, patient does meet 2/3 criteria for pancreatitis. No gallstones or significant alcohol use. Other differential is duodenitis but thickening around duodenum likely due to pancreatitis. Consulting Gastroenterology, appreciate assistance. Initiated IV ppi. IV Dilaudid p.r.n. for analgesia. Continue IV crystalloid resuscitation. patient NPO for bowel rest egd today-rec ?gastriic erythema ,pancreatic stranding-mr w/wo conrast pancreatic protocol. Insulin-dependent diabetes mellitus with hyperglycemia, neuropathy and nephropathy: Initiating basal plus insulin regimen. On gabapentin and lisinopril for neuropathy and proteinuria respectively AURA: On CPAP at bedtime Asthma: No exacerbation during admission. Continue home inhaler Reactive leukocytosis Mixed hyperlipidemia: On statin Med rec pending DVT prophylaxis: Lovenox Full code ongoing hospital stay for IV analgesia, IV crystalloid resuscitation, IV ppi (as above), which is not possible in a lesser acute setting. Specialist consult pending Quality Stroke Does the patient have a stroke diagnosis?: No VTE Prior VTE?: No VTE Risk Level:: Medical - moderate - high VTE Device Contraindication: Treatment Not Indicated VTE Drug Contraindication: N/A - Med Ordered
[2024-06-04 16:16] LABS: Glucose, Whole Blood 350 mg/dL (60-115)
[2024-06-04] MEDS: Sucralfate 1 GM TABLET PO ×2 (16:17→20:43)
[2024-06-04] MEDS: Omeprazole 20 MG CAPSULE.DR PO (16:17)
[2024-06-04] MEDS: Insulin Glargine,Hum.rec.anlog 100 UNIT/ML 10 ML VIAL 20 UNIT SUBCUT (16:18)
[2024-06-04 20:03] LABS: Glucose, Whole Blood 403 mg/dL (60-115)
[2024-06-04] MEDS: Atorvastatin Calcium 40 MG TABLET PO (20:42)
[2024-06-04] MEDS: lisinopriL 5 MG TABLET PO (20:42)
[2024-06-04] MEDS: Magnesium Oxide 400 MG TABLET PO (20:42)
[2024-06-04] MEDS: Montelukast Sodium 10 MG TABLET PO (20:43)
[2024-06-04] MEDS: gadobutroL 10 ML VIAL IVPUSH (20:49)
--- NOTE | 2024-06-04 21:08 | PC.RT ---
pt refuses CPAP, does not wear at home
[2024-06-05] VITALS (7 sets, daily range): BP systolic 136–168; BP diastolic 63–81; PULSE 65–71; RESP 16–18; TEMP 36.1–36.4; O2SAT 95–97
[2024-06-05] MEDS: Lactated Ringers 1,000 ML 125 ML IVCONT ×3 (00:54→16:44)
[2024-06-05] MEDS: HYDROmorphone HCl 1 MG/ML SYRINGE IVPUSH ×5 (02:46→21:02)
--- NOTE | 2024-06-05 05:55 | PC.NURSE ---
Pt AOx4, able to make needs known. She is asking for pain medication frequently. Pt was taken for MRI approx 1999 on 06/04. Pt stated her pain wasn't as intense but after the MRI stated it was an 8-9/10 as it was before she came into the hospital. Pt's 13 yr old daughter was bedside at beginning of shift. This RN asked pt when daughter was going home. Pt stated day shift RN told her the daughter could stay. This RN texted nursing supervisor process testing who confirmed daughter could not stay overnight d/t being a minor. Informed pt, pt stated her son would picking machine operator helper daughter when he was off work, son did picking machine operator helper her daughter. Pt is independent in room. Call boyer within reach.
[2024-06-05] MEDS: Pantoprazole Sodium 40 MG/10 ML VIAL IVPUSH ×2 (06:27→16:44)
[2024-06-05] MEDS: Omeprazole 20 MG CAPSULE.DR PO ×2 (06:27→16:44)
[2024-06-05 07:12] LABS: Glucose, Whole Blood 259 mg/dL (60-115)
[2024-06-05] MEDS: Insulin Glargine,Hum.rec.anlog 100 UNIT/ML 10 ML VIAL 20 UNIT SUBCUT (07:23)
[2024-06-05] MEDS: Insulin Lispro 100 UNIT/ML 3 ML VIAL SUBCUT ×4 (07:23→20:40)
[2024-06-05] MEDS: Nicotine 21 MG PATCH.TD24 TRANSDERMA (07:24)
[2024-06-05] MEDS: Sucralfate 1 GM TABLET PO ×3 (07:24→20:39)
[2024-06-05] MEDS: lisinopriL 5 MG TABLET PO ×2 (07:24→20:39)
[2024-06-05] MEDS: Loratadine 10 MG TABLET PO (07:24)
[2024-06-05 09:57] LABS: Adenovirus F 40/41 Not Detected (Not Detect.); Astrovirus Not Detected (Not Detect.); Campylobacter Not Detected (Not Detect.); Cryptosporidium Not Detected (Not Detect.); Cyclospora cayetanensis Not Detected (Not Detect.); E. coli EAEC Not Detected (Not Detect.); E. coli EPEC Not Detected (Not Detect.); E. coli ETEC Not Detected (Not Detect.); E. coli STEC Not Detected (Not Detect.); Entamoeba histolytica Not Detected (Not Detect.); Giardia lamblia Not Detected (Not Detect.); Norovirus GI/GII Not Detected (Not Detect.); Plesiomonas shigelloides Not Detected (Not Detect.); Rotavirus A Not Detected (Not Detect.); Salmonella Not Detected (Not Detect.); Sapovirus Not Detected (Not Detect.); Shigella sp./EIEC Not Detected (Not Detect.); Vibrio Not Detected (Not Detect.); Vibrio Cholerae Not Detected (Not Detect.); Yersinia enterocolitica Not Detected (Not Detect.)
[2024-06-05 11:22] LABS: Glucose, Whole Blood 283 mg/dL (60-115)
--- NOTE | 2024-06-05 12:13 | MHC.CM.PN ---
Per MD rounds patient not medically cleared for dc. CM will continue to follow.
--- NOTE | 2024-06-05 13:13 | HO.POSTANES ---
Post Anesthesia Evaluation Post Anesthesia Evaluation Date of Service: 06/05/24 Vital Signs: Vital Signs Temp Pulse Resp BP Pulse Ox O2 Del Method 06/05/24 12:03 18 06/05/24 08:17 Room Air 06/05/24 07:23 18 06/05/24 07:11 97.2 F 65 16 139/63 95 Room Air 06/05/24 02:53 97 F 71 18 168/76 H 97 Room Air Anesthesia: Monitored Mental Status: Awake Pain Control: Satisfactory Nausea/Vomiting: None Hydration: Adequate Anesthesia-Related Issues: No Anes. Related Issues
--- NOTE | 2024-06-05 16:06 | P.PNIM_ITS ---
Subjective Subjective Date of Service: 06/05/24 Interval History: Abd pain Review of Systems abd pain somewhat improving no nausea /vomiting Physical Exam 2 Vital Signs: Vital Signs: Last Vital Signs Temp 97.2 F 06/05/24 07:11 Pulse 65 06/05/24 07:11 Resp 18 06/05/24 12:03 BP 139/63 06/05/24 07:11 Pulse Ox 95 06/05/24 07:11 O2 Del Method Room Air 06/05/24 08:17 BMI result Body Mass Index 36.3 Appearance: Alert.? Oriented X3.? cvs: rrr, [id number] , no murmur res: clear to auscultation ,no rhonchii or wheezing abd: no rebound or guarding ,epigatric discomfort, bs present. ext pulses present , no cyanosis . neuro: axo3 , nonfocal. Objective Data Active Medications Acetaminophen (Acetaminophen 325 Mg Tablet) 650 mg PO Q6H PRN PRN Reason: Pain, Mild (Pain Scale 1-3), fever or headache Albuterol Sulfate (Albuterol Sulfate (0.083%) 2.5 Mg/3 Ml Vial.Neb) 2.5 mg INHALE Q6H PRN PRN Reason: SOB/Wheezing Albuterol Sulfate (Albuterol Sulfate 90 Mcg 8 Gm Inhaler) 2 puff INHALE Q6H PRN PRN Reason: shortness of breath or wheezing Atorvastatin Calcium (Atorvastatin Calcium 40 Mg Tablet) 40 mg PO BEDTIME [facility] Last Admin: 06/04/24 20:42 Dose: 40 mg Documented By: INDER Benzocaine (Throat Lozenge, Medicated Lozenge) 1 lozenge MUCOUS MEM Q2H PRN PRN Reason: Sore Throat Calcium Carbonate (Calcium Carbonate 750 Mg Tab.Chew) 750 mg PO Q4H PRN PRN Reason: Heartburn Cyclobenzaprine HCl (Cyclobenzaprine Hcl 5 Mg Tablet) 5 mg PO TID PRN PRN Reason: muscle spasm Diphenhydramine HCl (Diphenhydramine Hcl 25 Mg Capsule) 25 mg PO BEDTIME PRN PRN Reason: for allergies Enoxaparin Sodium (Enoxaparin Sodium 40 Mg/0.4 Ml Syringe) 40 mg SUBCUT Q24H [facility] Last Admin: 06/04/24 20:31 Dose: Not Given Documented By: INDER Non-Admin Reason: Patient Refused Fluticasone Propionate (Fluticasone Propionate Nasal 16 Gm [place]) 1 spray NOSTRIL-B BID PRN PRN Reason: Congestion Gabapentin (Gabapentin 600 Mg Tablet) 600 mg PO TID PRN PRN Reason: for pain Glucose (Glucose Gel 15 Gm Gel..Gram.) 15 gm PO Q15M PRN; Protocol PRN Reason: per Hypoglycemia Standing Ord. Hydromorphone HCl (Hydromorphone Hcl 1 Mg/Ml Syringe) 1 mg IVPUSH Q4H PRN; Protocol PRN Reason: Pain, Severe (Pain Scale 7-10) Last Admin: 06/05/24 12:03 Dose: 1 mg Documented By: MAYI Dextrose (D10) 250 mls @ 750 mls/hr IV Q15M PRN; Protocol PRN Reason: per Hypoglycemia Standing Ord. Lactated Ringer's (Lr) 1,000 mls @ 125 mls/hr IVCONT .Q8H [facility] Last Admin: 06/05/24 09:38 Dose: 125 mls/hr Documented By: MAYI Insulin Glargine (Insulin Glargine,Hum.Rec.Anlog 100 Unit/Ml 10 Ml Vial) 30 unit SUBCUT DAILY [facility] Last Admin: 06/05/24 08:05 Dose: Not Given Documented By: MAYI Non-Admin Reason: Previously Administered Insulin Human Lispro (Insulin Lispro 100 Unit/Ml 3 Ml Vial) 0 unit SUBCUT QIDACHS [facility]; Protocol Last Admin: 06/05/24 12:04 Dose: 8 unit Documented By: MAYI Lisinopril (Lisinopril 5 Mg Tablet) 5 mg PO BID [facility]; Protocol Last Admin: 06/05/24 07:24 Dose: 5 mg Documented By: GUANAKITOEMA Loratadine (Loratadine 10 Mg Tablet) 10 mg PO DAILY [facility] Last Admin: 06/05/24 07:24 Dose: 10 mg Documented By: MAYI Magnesium Hydroxide (Milk Of Magnesia 30 Ml Oral.Susp) 30 ml PO DAILY PRN PRN Reason: Constipation Magnesium Oxide (Magnesium Oxide 400 Mg Tablet) 400 mg PO BEDTIME [facility] Last Admin: 06/04/24 20:42 Dose: 400 mg Documented By: INDER Melatonin (Melatonin 3 Mg Tablet) 6 mg PO BEDTIME PRN PRN Reason: Insomnia Metformin HCl (Metformin Hcl Er 500 Mg Tab.Er.24h) 1,000 mg PO BID [facility] Montelukast Sodium (Montelukast Sodium 10 Mg Tablet) 10 mg PO BEDTIME [facility] Last Admin: 06/04/24 20:43 Dose: 10 mg Documented By: INDER Nicotine (Nicotine 21 Mg Patch.Td24) 21 mg TRANSDERMA DAILY [facility] Last Admin: 06/05/24 07:24 Dose: 21 mg Documented By: MAYI Non-Formulary Medication (Linaclotide) 145 mcg PO DAILY [facility] Non-Formulary Medication (Semaglutide [Ozempic]) 0.25 mg SUBCUT Q7D [facility] Non-Formulary Medication (Solriamfetol [Sunosi]) 150 mg PO DAILY PRN PRN Reason: Sleepiness Non-Formulary Medication (Ursodiol) 500 mg PO BID [facility] Omeprazole (Omeprazole 20 Mg Capsule.Dr) 20 mg PO BID@0630,1630 [facility] Last Admin: 06/05/24 06:27 Dose: 20 mg Documented By: INDER Ondansetron HCl (Ondansetron Hcl 4 Mg/2 Ml Vial) 4 mg IVPUSH Q8H PRN PRN Reason: Nausea and Vomiting Pantoprazole Sodium (Pantoprazole Sodium 40 Mg/10 Ml Vial) 40 mg IVPUSH BID@0630,1630 [facility] Last Admin: 06/05/24 06:27 Dose: 40 mg Documented By: INDER Sitagliptin Phosphate (Sitagliptin Phosphate 50 Mg Tablet) 50 mg PO BID [facility] Sodium Chloride (0.9 % Sodium Chloride Flush 3 Ml Syringe) 3 ml IVFLUSH QSHIFT [facility] Last Admin: 06/05/24 15:07 Dose: Not Given Documented By: MAYI Non-Admin Reason: IV Running Sucralfate (Sucralfate 1 Gm Tablet) 1 gm PO TID [facility] Last Admin: 06/05/24 07:24 Dose: 1 gm Documented By: MAYI Labs 06/04/24 04:56 06/04/24 04:56 Labs: Laboratory Results - last 24 hr 06/04/24 06/04/24 06/04/24 16:09 18:35 19:45 POC Glucose 350 H* 403 H* Stl C. cayetanensis PCR Not Detected Stool Rotavirus A PCR Not Detected Stl Adenov F 40/41 PCR Not Detected Stool Astrovirus (PCR) Not Detected Stool Campylobacter PCR Not Detected Stool Cryptosporidium PCR Not Detected Stl Sh Tox Pr E STEC PCR Not Detected Stool E coli O157 PCR Not applicable Stl Enterotoxigenic E PCR Not Detected Stool EPEC (PCR) Not Detected Stool EAEC (PCR) Not Detected Stl E. histolytica PCR Not Detected Stool Giardia Lamblia PCR Not Detected Stl P. shigelloides PCR Not Detected Stool Salmonella PCR Not Detected Stool Sapovirus (PCR) Not Detected Stl Shigella/EIEC PCR Not Detected St Y.enterocolitica PCR Not Detected Stool Vibrio (PCR) Not Detected Stl Vibrio cholerae PCR Not Detected Stl Norovirus GI/GII PCR Not Detected 06/05/24 06/05/24 07:06 11:18 POC Glucose 259 H 283 H Stl C. cayetanensis PCR Stool Rotavirus A PCR Stl Adenov F 40/41 PCR Stool Astrovirus (PCR) Stool Campylobacter PCR Stool Cryptosporidium PCR Stl Sh Tox Pr E STEC PCR Stool E coli O157 PCR Stl Enterotoxigenic E PCR Stool EPEC (PCR) Stool EAEC (PCR) Stl E. histolytica PCR Stool Giardia Lamblia PCR Stl P. 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 Acute pancreatitis. Imaging with pancreatic infiltrative changes. Although lipase normal, patient does meet 2/3 criteria for pancreatitis. No gallstones or significant alcohol use. Other differential is duodenitis but thickening around duodenum likely due to pancreatitis. Consulting Gastroenterology, appreciate assistance. Initiated IV ppi. IV Dilaudid p.r.n. for analgesia. Continue IV crystalloid egd today-rec ?gastriic erythema ,pancreatic [id number]. Insulin-dependent diabetes mellitus with hyperglycemia, neuropathy and nephropathy: Initiating basal plus insulin regimen. On gabapentin and lisinopril for neuropathy and proteinuria respectively AURA: On CPAP at bedtime Asthma: No exacerbation during admission. Continue home inhaler Reactive leukocytosis Mixed hyperlipidemia: On statin Med rec pending DVT prophylaxis: Lovenox Full code ongoing hospital stay for IV analgesia, IV crystalloid resuscitation, IV ppi (as above), which is not possible in a lesser acute setting. Specialist consult pendin Quality Stroke Does the patient have a stroke diagnosis?: No VTE Prior VTE?: No VTE Risk Level:: Medical - moderate - high VTE Device Contraindication: Treatment Not Indicated VTE Drug Contraindication: N/A - Med Ordered
[2024-06-05 16:33] LABS: Glucose, Whole Blood 189 mg/dL (60-115)
--- NOTE | 2024-06-05 16:50 | P.CDIM_ITS ---
PROVIDER RESPONSE TEXT: To clarify, the appropriate diagnosis supported by the clinical indicators: Diabetes mellitus with neuropathy: dm with neuropathy QUERY TEXT: PHYSICIAN'S DOCUMENTATION REQUEST Date of Query: 06/05/2024 10:06 AM EDT Patient Name: Carlota Davis Admit Date: 06/03/2024 Dear Vania Gates MD, A review of the medical record indicates additional documentation may be needed. Please review below and update the documentation accordingly. Clinical Indicators: Progress notes: Insulin-dependent diabetes mellitus with hyperglycemia, neuropathy, nephropathy. On gabapentin and lisinopril for neuropathy. Please clarify the following regarding any specifics to the noted Neuropathy: Diabetes mellitus with neuropathy peripheral, polyneuropathy, autonomic, mononeuropathy etc. Other (explain) Clinically unable to determine (explain) Thank you, Cherie Curry, CCS, CDIS Use of terms such as suspected, likely, concern for, or probable (associated with a specific diagnosi s that is being evaluated, monitored, or treated as if it exists) are acceptable and can be coded in the inpatient se tting, when documented at the time of discharge. Please use your independent medical judgment in providing your response. THIS QUERY IS PART OF THE PERMANENT MEDICAL RECORD
[2024-06-05 20:16] LABS: Glucose, Whole Blood 319 mg/dL (60-115)
[2024-06-05] MEDS: Enoxaparin Sodium 40 MG/0.4 ML SYRINGE SUBCUT (20:38)
[2024-06-05] MEDS: Montelukast Sodium 10 MG TABLET PO (20:39)
[2024-06-05] MEDS: metFORMIN HCl ER 500 MG TAB.ER.24H 1000 MG PO (20:39)
[2024-06-05] MEDS: Magnesium Oxide 400 MG TABLET PO (20:39)
[2024-06-05] MEDS: Atorvastatin Calcium 40 MG TABLET PO (20:39)
[2024-06-05] MEDS: SITagliptin Phosphate 50 MG TABLET PO (20:39)
[2024-06-05] MEDS: 0.9 % Sodium Chloride Flush 3 ML SYRINGE IVFLUSH (21:03)
[2024-06-06] MEDS: HYDROmorphone HCl 1 MG/ML SYRINGE IVPUSH ×3 (01:15→10:30)
[2024-06-06 03:47] VITALS: BP 154/71; PULSE 84; RESP 18; TEMP 36.2; O2SAT 95
[2024-06-06] MEDS: Omeprazole 20 MG CAPSULE.DR PO (06:09)
[2024-06-06] MEDS: Pantoprazole Sodium 40 MG/10 ML VIAL IVPUSH (06:09)
[2024-06-06 07:32] VITALS: BP 164/76; PULSE 77; RESP 14; TEMP 36; O2SAT 96
[2024-06-06 07:49] LABS: Glucose, Whole Blood 299 mg/dL (60-115)
[2024-06-06] MEDS: metFORMIN HCl ER 500 MG TAB.ER.24H 1000 MG PO (08:18)
[2024-06-06] MEDS: SITagliptin Phosphate 50 MG TABLET PO (08:18)
[2024-06-06] MEDS: Sucralfate 1 GM TABLET PO (08:18)
[2024-06-06] MEDS: Loratadine 10 MG TABLET PO (08:18)
[2024-06-06] MEDS: lisinopriL 5 MG TABLET PO (08:18)
[2024-06-06] MEDS: Insulin Lispro 100 UNIT/ML 3 ML VIAL SUBCUT ×2 (08:19→11:53)
[2024-06-06] MEDS: Insulin Glargine,Hum.rec.anlog 100 UNIT/ML 10 ML VIAL 30 UNIT SUBCUT (08:19)
[2024-06-06] MEDS: Nicotine 21 MG PATCH.TD24 TRANSDERMA (08:19)
[2024-06-06] MEDS: 0.9 % Sodium Chloride Flush 3 ML SYRINGE IVFLUSH (08:22)
--- NOTE | 2024-06-06 09:25 | MHC.CM.PN ---
IMM 06/04/24 Patient is discharged today to home. CLINICAL RESEARCH COORDINATOR services will resume. She has arranged for a ride home.
[2024-06-06 11:30] LABS: Glucose, Whole Blood 217 mg/dL (60-115)
[2024-06-06] MEDS: Simethicone 80 MG TAB.CHEW PO (11:53)
--- NOTE | 2024-06-06 13:17 | P.DS_ITS ---
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 Patient states her symptoms started 4 days prior to presentation. It progressed and patient had severe pain about 2 days ago. She describes it as a sharp epigastric pain which radiates to the back. No change with p.o. intake. Has associated nausea. Patient was seen in the ER on 06/01 and discharged home with sucralfate for acute gastritis. Patient saw her finishing room operator, Dr. Viera on 06/03 who recommended admission for IV analgesia. Patient states she has never had pancreatitis before. No fever, chills, chest discomfort, palpitations, shortness of breath, changes in urinary or bowel habits. Hospital course: Patient was admitted for epigastric abdominal pain: Further workup including CT abdomen showed some stranding around pancreatic head and duodenum: Started on bowel rest, PPIs, pain control as well as seen by GI, status post EGD found to have acute gastritis, GI also recommended abdominal MRI to evaluate pancreatic stranding, MRI -compatible with residual interstitial edematous pancreatiti me week thoughts : Patient seems to be improving, tolerating diet, pain is also improving. d/w MRi (please see detail mri report in imaging section)report in detail with Gi Dr viera -further workup and management outpatient. Patient will follow-up out patiently with GI. plan: continue ppi follow up with GI outpatient for possible follow for biopsy and possible follow up mri (as per GI) . Above management discussed with the patient detail and she understand in plan, time spent 40min. Time Attestation Total time managing care of this patient today: 40 mintues. Discharge Coordination Time (in mins): 40 MIN Quality: Safe Use of Opioids Does Pt have an Active Cancer Diagnosis on the Problem List?: No Quality: Stroke Does the patient have a stroke diagnosis?: No Physical Exam Vital Signs: Vital Signs: Last Vital Signs Temp 96.8 F 06/06/24 07:32 Pulse 77 06/06/24 07:32 Resp 14 06/06/24 07:32 BP 164/76 H 06/06/24 07:32 Pulse Ox 96 06/06/24 07:32 O2 Del Method Room Air 06/06/24 07:32 BMI result Body Mass Index 36.3 Appearance: Alert.? Oriented X3.? ? Eyes: Pupils equal, round and reactive to light.? Sclera nonicteric.? ENT: Pharynx normal.? Moist mucous membranes. cvs: rrr, [id number] , no murmur res: clear to auscultation ,no rhonchii or wheezing abd: no rebound or guarding ,abd pain seems improved significantly ,but has minimum pains , bs present. ext pulses present , no cyanosis . neuro: axo3 , nonfocal. DS: Data Data Completed and Pending Completed studies during hospitalization [Text1]: Pending at discharge 06/04/24 11:00 Surgical [PTH] Routine Labs on day of discharge: Laboratory Results - last 24 hr 06/05/24 06/05/24 06/06/24 16:30 20:09 07:35 POC Glucose 189 H 319 H 299 H 06/06/24 11:23 POC Glucose 217 H Imaging Chest x-ray: Radiologist's impression: ITS Impressions Abdomen/Pelvis CT 06/03/24 21:00 IMPRESSION: 1. Persistent fat stranding around the head of the pancreas and adjacent duodenum, most consistent with acute pancreatitis. No new pancreatic collections. No calcifications. Recommend correlation with serum amylase and lipase. Mild wall thickening in the second portion of the duodenum is most likely reactive to the pancreatitis, though a primary duodenitis is also on the differential.. 2. Mild hepatic steatosis. 3. Nonobstructing 4 mm calculus in the left lower renal pole. 4. Mild retroperitoneal adenopathy, unchanged. Fleischner guidelines were followed. Abdomen MRI 06/04/24 20:13 IMPRESSION: 1. No evidence of gallstone or hepatobiliary duct dilatation. 2. Unchanged Mild hepatic steatosis. 3. Unchanged Atrophic pancreas with trace inflammatory exudate surrounding the pancreatic uncinate process, compatible with residual interstitial edematous pancreatitis. No well loculated pseudocyst could be identified. 4. Persistent enhancing proximal superior peripancreatic lymph node and posterior periportal lymph node. 5. Bilateral renal cortical simple cysts are seen for which no follow-up imaging is recommended. 6. Advanced L5-S1 degenerative lumbar disc disease, moderate posterior L4-L5 and marked L5-S1 disc protrusions. 7. Small mesenteric hernia containing mesenteric fat. Electronically signed by: Flory Baldwin MD 06/06/2024 11:27 AM EDT RP Discharge Plan Discharge Anticipated Discharge Date/Time: 06/06/24 08:45 Patient Disposition: Home, Self-Care Discharge Diagnosis: abd pain-possible gastritis vs mild pancreatitis Referrals: Kera Viera MD [Physician] - 1 Week Bhumika Lucas FNP-BC [Primary Care Provider] - 1 Week Discharge Medications: Continued (DME) FreeStyle Bettye 2 Sensor Kit See Rx Instructions .ROUTE .MEDSUPPLY Qty: 2 6RF Rx Instructions: As directed every 2 weeks (DME) FreeStyle Bettye 2 [place] Misc See Rx Instructions .ROUTE .MEDSUPPLY Qty: 1 0RF Rx Instructions: As directed Janumet XR 50-1,000 mg tablet, ER multiphase 24 hr 1 tab PO BID Qty: 60 3RF montelukast 10 mg tablet 10 mg PO BEDTIME Qty: 90 3RF (DME) FreeStyle Lite Strips Strip See Rx Instructions .ROUTE .COMPLEX Qty: 300 12RF Dose Instruction: USE 1 STRIP 3 TO 4 TIMES DAILY Rx Instructions: USE 1 STRIP 3 TO 4 TIMES DAILY ursodiol 500 mg tablet 500 mg PO BID Qty: 180 1RF gabapentin 600 mg tablet 600 mg PO TID PRN (Reason: for pain) 30 Days Qty: 90 11RF Tresiba FlexTouch U-200 200 unit/mL (3 mL) insulin pen 40 unit subcut DAILY 30 Days Qty: 6 4RF diphenhydramine HCl [Banophen] 25 mg capsule 25 mg PO BEDTIME PRN (Reason: for allergies) Qty: 30 6RF sucralfate 1 gram tablet 1 g PO TID Qty: 90 0RF atorvastatin 40 mg tablet 40 mg PO BEDTIME lisinopril 5 mg tablet 5 mg PO BID omeprazole 20 mg capsule,delayed release(DR/EC) 20 mg PO BID fluticasone propionate 50 mcg/actuation spray,suspension 1 spray intranasal BID PRN (Reason: Congestion) insulin aspart U-100 100 unit/mL (3 mL) insulin pen 15 - 25 unit subcut TID Rx Instructions: per sliding scale (DME) lancets 28 gauge misc See Rx Instructions topical DAILY Qty: 100 0RF Rx Instructions: 3 to 4 time a day blood sugar checks. albuterol sulfate 2.5 mg /3 mL (0.083 %) solution for nebulization 2.5 mg inhalation Q6H PRN (Reason: SOB/Wheezing) (DME) diabetic supplies, miscellan. Misc See Rx Instructions .ROUTE .MEDSUPPLY Qty: 100 6RF Rx Instructions: As directed (DME) pen needle, diabetic 32 gauge x 1/4 needle See Rx Instructions subcut TID Qty: 100 11RF Rx Instructions: tid insulin administration Sunosi 150 mg tablet 150 mg PO DAILY PRN (Reason: Sleepiness) linaclotide 145 mcg capsule 145 mcg PO DAILY Qty: 90 2RF cetirizine 10 mg tablet 10 mg PO DAILY magnesium oxide 500 mg capsule 500 mg PO BEDTIME oxycodone 10 mg tablet 10 mg PO TID PRN (Reason: pain) 30 Days Qty: 90 0RF Rx Instructions: Partial Fill upon patient request. cyclobenzaprine 5 mg tablet 5 mg PO TID PRN (Reason: muscle spasm) Qty: 90 1RF No Action albuterol sulfate 90 mcg/actuation HFA aerosol inhaler 2 puff PO Q6H PRN (Reason: shortness of breath or wheezing) Qty: 18 3RF Discharge Orders: Discharge Order (Routine); Ordered 06/06/24 Ordered By: Vania Gates Diet: Advance to usual diet Activity on Discharge: As tolerated Stand Alone Forms: Patient Portal Discharge page Print Language: Romansh Care Plan Goals: Patient was admitted for epigastric abdominal pain: Further workup including CT abdomen showed some stranding around pancreatic head and duodenum: Started on bowel rest, PPIs, pain control as well as seen by GI, status post EGD found to have gastritis, GI also recommended abdominal MRI to evaluate pancreatic stranding, MRI -compatible with residual interstitial edematous pancreatiti me week thoughts : Patient seems to be improving, tolerating diet, pain is also improving. d/w MRi report in detail with Gi Dr viera -further workup and management outpatient. Patient will follow-up out patiently with GI if MRI negative. Health Concerns: As above. Plan of Treatment: As above. Assessment: As above. Discharge Date/Time: 06/06/24 14:18
--- NOTE | 2024-06-06 13:51 | P.CDIM_ITS ---
PROVIDER RESPONSE TEXT: To clarify, the appropriate diagnosis supported by the clinical indicators: Acute QUERY TEXT: PHYSICIAN'S DOCUMENTATION REQUEST Date of Query: 06/06/2024 05:33 AM EDT Patient Name: Carlota Davis Admit Date: 06/03/2024 Dear Vania Gates MD, A review of the medical record indicates additional documentation may be needed. Please review below and update the documentation accordingly. Clinical Indicators: Op note 06/04 - EGD - Impression - Gastritis Onset severe sharp epigastric pain radiation into the back worse with food associated with nausea and poor appetite. Fluids and pain meds. Clarify which of the following accurately represents the acuity of the Gastritis: Acute Acute on chronic Other (explain) Clinically unable to determine (explain) Thank you, Cherie Curry, CCS, CDIS Use of terms such as suspected, likely, concern for, or probable (associated with a specific diagnosi s that is being evaluated, monitored, or treated as if it exists) are acceptable and can be coded in the inpatient se tting, when documented at the time of discharge. Please use your independent medical judgment in providing your response. THIS QUERY IS PART OF THE PERMANENT MEDICAL RECORD
--- NOTE | 2024-06-06 14:41 | P.PNGI_ITS ---
Subjective Subjective Date of Service: 06/06/24 Interval History: doing better pain is improved managing PO passing gas MRI with pancreatitis, some reactive appearing LN wants to go home Critical Care Time (minutes): 0 Physical Exam 2 Vital Signs: Vital Signs: Last Vital Signs Temp 96.8 F 06/06/24 07:32 Pulse 77 06/06/24 07:32 Resp 14 06/06/24 07:32 BP 164/76 H 06/06/24 07:32 Pulse Ox 96 06/06/24 07:32 O2 Del Method Room Air 06/06/24 07:32 BMI result Body Mass Index 36.3 EXAM: GENERAL: The patient is well developed and nontoxic. VITAL SIGNS:see workflow HEENT: Nonicteric sclerae, PERRLA, EOMI. Oropharynx clear. Moist mucous membranes. Conjunctivae appear well perfused. No thyroid mass. CHEST: Chest wall is nontender. HEART: Regular rate and rhythm without murmurs. LUNGS: Clear to auscultation bilaterally. ABDOMEN: Soft, positive bowel sounds, nontender, no organomegaly.no flank tenderness SKIN: No rash, no excessive bruising, petechiae, or purpura. NEUROLOGIC: Cranial nerves II-XII intact without motor/sensory deficit. Psych: normal affect Objective Data Labs 06/04/24 04:56 06/04/24 04:56 Labs: Laboratory Results - last 24 hr 06/05/24 06/05/24 06/06/24 16:30 20:09 07:35 POC Glucose 189 H 319 H 299 H 06/06/24 11:23 POC Glucose 217 H Procedures Date of Service Date of Service: 06/06/24 Progress Note: A&P Assessment and plan (1) Interstitial pancreatitis: Status: Acute Plan 1/ Resolving pancreatitis prob from ozempic use, imaging neg for mass or stones, only mild high trigs PLAN: 1/ Can go home today 2/ repeat MRI in 2-3 months to make sure LN have improved Time Spent With Patient Time: Total time managing care of this patient today ____ minutes. Quality Stroke Does the patient have a stroke diagnosis?: No VTE Prior VTE?: No VTE Risk Level:: Medical - moderate - high VTE Device Contraindication: Treatment Not Indicated VTE Drug Contraindication: N/A - Med Ordered
== END 2024-06-06 14:18 | disposition home or self-care (01) | DRG 391 ==
LOC: HO.ED 19:51 → HO.EDOVER 20:22 → HO.S3 06-04 07:23
PROVIDERS: Internal Medicine Gastroenterology; Admitting Provider Student in an Organized Health Care Education/Training Program; Emergency Provider Student in an Organized Health Care Education/Training Program; PCP Nurse Practitioner Family; Visit Provider Internal Medicine
PROC: 0DJ08ZZ Inspection of Upper Intestinal Tract, Via Natural or Artificial Opening Endoscopic (ICD-10-PCS; CPT 43235; principal; 2024-06-04 13:20)
DX: K29.00 Acute gastritis without bleeding (principal); K85.80 Other acute pancreatitis without necrosis or infection; E28.2 Polycystic ovarian syndrome; F17.210 Nicotine dependence, cigarettes, uncomplicated; E66.9 Obesity, unspecified; Z68.36 Body mass index [BMI] 36.0-36.9, adult; E11.65 Type 2 diabetes mellitus with hyperglycemia; G47.33 Obstructive sleep apnea (adult) (pediatric); J45.909 Unspecified asthma, uncomplicated; E78.2 Mixed hyperlipidemia; E11.40 Type 2 diabetes mellitus with diabetic neuropathy, unspecified; E11.21 Type 2 diabetes mellitus with diabetic nephropathy; G89.29 Other chronic pain; M54.9 Dorsalgia, unspecified; Z71.6 Tobacco abuse counseling; Z79.4 Long term (current) use of insulin; Z79.899 Other long term (current) drug therapy; T38.3X5A Adverse effect of insulin and oral hypoglycemic [antidiabetic] drugs, initial encounter
CPT/HCPCS: 36415; 74176; 74183; 76705; 80048; 80076; 81001; 81003; 81025; 82947; 83690; 84478; 84484; 85025; 87507; 88305; 88313; 88342; 93005; 96361; 96374; 96375; 99212; 99285; A9585; J1170; J1650; J2270; J2405; J2470; J2704; J7120

== ENCOUNTER → 2024-06-03 19:32 | Outpatient (BNV) | payer OTHER, SELFPAY | PROVIDERS: Admitting Provider Student in an Organized Health Care Education/Training Program; Emergency Provider Student in an Organized Health Care Education/Training Program; PCP Nurse Practitioner Family; Visit Provider Student in an Organized Health Care Education/Training Program | DX: K29.80 Duodenitis without bleeding (principal) | CPT/HCPCS: 99222; 99231; 99232; 99239 ==

== ENCOUNTER → 2024-06-03 19:32 | Outpatient (BNV) | payer OTHER, SELFPAY | PROVIDERS: Admitting Provider Student in an Organized Health Care Education/Training Program; Emergency Provider Student in an Organized Health Care Education/Training Program; PCP Nurse Practitioner Family; Visit Provider Internal Medicine Gastroenterology | DX: K86.1 Other chronic pancreatitis (principal) | CPT/HCPCS: 43239; 99223; 99232 ==

== ENCOUNTER 2024-06-11 09:54 | Outpatient (AMB) | payer OTHER, SELFPAY ==
[2024-06-11 10:01] VITALS: BP 167/73; PULSE 78; O2SAT 95
--- NOTE | 2024-06-11 10:01 | MHC.OFFVIS ---
Vital Signs 06/11/24 10:01 Weight 203 lb BP 167/73 H Blood Pressure Location Rt brachial Position Sitting Pulse 78 Pulse Source Pulse Oximeter Pulse Oximetry (%) 95 Oxygen Delivery Method Room Air Intake Visit Reasons: Pill Count Allergies Seasonal Allergies Allergy (Intermediate, Verified 06/03/24 10:20) Cough amoxicillin [From Augmentin] Adverse Reaction (Severe, Verified 06/03/24 10:20) n/v/d clavulanic acid [From Augmentin] Adverse Reaction (Severe, Verified 06/03/24 10:20) n/v/d NSAIDS (Non-Steroidal Anti-Inflamma [NSAIDS (NON-STEROIDAL ANTI-INFLAMMA] Adverse Reaction (Intermediate, Verified 06/03/24 10:20) BLEEDING HPI Comments Details: Carlota is a very pleasant 53 year old female who presents to the office today for follow chronic pain and chronic opioid medication management. She is prescribed oxycodone 10mg po TID prn. Patient arrived today with the expectation of having 3 pills, she presented 9 pills which were counted in the presence of two staff members and returned to the patient in the original prescription bottle. This demonstrates responsible attitude toward patient's opioid medications. Pain is reported today as 7/10 and last dose of pain medication was taken at 08:00 this morning. Denies side effects including constipation, nausea, shortness of breath, urinary retention or drowsiness. 1 week ago was admitted to the hospital for pancreatitis. Believed to be caused from Ozempic that she had started 1 month ago. No longer taking. Was given IVF and IV dilaudid while inpatient. no meds given on discharge still reports some upper abd discomfort and decreased appetits. Has follow up with pcp this week. Previous visit with Dr Stanley: Carlota is back in my office after the trial I DDD with with morphine which was performed on 01/31/2023.? She does not report the same pain evaluation as it was with Dilaudid in September.? She received 150 micro g of morphine intrathecally.? However the patient developed what looks like post dural puncture headache immediately after the procedure.? The headache went away on itself however now we are not ready to implant anything for the patient.? I suggested that we might try in the future instead of fentanyl to go ahead with bupivacaine injections small dose intrathecally and have bupivacaine as the main medication in the intrathecal space if results of the trial will have no side effects and will have good pain relief.? I warned her that she may experience weakness in bilateral lower extremities after bupivacaine injection however the weakness will be only transient. We decided to wait a month or two PA and schedule the bupivacaine trial later. Prior:? Dilaudid which was performed of 10/06/2023.? The patient reports absence of pain for the 1st 48 hours after the procedure.? However she reports severe nausea and vomiting after surgery.? This is unwanted side effects.? I offered her reach trial with morphine versus read trial with fentanyl.? The patient reported that in the past she was taking morphine as a pain medication orally.? She denies any side effects.? I will try to perform the procedure with 150 mcg intrathecally? 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 Chronic pain syndrome Postlaminectomy syndrome, lumbar Surgical History Hx of colonoscopy History of esophagogastroduodenoscopy (EGD) Hx of spinal surgery History of removal of cyst History of carpal tunnel release History of lumbar surgery Family History Father Diabetes Hypertension Mother Asthma Social History Household Members: Family Housing: Apartment Are you a primary day care home mother to a significant other at home: No Do you presently have visiting nurse or other home services: Yes ([employer]) Alcohol intake: current Alcohol intake frequency: holidays/special occasions only Patient Tobacco Use Status: Current everyday Tobacco user Tobacco use type: Cigarette Cigarette Packs Per Day: 1 Cigarettes Per Day: 20.0 Years Smoked: 30 e-Cigarette/Vaping Use: Never Used Second Hand Smoke Exposure: Yes service: No Current occupational status: disabled Current occupational exposures/hazards: No Cognitive needs: No Hearing needs: No Vision needs: Yes Review of Systems Const All systems reviewed & are unremarkable except as noted in HPI and below Physical Exam Vital Signs: Last Vital Signs Pulse 78 06/11/24 10:01 BP 167/73 H 06/11/24 10:01 Pulse Ox 95 06/11/24 10:01 Oxygen Delivery Method Room Air 06/11/24 10:01 General: awake, alert, oriented. Answers questions appropriately. Fully engaged in examination. Skin: warm, dry, intact without visible rashes or lesions. HEENT: Normocephalic. Hearing intact. Cardiac: External chest normal in appearance. Respiratory: No signs of respiratory distress. Abdomen: without gross distension. MS: No obvious swelling or deformities. Neurological: Oriented to person, place, time and situation. Thought process intact. ambulating with use of rollator walker. Psychiatric: Appropriate mood and affect. Good judgment and insight. Results Reviewed Results Reviewed: 10/12/2023 XR/XR thoracic spine 3V FINDINGS: There are mild multilevel degenerative changes of thoracic spine with marginal spurring. Pedicles are preserved there is no evidence of fractures soft tissues unremarkable. There is no spondylolysis or listhesis. IMPRESSION: Mild degenerative changes with marginal spurring. Thoracic spine. 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 No obvious signs of diversion, abuse or misuse of the opioid medications. Will send in prescription for oxycodone 10mg po tid #90 no refills with an advanced date of 06/12/2024 C/W cyclobenzaprine 5 mg p.o. t.i.d. as needed. Patient advised on cautions for use. May cause drowsiness, no driving while taking this medication. Follow up with PCP and GI as planned All questions and concerns have been answered and patient agrees with the plan. Patient will follow up in 1 month, sooner if needed. Medications: Refilled oxycodone Partial Fill upon patient request. 10 mg PO TID PRN 90 tabs 0RF pain 30 days G89.4 - Chronic pain syndrome, M96.1 - Postlaminectomy syndrome, not elsewhere classified Coding Level of Care Code Est Pt Level 4 (42350) Diagnoses Postlaminectomy syndrome, lumbar M96.1 Chronic pain syndrome G89.4 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 Z79.891 Myofascial muscle pain M79.18
== END 2024-06-11 10:25 | disposition home or self-care (01) ==
PROVIDERS: PCP Nurse Practitioner Family; Visit Provider Registered Nurse Emergency
DX: G89.4 Chronic pain syndrome (principal); M96.1 Postlaminectomy syndrome, not elsewhere classified; M79.18 Myalgia, other site; Z79.891 Long term (current) use of opiate analgesic
CPT/HCPCS: 99214

== ENCOUNTER → 2024-06-11 09:54 | Outpatient (BNVA) | payer OTHER, SELFPAY | PROVIDERS: PCP Nurse Practitioner Family; Visit Provider Registered Nurse Emergency | DX: Z51.81 Encounter for therapeutic drug level monitoring (principal); F11.20 Opioid dependence, uncomplicated; M96.1 Postlaminectomy syndrome, not elsewhere classified; M79.18 Myalgia, other site; G89.4 Chronic pain syndrome; Z79.891 Long term (current) use of opiate analgesic | CPT/HCPCS: 99212 ==

== ENCOUNTER 2024-06-14 12:39 | Outpatient (AMB) | payer OTHER, SELFPAY ==
--- NOTE | 2024-06-14 12:42 | MHC.PC.OV ---
Vital Signs 06/14/24 12:43 06/14/24 13:38 BMI Reason not done Patient refused/unable BP 152/70 H 120/60 Blood Pressure Location Rt brachial Rt brachial Position Sitting Sitting Respiration 14 Pulse 97 Pulse Source Pulse Oximeter Pulse Oximetry (%) 97 Oxygen Delivery Method Room Air Intake Visit Reasons: fu chronic conditions Intake Note: Patient is here to follow up for chronic conditions and is having left leg pain Chuck Boner Required: No Accompanied by: Self / Same As Patient Allergies Seasonal Allergies Allergy (Intermediate, Verified 06/14/24 13:02) Cough semaglutide [From Ozempic] Allergy (Mild, Verified 06/14/24 13:03) pancreatitis amoxicillin [From Augmentin] Adverse Reaction (Severe, Verified 06/14/24 13:02) n/v/d clavulanic acid [From Augmentin] Adverse Reaction (Severe, Verified 06/14/24 13:02) n/v/d NSAIDS (Non-Steroidal Anti-Inflamma [NSAIDS (NON-STEROIDAL ANTI-INFLAMMA] Adverse Reaction (Intermediate, Verified 06/14/24 13:02) BLEEDING Medication List - Last Reconciled 06/14/24 by Bhumika Lucas, [facility]- albuterol sulfate 90 mcg/actuation 2 puffs PO Q6H PRN albuterol sulfate 2.5 mg inhalation Q6H PRN atorvastatin 80 mg PO BEDTIME blood sugar diagnostic (FreeStyle Lite Strips) USE 1 STRIP 3 TO 4 TIMES DAILY cetirizine 10 mg PO DAILY cyclobenzaprine 5 mg PO TID PRN diabetic supplies, miscellan. As directed diphenhydramine HCl (Banophen) 25 mg PO BEDTIME PRN flash glucose scanning reader (FreeStyle Bettye 2 [place]) As directed flash glucose sensor (FreeStyle Bettye 2 Sensor kit) As directed every 2 weeks fluticasone propionate 50 mcg/actuation 1 spray intranasal BID PRN gabapentin 600 mg PO TID PRN 30 days insulin aspart U-100 15 - 25 units subcut TID insulin degludec (Tresiba FlexTouch U-200 insulin) 40 units (0.2 mL) subcut DAILY 30 days lancets 3 to 4 time a day blood sugar checks. linaclotide 145 mcg PO DAILY lisinopril 5 mg PO BID magnesium oxide 500 mg PO BEDTIME montelukast 10 mg PO BEDTIME omeprazole 20 mg PO BID oxycodone 10 mg PO TID PRN 30 days pen needle, diabetic tid insulin administration sitagliptin phos-metformin 50-1,000 mg ER (Janumet XR) 1 tab PO BID solriamfetol (Sunosi) 150 mg PO DAILY PRN sucralfate 1 g PO TID ursodiol 500 mg PO BID Tobacco use date assessed: 03/14/24 Dental Screening Dental Screen Date: 01/10/24 HPI HPI Comments History of Present Illness Details 53-year-old female with type 2 diabetes with complications, diabetic kidney disease hypertension hyperlipidemia, obesity obstructive sleep apnea, PCOS, asthma, chronic pain syndrome, diverticulosis, coronary artery disease, mild 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 Patient was admitted for epigastric abdominal pain: Further workup including CT abdomen showed some stranding around pancreatic head and duodenum: Started on bowel rest, PPIs, pain control as well as seen by GI, status post EGD found to have acute gastritis, GI also recommended abdominal MRI to evaluate pancreatic stranding, MRI -compatible with residual interstitial edematous pancreatitis : Patient seems to be improving, tolerating diet, pain is also improving. Gi Dr viera -further workup and management outpatient. Admission Date: 06/03/24 Discharge Date: 06/06/24 Hospital: [facility] Pending diagnostic tests/treatments: repeat MRI in 2-3 months Pending consults: f/u with GI 07/2024 Dr Viera DME: none. 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 [place] otherwise no medication changes. Presents today with continuous abdominal pain, although markedly better from the hospitalization. She is eating a diet as tolerated. Admits that she has an increase in abdominal pain when she eats something that she should not. She is working really hard at following a low-fat diet. She reports normal bowel movements. No nausea or vomiting. She reports liberal hydration causing increased urination otherwise no urinary complaints. She has been without her CGM as this had to be removed during the MRI. She needs prescriptions for fingerstick while she works on getting a new CGM. The Ozempic was discontinued given the pancreatitis. She continues on her Tresiba as well as her insulin sliding scale and Janumet XR her biggest complaint today is that of chronic back and leg pain. She had routine follow up with [facility]'s pain management this week. During todays TCM visit, the d/c summary was reviewed, along with the need for or follow-up on pending diagnostic tests and treatments, as necessary interaction with other health eye care professional who will assume or reassume care of the beneficiary?s system-specific problems was done or is being worked on, education was provided to the beneficiary, family, guardian, and/or caregiver, referrals to establish or re-establish and arrange needed community resources we completed, assistance in scheduling required follow-up with community providers and services & finally updated medication list given to patient/caregiver Exam: Awake alert oriented Scleras nonicteric bilat Mucous membranes moist Lung sounds clear to auscultation bilat Regular rate and rhythm Abdomen is semi firm, round, nontender, normoactive bowel sounds Bilateral lower extremities with trace edema, skin intact, monofilament testing within normal limits, abnormal vibratory sensations bilat Plan: She is aware that she should not be prescribed any medication that could induce pancreatitis. She is aware that she should not take any medication in the GLP 1 class going forward. She should continue her PPI and be sure to follow up for her repeat MRI in office visit with [facility]'s Gastroenterology group in July. Advised to continue to follow a low fat diet. Avoid ETOH. She continues to smoke and his eager to quit. Reports that she can not take the nicotine gum or lozenges as she is allergic. Reports that she did have some benefit from the patch in his willing to try this at this time. We also discussed trying CBT to help. She will need to find somewhere that works with her insurance if this is the option that she wants to try. continue ppi. follow up with GI outpatient for possible follow for biopsy and possible follow up mri (as per GI) I would like to see her back in 3-4 weeks for close interim follow up, sooner as needed. This note is constructed using voice recognition software. While every effort has been made to ensure accuracy in closing manager, still errors may have been included Sometimes, these errors may affect the content or meaning of the given sentence . Total time spent caring for the patient today was 60 minutes. This includes time spent before the visit reviewing the chart, time spent during the visit, and time spent after the visit on documentation [facility] Medical History (Updated 06/14/24 @ 15:24 by Bhumika Lucas, [facility]-) Right hip pain Diabetic nephropathy Chronic cough Chronic prescription opiate use Thoracic back pain Menopause Vasomotor symptoms due to menopause Elevated C-reactive protein (CRP) Proteinuria Type 2 diabetes mellitus with other diabetic kidney complication Sleep apnea PCOS (polycystic ovarian syndrome) Asthma Type 2 diabetes mellitus with hyperglycemia, with long-term current use of insulin Hyperlipidemia LDL goal <100 Obesity due to excess calories BMI 37.0-37.9, adult 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, 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 Chronic pain syndrome Postlaminectomy syndrome, lumbar Surgical History Hx of colonoscopy History of esophagogastroduodenoscopy (EGD) Hx of spinal surgery History of removal of cyst History of carpal tunnel release History of lumbar surgery Family History Father Diabetes Hypertension Mother Asthma Social History Household Members: Family Housing: Apartment Are you a primary veterinarian laboratory animal care to a significant other at home: No Do you presently have visiting nurse or other home services: Yes (HEALTHCARE CUSTOMER SERVICE) Alcohol intake: current Alcohol intake frequency: holidays/special occasions only Patient Tobacco Use Status: Current everyday Tobacco user Tobacco use type: Cigarette Cigarette Packs Per Day: 1 Cigarettes Per Day: 20.0 Years Smoked: 30 e-Cigarette/Vaping Use: Never Used Second Hand Smoke Exposure: Yes service: No Current occupational status: disabled Current occupational exposures/hazards: No Cognitive needs: No Hearing needs: No Vision needs: Yes Questionnaire Thrive Questionnaire Date Thrive assessed: 06/04/24 EDWIGE-7 AMB Questionnaire EDWIGE-7 Date EDWIGE - 7 assessed: 11/22/23 Source: Developed by Drs. Yrn Alexander, Frieda Rivera, John Archuleta and colleagues, with an educational cedrick from [employer]. Physical exam (Primary Care) Vital Signs: Last Vital Signs Pulse 97 06/14/24 12:43 Resp 14 06/14/24 12:43 BP 120/60 06/14/24 13:38 Pulse Ox 97 06/14/24 12:43 Oxygen Delivery Method Room Air 06/14/24 12:43 Tobacco/Smoking Status: Tobacco use Status Tobacco use date assessed 03/14/24 06/14/24 12:43 Patient Tobacco Use Status Current everyday Tobacco 06/14/24 12:43 Tobacco use type Cigarette 06/14/24 12:43 e-Cigarette/Vaping Use Never Used 06/14/24 12:43 Thrive Assessment: Date of Thrive Assessment Date Thrive assessed 06/04/24 06/14/24 12:43 Results Reviewed Results Reviewed: MR/MR abdomen wo/w con IMPRESSION: 1. No evidence of gallstone or hepatobiliary duct dilatation. 2. Unchanged Mild hepatic steatosis. 3. Unchanged Atrophic pancreas with trace inflammatory exudate surrounding the pancreatic uncinate process, compatible with residual interstitial edematous pancreatitis. No well loculated pseudocyst could be identified. 4. Persistent enhancing proximal superior peripancreatic lymph node and posterior periportal lymph node. 5. Bilateral renal cortical simple cysts are seen for which no follow-up imaging is recommended. 6. Advanced L5-S1 degenerative lumbar disc disease, moderate posterior L4-L5 and marked L5-S1 disc protrusions. 7. Small mesenteric hernia containing mesenteric fat. Electronically signed by: Flory Baldwin MD 06/06/2024 11:27 AM EDT Assessment and Plan Assessment & Plan (1) Hospital discharge follow-up: Code(s): Z09 - Encounter for follow-up examination after completed treatment for conditions other than malignant neoplasm (2) Urinary incontinence: Code(s): R32 - Unspecified urinary incontinence Qualifiers: Urinary Incontinence type: functional incontinence Qualified Code(s): R39.81 - Functional urinary incontinence (3) Interstitial pancreatitis: Code(s): K86.1 - Other chronic pancreatitis (4) Duodenitis: Code(s): K29.80 - Duodenitis without bleeding (5) Type 2 diabetes mellitus with hyperglycemia, with long-term current use of insulin: Comment: On insulin. Not interested in referral to endocrinology at this time. Uses a CGM Diabetic [facility] [place]. I do not have the most recent exam I have told her to get this for me. The last note I was able to review did have signs of diabetic retinopathy She is on CLAIRE inhibitor lisinopril 2.5 mg po BID increased by renal 11/2023, tolerating w/o uptic in cough. BP at goal. Plan: Doing GREAT with current regimen. CGM in target 88%, Cont Janumet 50/1000mg po BID, tresiba 40 units Q noon & preprandial Insulin aspart to 10 units TID w meals. ISS at HS only. < 200 NO insulin 201-250 2 251-300 4 301-250 6 351-400 8 401 > 10 units Code(s): E11.65 - Type 2 diabetes mellitus with hyperglycemia; Z79.4 - senior living (current) use of insulin Medications: New nicotine 1 patch transdermal Q24H 28 ea 1RF diaper,brief,adult,disposable (Briefs, Adult-Extra Large) use daily 30 ea 11RF R32 - Unspecified urinary incontinence blood sugar diagnostic (FreeStyle Lite Strips) 3 times per day 100 ea 11RF E11.8 - Type 2 diabetes mellitus with unspecified complications Refilled insulin degludec (Tresiba FlexTouch U-200 insulin) 40 units (0.2 mL) subcut DAILY 30 days 6 mL 4RF E11.65 - Type 2 diabetes mellitus with hyperglycemia diabetic supplies, miscellan. As directed 100 ea 6RF E11.65 - Type 2 diabetes mellitus with hyperglycemia lancets 3 to 4 time a day blood sugar checks. 100 ea 0RF E11.65 - Type 2 diabetes mellitus with hyperglycemia, Z79.4 - senior living (current) use of insulin Discontinued sucralfate Discontinued Reason: No Longer Medically Relevant 1 g PO TID 90 tabs 0RF Patient Instructions: Eat a low-fat diet:?Eat foods that are high in protein and carbohydrates, but low in fat.?Limit your total fat intake to less than 30 grams per day.? Eat smaller meals:?Eat 4 to 6 small meals and snacks each day instead of 3 large meals.? Choose lean meats:?Choose lean meats and non-fat or low-fat milk products.? Eat a variety of fruits and vegetables:?Eat a variety of fruits and vegetables.? Eat whole grains:?Eat whole grain cereals, breads, crackers, rice, or pasta.? Take a multivitamin:?Take a multivitamin to replenish vitamins A, D, E, K, B12, zinc, and folic acid.? Avoid alcohol:?Do not drink alcohol.? Quit smoking:?Quit smoking or chewing tobacco.? Stay hydrated:?Stay hydrated Coding Level of Care Code TCM High MDM <= 7 Days Complex EM visit Add On G2211 Diagnoses Hospital discharge follow-up Z09 Functional urinary incontinence R39.81 Urinary Incontinence type: functional incontinence Interstitial pancreatitis K86.1 Duodenitis K29.80 Type 2 diabetes mellitus with hyperglycemia, with long-term current use of insulin E11.65; Z79.4
[2024-06-14 12:43] VITALS: BP 152/70; PULSE 97; RESP 14; O2SAT 97
[2024-06-14 13:38] VITALS: BP 120/60
== END 2024-06-14 13:46 | disposition home or self-care (01) ==
PROVIDERS: PCP Nurse Practitioner Family; Visit Provider Nurse Practitioner Family
DX: K86.1 Other chronic pancreatitis (principal); E11.65 Type 2 diabetes mellitus with hyperglycemia; Z79.4 Long term (current) use of insulin; Z09 Encounter for follow-up examination after completed treatment for conditions other than malignant neoplasm; R39.81 Functional urinary incontinence; K29.80 Duodenitis without bleeding
CPT/HCPCS: 99496

== ENCOUNTER 2024-07-03 10:52 | Outpatient (AMB) | payer OTHER, SELFPAY ==
[2024-07-03 11:01] VITALS: BP 147/63; PULSE 90; O2SAT 96
--- NOTE | 2024-07-03 11:01 | A.OFFVIS_ITS ---
Vital Signs 07/03/24 11:01 Weight 210 lb BP 147/63 H Blood Pressure Location Rt brachial Position Sitting Pulse 90 Pulse Source Pulse Oximeter Pulse Oximetry (%) 96 Oxygen Delivery Method Room Air Intake Visit Reasons: Pill Count Allergies Seasonal Allergies Allergy (Intermediate, Verified 06/14/24 13:02) Cough semaglutide [From Ozempic] Allergy (Mild, Verified 06/14/24 13:03) pancreatitis amoxicillin [From Augmentin] Adverse Reaction (Severe, Verified 06/14/24 13:02) n/v/d clavulanic acid [From Augmentin] Adverse Reaction (Severe, Verified 06/14/24 13:02) n/v/d NSAIDS (Non-Steroidal Anti-Inflamma [NSAIDS (NON-STEROIDAL ANTI-INFLAMMA] Adverse Reaction (Intermediate, Verified 06/14/24 13:02) BLEEDING HPI Comments Details: Carlota is a very pleasant 53 year old female who presents to the office today for follow chronic pain and chronic opioid medication management. She is prescribed oxycodone 10mg po TID prn. Patient arrived today with the expectation of having 27 pills, she presented 27 pills which were counted in the presence of two staff members and returned to the patient in the original prescription bottle. This demonstrates responsible attitude toward patient's opioid medications. Pain is reported today as 6/10 and last dose of pain medication was taken at 08:00 this morning. Denies side effects including constipation, nausea, shortness of breath, urinary retention or drowsiness. Reports pancreatitis has slowly been getting better. Has an appointment with her doctor next week for follow-up. Needs to discuss changes to her medications as blood sugars have been all over the place. Averaging 200-300 with no reported low readings. She does have continuous glucose monitor and is using her sliding scale insulin as prescribed. Previous visit with Dr Stanley: Carlota is back in my office after the trial I DDD with with morphine which was performed on 01/31/2023.? She does not report the same pain evaluation as it was with Dilaudid in September.? She received 150 micro g of morphine intrathecally.? However the patient developed what looks like post dural puncture headache immediately after the procedure.? The headache went away on itself however now we are not ready to implant anything for the patient.? I suggested that we might try in the future instead of fentanyl to go ahead with bupivacaine injections small dose intrathecally and have bupivacaine as the main medication in the intrathecal space if results of the trial will have no side effects and will have good pain relief.? I warned her that she may experience weakness in bilateral lower extremities after bupivacaine injection however the weakness will be only transient. We decided to wait a month or two PA and schedule the bupivacaine trial later. Prior:? Dilaudid which was performed of 10/06/2023.? The patient reports absence of pain for the 1st 48 hours after the procedure.? However she reports severe nausea and vomiting after surgery.? This is unwanted side effects.? I offered her reach trial with morphine versus read trial with fentanyl.? The patient reported that in the past she was taking morphine as a pain medication orally.? She denies any side effects.? I will try to perform the procedure with 150 mcg intrathecally? [facility] Medical History (Updated 06/14/24 @ 15:24 by Bhumika Lucas, [facility]) Right hip pain Diabetic nephropathy Chronic cough Chronic prescription opiate use Thoracic back pain Menopause Vasomotor symptoms due to menopause Elevated C-reactive protein (CRP) Proteinuria Type 2 diabetes mellitus with other diabetic kidney complication Sleep apnea PCOS (polycystic ovarian syndrome) Asthma Type 2 diabetes mellitus with hyperglycemia, with long-term current use of insulin Hyperlipidemia LDL goal <100 Obesity due to excess calories BMI 37.0-37.9, adult 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, uncontrolled snf (current) use of opiate analgesic Chronic pain syndrome Postlaminectomy syndrome, lumbar Surgical History Hx of colonoscopy History of esophagogastroduodenoscopy (EGD) Hx of spinal surgery History of removal of cyst History of carpal tunnel release History of lumbar surgery Family History Father Diabetes Hypertension Mother Asthma Social History Household Members: Family Housing: Apartment Are you a primary critical care nurse practitioner to a significant other at home: No Do you presently have visiting nurse or other home services: Yes (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) Alcohol intake: current Alcohol intake frequency: holidays/special occasions only Patient Tobacco Use Status: Current everyday Tobacco user Tobacco use type: Cigarette Cigarette Packs Per Day: 1 Cigarettes Per Day: 20.0 Years Smoked: 30 e-Cigarette/Vaping Use: Never Used Second Hand Smoke Exposure: Yes service: No Current occupational status: disabled Current occupational exposures/hazards: No Cognitive needs: No Hearing needs: No Vision needs: Yes Review of Systems Const All systems reviewed & are unremarkable except as noted in HPI and below Physical Exam Vital Signs: Last Vital Signs Pulse 90 07/03/24 11:01 BP 147/63 H 07/03/24 11:01 Pulse Ox 96 07/03/24 11:01 Oxygen Delivery Method Room Air 07/03/24 11:01 General: awake, alert, oriented. Answers questions appropriately. Fully engaged in examination. Skin: warm, dry, intact without visible rashes or lesions. HEENT: Normocephalic. Hearing intact. Cardiac: External chest normal in appearance. Respiratory: No signs of respiratory distress. Abdomen: without gross distension. MS: No obvious swelling or deformities. Neurological: Oriented to person, place, time and situation. Thought process intact. ambulating with use of rollator walker. Psychiatric: Appropriate mood and affect. Good judgment and insight. Results Reviewed Results Reviewed: MR/MR abdomen wo/w con IMPRESSION: 1. No evidence of gallstone or hepatobiliary duct dilatation. 2. Unchanged Mild hepatic steatosis. 3. Unchanged Atrophic pancreas with trace inflammatory exudate surrounding the pancreatic uncinate process, compatible with residual interstitial edematous pancreatitis. No well loculated pseudocyst could be identified. 4. Persistent enhancing proximal superior peripancreatic lymph node and posterior periportal lymph node. 5. Bilateral renal cortical simple cysts are seen for which no follow-up imaging is recommended. 6. Advanced L5-S1 degenerative lumbar disc disease, moderate posterior L4-L5 and marked L5-S1 disc protrusions. 7. Small mesenteric hernia containing mesenteric fat. 10/12/2023 XR/XR thoracic spine 3V FINDINGS: There are mild multilevel degenerative changes of thoracic spine with marginal spurring. Pedicles are preserved there is no evidence of fractures soft tissues unremarkable. There is no spondylolysis or listhesis. IMPRESSION: Mild degenerative changes with marginal spurring. Thoracic spine. 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 No obvious signs of diversion, abuse or misuse of the opioid medications. Will send in prescription for oxycodone 10mg po tid #90 no refills with an advanced date of 07/12/2024 Follow up with PCP as planned to discuss elevated blood sugars All questions and concerns have been answered and patient agrees with the plan. Patient will follow up in 1 month, sooner if needed. Medications: Refilled oxycodone Partial Fill upon patient request. 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
== END 2024-07-03 11:31 | disposition home or self-care (01) ==
PROVIDERS: PCP Nurse Practitioner Family; Visit Provider Registered Nurse Emergency
DX: M96.1 Postlaminectomy syndrome, not elsewhere classified (principal); G89.4 Chronic pain syndrome; Z79.891 Long term (current) use of opiate analgesic; M79.18 Myalgia, other site
CPT/HCPCS: 99214; G2211

== ENCOUNTER → 2024-07-03 10:52 | Outpatient (BNVA) | payer OTHER, SELFPAY | PROVIDERS: PCP Nurse Practitioner Family; Visit Provider Registered Nurse Emergency | DX: M96.1 Postlaminectomy syndrome, not elsewhere classified (principal); G89.4 Chronic pain syndrome; M79.18 Myalgia, other site; Z51.81 Encounter for therapeutic drug level monitoring; Z79.891 Long term (current) use of opiate analgesic | CPT/HCPCS: 99212 ==

== ENCOUNTER 2024-07-18 11:52 | Outpatient (REF) | payer OTHER, SELFPAY ==
[2024-07-18 14:16] LABS: MANUAL DIFF FLAG NO
[2024-07-18 14:18] LABS: Basophils Absolute Auto 0.1 X10*3/uL (0.0-0.2); Basophils Percent Auto 0.5 % (0-2); Eosinophils Absolute Auto 0.3 X10*3/uL (0.0-0.4); Eosinophils Percent Auto 2.6 % (0-4); Hematocrit 40.3 % (37.0-47.0); Hemoglobin 12.9 g/dl (12.0-16.0); Imm Gran Abs Auto 0.03 X10*3/uL (0.00-0.03); Imm Gran Pct Auto 0.3 % (0.0-0.4); Lymphocytes Absolute Auto 2.8 X10*3/uL (1.2-4.9); Lymphocytes Percent Auto 24.9 % (20-40); Mean Corpuscular Hemoglobin 26.8 pg (27.0-33.0); Mean Corpuscular Volume 83.8 fL (80.0-98.0); Mean Platelet Volume 10.7 fL (9.4-12.3); Monocytes Absolute Auto 0.4 X10*3/uL (0.1-1.2); Monocytes Percent Auto 3.9 % (2-11); Neutrophils Absolute Auto 7.7 x10*3/uL (2.0-8.3); Neutrophils Percent Auto 67.8 % (45-73); Platelet Count 322 X10*3/uL (160-400); Red Blood Count 4.81 X10*6/uL (4.20-5.50); Red Cell Distribution Width 14.4 % (11.0-16.0); White Blood Count 11.3 X10*3/uL (4.8-10.8)
[2024-07-18 14:25] LABS: Estimated Average Glucose 286 mg/dL; Hemoglobin A1C 331.5921 umol/L; Hemoglobin A1c % 11.6 % (<6.0); Total Hemoglobin (HGBA1C) 3210.2902 umol/L
[2024-07-18 14:29] LABS: Appearance Urine Clear; Color Urine Yellow; Glucose Urine UA >=1000 mg/dL (Negative); Leukocyte Esterase Urine Negative (Negative); Nitrite Urine Negative (Negative); Specific Gravity - Urine >= 1.030 (1.005-1.025); UMIC TRIGGER UA YES; Urine Blood Trace (Negative); Urine Ketones Negative (Negative); Urine Protein 100 (2+) mg/dL (Neg-Trace)
[2024-07-18 14:31] LABS: Bacteria Urine None Seen (None Seen); Hyaline Casts Urine 0-2 /LPF (0-2); Squamous Epithelial Cell Urine 0-2 /HPF (0-2); WBC Urine 0-5 /HPF (0-5)
[2024-07-18 14:47] LABS: Alanine Aminotransferase 23 U/L (0-31); Albumin Level 3.9 g/dL (3.5-5.0); Alkaline Phosphatase 107 U/L (39-117); Anion Gap 14 (12-20); Aspartate Amino Transferase 32 U/L (5-31); Bilirubin Total 0.6 mg/dL (0.0-1.0); Blood Urea Nitrogen 9 mg/dL (9-16); C Reactive Protein 2.17 mg/dL (< or = 0.50); Calcium 9.7 mg/dL (8.4-10.2); Carbon Dioxide 28 mmol/L (22-29); Chloride 99 mmol/L (96-108); Estimated Glomerular Filt Rate > 60; Lipase 16 U/L (8-78); Potassium 4.2 mmol/L (3.3-5.1); Sodium 137 mmol/L (135-145)
[2024-07-18 14:51] LABS: Glucose Random 399 mg/dL (60-115)
[2024-07-18 15:41] LABS: Creatinine Urine 41.08 mg/dL; Protein/Creatinine Ratio, Ur 1.56 (<0.2); Total Protein Urine Random 64 mg/dL (<12)
[2024-07-23 15:39] LABS: Immunoglobulin G Subclass 1 465 mg/dL (382-929); Immunoglobulin G Subclass 2 360 mg/dL (241-700); Immunoglobulin G Subclass 3 76 mg/dL (22-178); Immunoglobulin G Subclass 4 17.7 mg/dL (4-86); Immunoglobulin G Total 944 mg/dL (600-1640)
== END 2024-07-18 11:53 | disposition home or self-care (01) ==
LOC: HO.WFDLDS 11:52
PROVIDERS: Internal Medicine Gastroenterology; Nurse Practitioner Family; Referring Provider Internal Medicine Nephrology; Visit Provider Chiropractor
DX: R80.9 Proteinuria, unspecified (principal); E11.69 Type 2 diabetes mellitus with other specified complication; E78.5 Hyperlipidemia, unspecified; E11.65 Type 2 diabetes mellitus with hyperglycemia; Z79.4 Long term (current) use of insulin; K86.1 Other chronic pancreatitis; K75.81 Nonalcoholic steatohepatitis (NASH)
CPT/HCPCS: 36415; 80053; 81001; 82570; 82784; 83036; 83690; 84156; 85025; 86140

== ENCOUNTER 2024-07-24 15:22 | Outpatient (AMB) | payer OTHER, SELFPAY ==
--- NOTE | 2024-07-24 16:01 | HO.NEPHOV_ITS ---
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 Required: No Accompanied by: Self / Same As Patient Allergies Seasonal Allergies Allergy (Intermediate, Verified 07/24/24 16:04) Cough semaglutide [From Ozempic] Allergy (Mild, Verified 07/24/24 16:04) pancreatitis amoxicillin [From Augmentin] Adverse Reaction (Severe, Verified 07/24/24 16:04) n/v/d clavulanic acid [From Augmentin] Adverse Reaction (Severe, Verified 07/24/24 16:04) n/v/d NSAIDS (Non-Steroidal Anti-Inflamma [NSAIDS (NON-STEROIDAL ANTI-INFLAMMA] Adverse Reaction (Intermediate, Verified 07/24/24 16:04) BLEEDING HPI Comments Details: I had the delight of seeing Carlota in follow up for proteinuria. She is 53 years of age and has been a diabetic from her 20s. Her blood sugars had not been well controlled all along. She has dyslipidemia and is on statins. She has no hypertension. She was told that she has some early signs of diabetic retinopathy in the eyes. She denies any coronary artery disease, congestive heart failure, CVA, renal artery stenosis, peripheral arterial disease or carotid stenosis. She is actively trying to lose some weight. Her serum creatinine is normal. She has no edema. She does not get recurrent urinary infections. She denies any macroscopic hematuria. She does not take any nonsteroidal anti-inflammatories. She has no epistaxis, photosensitivity, joint swellings, skin rashes. She is very worried and concerned about her protein in the urine. She has a family member in [place] who had from ESRD due to diabetic nephropathy. She is smoker. She had pancreatitis from Ozempic. She is followed up by Endocrinology closely. [facility] Medical History (Updated 07/24/24 @ 20:11 by Gwyn Mckinney MD) Right hip pain Diabetic nephropathy Chronic cough Chronic prescription opiate use Thoracic back pain Menopause Vasomotor symptoms due to menopause Elevated C-reactive protein (CRP) Proteinuria Type 2 diabetes mellitus with other diabetic kidney complication Sleep apnea PCOS (polycystic ovarian syndrome) Asthma Type 2 diabetes mellitus with hyperglycemia, with long-term current use of insulin Hyperlipidemia LDL goal <100 Obesity due to excess calories BMI 37.0-37.9, adult 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, uncontrolled [facility]CI (current) use of opiate analgesic Chronic pain syndrome Postlaminectomy syndrome, lumbar Surgical History Hx of colonoscopy History of esophagogastroduodenoscopy (EGD) Hx of spinal surgery History of removal of cyst History of carpal tunnel release History of lumbar surgery Family History Father Diabetes Hypertension Mother Asthma Social History Household Members: Family Housing: Apartment Are you a primary care information associate to a significant other at home: No Do you presently have visiting nurse or other home services: Yes (STRATEGIC COMMUNICATIONS SPECIALIST) Alcohol intake: current Alcohol intake frequency: holidays/special occasions only Patient Tobacco Use Status: Current everyday Tobacco user Tobacco use type: Cigarette Cigarette Packs Per Day: 1 Cigarettes Per Day: 20.0 Years Smoked: 30 e-Cigarette/Vaping Use: Never Used Second Hand Smoke Exposure: Yes service: No Current occupational status: disabled Current occupational exposures/hazards: No Cognitive needs: No Hearing needs: No Vision needs: Yes Review of Systems Const All systems reviewed & are unremarkable except as noted in HPI and below Physical Exam Vital Signs: Last Vital Signs Pulse 75 07/24/24 16:02 BP 132/62 07/24/24 16:02 Pulse Ox 95 07/24/24 16:02 Oxygen Delivery Method Room Air 07/24/24 16:02 BMI result Body Mass Index 37.1 Const General: comfortable and no acute distress Orientation/consciousness: patient oriented x3 HEENT Head: Yes normocephalic Mouth: Normal oral and palatal mucosa present Eyes EOM: EOMs intact bilaterally Neck Neck: Yes supple Resp Auscultation: clear to auscultation bilaterally Cardio Jugular venous distension: no JVD Rate: regular rate GI Palpation (GI): Soft to palpation Auscultation: normal bowel sounds General: Yes no CVA tenderness Back/Spine/Pelvis Back: no CVA tenderness Skin General skin exam: no rashes or lesions noted Neuro General: patient oriented x3 and moves all extremities Extrem General: Yes no pedal edema Results Reviewed Nephrology Results: Hgb 12.9 g/dl (12.0-16.0) 07/18/24 WBC 11.3 X10*3/uL (4.8-10.8) H 07/18/24 Plt Count 322 X10*3/uL (160-400) 07/18/24 Sodium 137 mmol/L (135-145) 07/18/24 Potassium 4.2 mmol/L (3.3-5.1) 07/18/24 Chloride 99 mmol/L (96-108) 07/18/24 Carbon Dioxide 28 mmol/L (22-29) 07/18/24 BUN 9 mg/dL (9-16) 07/18/24 Creatinine 0.76 mg/dL (0.5-1.4) 07/18/24 Calcium 9.7 mg/dL (8.4-10.2) 07/18/24 Urine Protein 100 (2+) mg/dL (Neg-Trace) H 07/18/24 Urine Creatinine 41.08 mg/dL 07/18/24 Protein/Creatinin Ratio 1.56 (<0.2) H 07/18/24 Assessment & Plan Assessment & Plan (1) Diabetic nephropathy: Comment: Code(s): E11.21 - Type 2 diabetes mellitus with diabetic nephropathy Category: Medical Qualifiers: Diabetes mellitus type: type 2 Qualified Code(s): E11.21 - Type 2 diabetes mellitus with diabetic nephropathy (2) Type 2 diabetes mellitus with other diabetic kidney complication: Code(s): E11.29 - Type 2 diabetes mellitus with other diabetic kidney complication Category: Medical Plan Carlota likely has diabetic nephropathy. She has significant proteinuria. Her blood pressure is at goal. Her diabetes is poorly controlled. She is a candidate for [employer] or Cint ( she says she is type 2 diabetic). She does not get recurrent UTIs. She has no edema. Workup has been negative to date. I increased her lisinopril to 10 mg twice daily. I have discussed about renal b iopsy which she wants to wait . She needs to lose weight. She needs to keep her blood sugar better controlled. She should avoid nonsteroidal anti-inflammatories and maintain good hydration. I did not make any other medication changes today. Answered all her questions. Follow-up appointment given Orders: Orders Protein Creatinine Ratio, Ur 3 Months E11.21 - Type 2 diabetes mellitus with diabetic nephropathy Creatinine 3 Months E11.21 - Type 2 diabetes mellitus with diabetic nephropathy Blood Urea Nitrogen 3 Months E11.21 - Type 2 diabetes mellitus with diabetic nephropathy Electrolytes 3 Months E11.21 - Type 2 diabetes mellitus with diabetic nephropathy Medications: Changed From lisinopril 5 mg PO BID To lisinopril 10 mg PO BID 90 days 180 tabs 3RF Coding Level of Care Code Est Pt Level 4 (96706) Diagnoses Diabetic nephropathy associated with type 2 diabetes mellitus E11. Diabetes mellitus type: type 2 Type 2 diabetes mellitus with other diabetic kidney complication E11.29
[2024-07-24 16:02] VITALS: BP 132/62; PULSE 75; O2SAT 95; BMI 37.1
== END 2024-07-24 16:22 | disposition home or self-care (01) ==
PROVIDERS: PCP Nurse Practitioner Family; Visit Provider Internal Medicine Nephrology
DX: E11.21 Type 2 diabetes mellitus with diabetic nephropathy (principal); E11.29 Type 2 diabetes mellitus with other diabetic kidney complication
CPT/HCPCS: 99214

== ENCOUNTER → 2024-07-24 15:22 | Outpatient (BNVA) | payer OTHER, SELFPAY | PROVIDERS: PCP Nurse Practitioner Family; Visit Provider Internal Medicine Nephrology | DX: E11.21 Type 2 diabetes mellitus with diabetic nephropathy (principal); E11.29 Type 2 diabetes mellitus with other diabetic kidney complication; E78.5 Hyperlipidemia, unspecified | CPT/HCPCS: 99212 ==

== ENCOUNTER 2024-07-31 10:42 | Outpatient (AMB) | payer OTHER, SELFPAY ==
[2024-07-31 10:52] VITALS: BP 161/67; PULSE 82; O2SAT 94; BMI 37.2
--- NOTE | 2024-07-31 10:52 | A.OFFVIS_ITS ---
Vital Signs 07/31/24 10:52 Height 5 ft 3 in Weight 210 lb BMI 37.2 BP 161/67 H Blood Pressure Location Rt brachial Position Sitting Pulse 82 Pulse Source Pulse Oximeter Pulse Oximetry (%) 94 Oxygen Delivery Method Room Air Intake Visit Reasons: PILL COUNT Allergies Seasonal Allergies Allergy (Intermediate, Verified 07/31/24 10:53) Cough semaglutide [From Ozempic] Allergy (Mild, Verified 07/31/24 10:53) pancreatitis amoxicillin [From Augmentin] Adverse Reaction (Severe, Verified 07/31/24 10:53) n/v/d clavulanic acid [From Augmentin] Adverse Reaction (Severe, Verified 07/31/24 1 0:53) n/v/d NSAIDS (Non-Steroidal Anti-Inflamma [NSAIDS (NON-STEROIDAL ANTI-INFLAMMA] Adverse Reaction (Intermediate, Verified 07/31/24 10:53) BLEEDING Medication List - Last Reconciled 07/31/24 by Danuta Jules albuterol sulfate 90 mcg/actuation 2 puffs PO Q6H PRN albuterol sulfate 2.5 mg inhalation Q6H PRN atorvastatin 80 mg PO BEDTIME blood sugar diagnostic (FreeStyle Lite Strips) USE 1 STRIP 3 TO 4 TIMES DAILY blood sugar diagnostic (FreeStyle Lite Strips) 3 times per day cetirizine 10 mg PO DAILY cyclobenzaprine 5 mg PO TID PRN diabetic supplies, miscellan. As directed diaper,brief,adult,disposable (Briefs, Adult-Extra Large) use daily diphenhydramine HCl (Banophen) 25 mg PO BEDTIME PRN flash glucose scanning reader (FreeStyle Bettye 2 [place]) As directed flash glucose sensor (FreeStyle Bettye 2 Sensor kit) As directed every 2 weeks fluticasone propionate 50 mcg/actuation 1 spray intranasal BID PRN gabapentin 600 mg PO TID PRN 30 days insulin aspart U-100 (Novolog FlexPen U-100 Insulin aspart) 1 sliding scale dose subcut TID insulin degludec (Tresiba FlexTouch U-200 insulin) 40 units (0.2 mL) subcut DAILY 30 days lancets 3 to 4 time a day blood sugar checks. linaclotide 145 mcg PO DAILY lisinopril 10 mg PO BID 90 days magnesium oxide 500 mg PO BEDTIME montelukast 10 mg PO BEDTIME nicotine 1 patch transdermal Q24H omeprazole 20 mg PO BID oxycodone 10 mg PO TID PRN 30 days pen needle, diabetic tid insulin administration sitagliptin phos-metformin 50-1,000 mg ER (Janumet XR) 1 tab PO BID solriamfetol (Sunosi) 150 mg PO DAILY PRN ursodiol 500 mg PO BID HPI Comments Details: Carlota is a very pleasant 53 year old female who presents to the office today for follow chronic pain and chronic opioid medication management. She is prescribed oxycodone 10mg po TID prn. Patient arrived today with the expectation of having 33 pills, she presented 32 pills which were counted in the presence of two staff members and returned to the patient in the original prescription bottle. This demonstrates responsible attitude toward patient's opioid medications. Pain is reported today as 7/10 and last dose of pain medication was taken at 08:00 this morning. Denies side effects including constipation, nausea, shortness of breath, urinary retention or drowsiness. Has MRI for follow-up of her pancreatitis scheduled in the next couple of weeks. States her A1c has been elevated, previously under control but most recent check was 11. She has been off all diabetic medications other than insulin. Follow up as scheduled in 1 week with her primary care doctor to discuss restarting other medications. Previous visit with Dr Stanley: Carlota is back in my office after the trial I DDD with with morphine which was performed on 01/31/2023.? She does not report the same pain evaluation as it was with Dilaudid in September.? She received 150 micro g of morphine intrathecally.? However the patient developed what looks like post dural puncture headache immediately after the procedure.? The headache went away on itself however now we are not ready to implant anything for the patient.? I suggested that we might try in the future instead of fentanyl to go ahead with bupivacaine injections small dose intrathecally and have bupivacaine as the main medication in the intrathecal space if results of the trial will have no side effects and will have good pain relief.? I warned her that she may experience weakness in bilateral lower extremities after bupivacaine injection however the weakness will be only transient. We decided to wait a month or two PA and schedule the bupivacaine trial later. Prior:? Dilaudid which was performed of 10/06/2023.? The patient reports absence of pain for the 1st 48 hours after the procedure.? However she reports severe nausea and vomiting after surgery.? This is unwanted side effects.? I offered her reach trial with morphine versus read trial with fentanyl.? The patient reported that in the past she was taking morphine as a pain medication orally.? She denies any side effects.? I will try to perform the procedure with 150 mcg intrathecally? [facility] Medical History (Updated 07/24/24 @ 20:11 by Gwyn Mckinney MD) Right hip pain Diabetic nephropathy Chronic cough Chronic prescription opiate use Thoracic back pain Menopause Vasomotor symptoms due to menopause Elevated C-reactive protein (CRP) Proteinuria Type 2 diabetes mellitus with other diabetic kidney complication Sleep apnea PCOS (polycystic ovarian syndrome) Asthma Type 2 diabetes mellitus with hyperglycemia, with long-term current use of insulin Hyperlipidemia LDL goal <100 Obesity due to excess calories BMI 37.0-37.9, adult 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, uncontrolled 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 Chronic pain syndrome Postlaminectomy syndrome, lumbar Surgical History Hx of colonoscopy History of esophagogastroduodenoscopy (EGD) Hx of spinal surgery History of removal of cyst History of carpal tunnel release History of lumbar surgery Family History Father Diabetes Hypertension Mother Asthma Social History Household Members: Family Housing: Apartment Are you a primary landcare officer to a significant other at home: No Do you 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) Alcohol intake: current Alcohol intake frequency: holidays/special occasions only Patient Tobacco Use Status: Current everyday Tobacco user Tobacco use type: Cigarette Cigarette Packs Per Day: 1 Cigarettes Per Day: 20.0 Years Smoked: 30 e-Cigarette/Vaping Use: Never Used Second Hand Smoke Exposure: Yes service: No Current occupational status: disabled Current occupational exposures/hazards: No Cognitive needs: No Hearing needs: No Vision needs: Yes Review of Systems Const All systems reviewed & are unremarkable except as noted in HPI and below Physical Exam Vital Signs: Last Vital Signs Pulse 82 07/31/24 10:52 BP 161/67 H 07/31/24 10:52 Pulse Ox 94 07/31/24 10:52 Oxygen Delivery Method Room Air 07/31/24 10:52 BMI result Body Mass Index 37.2 General: awake, alert, oriented. Answers questions appropriately. Fully engaged in examination. Skin: warm, dry, intact without visible rashes or lesions. HEENT: Normocephalic. Hearing intact. Cardiac: External chest normal in appearance. Respiratory: No signs of respiratory distress. Abdomen: without gross distension. MS: No obvious swelling or deformities. Neurological: Oriented to person, place, time and situation. Thought process intact. ambulating with use of rollator walker. Psychiatric: Appropriate mood and affect. Good judgment and insight. Results Reviewed Results Reviewed: MR/MR abdomen wo/w con IMPRESSION: 1. No evidence of gallstone or hepatobiliary duct dilatation. 2. Unchanged Mild hepatic steatosis. 3. Unchanged Atrophic pancreas with trace inflammatory exudate surrounding the pancreatic uncinate process, compatible with residual interstitial edematous pancreatitis. No well loculated pseudocyst could be identified. 4. Persistent enhancing proximal superior peripancreatic lymph node and posterior periportal lymph node. 5. Bilateral renal cortical simple cysts are seen for which no follow-up imaging is recommended. 6. Advanced L5-S1 degenerative lumbar disc disease, moderate posterior L4-L5 and marked L5-S1 disc protrusions. 7. Small mesenteric hernia containing mesenteric fat. 10/12/2023 XR/XR thoracic spine 3V FINDINGS: There are mild multilevel degenerative changes of thoracic spine with marginal spurring. Pedicles are preserved there is no evidence of fractures soft tissues unremarkable. There is no spondylolysis or listhesis. IMPRESSION: Mild degenerative changes with marginal spurring. Thoracic spine. 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 No obvious signs of diversion, abuse or misuse of the opioid medications. Will send in prescription for oxycodone 10mg po tid #90 no refills with an advanced date of 08/11/2024 Follow up with PCP as planned to discuss elevated A1c All questions and concerns have been answered and patient agrees with the plan. Patient will follow up in 1 month, sooner if needed. Medications: Refilled oxycodone Partial Fill upon patient request. 10 mg PO TID PRN 90 tabs 0RF pain 30 days G89.4 - Chronic pain syndrome, M96.1 - Postlaminectomy syndrome, not elsewhere classified Coding Level of Care Code Est Pt Level 4 (99486) Complex EM visit Add On G2211 Diagnoses Postlaminectomy syndrome, lumbar M96.1 Chronic pain syndrome G89.4 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 Z79.891 Myofascial muscle pain M79.18
== END 2024-07-31 11:03 | disposition home or self-care (01) ==
PROVIDERS: PCP Nurse Practitioner Family; Visit Provider Registered Nurse Emergency
DX: M96.1 Postlaminectomy syndrome, not elsewhere classified (principal); G89.4 Chronic pain syndrome; Z79.891 Long term (current) use of opiate analgesic; M79.18 Myalgia, other site
CPT/HCPCS: 99214; G2211

== ENCOUNTER → 2024-07-31 10:42 | Outpatient (BNVA) | payer OTHER, SELFPAY | PROVIDERS: PCP Nurse Practitioner Family; Visit Provider Registered Nurse Emergency | DX: M96.1 Postlaminectomy syndrome, not elsewhere classified (principal); G89.4 Chronic pain syndrome; M79.18 Myalgia, other site; Z51.81 Encounter for therapeutic drug level monitoring; Z79.891 Long term (current) use of opiate analgesic | CPT/HCPCS: 99212 ==

== ENCOUNTER → 2024-08-04 13:33 | Outpatient (BNV) | payer OTHER, SELFPAY | PROVIDERS: PCP Nurse Practitioner Family; Visit Provider Radiology Diagnostic Radiology | DX: K86.1 Other chronic pancreatitis (principal) | CPT/HCPCS: 74183 ==

== ENCOUNTER 2024-08-04 13:42 | Outpatient (REF) | payer OTHER, SELFPAY ==
[2024-08-04] MEDS: gadobutroL 10 ML VIAL IVPUSH (15:19)
== END 2024-08-04 13:43 | disposition home or self-care (01) ==
LOC: HO.MRI 13:42
PROVIDERS: PCP Nurse Practitioner Family; Visit Provider Internal Medicine Gastroenterology
DX: K86.1 Other chronic pancreatitis (principal)
CPT/HCPCS: 74183; A9585

== ENCOUNTER 2024-08-05 12:43 | Outpatient (AMB) | payer OTHER, SELFPAY ==
--- NOTE | 2024-08-05 12:51 | MHC.OFFVIS ---
Intake Visit Reasons: r/s from 06/10 Intake Note: Carlota presents in the office as a follow up. CC: She states she was seen in the ED by Sal. Still having swelling in the stomach. She is not having any irregular bowel movements. She states that she doubles her linzess 145mcg but she needs new Rx for 290mcg. Customer Support Assistant Required: No Allergies Seasonal Allergies Allergy (Intermediate, Verified 08/06/24 11:38) Cough semaglutide [From Ozempic] Allergy (Mild, Verified 08/06/24 11:38) pancreatitis amoxicillin [From Augmentin] Adverse Reaction (Severe, Verified 08/06/24 11:38) n/v/d clavulanic acid [From Augmentin] Adverse Reaction (Severe, Verified 08/06/24 11:38) n/v/d NSAIDS (Non-Steroidal Anti-Inflamma [NSAIDS (NON-STEROIDAL ANTI-INFLAMMA] Adverse Reaction (Intermediate, Verified 08/06/24 11:38) BLEEDING HPI HPI r/s from 06/10: Details: 54 yr old f here for f/u Recap: constipation controlled with linaclotide TESTS: CT 2020-- right sided colonic and TI thickening, hyperemia EGD/Colonoscopy:02/06 Endoscopy Findings: bile acid reflux gastritis Colonoscopy Findings: colon polyp internal hemorrhoids' Seen in hospital for pancreatitis suspected due to ozempic repeat CT with contrast 06/03/24 at [facility] with ?pancreatitis vs duodenitis, ?ovarian lesion ECG was normal LABS: minor ALT elevation, nml lipase (at [facility] mild alk phos and AST elevation) imaging with possible pancreatic infiltrate, small LN, small kidney stone INTERIM:]' she has still been having epigastric pain worse with food but not as bad constipation better with linaclotide appetite is fair no fevers no blood ins tool PPi not helping her pain I reviewed MRI and pancreas looks normal, as does GB and PD, stomach looks thickened EXAM: GENERAL: The patient is well developed and nontoxic. VITAL SIGNS:see workflow HEENT: Nonicteric sclerae, PERRLA, EOMI. Oropharynx clear. Moist mucous membranes. Conjunctivae appear well perfused. No thyroid mass. CHEST: Chest wall is nontender. HEART: Regular rate and rhythm without murmurs. LUNGS: Clear to auscultation bilaterally. ABDOMEN: Soft, reduced bowel sounds, tender epigastric area, no organomegaly.no flank tenderness SKIN: No rash, no excessive bruising, petechiae, or purpura. NEUROLOGIC: Cranial nerves II-XII intact without motor/sensory deficit. Psych: nml affect A/P: 1/constipation--slow transit also due to opiate use-and recent illness 2/ ?pancreatitis 2/2 ozempic PLAN: 1/ cont linaclotide 2/ double dose PPI and if no better then EGD [facility] Medical History Right hip pain Diabetic nephropathy Chronic cough Chronic prescription opiate use Thoracic back pain Menopause Vasomotor symptoms due to menopause Elevated C-reactive protein (CRP) Proteinuria Type 2 diabetes mellitus with other diabetic kidney complication Sleep apnea PCOS (polycystic ovarian syndrome) Asthma Type 2 diabetes mellitus with hyperglycemia, with long-term current use of insulin Hyperlipidemia LDL goal <100 Obesity due to excess calories BMI 37.0-37.9, adult 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, 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 Chronic pain syndrome Postlaminectomy syndrome, lumbar Surgical History Hx of colonoscopy History of esophagogastroduodenoscopy (EGD) Hx of spinal surgery History of removal of cyst History of carpal tunnel release History of lumbar surgery Family History Father Diabetes Hypertension Mother Asthma Social History Household Members: Family Housing: Apartment Are you a primary landcare officer to a significant other at home: No 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) Alcohol intake: current Alcohol intake frequency: holidays/special occasions only Patient Tobacco Use Status: Current everyday Tobacco user Tobacco use type: Cigarette Cigarette Packs Per Day: 1 Cigarettes Per Day: 20.0 Years Smoked: 30 e-Cigarette/Vaping Use: Never Used Second Hand Smoke Exposure: Yes service: No Current occupational status: disabled Current occupational exposures/hazards: No Cognitive needs: No Hearing needs: No Vision needs: Yes Assessment & Plan Assessment & Plan (1) Gastritis, bile acid reflux: Code(s): K29.60 - Other gastritis without bleeding Category: Medical Plan: see above Medications: New pantoprazole 40 mg PO BID 90 tabs 2RF Refilled linaclotide 145 mcg PO DAILY 90 caps 2RF Coding Level of Care Code Est Pt Level 4 (01330) Diagnoses Gastritis, bile acid reflux K29.60
== END 2024-08-05 13:26 | disposition home or self-care (01) ==
PROVIDERS: PCP Nurse Practitioner Family; Visit Provider Internal Medicine Gastroenterology
DX: K29.60 Other gastritis without bleeding (principal)
CPT/HCPCS: 99214

== ENCOUNTER → 2024-08-05 12:43 | Outpatient (BNVA) | payer OTHER, SELFPAY | PROVIDERS: PCP Nurse Practitioner Family; Visit Provider Internal Medicine Gastroenterology | DX: K29.60 Other gastritis without bleeding (principal) | CPT/HCPCS: 99212 ==

== ENCOUNTER 2024-08-06 11:16 | Outpatient (REF) | payer OTHER, SELFPAY ==
[2024-08-06 15:32] LABS: Influenza A PCR NEGATIVE (Negative); Influenza B PCR NEGATIVE (Negative); Resp Syncy Virus RNA Qual PCR NEGATIVE (Negative); SARS COV2 PCR INHOUSE NEGATIVE (Negative)
== END 2024-08-06 11:17 | disposition home or self-care (01) ==
LOC: HO.LNP 11:16
PROVIDERS: PCP Nurse Practitioner Family; Visit Provider Nurse Practitioner Family
DX: E11.65 Type 2 diabetes mellitus with hyperglycemia (principal); E11.29 Type 2 diabetes mellitus with other diabetic kidney complication; J45.40 Moderate persistent asthma, uncomplicated; J30.2 Other seasonal allergic rhinitis; R09.89 Other specified symptoms and signs involving the circulatory and respiratory systems; Z79.4 Long term (current) use of insulin; F17.210 Nicotine dependence, cigarettes, uncomplicated
CPT/HCPCS: 0241U; 96127; 96160; 99212

== ENCOUNTER 2024-08-06 11:16 | Outpatient (AMB) | payer OTHER, SELFPAY ==
--- NOTE | 2024-08-06 11:18 | A.OFFPC_ITS ---
Vital Signs 08/06/24 11:20 Height 5 ft 3 in Weight 212 lb BMI 37.6 BP 136/74 Blood Pressure Location Lt brachial Position Sitting Respiration 15 Pulse 80 Pulse Source Pulse Oximeter Pulse Oximetry (%) 95 Oxygen Delivery Method Room Air Intake Visit Reasons: 3-4 wks 30 min fu pancreatitis/ chronic conidtions Intake Note: follow up Allergies Seasonal Allergies Allergy (Intermediate, Verified 08/06/24 11:38) Cough semaglutide [From Ozempic] Allergy (Mild, Verified 08/06/24 11:38) pancreatitis amoxicillin [From Augmentin] Adverse Reaction (Severe, Verified 08/06/24 11:38) n/v/d clavulanic acid [From Augmentin] Adverse Reaction (Severe, Verified 08/06/24 11:38) n/v/d NSAIDS (Non-Steroidal Anti-Inflamma [NSAIDS (NON-STEROIDAL ANTI-INFLAMMA] Adverse Reaction (Intermediate, Verified 08/06/24 11:38) BLEEDING Medication List - Last Reconciled 08/06/24 by Bhumika Lucas [facility] albuterol sulfate 90 mcg/actuation 2 puffs PO Q6H PRN albuterol sulfate 2.5 mg inhalation Q6H PRN atorvastatin 80 mg PO BEDTIME blood sugar diagnostic (FreeStyle Lite Strips) USE 1 STRIP 3 TO 4 TIMES DAILY blood sugar diagnostic (FreeStyle Lite Strips) 3 times per day cetirizine 10 mg PO DAILY cyclobenzaprine 5 mg PO TID PRN diabetic supplies, miscellan. As directed diaper,brief,adult,disposable (Briefs, Adult-Extra Large) use daily diphenhydramine HCl (Banophen) 25 mg PO BEDTIME PRN flash glucose scanning reader (FreeStyle Bettye 2 [place]) As directed flash glucose sensor (FreeStyle Bettye 2 Sensor kit) As directed every 2 weeks fluticasone propionate 50 mcg/actuation 1 spray intranasal BID PRN gabapentin 600 mg PO TID PRN 30 days insulin aspart U-100 (Novolog FlexPen U-100 Insulin aspart) 1 sliding scale dose subcut TID insulin degludec (Tresiba FlexTouch U-200 insulin) 40 units (0.2 mL) subcut DAILY 30 days lancets 3 to 4 time a day blood sugar checks. linaclotide 145 mcg PO DAILY lisinopril 10 mg PO BID 90 days magnesium oxide 500 mg PO BEDTIME montelukast 10 mg PO BEDTIME nicotine 1 patch transdermal Q24H oxycodone 10 mg PO TID PRN 30 days pantoprazole 40 mg PO BID pen needle, diabetic tid insulin administration solriamfetol (Sunosi) 150 mg PO DAILY PRN ursodiol 500 mg PO BID Tobacco use date assessed: 03/14/24 Dental Screening Dental Screen Date: 01/10/24 HPI HPI Comments History of Present Illness Details 53-year-old female with type 2 diabetes with complications, diabetic kidney disease hypertension hyperlipidemia, obesity obstructive sleep apnea, PCOS, asthma, chronic pain syndrome, diverticulosis, coronary artery disease, 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 Regards to her chronic conditions, unfortunately she stopped taking her Janumet after last office visit as she was afraid that this may contribute to pancreatitis. Therefore she was only currently taking her insulin NovoLog as well as her Tresiba. akine tresiba 40 and ISS 30 units TID she is not consistently using her continuous glucose monitor. She does report hyperglycemia. 06/2024 a1c 11.6 She had a routine follow up with GI as well as her repeat MRI. The consult note from 08/05/2024 was reviewed. Plan> increase PPI if not better repeat EGD RTO January 202507/2024 Renal consult, lisinopril increa sed, rec start SGLT, declined renal bx. She does not want to take an SGLT as she is worried about pancreatitis. When I reviewed her medication list with her she is not taking Ursodiol 500mg po BID since her hospital visit as she was worried about taking this as well. She did not alert Dr. Huang during the visit yesterday. In other regards she was complaining of a new cough that started 3 days ago associated with sinus congestion. Reports that her symptoms feel like allergy symptoms although she feels like crap . She has not tried any medications to help her symptoms. Cont to smoke Exam: Awake alert oriented, NAD Scleras nonicteric bilat TM intact congestion bilat Nares patent, turbinates WNL, no sinus tenderness with palp Mucous membranes moist, pharynx WNL Lung sounds clear to auscultation bilat occasional cough Regular rate and rhythm Plan: Viral swab obtained today and negative for COVID flu and RSV. We will prescribe Tessalon 1 tab PO TID prn cough. Supportive care. Continue to take inhalers as prescribed along with antihistamine. Smoking cessation. For her diabetes we will start her back on metformin ER 1000 mg p.o. b.i.d.. Start glipizide 5 mg p.o. b.i.d.. Encouraged to use CGM consistently. Continue on insulin. I have sent a message to Dr. Huang regarding the Urosodiol. Hi I saw her today, she was RX Ursodiol 500mg po BID by Dr Hardy 02/2024 s/p EGD She stopped taking after her hospitalization 05/2024 for pancreatitis She saw Dr Huang yesterday and did not mention she was not taking this... wondering if she should restart Please f/u with the patient on this. Thank you Return to office in September for routine follow up with labs done 1 week before, sooner as needed Total time spent caring for the patient today was 50 minutes. This includes time spent before the visit reviewing the chart, time spent during the visit, and time spent after the visit on documentation This note is constructed using voice recognition software. While every effort has been made to ensure accuracy in sap analyst, still errors may have been included Sometimes, these errors may affect the content or meaning of the given sentence . [facility] Medical History Right hip pain Diabetic nephropathy Chronic cough Chronic prescription opiate use Thoracic back pain Menopause Vasomotor symptoms due to menopause Elevated C-reactive protein (CRP) Proteinuria Type 2 diabetes mellitus with other diabetic kidney complication Sleep apnea PCOS (polycystic ovarian syndrome) Asthma Type 2 diabetes mellitus with hyperglycemia, with long-term current use of insulin Hyperlipidemia LDL goal <100 Obesity due to excess calories BMI 37.0-37.9, adult 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, uncontrolled half-way (current) use of opiate analgesic Chronic pain syndrome Postlaminectomy syndrome, lumbar Surgical History Hx of colonoscopy History of esophagogastroduodenoscopy (EGD) Hx of spinal surgery History of removal of cyst History of carpal tunnel release History of lumbar surgery Family History Father Diabetes Hypertension Mother Asthma Social History Household Members: Family Housing: Apartment Are you a primary home care giver to a significant other at home: No Do you presently have visiting nurse or other home services: Yes ([employer]) Alcohol intake: current Alcohol intake frequency: holidays/special occasions only Patient Tobacco Use Status: Current everyday Tobacco user Tobacco use type: Cigarette Cigarette Packs Per Day: 1 Cigarettes Per Day: 20.0 Years Smoked: 30 e-Cigarette/Vaping Use: Never Used Second Hand Smoke Exposure: Yes service: No Current occupational status: disabled Current occupational exposures/hazards: No Cognitive needs: No Hearing needs: No Vision needs: Yes Questionnaire PHQ-9 Over the last 2 weeks, how often have you been bothered by any of the following problems? 31762 - PHQ-9 Billing: Patient declined-do not bill Source: Developed by Drs. Yrn Alexander, Frieda Rivera, John Archuleta and colleagues, with an educational cedrick from [employer]. Thrive Questionnaire Date Thrive assessed: 08/06/24 I am a: Patient What is your living situation today?: I choose not to answer this question Within the past 12 months, did the food you bought not last and you didn't have the money to get more?: I choose not to answer this question Within the past 12 months, did you worry whether your food would run out before you got money to buy more?: I choose not to answer this question Do you have trouble paying for medicines?: I choose not to answer this question Do you have trouble getting transportation to medical appointments?: I choose not to answer this question Do you have trouble paying your heating and electricity bill?: I choose not to answer this question Do you have trouble taking care of your child, family member or friend?: I choose not to answer this question Do you have trouble with day-to-day activities such as bathing, preparing meals, shopping, managing finances, etc.?: I choose not to answer this question Are you currently unemployed and looking for a job?: I choose not to answer this question Are you interested in more education?: I choose not to answer this question Please select the resources that you would like help with: None Currently or been in a relationship where the following occur: I choose not to answer THRIVE Score: 0 AUDIT C Alcohol Use Questionnaire (AUDIT-C) 1. How often do you have a drink containing alcohol?: Never Total Score: 0 EDWIGE-7 AMB Questionnaire EDWIGE-7 Date EDWIGE - 7 assessed: 08/06/24 Feeling nervous, anxious, or on edge: 0 = Not at all Not being able to stop or control worryin = Not at all Worrying too much about different things: 0 = Not at all Trouble relaxin = Not at all Being so restless that it is hard to sit still: 0 = Not at all Becoming easily annoyed or irritable: 0 = Not at all Feeling afraid as if something awful might happen: 0 = Not at all Total EDWIGE-7 score (0-4 normal; 5-9 mild; 10-14 moderate; 15-21 severe): 0 Source: Developed by Drs. Yrn Alexander, Frieda Rivera, John Archuleta and colleagues, with an educational cedrick from [employer]. EDWIGE-7 Assessment Billing EDWIGE-7 Assessment Tool: EDWIGE-7 Assessment 29049 ACT Questionnaire In the past 4 weeks, how much of the time did your asthma keep you from getting as much done at work, school or at home?: A little of the time During the past 4 weeks, how often have you had shortness of breath?: Not at all During the past 4 weeks, how often did your asthma symptoms wake you up at night or earlier than usual in the morning?: Not at all During the past 4 weeks, how often have you had to use your rescue inhaler or nebulizer medication?: Once a week or less How would you rate your asthma control during the past 4 weeks?: Well controlled Score: 22 Physical exam (Primary Care) Vital Signs: Last Vital Signs Pulse 80 08/06/24 11:20 Resp 15 08/06/24 11:20 BP 136/74 08/06/24 11:20 Pulse Ox 95 08/06/24 11:20 Oxygen Delivery Method Room Air 08/06/24 11:20 BMI result Body Mass Index 37.6 BMI Assessment/Plan discussion: High BMI High, discussed plan: lifestyle Tobacco/Smoking Status: Tobacco use Status Tobacco use date assessed 03/14/24 08/06/24 11:22 Patient Tobacco Use Status Current everyday Tobacco 08/06/24 11:22 Tobacco use type Cigarette 08/06/24 11:22 e-Cigarette/Vaping Use Never Used 08/06/24 11:22 Are you ready to quit: Yes Tobacco cessation counseling provided: Yes Items discussed: Nicotine replacement, QuitWorks and Other Relapse Prevention: discussed the importance of a supportive environment, di scussed extending NRT, discussed negative mood or depression after quitting, weight gain after smoking is common and discussed dietary, exercise and/or lifestyle changes Number of minutes spent counselin CPT code: 92530 - 4-10 Minutes Thrive Assessment: Date of Thrive Assessment Date Thrive assessed 08/06/24 08/06/24 11:22 Currently or been in a relationship where the following occur: I choose not to answer Results Reviewed Results Reviewed: RUN: 08/06/24 1114 PAGE 1 [facility] [address] [place] [id number] Orthopedically Impaired Teacher: Antolin Zuniga M.D. Specimen Inquiry Name: Carlota Davis Wendy Age/Sex: 53/F : 1970 Unit#: [id number] Attend Dr: Bhumika Lucas DEVELOPMENT INTERN-BC Re08/06/24 Status: REG REF Location: [facility] Disch: SPEC : [id number] RASHEEDA: 08/06/24 STATUS: COMP REQ : [id number] RECD: 08/06/[address] [facility] [address]: Bhumika Lucas [facility] COMP: 08/06/24 ENTERED: 08/06/[address] [facility] [address]: ORDERED: SARS/FLU/RSV Test Result Flag Reference Influenza A PCR NEGATIVE Negative Influenza B PCR NEGATIVE Negative RSV RNA QualPCR NEGATIVE Negative SARSCOV2 RT-PCR NEGATIVE Negative All test results must be correlated with clinical findings. Negative results do not preclude SARS-CoV2, influenza A virus, influenza B virus and/or RSV infection and should not be used as the sole basis for treatment or other patient management decisions. Negative results must be combined with clinical observations, patient history, and epidemiological information. This test has not been evaluated for monitoring treatment of infection. This test has been authorized by the FDA under an Emergency Use Authorization (EUA) for use by authorized laboratories. Testing performed on the [employer] GeneXpert utilizing real-time RT-PCR. All SARS CoV2 and positive influenza A/B results are reported to [facility]. END OF REPORT Coding Level of Care Code Est Pt Level 5 (11457) Complex EM visit Add On G2211 Diagnoses Type 2 diabetes mellitus with hyperglycemia, with long-term current use of insulin E11.65; Z79.4 Type 2 diabetes mellitus with other diabetic kidney complication E11.29 Cigarette smoker motivated to quit F17.210 Moderate persistent asthma without complication J45.40 Asthma severity: moderate Asthma persistence: persistent Asthma complication type: uncomplicated Seasonal allergies J30.2 Additional Codes EDWIGE-7 Assessment Billing - EDWIGE-7 Assessment Tool: EDWIGE-7 Assessment 61264 ([id number]) Vital Signs *Quality* - CPT code: 44699 - 4-10 Minutes ([id number]) Assessment & Plan Assessment & Plan (1) Type 2 diabetes mellitus with hyperglycemia, with long-term current use of insulin: Comment: On insulin. Not interested in referral to endocrinology at this time. Uses a CGM [facility] [place] I do not have the most recent exam I have told her to get this for me. The last note I was able to review did have signs of diabetic retinopathy She is on CLAIRE inhibitor. tresiba 40 units Q noon & preprandial Insulin aspart to 10 units TID w meals. ISS at HS only. < 200 NO insulin 201-250 2 251-300 4 301-250 6 351-400 8 401 > 10 units Code(s): E11.65 - Type 2 diabetes mellitus with hyperglycemia; Z79.4 - watermaster (c urrent) use of insulin Category: Medical (2) Type 2 diabetes mellitus with other diabetic kidney complication: Code(s): E11.29 - Type 2 diabetes mellitus with other diabetic kidney complication Category: Medical Plan: . (3) Cigarette smoker motivated to quit: Code(s): F17.210 - Nicotine dependence, cigarettes, uncomplicated Category: Social Hx Plan: . (4) Asthma: Code(s): J45.909 - Unspecified asthma, uncomplicated Category: Medical Qualifiers: Asthma severity: moderate Asthma persistence: persistent Asthma complication type: uncomplicated Qualified Code(s): J45.40 - Moderate persistent asthma, uncomplicated Plan: . (5) Seasonal allergies: Code(s): J30.2 - Other seasonal allergic rhinitis Category: Medical Plan: . Plan . Orders: Orders SARS-CoV2/FLU/RSV Today R09.89 - Other specified symptoms and signs involving the circulatory and respiratory systems Comprehensive Met. Panel 09/15/24 E11.29 - Type 2 diabetes mellitus with other diabetic kidney complication, E11.65 - Type 2 diabetes mellitus with hyperglycemia, Z79.4 - watermaster (current) use of insulin Hemoglobin A1c 09/15/24 E11.29 - Type 2 diabetes mellitus with other diabetic kidney complication, E11.65 - Type 2 diabetes mellitus with hyperglycemia, Z79.4 - watermaster (current) use of insulin Vitamin B12 and Folate 09/15/24 E11.29 - Type 2 diabetes mellitus with other diabetic kidney complication, E11.65 - Type 2 diabetes mellitus with hyperglycemia, Z79.4 - half-way (current) use of insulin Medications: New metformin ER 1,000 mg (2 x 500 mg) PO BID 90 days 360 tabs 2RF glipizide 5 mg PO BID 180 tabs 2RF benzonatate 100 mg PO TID 10 days PRN 30 caps 1RF cough
[2024-08-06 11:20] VITALS: BP 136/74; PULSE 80; RESP 15; O2SAT 95; BMI 37.6
== END 2024-08-06 11:56 | disposition home or self-care (01) ==
PROVIDERS: PCP Nurse Practitioner Family; Visit Provider Nurse Practitioner Family
DX: E11.65 Type 2 diabetes mellitus with hyperglycemia (principal); Z79.4 Long term (current) use of insulin; E11.29 Type 2 diabetes mellitus with other diabetic kidney complication; F17.210 Nicotine dependence, cigarettes, uncomplicated; J45.40 Moderate persistent asthma, uncomplicated; J30.2 Other seasonal allergic rhinitis

== ENCOUNTER 2024-08-26 11:13 | Outpatient (AMB) | payer OTHER, SELFPAY ==
--- NOTE | 2024-08-26 11:14 | A.OFFPC_ITS ---
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 albuterol sulfate 90 mcg/actuation 2 puffs PO Q6H PRN albuterol sulfate 2.5 mg inhalation Q6H PRN atorvastatin 80 mg PO BEDTIME benzonatate 100 mg PO TID PRN 10 days blood sugar diagnostic (FreeStyle Lite Strips) USE 1 STRIP 3 TO 4 TIMES DAILY blood sugar diagnostic (FreeStyle Lite Strips) 3 times per day cetirizine 10 mg PO DAILY cyclobenzaprine 5 mg PO TID PRN diabetic supplies, miscellan. As directed diaper,brief,adult,disposable (Briefs, Adult-Extra Large) use daily diphenhydramine HCl (Banophen) 25 mg PO BEDTIME PRN flash glucose scanning reader (FreeStyle Bettye 2 [place]) As directed flash glucose sensor (FreeStyle Bettye 2 Sensor kit) As directed every 2 weeks fluticasone propionate 50 mcg/actuation 1 spray intranasal BID PRN gabapentin 600 mg PO TID PRN 30 days glipizide 5 mg PO BID insulin aspart U-100 (Novolog FlexPen U-100 Insulin aspart) 1 sliding scale dose subcut TID insulin degludec (Tresiba FlexTouch U-200 insulin) 40 units (0.2 mL) subcut DAILY 30 days lancets 3 to 4 time a day blood sugar checks. linaclotide 145 mcg PO DAILY lisinopril 10 mg PO BID 90 days magnesium oxide 500 mg PO BEDTIME metformin ER 1,000 mg (2 x 500 mg) PO BID 90 days montelukast 10 mg PO BEDTIME nicotine 1 patch transdermal Q24H oxycodone 10 mg PO TID PRN 30 days pantoprazole 40 mg PO BID pen needle, diabetic tid insulin administration solriamfetol (Sunosi) 150 mg PO DAILY PRN ursodiol 500 mg PO BID Tobacco use date assessed: 03/14/24 Dental Screening Dental Screen Date: 01/10/24 HPI HPI Comments History of Present Illness Details 54-year-old female with type 2 diabetes with complications, diabetic kidney disease hypertension hyperlipidemia, obesity obstructive sleep apnea, PCOS, asthma, chronic pain syndrome, diverticulosis, coronary artery disease, mild 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 I saw her at the end of July, 3 days after her cough started which was associated with sinus congestion. A viral swab was obtained at that time and negative. She was treated Tessalon and Zyrtec. Flonase use encouraged. Reports that she has been using all of these. At 1st it Tessalon was not helpful. However it did provide benefit for her after some use. She reports that her entire family got sick with similar symptoms. While she does feel better, she continues with this cough. She is taking all of her inhalers as directed. Continues to smoke. She also needs a new [employer] supply prescription for immobility step. Reports that she got 1 several years ago and it broke. She does require this to get into her house given her chronic back pain. She also needs the prescription for the adult briefs sent in as a fax. Request that this be sent in to [facility]. Exam: Awake alert oriented, NAD Scleras nonicteric bilat TM intact clear bilat Nares patent, turbinates WNL, no sinus tenderness with palp Mucous membranes moist, pharynx WNL Lung sounds w/ faint exp wheezes bilat upper lobes anterior otherwise clear, no cough, or sob Regular rate and rhythm Plan: CXR today negative. Supportive care only. Cont inhalers. Smoking cessation. Can cont to use tessalon if this is helpful. New RX for mobility step printed; i have asked my staff to fax this and the other RX to [facility], the fax # is included in the workload item. This note is constructed using voice recognition software. While every effort has been made to ensure accuracy in vault custodian, still errors may have been included Sometimes, these errors may affect the content or meaning of the given sentence . Total time spent caring for the patient today was 40 minutes. This includes time spent before the visit reviewing the chart, time spent during the visit, and time spent after the visit on documentation [facility] Medical History Right hip pain Diabetic nephropathy Chronic cough Chronic prescription opiate use Thoracic back pain Menopause Vasomotor symptoms due to menopause Elevated C-reactive protein (CRP) Proteinuria Type 2 diabetes mellitus with other diabetic kidney complication Sleep apnea PCOS (polycystic ovarian syndrome) Asthma Type 2 diabetes mellitus with hyperglycemia, with long-term current use of insulin Hyperlipidemia LDL goal <100 Obesity due to excess calories BMI 37.0-37.9, adult 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, uncontrolled MCFP (current) use of opiate analgesic Chronic pain syndrome Postlaminectomy syndrome, lumbar Surgical History Hx of colonoscopy History of esophagogastroduodenoscopy (EGD) Hx of spinal surgery History of removal of cyst History of carpal tunnel release History of lumbar surgery Family History Father Diabetes Hypertension Mother Asthma Social History Household Members: Family Housing: Apartment Are you a primary occasional caregiver to a significant other at home: No Do you presently have visiting nurse or other home services: Yes ([employer] HELPER) Alcohol intake: current Alcohol intake frequency: holidays/special occasions only Patient Tobacco Use Status: Current everyday Tobacco user Tobacco use type: Cigarette Cigarette Packs Per Day: 1 Cigarettes Per Day: 20.0 Years Smoked: 30 Packs Per Year: 30 Packs per year/per ci.00 e-Cigarette/Vaping Use: Never Used Second Hand Smoke Exposure: Yes service: No Current occupational status: disabled Current occupational exposures/hazards: No Cognitive needs: No Hearing needs: No Vision needs: Yes Questionnaire Thrive Questionnaire Date Thrive assessed: 08/06/24 EDWIGE-7 AMB Questionnaire EDWIGE-7 Date EDWIGE - 7 assessed: 08/06/24 Source: Developed by Drs. Yrn Alexander, Frieda Rivera, John Archuleta and colleagues, with an educational cedrick from [employer]. Physical exam (Primary Care) Vital Signs: Last Vital Signs Pulse 76 08/26/24 11:16 Resp 13 08/26/24 11:16 BP 147/67 H 08/26/24 11:16 Pulse Ox 98 08/26/24 11:25 Oxygen Delivery Method Room Air 08/26/24 11:25 BMI result Body Mass Index 37.2 Tobacco/Smoking Status: Tobacco use Status Tobacco use date assessed 03/14/24 08/26/24 11:15 Patient Tobacco Use Status Current everyday Tobacco 08/26/24 11:15 Tobacco use type Cigarette 08/26/24 11:15 e-Cigarette/Vaping Use Never Used 08/26/24 11:15 Thrive Assessment: Date of Thrive Assessment Date Thrive assessed 08/06/24 08/26/24 11:15 Results Reviewed Results Reviewed: [facility] [address] [place] [address] [place] [address] XRay Report Signed Patient: Carlota Davis MR#: [id number] : 1970 Acct:[id number] Age/Sex: 54 / F ADM Date: 08/26/24 Loc: HO.HMGCX Attending Dr: Bhumika JIMENES Ordering Physician: Bhumika Lucas Date of Service: 08/26/24 Procedure(s): XR chest 2V Accession Number(s): [id number] cc: Bhumika Lucas~ EXAMINATION: XR CHEST CLINICAL INFORMATION: Bilateral upper lobe wheezing. Shortness of breath. Rule out pneumonia. COMPARISON: October 12, 2023. TECHNIQUE: 2 views of the chest were obtained. FINDINGS: No significant abnormality is noted involving the heart, lungs, mediastinum, bony thorax or soft tissues. XR/XR chest 2V IMPRESSION: Unremarkable examination. Electronically signed by: Chris Arias MD 08/26/2024 03:59 PM EST Dictated By: Chris Arias Signed By: <Electronically signed by Chris Arias in OV> 08/26/24 1559 DD/ 1352 TD/TT: 08/26/24 1357 Clay Artist: Coding Level of Care Code Est Pt Level 5 (46078) Complex EM visit Add On G2211 Diagnoses Moderate persistent asthma without complication J45.40 Asthma complication type: uncomplicated Asthma persistence: persistent Asthma severity: moderate Cigarette smoker motivated to quit F17.210 Postlaminectomy syndrome, lumbar M96.1 Bursitis of both hips, unspecified bursa M70.71; M70.72 Hip bursitis location: unspecified Assessment & Plan Assessment & Plan (1) Asthma: Code(s): J45.909 - Unspecified asthma, uncomplicated Category: Medical Qualifiers: Asthma complication type: uncomplicated Asthma persistence: persistent Asthma severity: moderate Qualified Code(s): J45.40 - Moderate persistent asthma, uncomplicated Plan: . (2) Cigarette smoker motivated to quit: Code(s): F17.210 - Nicotine dependence, cigarettes, uncomplicated Category: Social Hx Plan: . (3) Postlaminectomy syndrome, lumbar: Code(s): M96.1 - Postlaminectomy syndrome, not elsewhere classified Category: Medical (4) Bursitis of both hips: Code(s): M70.71 - Other bursitis of hip, right hip; M70.72 - Other bursitis of hip, left hip Category: Medical Qualifiers: Hip bursitis location: unspecified Qualified Code(s): M70.71 - Other bursitis of hip, right hip; M70.72 - Other bursitis of hip, left hip Plan: . Plan . Orders: Orders XR chest 2V Today F17.210 - Nicotine dependence, cigarettes, uncomplicated, J45.40 - Moderate persistent asthma, uncomplicated Medications: New [MOBILITY STEP RISER, OUTDOOR] USE OUTSIDE OF HOME, DIRECTED 1 ea 0RF Refilled diaper,brief,adult,disposable (Briefs, Adult-Extra Large) use daily 30 ea 11RF R32 - Unspecified urinary incontinence Discontinued benzonatate Discontinued Reason: Patient Completed Course 100 mg PO TID 10 days PRN 30 caps 1RF cough
[2024-08-26 11:16] VITALS: BP 147/67; PULSE 76; RESP 13; O2SAT 93; BMI 37.2
[2024-08-26 11:25] VITALS: O2SAT 98
== END 2024-08-26 11:32 | disposition home or self-care (01) ==
LOC: HO.HMCFM 11:13
PROVIDERS: PCP Nurse Practitioner Family; Visit Provider Nurse Practitioner Family
DX: J45.40 Moderate persistent asthma, uncomplicated (principal); F17.210 Nicotine dependence, cigarettes, uncomplicated; M96.1 Postlaminectomy syndrome, not elsewhere classified; M70.71 Other bursitis of hip, right hip; M70.72 Other bursitis of hip, left hip

== ENCOUNTER 2024-08-26 11:13 | Outpatient (REF) | payer OTHER, SELFPAY ==
--- NOTE | ~2024-08-26 | XR_ITS ---
EXAMINATION: XR CHEST CLINICAL INFORMATION: Bilateral upper lobe wheezing. Shortness of breath. Rule out pneumonia. COMPARISON: October 12, 2023. TECHNIQUE: 2 views of the chest were obtained. FINDINGS: No significant abnormality is noted involving the heart, lungs, mediastinum, bony thorax or soft tissues. XR/XR chest 2V IMPRESSION: Unremarkable examination. Electronically signed by: Chris Arias MD 08/26/2024 03:59 PM [facility] [place]
== END 2024-08-26 11:14 | disposition home or self-care (01) ==
LOC: HO.HMGCX 11:13
PROVIDERS: PCP Nurse Practitioner Family; Visit Provider Nurse Practitioner Family
DX: J45.40 Moderate persistent asthma, uncomplicated (principal); F17.210 Nicotine dependence, cigarettes, uncomplicated; M96.1 Postlaminectomy syndrome, not elsewhere classified; M70.71 Other bursitis of hip, right hip; M70.72 Other bursitis of hip, left hip
CPT/HCPCS: 71046; 99212

== ENCOUNTER 2024-08-28 11:06 | Outpatient (AMB) | payer OTHER, SELFPAY ==
[2024-08-28 11:16] VITALS: BP 138/63; PULSE 94; O2SAT 95; BMI 37.2
--- NOTE | 2024-08-28 11:16 | MHC.OFFVIS ---
Vital Signs 08/28/24 11:16 Height 5 ft 3 in Weight 210 lb BMI 37.2 BP 138/63 Blood Pressure Location Lt brachial Position Sitting Pulse 94 Pulse Source Pulse Oximeter Pulse Oximetry (%) 95 Oxygen Delivery Method Room Air Intake Visit Reasons: PILL COUNT Allergies Seasonal Allergies Allergy (Intermediate, Verified 08/28/24 11:17) Cough semaglutide [From Ozempic] Allergy (Mild, Verified 08/28/24 11:17) pancreatitis amoxicillin [From Augmentin] Adverse Reaction (Severe, Verified 08/28/24 11:17) n/v/d clavulanic acid [From Augmentin] Adverse Reaction (Severe, Verified 08/28/24 11:17) n/v/d NSAIDS (Non-Steroidal Anti-Inflamma [NSAIDS (NON-STEROIDAL ANTI-INFLAMMA] Adverse Reaction (Intermediate, Verified 08/28/24 11:17) BLEEDING Medication List - Last Reconciled 08/28/24 by Danuta Jules albuterol sulfate 90 mcg/actuation 2 puffs PO Q6H PRN albuterol sulfate 2.5 mg inhalation Q6H PRN atorvastatin 80 mg PO BEDTIME blood sugar diagnostic (FreeStyle Lite Strips) USE 1 STRIP 3 TO 4 TIMES DAILY blood sugar diagnostic (FreeStyle Lite Strips) 3 times per day cyclobenzaprine 5 mg PO TID PRN diabetic supplies, miscellan. As directed diaper,brief,adult,disposable (Briefs, Adult-Extra Large) use daily diphenhydramine HCl (Banophen) 25 mg PO BEDTIME PRN flash glucose scanning reader (FreeStyle Bettye 2 [place]) As directed flash glucose sensor (FreeStyle Bettye 2 Sensor kit) As directed every 2 weeks fluticasone propionate 50 mcg/actuation 1 spray intranasal BID PRN gabapentin 600 mg PO TID PRN 30 days glipizide 5 mg PO BID insulin aspart U-100 (Novolog FlexPen U-100 Insulin aspart) 1 sliding scale dose subcut TID insulin degludec (Tresiba FlexTouch U-200 insulin) 40 units (0.2 mL) subcut DAILY 30 days lancets 3 to 4 time a day blood sugar checks. linaclotide 145 mcg PO DAILY lisinopril 10 mg PO BID 90 days magnesium oxide 500 mg PO BEDTIME metformin ER 1,000 mg (2 x 500 mg) PO BID 90 days [MOBILITY STEP RISER, OUTDOOR USE OUTSIDE OF HOME, DIRECTED ] montelukast 10 mg PO BEDTIME nicotine 1 patch transdermal Q24H oxycodone 10 mg PO TID PRN 30 days pantoprazole 40 mg PO BID pen needle, diabetic tid insulin administration solriamfetol (Sunosi) 150 mg PO DAILY PRN ursodiol 500 mg PO BID HPI Comments Details: Carlota presents back to the office today for follow chronic pain and chronic opioid medication management. She is prescribed oxycodone 10mg po TID prn. Patient arrived today with the expectation of having 33 pills, she presented 32 pills which were counted in the presence of two staff members and returned to the patient in the original prescription bottle. This demonstrates responsible attitude toward patient's opioid medications. Pain is reported today as 7/10 and last dose of pain medication was taken at 08:30 this morning. Denies side effects including constipation, nausea, shortness of breath, urinary retention or drowsiness. Patient reports she is followed up recently with her primary care doctor for her diabetes. Has been started on a new medication which is controlling her blood sugars well and requires less use of insulin. Previous visit with Dr Stanley: Carlota is back in my office after the trial I DDD with with morphine which was performed on 01/31/2023.? She does not report the same pain evaluation as it was with Dilaudid in September.? She received 150 micro g of morphine intrathecally.? However the patient developed what looks like post dural puncture headache immediately after the procedure.? The headache went away on itself however now we are not ready to implant anything for the patient.? I suggested that we might try in the future instead of fentanyl to go ahead with bupivacaine injections small dose intrathecally and have bupivacaine as the main medication in the intrathecal space if results of the trial will have no side effects and will have good pain relief.? I warned her that she may experience weakness in bilateral lower extremities after bupivacaine injection however the weakness will be only transient. We decided to wait a month or two PA and schedule the bupivacaine trial later. Prior:? Dilaudid which was performed of 10/06/2023.? The patient reports absence of pain for the 1st 48 hours after the procedure.? However she reports severe nausea and vomiting after surgery.? This is unwanted side effects.? I offered her reach trial with morphine versus read trial with fentanyl.? The patient reported that in the past she was taking morphine as a pain medication orally.? She denies any side effects.? I will try to perform the procedure with 150 mcg intrathecally? 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 Chronic pain syndrome Postlaminectomy syndrome, lumbar Surgical History Hx of colonoscopy History of esophagogastroduodenoscopy (EGD) Hx of spinal surgery History of removal of cyst History of carpal tunnel release History of lumbar surgery Family History Father Diabetes Hypertension Mother Asthma Social History Household Members: Family Housing: Apartment Are you a primary direct care provider to a significant other at home: No Do you presently have visiting nurse or other home services: Yes ([employer] DEVELOPER) Alcohol intake: current Alcohol intake frequency: holidays/special occasions only Patient Tobacco Use Status: Current everyday Tobacco user Tobacco use type: Cigarette Cigarette Packs Per Day: 1 Cigarettes Per Day: 20.0 Years Smoked: 30 e-Cigarette/Vaping Use: Never Used Second Hand Smoke Exposure: Yes service: No Current occupational status: disabled Current occupational exposures/hazards: No Cognitive needs: No Hearing needs: No Vision needs: Yes Review of Systems Const All systems reviewed & are unremarkable except as noted in HPI and below Physical Exam Vital Signs: Last Vital Signs Pulse 94 08/28/24 11:16 BP 138/63 08/28/24 11:16 Pulse Ox 95 08/28/24 11:16 Oxygen Delivery Method Room Air 08/28/24 11:16 BMI result Body Mass Index 37.2 General: awake, alert, oriented. Answers questions appropriately. Fully engaged in examination. Skin: warm, dry, intact without visible rashes or lesions. HEENT: Normocephalic. Hearing intact. Cardiac: External chest normal in appearance. Respiratory: No signs of respiratory distress. Abdomen: without gross distension. MS: No obvious swelling or deformities. Neurological: Oriented to person, place, time and situation. Thought process intact. ambulating with use of rollator walker. Psychiatric: Appropriate mood and affect. Good judgment and insight. Results Reviewed Results Reviewed: MR/MR abdomen wo/w con IMPRESSION: 1. No evidence of gallstone or hepatobiliary duct dilatation. 2. Unchanged Mild hepatic steatosis. 3. Unchanged Atrophic pancreas with trace inflammatory exudate surrounding the pancreatic uncinate process, compatible with residual interstitial edematous pancreatitis. No well loculated pseudocyst could be identified. 4. Persistent enhancing proximal superior peripancreatic lymph node and posterior periportal lymph node. 5. Bilateral renal cortical simple cysts are seen for which no follow-up imaging is recommended. 6. Advanced L5-S1 degenerative lumbar disc disease, moderate posterior L4-L5 and marked L5-S1 disc protrusions. 7. Small mesenteric hernia containing mesenteric fat. 10/12/2023 XR/XR thoracic spine 3V FINDINGS: There are mild multilevel degenerative changes of thoracic spine with marginal spurring. Pedicles are preserved there is no evidence of fractures soft tissues unremarkable. There is no spondylolysis or listhesis. IMPRESSION: Mild degenerative changes with marginal spurring. Thoracic spine. 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 No obvious signs of diversion, abuse or misuse of the opioid medications. Will send in prescription for oxycodone 10mg po tid #90 no refills with an advanced date of 09/08/2024 All questions and concerns have been answered and patient agrees with the plan. Patient will follow up in 1 month, sooner if needed. Medications: Refilled oxycodone Partial Fill upon patient request. 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
== END 2024-08-28 11:45 | disposition home or self-care (01) ==
PROVIDERS: PCP Nurse Practitioner Family; Visit Provider Registered Nurse Emergency
DX: M96.1 Postlaminectomy syndrome, not elsewhere classified (principal); G89.4 Chronic pain syndrome; Z79.891 Long term (current) use of opiate analgesic; M79.18 Myalgia, other site
CPT/HCPCS: 99214; G2211

== ENCOUNTER → 2024-08-28 11:06 | Outpatient (BNVA) | payer OTHER, SELFPAY | PROVIDERS: PCP Nurse Practitioner Family; Visit Provider Registered Nurse Emergency | DX: M79.18 Myalgia, other site (principal); G89.4 Chronic pain syndrome; M96.1 Postlaminectomy syndrome, not elsewhere classified; Z79.891 Long term (current) use of opiate analgesic | CPT/HCPCS: 99212 ==

== ENCOUNTER 2024-09-23 10:16 | Outpatient (REF) | payer OTHER, SELFPAY ==
--- NOTE | ~2024-09-23 | XR_ITS ---
EXAMINATION: XR CHEST CLINICAL INFORMATION: Nicotine dependence. Evaluate for pneumonia. COMPARISON: Most recent chest radiograph dated 08/26/2024. TECHNIQUE: 2 views of the chest were obtained. FINDINGS: The lungs are clear. The cardiomediastinal silhouette is normal in size. There is no pleural effusion or pneumothorax. No acute osseous abnormality. XR/XR chest 2V IMPRESSION: No acute cardiopulmonary findings. Electronically signed by: Corey Sorensen MD 09/23/2024 12:16 PM [facility] [place]
[2024-09-23 12:47] LABS: Estimated Average Glucose 243 mg/dL; Hemoglobin A1C 282.3881 umol/L; Hemoglobin A1c % 10.1 % (<6.0); Total Hemoglobin (HGBA1C) 3238.6187 umol/L
[2024-09-23 13:47] LABS: Folate 12.6 ng/mL (> or = 4.0); Vitamin B12 449 pg/mL (200-900)
== END 2024-09-23 10:17 | disposition home or self-care (01) ==
LOC: HO.XRAY 10:16
PROVIDERS: PCP Nurse Practitioner Family; Visit Provider Nurse Practitioner Family
DX: E11.65 Type 2 diabetes mellitus with hyperglycemia (principal); E11.29 Type 2 diabetes mellitus with other diabetic kidney complication; R05.9 Cough, unspecified; J45.40 Moderate persistent asthma, uncomplicated; F17.210 Nicotine dependence, cigarettes, uncomplicated; Z79.4 Long term (current) use of insulin
CPT/HCPCS: 36415; 71046; 80053; 80061; 82607; 82746; 83036

== ENCOUNTER 2024-09-24 12:57 | Outpatient (AMB) | payer OTHER, SELFPAY ==
--- NOTE | 2024-09-24 12:59 | A.OFFPC_ITS ---
Vital Signs 09/24/24 13:02 09/24/24 13:32 Height 5 ft 3 in Weight 216 lb BMI 38.3 BP 142/72 H 138/70 Blood Pressure Location Lt brachial Lt brachial Position Sitting Sitting Respiration 14 Pulse 96 Pulse Source Pulse Oximeter Pulse Oximetry (%) 93 Oxygen Delivery Method Room Air Intake Visit Reasons: fu chronic conditions Intake Note: routine follow up Customer Greeter Required: No Allergies Seasonal Allergies Allergy (Intermediate, Verified 09/24/24 13:12) Cough semaglutide [From Ozempic] Allergy (Mild, Verified 09/24/24 13:12) pancreatitis amoxicillin [From Augmentin] Adverse Reaction (Severe, Verified 09/24/24 13:12) n/v/d clavulanic acid [From Augmentin] Adverse Reaction (Severe, Verified 09/24/24 13:12) n/v/d NSAIDS (Non-Steroidal Anti-Inflamma [NSAIDS (NON-STEROIDAL ANTI-INFLAMMA] Adverse Reaction (Intermediate, Verified 09/24/24 13:12) BLEEDING Medication List - Last Reconciled 09/24/24 by Bhumika Lucas, [facility]- albuterol sulfate 90 mcg/actuation 2 puffs PO Q6H PRN albuterol sulfate 2.5 mg inhalation Q6H PRN atorvastatin 80 mg PO BEDTIME blood sugar diagnostic (FreeStyle Lite Strips) USE 1 STRIP 3 TO 4 TIMES DAILY blood sugar diagnostic (FreeStyle Lite Strips) 3 times per day cyclobenzaprine 5 mg PO TID PRN diabetic supplies, miscellan. As directed diaper,brief,adult,disposable (Briefs, Adult-Extra Large) use daily diphenhydramine HCl (Banophen) 25 mg PO BEDTIME PRN flash glucose scanning reader (FreeStyle Bettye 2 Anderson) As directed flash glucose sensor (FreeStyle Bettye 2 Sensor kit) As directed every 2 weeks fluticasone propionate 50 mcg/actuation 1 spray intranasal BID PRN gabapentin 600 mg PO TID PRN 30 days glipizide 5 mg PO BID insulin aspart U-100 (Novolog FlexPen U-100 Insulin aspart) 1 sliding scale dose subcut TID insulin degludec (Tresiba FlexTouch U-200 insulin) 40 units (0.2 mL) subcut DAILY 30 days lancets 3 to 4 time a day blood sugar checks. linaclotide 145 mcg PO DAILY lisinopril 10 mg PO BID 90 days magnesium oxide 500 mg PO BEDTIME metformin ER 1,000 mg (2 x 500 mg) PO BID 90 days [MOBILITY STEP RISER, OUTDOOR USE OUTSIDE OF HOME, DIRECTED ] montelukast 10 mg PO BEDTIME nicotine 1 patch transdermal Q24H oxycodone 10 mg PO TID PRN 30 days pantoprazole 40 mg PO BID pen needle, diabetic tid insulin administration solriamfetol (Sunosi) 150 mg PO DAILY PRN Tobacco use date assessed: 03/14/24 Dental Screening Dental Screen Date: 01/10/24 HPI HPI Comments History of Present Illness Details 54-year-old female with type 2 diabetes with complications, diabetic kidney disease hypertension hyperlipidemia, obesity obstructive sleep apnea, PCOS, asthma, chronic pain syndrome, diverticulosis, coronary artery disease, mild nonproliferative diabetic retinopathy in the left eye, current smoker, bile acid gastritis, pancreatitis 05/2024 d/t GLP-1 s/p spinal surgery, tonsillectomy carpal tunnel release Health maintenance Mammo: 01/2024 BI-RADS BI-RADS 1 - Negative Dexa: 01/2024 WNL DME [place]: [facility] -2022 - asked to sign SILVINO to get most rece nt exam Colon and EGD 01/2024: Repeat Colonoscopy in 5-6 years due to polyp or earlier if clinically indicated Specialists GI Pain management Optho Bariatrics Renal History of Present Illness The patient is a 54-year-old female presenting with chronic disease management and complaints of ongoing cough and shortness of breath. The patient reports experiencing shortness of breath and cough, both of which have persisted recently. She has a chronic cough that was recently exacerbated and describes the shortness of breath as more intense following family exposure to pneumonia. The patient's daughter and the child's father both were recently diagnosed with pneumonia, leading to increased concern over her respiratory symptoms. has been working on reducing cigarette smoking with the help of nicotine patches. Only using PRN LINDA, more frequently. Using OTC cough meds w/o relief. Type 2 Diabetes Mellitus improved with glipizide 5 mg twice daily. Recent a1c improved but required additional testing due to hemolysis of the original specimen. She has experienced occasions of hypoglycemia, especially when missing meals. The patient's long-term treatment regime includes metformin and insulin. Using CGM. Unable to review data as she just placed sensor today. Lipids tolerating statin w/o side effects HTN well controlled on current meds. Closely ff'd by Renal who rec starting SGLT. The patient was previously on omeprazole, replaced by pantoprazole for GI management. Review of Systems - Respiratory: Reports persistent cough and episodic shortness of breath. - Endocrine: Reports episodes of low blo od sugar if meals are skipped. Exam: Awake alert oriented, NAD Scleras nonicteric bilat Mucous membranes moist, pharynx WNL Lung sounds clear but dim throughout, occassional dry cough w/o distress Regular rate and rhythm No edema BLE, skin intact Results 06/2024 a1c 11.6 07/2024 Renal consult, lisinopril increa sed, rec start SGLT, declined renal bx 09/23/24 CXR negative, a1c 10.9 rest of s pec hemolyzed, need to redraw a1c done in office - see results below Plan - For cough and shortness of breath, Com bivent. Prescribe cough syrup for symptomatic management. Will need to consider ACEI as culprit if this continues. - For Type 2 Diabetes Mellitus, initiate therapy with a combination pill that includes metformin and jardiance, discontinuing separate metformin. Monitor for side effects such as yeast infections. Need to liberally hydrate. - For smoking cessation, encourage simone nued use of nicotine patches. Cont all other meds as directed & f/u with care team Patient was informed and verbally consented to the use of an ambient scribe for clinic note documentation during this visit. Discussion Notes During the visit, we discussed the management of the patient's ongoing respiratory symptoms and chronic cough, considering recent family cases of pneumonia. I detailed the normal findings from her chest X-ray and introduced potential benefits of transitioning to a new inhaler for long-term management of her respiratory symptoms. We reviewed her diabetes management, add new oral diabetic combination medication to improve control while reducing potential renal strain and avoiding pancreatitis risks. The potential side effects of the new medication were thoroughly reviewed, focusing on the importance of maintaining adequate hydration to prevent urinary tract infections. For smoking cessation, I encouraged continuous reduction efforts and praised improvements so far. Follow-ups were set to monitor these adjustments. I emphasized the need for close monitoring of symptoms such as stubborn cough and low blood sugar levels, along with supportive measures. An inhaler for proximity needs and a cough syrup for symptomatic relief were prescribed. Patient Instructions - Start new inhaler as prescribed, while pausing previous albuterol inhaler. - Begin new diabetes medications as inst ructed and discontinue prior metformin and glipizide. - Continue efforts towards complete smok ing cessation using nicotine patches. - Complete repeat lab work. - Report any new or worsening symptoms, especially high blood sugars, yeast infections, or respiratory issues. - Use cough syrup as needed, preferably at night for rest. - Attend scheduled follow-ups and commun icate any difficulties with medication adherence or side effects. RTO 3-4 months routine fu, labs 1 week before, sooner PRN Total time spent caring for the patient today was 50 minutes. This includes time spent before the visit reviewing the chart, time spent during the visit, and time spent after the visit on documentation [facility] Medical History (Updated 09/25/24 @ 07:05 by Bhumika Lucas, ASSISTED LIVING ASSISTANT-) Right hip pain Diabetic nephropathy Chronic cough Chronic prescription opiate use Thoracic back pain Menopause Vasomotor symptoms due to menopause Elevated C-reactive protein (CRP) Proteinuria Type 2 diabetes mellitus with other diabetic kidney complication Sleep apnea PCOS (polycystic ovarian syndrome) Asthma Type 2 diabetes mellitus with hyperglycemia, with long-term current use of ins ulin Hyperlipidemia LDL goal <100 Obesity due to excess calories BMI 37.0-37.9, adult 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, 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 Chronic pain syndrome Postlaminectomy syndrome, lumbar Surgical History Hx of colonoscopy History of esophagogastroduodenoscopy (EGD) Hx of spinal surgery History of removal of cyst History of carpal tunnel release History of lumbar surgery Family History Father Diabetes Hypertension Mother Asthma Social History Household Members: Family Housing: Apartment Are you a primary respiratory care program director to a significant other at home: No Do you presently have visiting nurse or other home services: Yes (SAFETY RISK LEAD) Alcohol intake: current Alcohol intake frequency: holidays/special occasions only Patient Tobacco Use Status: Current everyday Tobacco user Tobacco use type: Cigarette Cigarette Packs Per Day: 1 Cigarettes Per Day: 20.0 Years Smoked: 30 e-Cigarette/Vaping Use: Never Used Second Hand Smoke Exposure: Yes service: No Current occupational status: disabled Current occupational exposures/hazards: No Cognitive needs: No Hearing needs: No Vision needs: Yes Questionnaire PHQ-9 Over the last 2 weeks, how often have you been bothered by any of the following problems? 07807 - PHQ-9 Billing: Patient declined-do not bill Source: Developed by Drs. Yrn Alexander, Frieda Rivera, John Archuleta and colleagues, with an educational cedrick from [employer]. Thrive Questionnaire Date Thrive assessed: 09/24/24 I am a: Patient What is your living situation today?: I choose not to answer this question Within the past 12 months, did the food you bought not last and you didn't have the money to get more?: I choose not to answer this question Within the past 12 months, did you worry whether your food would run out before you got money to buy more?: I choose not to answer this question Do you have trouble paying for medicines?: I choose not to answer this question Do you have trouble getting transportation to medical appointments?: I choose not to answer this question Do you have trouble paying your heating and electricity bill?: I choose not to answer this question Do you have trouble taking care of your child, family member or friend?: I choose not to answer this question Do you have trouble with day-to-day activities such as bathing, preparing meals, shopping, managing finances, etc.?: I choose not to answer this question Are you currently unemployed and looking for a job?: I choose not to answer this question Are you interested in more education?: I choose not to answer this question Please select the resources that you would like help with: None Currently or been in a relationship where the following occur: I choose not to answer THRIVE Score: 0 EDWIGE-7 AMB Questionnaire EDWIGE-7 Date EDWIGE - 7 assessed: 08/06/24 Source: Developed by Drs. Yrn Alexander, Frieda Rivera, John Archuleta and colleagues, with an educational cedrick from [employer]. Physical exam (Primary Care) Vital Signs: Last Vital Signs Pulse 96 09/24/24 13:02 Resp 14 09/24/24 13:02 BP 138/70 09/24/24 13:32 Pulse Ox 93 09/24/24 13:02 Oxygen Delivery Method Room Air 09/24/24 13:02 BMI result Body Mass Index 38.3 Tobacco/Smoking Status: Tobacco use Status Tobacco use date assessed 03/14/24 09/24/24 13:01 Patient Tobacco Use Status Current everyday Tobacco 09/24/24 13:01 Tobacco use type Cigarette 09/24/24 13:01 e-Cigarette/Vaping Use Never Used 09/24/24 13:01 Thrive Assessment: Date of Thrive Assessment Date Thrive assessed 09/24/24 09/24/24 13:01 Currently or been in a relationship where the following occur: I choose not to answer Results AMB Hemoglobin A1c AMB Hemoglobin A1c 9.7 % Last Edit by Prosper Morales MA on 09/24/24 13:45 Results Reviewed Results Reviewed: Laboratory Last Values Hgb A1c (Clinic) 9.7 % (4.0-6.0) H 09/24/24 13:30 Coding Level of Care Code Est Pt Level 5 (21083) Complex EM visit Add On G2211 Diagnoses Type 2 diabetes mellitus with hyperglycemia, with long-term current use of insulin E11.65; Z79.4 Cigarette smoker motivated to quit F17.210 Diabetic nephropathy associated with type 2 diabetes mellitus E11.21 Diabetes mellitus type: type 2 Hyperlipidemia due to type 2 diabetes mellitus E11.69; E78.5 Peripheral sensory neuropathy due to type 2 diabetes mellitus E11.42 Moderate persistent asthma without complication J45.40 Asthma severity: moderate Asthma persistence: persistent Asthma complication type: uncomplicated Chronic cough R05.3 Assessment & Plan Assessment & Plan (1) Type 2 diabetes mellitus with hyperglycemia, with long-term current use of insulin: Comment: On insulin. Not interested in referral to endocrinology at this time. Uses a CGM [facility] [place] I do not have the most recent exam I have told her to get this for me. The last note I was able to review did have signs of diabetic retinopathy She is on CLAIRE inhibitor. tresiba 40 units Q noon & preprandial Insulin aspart to 10 units TID w meals. ISS at HS only. 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 Category: Medical (2) Cigarette smoker motivated to quit: Code(s): F17.210 - Nicotine dependence, cigarettes, uncomplicated Category: Social Hx (3) Diabetic nephropathy: Comment: Code(s): E11.21 - Type 2 diabetes mellitus with diabetic nephropathy Category: Medical Qualifiers: Diabetes mellitus type: type 2 Qualified Code(s): E11.21 - Type 2 diabetes mellitus with diabetic nephropathy (4) Hyperlipidemia due to type 2 diabetes mellitus: Code(s): E11.69 - Type 2 diabetes mellitus with other specified complication; E78.5 - Hyperlipidemia, unspecified Category: Medical (5) Peripheral sensory neuropathy due to type 2 diabetes mellitus: Code(s): E11.42 - Type 2 diabetes mellitus with diabetic polyneuropathy Category: Medical (6) Asthma: Code(s): J45.909 - Unspecified asthma, uncomplicated Category: Medical Qualifiers: Asthma severity: moderate Asthma persistence: persistent Asthma complication type: uncomplicated Qualified Code(s): J45.40 - Moderate persistent asthma, uncomplicated (7) Chronic cough: Code(s): R05.3 - Chronic cough Category: Medical Plan . 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
[2024-09-24 13:02] VITALS: BP 142/72; PULSE 96; RESP 14; O2SAT 93; BMI 38.3
[2024-09-24 13:32] VITALS: BP 138/70
== END 2024-09-24 13:49 | disposition home or self-care (01) ==
PROVIDERS: PCP Nurse Practitioner Family; Visit Provider Nurse Practitioner Family
DX: Z13.9 Encounter for screening, unspecified (principal)

== ENCOUNTER → 2024-09-24 12:57 | Outpatient (BNVA) | payer OTHER, SELFPAY | PROVIDERS: PCP Nurse Practitioner Family; Visit Provider Nurse Practitioner Family | DX: E11.65 Type 2 diabetes mellitus with hyperglycemia (principal); E11.21 Type 2 diabetes mellitus with diabetic nephropathy; E11.69 Type 2 diabetes mellitus with other specified complication; E78.5 Hyperlipidemia, unspecified; E11.42 Type 2 diabetes mellitus with diabetic polyneuropathy; J45.40 Moderate persistent asthma, uncomplicated; R05.3 Chronic cough; Z79.4 Long term (current) use of insulin | CPT/HCPCS: 83036; 99212 ==

== ENCOUNTER 2024-09-25 10:27 | Outpatient (AMB) | payer OTHER, SELFPAY ==
--- NOTE | 2024-09-25 10:52 | MHC.OFFVIS ---
Vital Signs 09/25/24 10:58 Height 5 ft 3 in Weight 213 lb 2 oz BMI 37.7 BP 155/68 H Blood Pressure Location Rt brachial Position Sitting Pulse 90 Pulse Source Pulse Oximeter Pulse Oximetry (%) 96 Oxygen Delivery Method Room Air Intake Visit Reasons: PILL COUNT Intake Note: Carlota comes in today for a pill count to oxycodone, patient should have 39 tablets and presents with 38 tablets which she last took today 09/25/24 at 8:30am. Pain today 8 Chemical Blender Required: No Accompanied by: Self / Same As Patient Allergies Seasonal Allergies Allergy (Intermediate, Verified 09/25/24 10:59) Cough semaglutide [From Ozempic] Allergy (Mild, Verified 09/25/24 10:59) pancreatitis amoxicillin [From Augmentin] Adverse Reaction (Severe, Verified 09/25/24 10:59) n/v/d clavulanic acid [From Augmentin] Adverse Reaction (Severe, Verified 09/25/24 10:59) n/v/d NSAIDS (Non-Steroidal Anti-Inflamma [NSAIDS (NON-STEROIDAL ANTI-INFLAMMA] Adverse Reaction (Intermediate, Verified 09/25/24 10:59) BLEEDING HPI Comments Details: Patient presents back to the office today for follow chronic pain and chronic opioid medication management. She is prescribed oxycodone 10mg po TID prn. Patient arrived today with the expectation of having 39 pills, she presented 38 pills which were counted in the presence of two staff members and returned to the patient in the original prescription bottle. This demonstrates responsible attitude toward patient's opioid medications. Pain is reported today as 810 and last dose of pain medication was taken at 08:30 this morning. Denies side effects including constipation, nausea, shortness of breath, urinary retention or drowsiness. Previous visit with Dr Stanley: Carlota is back in my office after the trial I DDD with with morphine which was performed on 01/31/2023.? She does not report the same pain evaluation as it was with Dilaudid in September.? She received 150 micro g of morphine intrathecally.? However the patient developed what looks like post dural puncture headache immediately after the procedure.? The headache went away on itself however now we are not ready to implant anything for the patient.? I suggested that we might try in the future instead of fentanyl to go ahead with bupivacaine injections small dose intrathecally and have bupivacaine as the main medication in the intrathecal space if results of the trial will have no side effects and will have good pain relief.? I warned her that she may experience weakness in bilateral lower extremities after bupivacaine injection however the weakness will be only transient. We decided to wait a month or two PA and schedule the bupivacaine trial later. Prior:? Dilaudid which was performed of 10/06/2023.? The patient reports absence of pain for the 1st 48 hours after the procedure.? However she reports severe nausea and vomiting after surgery.? This is unwanted side effects.? I offered her reach trial with morphine versus read trial with fentanyl.? The patient reported that in the past she was taking morphine as a pain medication orally.? She denies any side effects.? I will try to perform the procedure with 150 mcg intrathecally? [facility] Medical History (Updated 09/25/24 @ 07:05 by hBumika Lucas, [facility]) Right hip pain Diabetic nephropathy Chronic cough Chronic prescription opiate use Thoracic back pain Menopause Vasomotor symptoms due to menopause Elevated C-reactive protein (CRP) Proteinuria Type 2 diabetes mellitus with other diabetic kidney complication Sleep apnea PCOS (polycystic ovarian syndrome) Asthma Type 2 diabetes mellitus with hyperglycemia, with long-term current use of insulin Hyperlipidemia LDL goal <100 Obesity due to excess calories BMI 37.0-37.9, adult 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, 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 Chronic pain syndrome Postlaminectomy syndrome, lumbar Surgical History Hx of colonoscopy History of esophagogastroduodenoscopy (EGD) Hx of spinal surgery History of removal of cyst History of carpal tunnel release History of lumbar surgery Family History Father Diabetes Hypertension Mother Asthma Social History Household Members: Family Housing: Apartment Are you a primary manager managed care to a significant other at home: No Do you presently have visiting nurse or other home services: Yes (DATA COLLECTION TECHNICIAN) Alcohol intake: current Alcohol intake frequency: holidays/special occasions only Patient Tobacco Use Status: Current everyday Tobacco user Tobacco use type: Cigarette Cigarette Packs Per Day: 1 Cigarettes Per Day: 20.0 Years Smoked: 30 e-Cigarette/Vaping Use: Never Used Second Hand Smoke Exposure: Yes service: No Current occupational status: disabled Current occupational exposures/hazards: No Cognitive needs: No Hearing needs: No Vision needs: Yes Review of Systems Const All systems reviewed & are unremarkable except as noted in HPI and below Physical Exam Vital Signs: Last Vital Signs Pulse 90 09/25/24 10:58 BP 155/68 H 09/25/24 10:58 Pulse Ox 96 09/25/24 10:58 Oxygen Delivery Method Room Air 09/25/24 10:58 BMI result Body Mass Index 37.7 General: awake, alert, oriented. Answers questions appropriately. Fully engaged in examination. Skin: warm, dry, intact without visible rashes or lesions. HEENT: Normocephalic. Hearing intact. Cardiac: External chest normal in appearance. Respiratory: No signs of respiratory distress. Abdomen: without gross distension. MS: No obvious swelling or deformities. Neurological: Oriented to person, place, time and situation. Thought process intact. ambulating with use of rollator walker. Psychiatric: Appropriate mood and affect. Good judgment and insight. Results Reviewed Results Reviewed: MR/MR abdomen wo/w con IMPRESSION: 1. No evidence of gallstone or hepatobiliary duct dilatation. 2. Unchanged Mild hepatic steatosis. 3. Unchanged Atrophic pancreas with trace inflammatory exudate surrounding the pancreatic uncinate process, compatible with residual interstitial edematous pancreatitis. No well loculated pseudocyst could be identified. 4. Persistent enhancing proximal superior peripancreatic lymph node and posterior periportal lymph node. 5. Bilateral renal cortical simple cysts are seen for which no follow-up imaging is recommended. 6. Advanced L5-S1 degenerative lumbar disc disease, moderate posterior L4-L5 and marked L5-S1 disc protrusions. 7. Small mesenteric hernia containing mesenteric fat. 10/12/2023 XR/XR thoracic spine 3V FINDINGS: There are mild multilevel degenerative changes of thoracic spine with marginal spurring. Pedicles are preserved there is no evidence of fractures soft tissues unremarkable. There is no spondylolysis or listhesis. IMPRESSION: Mild degenerative changes with marginal spurring. Thoracic spine. 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 No obvious signs of diversion, abuse or misuse of the opioid medications. Will send in prescription for oxycodone 10mg po tid #90 no refills with an advanced date of 10/08/2024 All questions and concerns have been answered and patient agrees with the plan. Patient will follow up in 1 month, sooner if needed. Medications: Refilled oxycodone Partial Fill upon patient request. 10 mg PO TID PRN 90 tabs 0RF pain 30 days G89.4 - Chronic pain syndrome, M96.1 - Postlaminectomy syndrome, not elsewhere classified Coding Level of Care Code Est Pt Level 4 (55056) Complex EM visit Add On G2211 Diagnoses Postlaminectomy syndrome, lumbar M96.1 Chronic pain syndrome G89.4 prison (current) use of opiate analgesic Z79.891 Myofascial muscle pain M79.18
[2024-09-25 10:58] VITALS: BP 155/68; PULSE 90; O2SAT 96; BMI 37.7
== END 2024-09-25 11:29 | disposition home or self-care (01) ==
PROVIDERS: PCP Nurse Practitioner Family; Visit Provider Registered Nurse Emergency
DX: M96.1 Postlaminectomy syndrome, not elsewhere classified (principal); G89.4 Chronic pain syndrome; Z79.891 Long term (current) use of opiate analgesic; M79.18 Myalgia, other site
CPT/HCPCS: 99214; G2211

== ENCOUNTER → 2024-09-25 10:27 | Outpatient (BNVA) | payer OTHER, SELFPAY | PROVIDERS: PCP Nurse Practitioner Family; Visit Provider Registered Nurse Emergency | DX: G89.4 Chronic pain syndrome (principal); M79.18 Myalgia, other site; M96.1 Postlaminectomy syndrome, not elsewhere classified; Z79.891 Long term (current) use of opiate analgesic | CPT/HCPCS: 99212 ==

== ENCOUNTER 2024-10-23 10:13 | Outpatient (AMB) | payer OTHER, SELFPAY ==
--- NOTE | 2024-10-23 10:33 | HO.NEPHOV_ITS ---
Vital Signs 10/23/24 10:34 Height 5 ft 3 in Weight 215 lb 6 oz BMI 38.1 BP 106/50 L Blood Pressure Location Rt brachial Position Sitting Pulse 89 Pulse Source Pulse Oximeter Pulse Oximetry (%) 96 Oxygen Delivery Method Room Air Intake Visit Reasons: Diabetic nephropathy Lip Reading Teacher Required: No Accompanied by: Self / Same As Patient Allergies Seasonal Allergies Allergy (Intermediate, Verified 10/23/24 10:34) Cough semaglutide [From Ozempic] Allergy (Mild, Verified 10/23/24 10:34) pancreatitis amoxicillin [From Augmentin] Adverse Reaction (Severe, Verified 10/23/24 10:34) n/v/d clavulanic acid [From Augmentin] Adverse Reaction (Severe, Verified 10/23/24 10:34) n/v/d NSAIDS (Non-Steroidal Anti-Inflamma [NSAIDS (NON-STEROIDAL ANTI-INFLAMMA] Adverse Reaction (Intermediate, Verified 10/23/24 10:34) BLEEDING HPI Comments Details: Carlota was seen in follow up for proteinuria. She is 54 years of age and has been a diabetic from her 20s. Her blood sugars had not been well controlled all along. She has dyslipidemia and is on statins. She has no hypertension. She was told that she has some early signs of diabetic retinopathy in the eyes. She denies any coronary artery disease, congestive heart failure, CVA, renal artery stenosis, peripheral arterial disease or carotid stenosis. She is actively trying to lose some weight. Her serum creatinine is normal. She has no edema. She does not get recurrent urinary infections. She denies any macroscopic h ematuria. She does not take any nonsteroidal anti-inflammatories. She has no epistaxis, photosensitivity, joint swellings, skin rashes. She is very worried and concerned about her protein in the urine. She has a family member in [place] who had from ESRD due to diabetic nephropathy. She is smoker. She had pancreatitis from Ozempic. She is followed up by Endocrinology closely [facility] Medical History (Updated 09/25/24 @ 07:05 by Bhumika Lucas, POOL TECHNICIAN-) Right hip pain Diabetic nephropathy Chronic cough Chronic prescription opiate use Thoracic back pain Menopause Vasomotor symptoms due to menopause Elevated C-reactive protein (CRP) Proteinuria Type 2 diabetes mellitus with other diabetic kidney complication Sleep apnea PCOS (polycystic ovarian syndrome) Asthma Type 2 diabetes mellitus with hyperglycemia, with long-term current use of insulin Hyperlipidemia LDL goal <100 Obesity due to excess calories BMI 37.0-37.9, adult 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, uncontrolled USP (current) use of opiate analgesic Chronic pain syndrome Postlaminectomy syndrome, lumbar Surgical History Hx of colonoscopy History of esophagogastroduodenoscopy (EGD) Hx of spinal surgery History of removal of cyst History of carpal tunnel release History of lumbar surgery Family History Father Diabetes Hypertension Mother Asthma Social History Household Members: Family Housing: Apartment Are you a primary customer care voice consultant to a significant other at home: No Do you presently have visiting nurse or other home services: Yes (NURSE PRACTITIONER PER DIEM) Alcohol intake: current Alcohol intake frequency: holidays/special occasions only Patient Tobacco Use Status: Current everyday Tobacco user Tobacco use type: Cigarette Cigarette Packs Per Day: 1 Cigarettes Per Day: 20.0 Years Smoked: 30 e-Cigarette/Vaping Use: Never Used Second Hand Smoke Exposure: Yes service: No Current occupational status: disabled Current occupational exposures/hazards: No Cognitive needs: No Hearing needs: No Vision needs: Yes Review of Systems Const All systems reviewed & are unremarkable except as noted in HPI and below Physical Exam Vital Signs: Last Vital Signs Pulse 89 10/23/24 10:34 BP 106/50 L 10/23/24 10:34 Pulse Ox 96 10/23/24 10:34 Oxygen Delivery Method Room Air 10/23/24 10:34 BMI result Body Mass Index 38.1 Const General: comfortable and no acute distress Orientation/consciousness: patient oriented x3 HEENT Head: Yes normocephalic Mouth: Normal oral and palatal mucosa present Eyes EOM: EOMs intact bilaterally Neck Neck: Yes supple Resp Auscultation: clear to auscultation bilaterally Cardio Jugular venous distension: no JVD Rate: regular rate GI Palpation (GI): Soft to palpation Auscultation: normal bowel sounds General: Yes no CVA tenderness Back/Spine/Pelvis Back: no CVA tenderness Skin General skin exam: no rashes or lesions noted Neuro General: patient oriented x3 and moves all extremities Extrem General: Yes no pedal edema Results Reviewed Nephrology Results: No Data to Display Assessment & Plan Assessment & Plan (1) Type 2 diabetes mellitus with other diabetic kidney complication: Code(s): E11.29 - Type 2 diabetes mellitus with other diabetic kidney complication Category: Medical Plan Carlota likely has diabetic nephropathy. She has significant proteinuria. Her blood pressure is at goal. Her diabetes is poorly controlled. She is on Jardiance 5 mg ( she is type 2 diabetic). She does not get recurrent UTIs. She has no edema. Workup has been negative to date. I increased her lisinopril to 20 mg Am and 10 mg PM. I increased her Jardiance to 10 mg which I plan to increase to 25 mg at next visit. I have discussed about renal biopsy which she wants to wait . She needs to lose weight. She needs to keep her blood sugar better controlled. She should avoid nonsteroidal anti-inflammatories and maintain good hydration. I did not make any other medication changes today. Answered all her questions. Follow-up appointment given Orders: Orders Creatinine 3 Months E11.29 - Type 2 diabetes mellitus with other diabetic kidney complication Blood Urea Nitrogen 3 Months E11.29 - Type 2 diabetes mellitus with other diabetic kidney complication Electrolytes 3 Months E11.29 - Type 2 diabetes mellitus with other diabetic kidney complication Protein Creatinine Ratio, Ur 3 Months E11.29 - Type 2 diabetes mellitus with other diabetic kidney complication Medications: New metformin 1,000 mg PO BID 60 tabs 6RF empagliflozin (Jardiance) 10 mg PO DAILY 30 tabs 6RF Changed From lisinopril 10 mg PO BID 90 days 180 tabs 3RF To lisinopril take 2 AM and 1 PM 30 mg (3 x 10 mg) PO DAILY 90 days 270 tabs 3RF Discontinued empagliflozin-metformin 5-1,000 mg ER (Synjardy XR) Discontinued Reason: Doctor's Order 2 tabs (2 x 5-1,000 mg) PO QAM 180 ea 1RF Coding Level of Care Code Est Pt Level 4 (64432) Diagnoses Type 2 diabetes mellitus with other diabetic kidney complication E11.29
[2024-10-23 10:34] VITALS: BP 106/50; PULSE 89; O2SAT 96; BMI 38.1
== END 2024-10-23 10:56 | disposition home or self-care (01) ==
PROVIDERS: PCP Nurse Practitioner Family; Visit Provider Internal Medicine Nephrology
DX: E11.21 Type 2 diabetes mellitus with diabetic nephropathy (principal); R80.9 Proteinuria, unspecified
CPT/HCPCS: 99214

== ENCOUNTER → 2024-10-23 10:13 | Outpatient (BNVA) | payer OTHER, SELFPAY | PROVIDERS: PCP Nurse Practitioner Family; Visit Provider Internal Medicine Nephrology | DX: Z51.81 Encounter for therapeutic drug level monitoring (principal); M96.1 Postlaminectomy syndrome, not elsewhere classified; M79.18 Myalgia, other site; G89.4 Chronic pain syndrome; E11.29 Type 2 diabetes mellitus with other diabetic kidney complication; Z79.891 Long term (current) use of opiate analgesic | CPT/HCPCS: 99212 ==

== ENCOUNTER 2024-10-23 11:15 | Outpatient (AMB) | payer OTHER, SELFPAY ==
--- NOTE | 2024-10-23 11:34 | MHC.OFFVIS ---
Vital Signs 10/23/24 11:36 Height 5 ft 3 in Weight 214 lb BMI 37.9 BP 143/66 H Blood Pressure Location Lt brachial Position Sitting Pulse 89 Pulse Source Pulse Oximeter Pulse Oximetry (%) 96 Oxygen Delivery Method Room Air Intake Visit Reasons: PILL COUNT/ random UDS Allergies Seasonal Allergies Allergy (Intermediate, Verified 10/23/24 11:35) Cough semaglutide [From Ozempic] Allergy (Mild, Verified 10/23/24 11:35) pancreatitis amoxicillin [From Augmentin] Adverse Reaction (Severe, Verified 10/23/24 11:35) n/v/d clavulanic acid [From Augmentin] Adverse Reaction (Severe, Verified 10/23/24 11:35) n/v/d NSAIDS (Non-Steroidal Anti-Inflamma [NSAIDS (NON-STEROIDAL ANTI-INFLAMMA] Adverse Reaction (Intermediate, Verified 10/23/24 11:35) BLEEDING Medication List - Last Reconciled 10/23/24 by Shireen Morrell, DIRECTOR OF MATERIALS MANAGEMENT albuterol sulfate 90 mcg/actuation 2 puffs PO Q6H PRN albuterol sulfate 2.5 mg inhalation Q6H PRN atorvastatin 80 mg PO BEDTIME blood sugar diagnostic (FreeStyle Lite Strips) USE 1 STRIP 3 TO 4 TIMES DAILY blood sugar diagnostic (FreeStyle Lite Strips) 3 times per day cyclobenzaprine 5 mg PO TID PRN dextromethorphan-guaifenesin 10-100 mg/5 mL 10 mL PO Q4H PRN diabetic supplies, miscellan. As directed diaper,brief,adult,disposable (Briefs, Adult-Extra Large) use daily diphenhydramine HCl (Banophen) 25 mg PO BEDTIME PRN empagliflozin (Jardiance) 10 mg PO DAILY flash glucose scanning reader (FreeStyle Bettye 2 [place]) As directed flash glucose sensor (FreeStyle Bettye 2 Sensor kit) As directed every 2 weeks fluticasone propionate 50 mcg/actuation 1 spray intranasal BID PRN gabapentin 600 mg PO TID PRN 30 days glipizide 5 mg PO BID insulin aspart U-100 (Novolog FlexPen U-100 Insulin aspart) 1 sliding scale dose subcut TID insulin degludec (Tresiba FlexTouch U-200 insulin) 40 units (0.2 mL) subcut DAILY 30 days ipratropium-albuterol 20-100 mcg/actuation (Combivent Respimat) 1 puff inhalation QID lancets 3 to 4 time a day blood sugar checks. linaclotide 145 mcg PO DAILY lisinopril 30 mg (3 x 10 mg) PO DAILY 90 days magnesium oxide 500 mg PO BEDTIME metformin 1,000 mg PO BID metformin ER 1,000 mg (2 x 500 mg) PO BID 90 days [MOBILITY STEP RISER, OUTDOOR USE OUTSIDE OF HOME, DIRECTED ] montelukast 10 mg PO BEDTIME nicotine 1 patch transdermal Q24H oxycodone 10 mg PO TID PRN 30 days pantoprazole 40 mg PO BID pen needle, diabetic tid insulin administration solriamfetol (Sunosi) 150 mg PO DAILY PRN HPI Comments Details: Carlota presents back to the office today for follow chronic pain and chronic opioid medication management. She is prescribed oxycodone 10mg po TID prn. Patient arrived today with the expectation of having 45 pills, she presented 44 pills which were counted in the presence of two staff members and returned to the patient in the original prescription bottle. This demonstrates responsible attitude toward patient's opioid medications. Pain is reported today as 8/10 and last dose of pain medication was taken at 08:00 this morning. Pain exacerbated today by the cold outside temperature. Denies side effects including constipation, nausea, shortness of breath, urinary retention or drowsiness. Recently referred to specialist to manage her diabetes. Medication changes have been made, she feels that her numbers have improved. Previous visit with Dr Stanley: aCrlota is back in my office after the trial I DDD with with morphine which was performed on 01/31/2023.? She does not report the same pain evaluation as it was with Dilaudid in September.? She received 150 micro g of morphine intrathecally.? However the patient developed what looks like post dural puncture headache immediately after the procedure.? The headache went away on itself however now we are not ready to implant anything for the patient.? I suggested that we might try in the future instead of fentanyl to go ahead with bupivacaine injections small dose intrathecally and have bupivacaine as the main medication in the intrathecal space if results of the trial will have no side effects and will have good pain relief.? I warned her that she may experience weakness in bilateral lower extremities after bupivacaine injection however the weakness will be only transient. We decided to wait a month or two PA and schedule the bupivacaine trial later. Prior:? Dilaudid which was performed of 10/06/2023.? The patient reports absence of pain for the 1st 48 hours after the procedure.? However she reports severe nausea and vomiting after surgery.? This is unwanted side effects.? I offered her reach trial with morphine versus read trial with fentanyl.? The patient reported that in the past she was taking morphine as a pain medication orally.? She denies any side effects.? I will try to perform the procedure with 150 mcg intrathecally? [facility] Medical History (Updated 09/25/24 @ 07:05 by Bhumika Lucas, [facility]) Right hip pain Diabetic nephropathy Chronic cough Chronic prescription opiate use Thoracic back pain Menopause Vasomotor symptoms due to menopause Elevated C-reactive protein (CRP) Proteinuria Type 2 diabetes mellitus with other diabetic kidney complication Sleep apnea PCOS (polycystic ovarian syndrome) Asthma Type 2 diabetes mellitus with hyperglycemia, with long-term current use of insulin Hyperlipidemia LDL goal <100 Obesity due to excess calories BMI 37.0-37.9, adult 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, uncontrolled 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 Chronic pain syndrome Postlaminectomy syndrome, lumbar Surgical History Hx of colonoscopy History of esophagogastroduodenoscopy (EGD) Hx of spinal surgery History of removal of cyst History of carpal tunnel release History of lumbar surgery Family History Father Diabetes Hypertension Mother Asthma Social History Household Members: Family Housing: Apartment Are you a primary school child care attendant to a significant other at home: No Do you presently have visiting nurse or other home services: Yes (INGOT BUGGY OPERATOR) Alcohol intake: current Alcohol intake frequency: holidays/special occasions only Patient Tobacco Use Status: Current everyday Tobacco user Tobacco use type: Cigarette Cigarette Packs Per Day: 1 Cigarettes Per Day: 20.0 Years Smoked: 30 e-Cigarette/Vaping Use: Never Used Second Hand Smoke Exposure: Yes service: No Current occupational status: disabled Current occupational exposures/hazards: No Cognitive needs: No Hearing needs: No Vision needs: Yes Review of Systems Const All systems reviewed & are unremarkable except as noted in HPI and below Physical Exam Vital Signs: Last Vital Signs Pulse 89 10/23/24 11:36 BP 143/66 H 10/23/24 11:36 Pulse Ox 96 10/23/24 11:36 Oxygen Delivery Method Room Air 10/23/24 11:36 BMI result Body Mass Index 37.9 General: awake, alert, oriented. Answers questions appropriately. Fully engaged in examination. Skin: warm, dry, intact without visible rashes or lesions. HEENT: Normocephalic. Hearing intact. Cardiac: External chest normal in appearance. Respiratory: No signs of respiratory distress. Abdomen: without gross distension. MS: No obvious swelling or deformities. Neurological: Oriented to person, place, time and situation. Thought process intact. ambulating with use of rollator walker. Psychiatric: Appropriate mood and affect. Good judgment and insight. Results Reviewed Results Reviewed: MR/MR abdomen wo/w con IMPRESSION: 1. No evidence of gallstone or hepatobiliary duct dilatation. 2. Unchanged Mild hepatic steatosis. 3. Unchanged Atrophic pancreas with trace inflammatory exudate surrounding the pancreatic uncinate process, compatible with residual interstitial edematous pancreatitis. No well loculated pseudocyst could be identified. 4. Persistent enhancing proximal superior peripancreatic lymph node and posterior periportal lymph node. 5. Bilateral renal cortical simple cysts are seen for which no follow-up imaging is recommended. 6. Advanced L5-S1 degenerative lumbar disc disease, moderate posterior L4-L5 and marked L5-S1 disc protrusions. 7. Small mesenteric hernia containing mesenteric fat. 10/12/2023 XR/XR thoracic spine 3V FINDINGS: There are mild multilevel degenerative changes of thoracic spine with marginal spurring. Pedicles are preserved there is no evidence of fractures soft tissues unremarkable. There is no spondylolysis or listhesis. IMPRESSION: Mild degenerative changes with marginal spurring. Thoracic spine. 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 No obvious signs of diversion, abuse or misuse of the opioid medications. Will send in prescription for oxycodone 10mg po tid #90 no refills with an advanced date of 11/07/2024 All questions and concerns have been answered and patient agrees with the plan. Patient will follow up in 1 month, sooner if needed. Medications: Refilled oxycodone Partial Fill upon patient request. 10 mg PO TID PRN 90 tabs 0RF pain 30 days G89.4 - Chronic pain syndrome, M96.1 - Postlaminectomy syndrome, not elsewhere classified Coding Level of Care Code Est Pt Level 4 (82181) Complex EM visit Add On G2211 Diagnoses Postlaminectomy syndrome, lumbar M96.1 Chronic pain syndrome G89.4 retirement (current) use of opiate analgesic Z79.891 Myofascial muscle pain M79.18
[2024-10-23 11:36] VITALS: BP 143/66; PULSE 89; O2SAT 96; BMI 37.9
== END 2024-10-23 12:02 | disposition home or self-care (01) ==
PROVIDERS: PCP Nurse Practitioner Family; Visit Provider Registered Nurse Emergency
DX: M96.1 Postlaminectomy syndrome, not elsewhere classified (principal); G89.4 Chronic pain syndrome; Z79.891 Long term (current) use of opiate analgesic; M79.18 Myalgia, other site
CPT/HCPCS: 99214; G2211

== ENCOUNTER 2024-11-27 11:45 | Outpatient (AMB) | payer OTHER, SELFPAY ==
[2024-11-27 11:59] VITALS: BP 149/77; PULSE 98; RESP 16; BMI 37.9
--- NOTE | 2024-11-27 11:59 | MHC.OFFVIS ---
Vital Signs 11/27/24 11:59 Height 5 ft 3 in Weight 214 lb BMI 37.9 BP 149/77 H Blood Pressure Location Lt brachial Position Sitting Respiration 16 Pulse 98 Pulse Source Pulse Oximeter Intake Visit Reasons: Pill Count Certified Medical Coder Required: No Allergies Seasonal Allergies Allergy (Intermediate, Verified 11/27/24 11:59) Cough semaglutide [From Ozempic] Allergy (Mild, Verified 11/27/24 11:59) pancreatitis amoxicillin [From Augmentin] Adverse Reaction (Severe, Verified 11/27/24 11:59) n/v/d clavulanic acid [From Augmentin] Adverse Reaction (Severe, Verified 11/27/24 11:59) n/v/d NSAIDS (Non-Steroidal Anti-Inflamma [NSAIDS (NON-STEROIDAL ANTI-INFLAMMA] Adverse Reaction (Intermediate, Verified 11/27/24 11:59) BLEEDING Medication List - Last Reconciled 11/27/24 by Isabel Campbell LPN albuterol sulfate 90 mcg/actuation 2 puffs PO Q6H PRN albuterol sulfate 2.5 mg inhalation Q6H PRN atorvastatin 80 mg PO BEDTIME blood sugar diagnostic (FreeStyle Lite Strips) USE 1 STRIP 3 TO 4 TIMES DAILY blood sugar diagnostic (FreeStyle Lite Strips) 3 times per day cyclobenzaprine 5 mg PO TID PRN dextromethorphan-guaifenesin 10-100 mg/5 mL 10 mL PO Q4H PRN diabetic supplies, miscellan. As directed diaper,brief,adult,disposable (Briefs, Adult-Extra Large) use daily diphenhydramine HCl (Banophen) 25 mg PO BEDTIME PRN empagliflozin (Jardiance) 10 mg PO DAILY flash glucose scanning reader (FreeStyle Bettye 2 [place]) As directed flash glucose sensor (FreeStyle Bettye 2 Sensor kit) As directed every 2 weeks fluconazole 150 mg PO Q3D 2 doses fluticasone propionate 50 mcg/actuation 1 spray intranasal BID PRN gabapentin 600 mg PO TID PRN 30 days glipizide 5 mg PO BID insulin aspart U-100 (Novolog FlexPen U-100 Insulin aspart) 1 sliding scale dose subcut TID insulin degludec (Tresiba FlexTouch U-200 insulin) 40 units (0.2 mL) subcut DAILY 30 days ipratropium-albuterol 20-100 mcg/actuation (Combivent Respimat) 1 puff inhalation QID lancets 3 to 4 time a day blood sugar checks. linaclotide 145 mcg PO DAILY lisinopril 30 mg (3 x 10 mg) PO DAILY 90 days magnesium oxide 500 mg PO BEDTIME metformin 1,000 mg PO BID metformin ER 1,000 mg (2 x 500 mg) PO BID 90 days [MOBILITY STEP RISER, OUTDOOR USE OUTSIDE OF HOME, DIRECTED ] montelukast 10 mg PO BEDTIME nicotine 1 patch transdermal Q24H oxycodone 10 mg PO TID PRN 30 days pantoprazole 40 mg PO BID pen needle, diabetic tid insulin administration solriamfetol (Sunosi) 150 mg PO DAILY PRN HPI Comments Details: Carlota presents back to the office today for follow chronic pain and chronic opioid medication management. She is prescribed oxycodone 10mg po TID prn. Patient arrived today with the expectation of having 30 pills, she presented 29 pills which were counted in the presence of two staff members and returned to the patient in the original prescription bottle. This demonstrates responsible attitude toward patient's opioid medications. Pain is reported today as 7/10 and last dose of pain medication was taken at 08:30 this morning. Pain exacerbated today by the cold outside temperature. Denies side effects including constipation, nausea, shortness of breath, urinary retention or drowsiness. Patient requesting referral to [employer] for diabetic foot care. Previous visit with Dr Stanley: Carlota is back in my office after the trial I DDD with with morphine which was performed on 01/31/2023.? She does not report the same pain evaluation as it was with Dilaudid in September.? She received 150 micro g of morphine intrathecally.? However the patient developed what looks like post dural puncture headache immediately after the procedure.? The headache went away on itself however now we are not ready to implant anything for the patient.? I suggested that we might try in the future instead of fentanyl to go ahead with bupivacaine injections small dose intrathecally and have bupivacaine as the main medication in the intrathecal space if results of the trial will have no side effects and will have good pain relief.? I warned her that she may experience weakness in bilateral lower extremities after bupivacaine injection however the weakness will be only transient. We decided to wait a month or two PA and schedule the bupivacaine trial later. Prior:? Dilaudid which was performed of 10/06/2023.? The patient reports absence of pain for the 1st 48 hours after the procedure.? However she reports severe nausea and vomiting after surgery.? This is unwanted side effects.? I offered her reach trial with morphine versus read trial with fentanyl.? The patient reported that in the past she was taking morphine as a pain medication orally.? She denies any side effects.? I will try to perform the procedure with 150 mcg intrathecally? [facility] Medical History (Updated 11/27/24 @ 12:15 by Rose Wilson APRN, MANAGER LONG TERM CARE) Right hip pain Diabetic nephropathy Chronic cough Chronic prescription opiate use Thoracic back pain Menopause Vasomotor symptoms due to menopause Elevated C-reactive protein (CRP) Proteinuria Type 2 diabetes mellitus with other diabetic kidney complication Sleep apnea PCOS (polycystic ovarian syndrome) Asthma Type 2 diabetes mellitus with hyperglycemia, with long-term current use of insulin Hyperlipidemia LDL goal <100 Obesity due to excess calories BMI 37.0-37.9, adult 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, uncontrolled director 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 (current) use of opiate analgesic Chronic pain syndrome Postlaminectomy syndrome, lumbar Surgical History Hx of colonoscopy History of esophagogastroduodenoscopy (EGD) Hx of spinal surgery History of removal of cyst History of carpal tunnel release History of lumbar surgery Family History Father Diabetes Hypertension Mother Asthma Social History Household Members: Family Housing: Apartment Are you a primary care coordinator to a significant other at home: No Do you presently have visiting nurse or other home services: Yes ([employer]) Alcohol intake: current Alcohol intake frequency: holidays/special occasions only Patient Tobacco Use Status: Current everyday Tobacco user Tobacco use type: Cigarette Cigarette Packs Per Day: 1 Cigarettes Per Day: 20.0 Years Smoked: 30 e-Cigarette/Vaping Use: Never Used Second Hand Smoke Exposure: Yes service: No Current occupational status: disabled Current occupational exposures/hazards: No Cognitive needs: No Hearing needs: No Vision needs: Yes Review of Systems Const All systems reviewed & are unremarkable except as noted in HPI and below Physical Exam Vital Signs: Last Vital Signs Pulse 98 11/27/24 11:59 Resp 16 11/27/24 11:59 BP 149/77 H 11/27/24 11:59 BMI result Body Mass Index 37.9 General: awake, alert, oriented. Answers questions appropriately. Fully engaged in examination. Skin: warm, dry, intact without visible rashes or lesions. HEENT: Normocephalic. Hearing intact. Cardiac: External chest normal in appearance. Respiratory: No signs of respiratory distress. Abdomen: without gross distension. MS: No obvious swelling or deformities. Neurological: Oriented to person, place, time and situation. Thought process intact. ambulating with use of cane. Psychiatric: Appropriate mood and affect. Good judgment and insight. Results Reviewed Results Reviewed: MR/MR abdomen wo/w con IMPRESSION: 1. No evidence of gallstone or hepatobiliary duct dilatation. 2. Unchanged Mild hepatic steatosis. 3. Unchanged Atrophic pancreas with trace inflammatory exudate surrounding the pancreatic uncinate process, compatible with residual interstitial edematous pancreatitis. No well loculated pseudocyst could be identified. 4. Persistent enhancing proximal superior peripancreatic lymph node and posterior periportal lymph node. 5. Bilateral renal cortical simple cysts are seen for which no follow-up imaging is recommended. 6. Advanced L5-S1 degenerative lumbar disc disease, moderate posterior L4-L5 and marked L5-S1 disc protrusions. 7. Small mesenteric hernia containing mesenteric fat. 10/12/2023 XR/XR thoracic spine 3V FINDINGS: There are mild multilevel degenerative changes of thoracic spine with marginal spurring. Pedicles are preserved there is no evidence of fractures soft tissues unremarkable. There is no spondylolysis or listhesis. IMPRESSION: Mild degenerative changes with marginal spurring. Thoracic spine. Assessment & Plan Assessment & Plan (1) Type 2 diabetes mellitus with hyperglycemia, with long-term current use of insulin: Comment: On insulin. Not interested in referral to endocrinology at this time. Uses a CGM Diabetic eye exam [facility] [place]. I do not have the most recent exam I have told her to get this for me. The last note I was able to review did have signs of diabetic retinopathy She is on CLAIRE inhibitor. tresiba 40 units Q noon & preprandial Insulin aspart to 10 units TID w meals. ISS at HS only. < 200 NO insulin 201-250 2 251-300 4 301-250 6 351-400 8 401 > 10 units Code(s): E11.65 - Type 2 diabetes mellitus with hyperglycemia; Z79.4 - director 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 (current) use of insulin Category: Medical (2) Postlaminectomy syndrome, lumbar: Code(s): M96.1 - Postlaminectomy syndrome, not elsewhere classified Category: Medical (3) Chronic pain syndrome: Code(s): G89.4 - Chronic pain syndrome Category: Medical (4) snf (current) use of opiate analgesic: Comment: Pain Management-chronic pain/back Code(s): Z79.891 - snf (current) use of opiate analgesic Category: Medical (5) Myofascial muscle pain: Code(s): M79.18 - Myalgia, other site Category: Medical Plan Masspat was reviewed and without concerns. No obvious signs of diversion, abuse or misuse of the opioid medications. Will send in prescription for oxycodone 10mg po tid #90 no refills Referral placed for podiatry at patient request All questions and concerns have been answered and patient agrees with the plan. Patient will follow up in 1 month, sooner if needed. Orders: Referrals Podiatry Referral B35.1 - Tinea unguium, E11.65 - Type 2 diabetes mellitus with hyperglycemia, Z79.4 - snf (current) use of insulin Medications: Refilled oxycodone Partial Fill upon patient request. 10 mg PO TID PRN 90 tabs 0RF pain 30 days G89.4 - Chronic pain syndrome, M96.1 - Postlaminectomy syndrome, not elsewhere classified Coding Level of Care Code Est Pt Level 4 (69234) Complex EM visit Add On G2211 Diagnoses Type 2 diabetes mellitus with hyperglycemia, with long-term current use of insulin E11.65; Z79.4 Postlaminectomy syndrome, lumbar M96.1 Chronic pain syndrome G89.4 snf (current) use of opiate analgesic Z79.891 Myofascial muscle pain M79.18
== END 2024-11-27 12:10 | disposition home or self-care (01) ==
PROVIDERS: PCP Nurse Practitioner Family; Visit Provider Registered Nurse Emergency
DX: G89.4 Chronic pain syndrome (principal); M96.1 Postlaminectomy syndrome, not elsewhere classified; M79.18 Myalgia, other site; Z79.891 Long term (current) use of opiate analgesic; E11.65 Type 2 diabetes mellitus with hyperglycemia; Z79.4 Long term (current) use of insulin
CPT/HCPCS: 99214; G2211

== ENCOUNTER → 2024-11-27 11:45 | Outpatient (BNVA) | payer OTHER, SELFPAY | PROVIDERS: PCP Nurse Practitioner Family; Visit Provider Registered Nurse Emergency | DX: E11.65 Type 2 diabetes mellitus with hyperglycemia (principal); M96.1 Postlaminectomy syndrome, not elsewhere classified; M79.18 Myalgia, other site; G89.4 Chronic pain syndrome; Z79.891 Long term (current) use of opiate analgesic; Z79.4 Long term (current) use of insulin | CPT/HCPCS: 99212 ==

== ENCOUNTER 2024-12-27 11:21 | Outpatient (AMB) | payer OTHER, SELFPAY ==
--- NOTE | 2024-12-27 11:36 | MHC.OFFVIS ---
Vital Signs 12/27/24 11:42 Height 5 ft 3 in Weight 214 lb 8 oz BMI 38.0 BP 186/85 H Blood Pressure Location Rt brachial Position Sitting Pulse 76 Pulse Source Pulse Oximeter Pulse Oximetry (%) 97 Oxygen Delivery Method Room Air Intake Visit Reasons: Pill Count Intake Note: Carlota comes in today for a pill count to oxycodone, patient should have 30 tablets and presents with 29 tablets which she last took today 12/27/24 at 8:30am. Pain today 7 Meter Mechanic Required: No Accompanied by: Self / Same As Patient Allergies Seasonal Allergies Allergy (Intermediate, Verified 12/27/24 11:43) Cough semaglutide [From Ozempic] Allergy (Mild, Verified 12/27/24 11:43) pancreatitis amoxicillin [From Augmentin] Adverse Reaction (Severe, Verified 12/27/24 11:43) n/v/d clavulanic acid [From Augmentin] Adverse Reaction (Severe, Verified 12/27/24 11:43) n/v/d NSAIDS (Non-Steroidal Anti-Inflamma [NSAIDS (NON-STEROIDAL ANTI-INFLAMMA] Adverse Reaction (Intermediate, Verified 12/27/24 11:43) BLEEDING HPI Comments Details: Carlota presents back to the office today for follow chronic pain and chronic opioid medication management. She is prescribed oxycodone 10mg po TID prn. Patient arrived today with the expectation of having 30 pills, she presented 29 pills which were counted in the presence of two staff members and returned to the patient in the original prescription bottle. This demonstrates responsible attitude toward patient's opioid medications. Pain is reported today as 710 and last dose of pain medication was taken at 08:30 this morning. Pain exacerbated today by the cold outside temperature. Denies side effects including constipation, nausea, shortness of breath, urinary retention or drowsiness. Prior visit with Dr Stanley: Carlota is back in my office after the trial I DDD with with morphine which was performed on 01/31/2023.? She does not report the same pain evaluation as it was with Dilaudid in September.? She received 150 micro g of morphine intrathecally.? However the patient developed what looks like post dural puncture headache immediately after the procedure.? The headache went away on itself however now we are not ready to implant anything for the patient.? I suggested that we might try in the future instead of fentanyl to go ahead with bupivacaine injections small dose intrathecally and have bupivacaine as the main medication in the intrathecal space if results of the trial will have no side effects and will have good pain relief.? I warned her that she may experience weakness in bilateral lower extremities after bupivacaine injection however the weakness will be only transient. We decided to wait a month or two PA and schedule the bupivacaine trial later. Prior:? Dilaudid which was performed of 10/06/2023.? The patient reports absence of pain for the 1st 48 hours after the procedure.? However she reports severe nausea and vomiting after surgery.? This is unwanted side effects.? I offered her reach trial with morphine versus read trial with fentanyl.? The patient reported that in the past she was taking morphine as a pain medication orally.? She denies any side effects.? I will try to perform the procedure with 150 mcg intrathecally? [facility] Medical History (Updated 11/27/24 @ 12:15 by Rose Wilson APRN, OVERNIGHT CASHIER) Right hip pain Diabetic nephropathy Chronic cough Chronic prescription opiate use Thoracic back pain Menopause Vasomotor symptoms due to menopause Elevated C-reactive protein (CRP) Proteinuria Type 2 diabetes mellitus with other diabetic kidney complication Sleep apnea PCOS (polycystic ovarian syndrome) Asthma Type 2 diabetes mellitus with hyperglycemia, with long-term current use of insulin Hyperlipidemia LDL goal <100 Obesity due to excess calories BMI 37.0-37.9, adult 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, uncontrolled skilled nursing (current) use of opiate analgesic Chronic pain syndrome Postlaminectomy syndrome, lumbar Surgical History Hx of colonoscopy History of esophagogastroduodenoscopy (EGD) Hx of spinal surgery History of removal of cyst History of carpal tunnel release History of lumbar surgery Family History Father Diabetes Hypertension Mother Asthma Social History Household Members: Family Housing: Apartment Are you a primary home care music therapist to a significant other at home: No Do you presently have visiting nurse or other home services: Yes ([employer]) Alcohol intake: current Alcohol intake frequency: holidays/special occasions only Patient Tobacco Use Status: Current everyday Tobacco user Tobacco use type: Cigarette Cigarette Packs Per Day: 1 Cigarettes Per Day: 20.0 Years Smoked: 30 e-Cigarette/Vaping Use: Never Used Second Hand Smoke Exposure: Yes service: No Current occupational status: disabled Current occupational exposures/hazards: No Cognitive needs: No Hearing needs: No Vision needs: Yes Review of Systems Const All systems reviewed & are unremarkable except as noted in HPI and below Physical Exam Vital Signs: Last Vital Signs Pulse 76 12/27/24 11:42 BP 186/85 H 12/27/24 11:42 Pulse Ox 97 12/27/24 11:42 Oxygen Delivery Method Room Air 12/27/24 11:42 BMI result Body Mass Index 38.0 General: awake, alert, oriented. Answers questions appropriately. Fully engaged in examination. Skin: warm, dry, intact without visible rashes or lesions. HEENT: Normocephalic. Hearing intact. Cardiac: External chest normal in appearance. Respiratory: No signs of respiratory distress. Abdomen: without gross distension. MS: No obvious swelling or deformities. Neurological: Oriented to person, place, time and situation. Thought process intact. ambulating with use of cane. Psychiatric: Appropriate mood and affect. Good judgment and insight. Results Reviewed Results Reviewed: MR/MR abdomen wo/w con IMPRESSION: 1. No evidence of gallstone or hepatobiliary duct dilatation. 2. Unchanged Mild hepatic steatosis. 3. Unchanged Atrophic pancreas with trace inflammatory exudate surrounding the pancreatic uncinate process, compatible with residual interstitial edematous pancreatitis. No well loculated pseudocyst could be identified. 4. Persistent enhancing proximal superior peripancreatic lymph node and posterior periportal lymph node. 5. Bilateral renal cortical simple cysts are seen for which no follow-up imaging is recommended. 6. Advanced L5-S1 degenerative lumbar disc disease, moderate posterior L4-L5 and marked L5-S1 disc protrusions. 7. Small mesenteric hernia containing mesenteric fat. 10/12/2023 XR/XR thoracic spine 3V FINDINGS: There are mild multilevel degenerative changes of thoracic spine with marginal spurring. Pedicles are preserved there is no evidence of fractures soft tissues unremarkable. There is no spondylolysis or listhesis. IMPRESSION: Mild degenerative changes with marginal spurring. Thoracic spine. Assessment & Plan Assessment & Plan (1) Postlaminectomy syndrome, lumbar: Code(s): M96.1 - Postlaminectomy syndrome, not elsewhere classified Category: Medical (2) Chronic pain syndrome: Code(s): G89.4 - Chronic pain syndrome Category: Medical (3) skilled nursing (current) use of opiate analgesic: Comment: Pain Management-chronic pain/back Code(s): Z79.891 - superintendent marine oil terminal (current) use of opiate analgesic Category: Medical (4) Myofascial muscle pain: Code(s): M79.18 - Myalgia, other site Category: Medical Plan Masspat was reviewed and without concerns. No obvious signs of diversion, abuse or misuse of the opioid medications. Will send in prescription for oxycodone 10mg po tid #90 no refills All questions and concerns have been answered and patient agrees with the plan. Patient will follow up in 1 month, sooner if needed. Medications: Refilled oxycodone Partial Fill upon patient request. 10 mg PO TID PRN 90 tabs 0RF pain 30 days G89.4 - Chronic pain syndrome, M96.1 - Postlaminectomy syndrome, not elsewhere classified Coding Level of Care Code Est Pt Level 4 (11479) Complex EM visit Add On G2211 Diagnoses Postlaminectomy syndrome, lumbar M96.1 Chronic pain syndrome G89.4 skilled nursing (current) use of opiate analgesic Z79.891 Myofascial muscle pain M79.18
[2024-12-27 11:42] VITALS: BP 186/85; PULSE 76; O2SAT 97; BMI 38.0
== END 2024-12-27 12:12 | disposition home or self-care (01) ==
LOC: HO.PMC 11:22
PROVIDERS: PCP Nurse Practitioner Family; Visit Provider Registered Nurse Emergency
DX: M96.1 Postlaminectomy syndrome, not elsewhere classified (principal); G89.4 Chronic pain syndrome; Z79.891 Long term (current) use of opiate analgesic; M79.18 Myalgia, other site
CPT/HCPCS: 99214; G2211

== ENCOUNTER → 2024-12-27 11:21 | Outpatient (BNVA) | payer OTHER, SELFPAY | PROVIDERS: PCP Nurse Practitioner Family; Visit Provider Registered Nurse Emergency | DX: M96.1 Postlaminectomy syndrome, not elsewhere classified (principal); G89.4 Chronic pain syndrome; M79.18 Myalgia, other site; Z51.81 Encounter for therapeutic drug level monitoring; Z79.891 Long term (current) use of opiate analgesic | CPT/HCPCS: 99212 ==

== ENCOUNTER 2025-01-10 08:31 | Outpatient (REF) | payer OTHER, SELFPAY ==
[2025-01-10 12:02] LABS: Alanine Aminotransferase 29 U/L (0-31); Albumin Level 3.6 g/dL (3.5-5.0); Alkaline Phosphatase 78 U/L (39-117); Anion Gap 10 (12-20); Aspartate Amino Transferase 32 U/L (5-31); Bilirubin Total 0.5 mg/dL (0.0-1.0); Blood Urea Nitrogen 11 mg/dL (9-16); Carbon Dioxide 30 mmol/L (22-29); Chloride 105 mmol/L (96-108); Cholesterol 159 mg/dL (<200); Estimated Glomerular Filt Rate > 60; Glucose Random 194 mg/dL (60-115); HDL Cholesterol 38 mg/dL (>40); LDL Cholesterol Calculated 97 mg/dL (<100); Sodium 141 mmol/L (135-145); Total Protein 6.8 g/dL (6.5-8.0); Triglycerides 124 mg/dL (<150)
[2025-01-10 14:18] LABS: Appearance Urine Clear; Color Urine Dark Yellow; Glucose Urine UA 100 mg/dL (Negative); Leukocyte Esterase Urine Negative (Negative); Nitrite Urine Negative (Negative); PH 5.5 (5.0-9.0); UMIC TRIGGER UA YES; Urine Blood Trace (Negative); Urine Ketones Trace mg/dL (Negative); Urine Protein 300 (3+) mg/dL (Neg-Trace)
[2025-01-10 14:22] LABS: Bacteria Urine None Seen (None Seen); Hyaline Casts Urine 0-2 /LPF (0-2); WBC Urine 0-5 /HPF (0-5)
[2025-01-10 14:58] LABS: Creatinine Urine 132.77 mg/dL
[2025-01-10 15:11] LABS: Protein/Creatinine Ratio, Ur 2.27 (<0.2); Total Protein Urine Random 301 mg/dL (<12)
== END 2025-01-10 08:32 | disposition home or self-care (01) ==
LOC: HO.WFDLDS 08:31
PROVIDERS: Referring Provider Internal Medicine Nephrology; Visit Provider Nurse Practitioner Family
DX: E11.65 Type 2 diabetes mellitus with hyperglycemia (principal); E11.21 Type 2 diabetes mellitus with diabetic nephropathy; E11.29 Type 2 diabetes mellitus with other diabetic kidney complication; E78.5 Hyperlipidemia, unspecified; Z79.4 Long term (current) use of insulin
CPT/HCPCS: 36415; 80053; 80061; 81001; 82570; 84156

== ENCOUNTER 2025-01-15 12:30 | Outpatient (AMB) | payer OTHER, SELFPAY ==
--- NOTE | 2025-01-15 12:32 | A.OFFPC_ITS ---
Vital Signs 01/15/25 12:42 Height 5 ft 3 in Weight 217 lb 4 oz BMI 38.5 BP 135/62 Blood Pressure Location Rt brachial Position Sitting Respiration 16 Pulse 96 Pulse Source Pulse Oximeter Temp 97.8 F Temp Source Oral Pulse Oximetry (%) 95 Oxygen Delivery Method Room Air Intake Visit Reasons: 3-4 months 30 min routine fu labs 1 week before Intake Note: patient here for 3-4 months follow up and lab review Attendance Clerk Required: No Is last menstrual period known: No Post menopausal: No Patient : No Allergies Seasonal Allergies Allergy (Intermediate, Verified 01/15/25 13:27) Cough semaglutide [From Ozempic] Allergy (Mild, Verified 01/15/25 13:27) pancreatitis amoxicillin [From Augmentin] Adverse Reaction (Severe, Verified 01/15/25 13:27) n/v/d clavulanic acid [From Augmentin] Adverse Reaction (Severe, Verified 01/15/25 13:27) n/v/d NSAIDS (Non-Steroidal Anti-Inflamma [NSAIDS (NON-STEROIDAL ANTI-INFLAMMA] Adverse Reaction (Intermediate, Verified 01/15/25 13:27) BLEEDING Medication List - Last Reconciled 01/15/25 by Bhumika Lucas, [facility]- albuterol sulfate 90 mcg/actuation 2 puffs PO Q6H PRN albuterol sulfate 2.5 mg inhalation Q6H PRN atorvastatin 80 mg PO BEDTIME blood sugar diagnostic (FreeStyle Lite Strips) USE 1 STRIP 3 TO 4 TIMES DAILY blood sugar diagnostic (FreeStyle Lite Strips) 3 times per day diabetic supplies, miscellan. As directed diaper,brief,adult,disposable (Briefs, Adult-Extra Large) use daily diphenhydramine HCl (Banophen) 25 mg PO BEDTIME PRN empagliflozin (Jardiance) 10 mg PO DAILY flash glucose scanning reader (FreeStyle Bettye 2 [place]) As directed flash glucose sensor (FreeStyle Bettye 2 Sensor kit) As directed every 2 weeks fluconazole 150 mg PO Q3D 2 doses fluticasone propionate 50 mcg/actuation 1 spray intranasal BID PRN gabapentin 600 mg PO TID PRN 30 days glipizide 5 mg PO BID insulin aspart U-100 (Novolog FlexPen U-100 Insulin aspart) 1 sliding scale dose subcut TID insulin degludec (Tresiba FlexTouch U-200 insulin) 40 units (0.2 mL) subcut DAILY 30 days ipratropium-albuterol 20-100 mcg/actuation (Combivent Respimat) 1 puff inhalation QID lancets 3 to 4 time a day blood sugar checks. 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, DIRECTED ] montelukast 10 mg PO BEDTIME nicotine 1 patch transdermal Q24H oxycodone 10 mg PO TID PRN 30 days pantoprazole 40 mg PO BID pen needle, diabetic tid insulin administration solriamfetol (Sunosi) 150 mg PO DAILY PRN Tobacco use date assessed: 01/15/25 Dental Screening Dental Screen Date: 01/15/25 Did you have a dental visit in the last 12 months?: No Did you have a dental problem in the last 6 months where you did not have access to dental care?: No Was dental information given to patient?: Patient has dentist HPI HPI Comments History of Present Illness Details 54-year-old female with type 2 diabetes with complications, diabetic kidney disease hypertension hyperlipidemia, obesity, obstructive sleep apnea, PCOS, asthma, chronic pain syndrome, diverticulosis, coronary artery disease, 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 - Type 2 Diabetes Mellitus is managed wi current medications that include Jardiance, metformin, glipizide, and injections of NovoLog and Tresiba. Deficits in glucose control are noted with high average readings from continuous glucose monitoring. A1c 9.5%, though better cont to be poor. - Recurrent vaginal yeast infections coi ncide with the use of Jardiance, currently managed with tmgy-deo-zwgffme treatments, with plans for preventative options discussed. - The patient is being treated for hyper tension with Lisinopril - Hyperlipidemia control through atorvas tatin , LDL < 100 - Sleep apnea treatment compliance issue s persist, she reports she cannot use the machine as she has RLS and igor horses At HS that require her to get up and this disrupts the machine. - Nicotine patches are being used for sm oking cessation with progressive improvements. Cont to smoke; reduced amounts - Onychomycosis treatment is necessitate d for toenail issues; referred to [facility];l prefers [facility]. Has same issue affecting R thumb nail, needs Derm referral for this. 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 Results: CGM 90 day 203 mg/dl Time in Target: > 240 31% 181-240 23% 70-80 44% < 70 2% - Labs: A1c is 9.5, LDL cholesterol is 9 7 mg/dL. - Urinalysis reveals glucose and protein present. Discussion In today's session, the patient and I discussed the required management of her Type 2 Diabetes Mellitus, emphasizing the potential necessity for treatment modifications to better control her glucose levels. I detailed the current high average glucose readings and escalating dosages of glipizide for improved control. We addressed the recurrent vaginal infections linked with Jardiance use and its potential risks. Management strategies were explored with an understanding that if infections recur consistently, alternative treatments might be necessary. We proposed a referral for pulmonary consults to investigate viable alternatives for sleep apnea management, in particular the possibility of Inspire therapy. The implications of non-compliance with current CPAP usage and associated cardiac risks were shared. Supporting lifestyle modifications through smoking cessation involved encouragement on progressive achievements using nicotine patches. Start Arnuity for breathing. prn linda. Referrals for podiatry and dermatology consultations to address onychomycosis and toenail discomfort were explained, and specifics of referral processing were reviewed, ensuring comprehensive patient understanding. I provided anticipatory guidance for monitoring the response to diabetes treatment plans and encouraged the patient to keep us informed on changes or needs between now and the next follow-up. Exam: Awake alert oriented, NAD Scleras nonicteric bilat Mucous membranes moist, pharynx WNL Lung sounds clear but dim throughout, occasional dry cough w/o distress Regular rate and rhythm No edema BLE, skin intact, + pedal pulse, onychomycosis affecting multiple toenails and right thumbnail Results 12/2024 HDL 38 otherwise labs WNL A1c 9.5% today Plan - Increase glipizide to 10 mg twice jose y. - Use fluconazole as directed for yeast infection symptoms. However monitor for recurrent infections as SGLT may need to stop. - Continue cpap use; pulmonology referra l for alternative treatments. - Start Arnuity 50 1 puff QD to help w/ breathing. Cont prn LINDA - Reorder and adhere to atorvastatin and lisinopril as prescribed. - Maintain nicotine patches and strive t owards smoking cessation. - Attend scheduled referrals for toenail management and finger nail mgmt --- [facility] and [facility] . - Monitor blood glucose and report any s ignificant changes. - RTO 4 months for routine complex dx fu , labs 1 week before, sooner prn Total time spent caring for the patient today was 71 minutes. This includes time spent before the visit reviewing the chart, time spent during the visit, and time spent after the visit on documentation, reviewing laboratory results, diagnostic imaging, medications, performing a medically necessary evaluation, counseling on diagnoses, care coordination, ordering appropriate tests, ordering appropriate medications, review of tests performed by other providers, reporting test results with the patient, communication with other healthcare providers. 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 Menopause Obesity due to excess calories PCOS (polycystic ovarian syndrome) Postlaminectomy syndrome, lumbar Proteinuria Right hip pain Sleep apnea Thoracic back pain Type 2 diabetes mellitus with hyperglycemia, with long-term current use of insulin Type 2 diabetes mellitus with other diabetic kidney complication Vasomotor symptoms due to menopause Surgical History (Updated 01/15/25 @ 12:59 by JALIL Clemons) History of carpal tunnel release History of esophagogastroduodenoscopy (EGD) History of lumbar surgery History of removal of cyst Hx of colonoscopy (~2023) Hx of spinal surgery Family History Father Diabetes Hypertension Mother Asthma Social History Household Members: Family Housing: Apartment Are you a primary progressive care manager to a significant other at home: No Do you presently have visiting nurse or other home services: Yes ([employer]) Alcohol intake: current Alcohol intake frequency: holidays/special occasions only Patient Tobacco Use Status: Current everyday Tobacco user Tobacco use type: Cigarette Cigarette Packs Per Day: 1 Cigarettes Per Day: 20.0 Years Smoked: 30 e-Cigarette/Vaping Use: Never Used Second Hand Smoke Exposure: Yes service: No Current occupational status: disabled Current occupational exposures/hazards: No Cognitive needs: No Hearing needs: No Vision needs: Yes Questionnaire PHQ-9 Over the last 2 weeks, how often have you been bothered by any of the following problems? 1. Little interest or pleasure in doing things: several days 2. Feeling down, depressed, or hopeless: not at all 3. Trouble falling or staying asleep, or sleeping too much: nearly every day 4. Feeling tired or having little energy: nearly every day 5. Poor appetite or overeating: more than half the days 6. Feeling bad about yourself - or that you are a failure or have let yourself or your family down: not at all 7. Trouble concentrating on things, such as reading the newspaper or watching television: not at all 8. Moving or speaking so slowly that other people could have noticed. Or the opposite - being so fidgety or restless that you have been moving around a lot more than usual: not at all 9. Thoughts that you would be better off or of hurting yourself in some way: not at all Total score: 9 Depression Screening Interpretation: Positive Depression Screening Follow-up: Existing condition and In treatment Depression Screening Done: Yes 67800 - PHQ-9 Billing: Yes Source: Developed by Drs. Yrn Alexander, Frieda Rivera, John Archuleta and colleagues, with an educational cedrick from [employer]. Thrive Questionnaire Date Thrive assessed: 01/15/25 I am a: Patient What is your living situation today?: I have a steady place to live Within the past 12 months, did the food you bought not last and you didn't have the money to get more?: Never true Within the past 12 months, did you worry whether your food would run out before you got money to buy more?: Never true Do you have trouble paying for medicines?: No Do you have trouble getting transportation to medical appointments?: No Do you have trouble paying your heating and electricity bill?: Yes Do you have trouble taking care of your child, family member or friend?: No Do you have trouble with day-to-day activities such as bathing, preparing meals, shopping, managing finances, etc.?: Yes Are you currently unemployed and looking for a job?: No Are you interested in more education?: No Please select the resources that you would like help with: None Currently or been in a relationship where the following occur: No concerns reported THRIVE Score: 1 AUDIT C Alcohol Use Questionnaire (AUDIT-C) 1. How often do you have a drink containing alcohol?: Never Total Score: 0 Score Reviewed/Action Taken: Yes EDWIGE-7 AMB Questionnaire EDWIGE-7 Date EDWIGE - 7 assessed: 01/15/25 Feeling nervous, anxious, or on edge: 0 = Not at all Not being able to stop or control worryin = Not at all Worrying too much about different things: 0 = Not at all Trouble relaxin = Not at all Being so restless that it is hard to sit still: 0 = Not at all Becoming easily annoyed or irritable: 1 = Several days Feeling afraid as if something awful might happen: 0 = Not at all Total EDWIGE-7 score (0-4 normal; 5-9 mild; 10-14 moderate; 15-21 severe): 1 Source: Developed by Drs. Yrn Alexander, Frieda Rivera, John Archuleta and colleagues, with an educational cedrick from [employer]. EDWIGE-7 Assessment Billing EDWIGE-7 Assessment Tool: EDWIGE-7 Assessment 22806 Physical exam (Primary Care) Vital Signs: Last Vital Signs Temp 97.8 F 01/15/25 12:42 Pulse 96 01/15/25 12:42 Resp 16 01/15/25 12:42 BP 135/62 01/15/25 12:42 Pulse Ox 95 01/15/25 12:42 Oxygen Delivery Method Room Air 01/15/25 12:42 BMI result Body Mass Index 38.5 BMI Assessment/Plan discussion: High BMI High, discussed plan: lifestyle Tobacco/Smoking Status: Tobacco use Status Tobacco use date assessed 01/15/25 01/15/25 12:46 Patient Tobacco Use Status Current everyday Tobacco 01/15/25 12:35 Tobacco use type Cigarette 01/15/25 12:35 e-Cigarette/Vaping Use Never Used 01/15/25 12:35 Are you ready to quit: No Tobacco cessation counseling provided: Yes Items discussed: Nicotine replacement, QuitWorks and Other Relapse Prevention: discussed the importance of a supportive environment, discussed extending NRT, discussed negative mood or depression after quitting, weight gain after smoking is common and discussed dietary, exercise and/or lifestyle changes Number of minutes spent counselin CPT code: 88707 - 4-10 Minutes PHQ-9: PHQ-9 Score PHQ-9: Total score 9 01/15/25 13:31 Depression Screening Interpretation: Positive Depression Screening Follow-up: Existing condition and In treatment Thrive Assessment: Date of Thrive Assessment Date Thrive assessed 01/15/25 01/15/25 12:46 Currently or been in a relationship where the following occur: No concerns reported Office Procedures Diabetic Foot Exam Details: normal monofilament and vibratory sensation bilat G9226 - Diabetic Foot Exam Glucose Monitoring Details 74224 - Glucose monitoring, continuous-physician I&R Procedure code (CPT) selection complete Results AMB Hemoglobin A1c AMB Hemoglobin A1c 9.5 % Last Edit by Arlin Nunez MA on 01/15/25 13:41 Results Reviewed Results Reviewed: Laboratory Last Values Hgb A1c (Clinic) 9.5 % (4.0-6.0) H 01/15/25 12:56 Coding Level of Care Code Est Pt Level 5 (49524) Complex EM visit Add On G2211 Diagnoses Diabetic nephropathy associated with type 2 diabetes mellitus E11.21 Diabetes mellitus type: type 2 Hyperlipidemia due to type 2 diabetes mellitus E11.69; E78.5 Morbid obesity E66.01 Peripheral sensory neuropathy due to type 2 diabetes mellitus E11.42 Type 2 diabetes mellitus with hyperglycemia, with long-term current use of insulin E11.65; Z79.4 Type 2 diabetes mellitus with other diabetic kidney complication E11.29 Moderate persistent asthma without complication J45.40 Asthma complication type: uncomplicated Asthma persistence: persistent Asthma severity: moderate AURA (obstructive sleep apnea) G47.33 Onychomycosis B35.1 CPT Codes Diabetic Foot Exam - CPT: G9226 - Diabetic Foot Exam ([id number]) Details - CPT: 14830 - Glucose monitoring, continuous-physician I&R ([id number]) [facility] OUTPT/OFFICE VIS - G2212 Additional Codes EDWIGE-7 Assessment Billing - EDWIGE-7 Assessment Tool: EDWIGE-7 Assessment 80746 ([id number]) PHQ-9 - 41882 - PHQ-9 Billing: Yes ([id number]) Vital Signs *Quality* - CPT code: 64734 - 4-10 Minutes ([id number]) Assessment & Plan Assessment & Plan (1) Diabetic nephropathy: Comment: Code(s): E11.21 - Type 2 diabetes mellitus with diabetic nephropathy Category: Medical Qualifiers: Diabetes mellitus type: type 2 Qualified Code(s): E11.21 - Type 2 diabetes mellitus with diabetic nephropathy (2) Hyperlipidemia due to type 2 diabetes mellitus: Code(s): E11.69 - Type 2 diabetes mellitus with other specified complication; E78.5 - Hyperlipidemia, unspecified Category: Medical (3) Morbid obesity: Code(s): E66.01 - Morbid (severe) obesity due to excess calories Category: Medical (4) Peripheral sensory neuropathy due to type 2 diabetes mellitus: Code(s): E11.42 - Type 2 diabetes mellitus with diabetic polyneuropathy Category: Medical (5) Type 2 diabetes mellitus with hyperglycemia, with long-term current use of insulin: Comment: On insulin. Not interested in referral to endocrinology at this time. Uses a CGM Diabetic [facility] [place]. I do not have the most recent exam I have told her to get this for me. The last note I was able to review did have signs of diabetic retinopathy She is on CLAIRE inhibitor. tresiba 60 units Q noon & preprandial Insulin aspart to 10 units TID w meals. ISS at HS only. 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 Code(s): G47.33 - Obstructive sleep apnea (adult) (pediatric) Category: Medical (9) Onychomycosis: Comment: of thumb nail on R & toe nails Code(s): B35.1 - Tinea unguium Category: Medical Plan . Orders: Orders AMB Hemoglobin A1c Today Z13.9 - Encounter for screening, unspecified Referrals Pulmonology Referral G47.33 - Obstructive sleep apnea (adult) (pediatric), J45.40 - Moderate persistent asthma, uncomplicated Dermatology Referral B35.1 - Tinea unguium Podiatry Referral B35.1 - Tinea unguium, E11.65 - Type 2 diabetes mellitus with hyperglycemia, Z79.4 - correction (current) use of insulin Medications: New fluconazole take 1 tab day 1, repeat second dose on day 3 150 mg PO Q3D 2 tabs 5RF fluticasone furoate 50 mcg/actuation (Arnuity Ellipta) 1 inh inhalation Q24H 30 days 30 ea 3RF glipizide 10 mg PO BID 180 tabs 1RF Changed From insulin degludec (Tresiba FlexTouch U-200 insulin) 40 units (0.2 mL) subcut DAILY 30 days 6 mL 4RF E11.65 - Type 2 diabetes mellitus with hyperglycemia To insulin degludec (Tresiba FlexTouch U-200 insulin) 60 units (0.3 mL) subcut DAILY 30 days 9 mL 4RF E11.65 - Type 2 diabetes mellitus with hyperglycemia Refilled atorvastatin 80 mg PO BEDTIME 90 tabs 1RF blood sugar diagnostic (FreeStyle Lite Strips) USE 1 STRIP 3 TO 4 TIMES DAILY 300 strips 12RF E11.65 - Type 2 diabetes mellitus with hyperglycemia, Z79.4 - correction (current) use of insulin blood sugar diagnostic (FreeStyle Lite Strips) 3 times per day 100 ea 11RF E11.8 - Type 2 diabetes mellitus with unspecified complications flash glucose sensor (FreeStyle Bettye 2 Sensor kit) As directed every 2 weeks 2 ea 12RF E11.65 - Type 2 diabetes mellitus with hyperglycemia, Z79.4 - 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
[2025-01-15 12:42] VITALS: BP 135/62; PULSE 96; RESP 16; TEMP 36.6; O2SAT 95; BMI 38.5
== END 2025-01-15 14:07 | disposition home or self-care (01) ==
LOC: HO.HMCFM 12:31
PROVIDERS: PCP Nurse Practitioner Family; Visit Provider Nurse Practitioner Family
DX: E11.21 Type 2 diabetes mellitus with diabetic nephropathy (principal); E11.69 Type 2 diabetes mellitus with other specified complication; E66.01 Morbid (severe) obesity due to excess calories; Z68.38 Body mass index [BMI] 38.0-38.9, adult; E11.42 Type 2 diabetes mellitus with diabetic polyneuropathy; E11.65 Type 2 diabetes mellitus with hyperglycemia; Z79.4 Long term (current) use of insulin; E11.29 Type 2 diabetes mellitus with other diabetic kidney complication; E78.5 Hyperlipidemia, unspecified; J45.40 Moderate persistent asthma, uncomplicated; G47.33 Obstructive sleep apnea (adult) (pediatric); B35.1 Tinea unguium

== ENCOUNTER → 2025-01-15 12:30 | Outpatient (BNVA) | payer OTHER, SELFPAY | PROVIDERS: PCP Nurse Practitioner Family; Visit Provider Nurse Practitioner Family | DX: E11.21 Type 2 diabetes mellitus with diabetic nephropathy (principal); E11.69 Type 2 diabetes mellitus with other specified complication; E78.5 Hyperlipidemia, unspecified; E11.42 Type 2 diabetes mellitus with diabetic polyneuropathy; E11.65 Type 2 diabetes mellitus with hyperglycemia; E11.29 Type 2 diabetes mellitus with other diabetic kidney complication; Z79.4 Long term (current) use of insulin; J45.40 Moderate persistent asthma, uncomplicated; G47.33 Obstructive sleep apnea (adult) (pediatric); B35.1 Tinea unguium | CPT/HCPCS: 83036; 96127; 99212 ==

== ENCOUNTER 2025-01-24 10:11 | Outpatient (AMB) | payer OTHER, SELFPAY ==
--- NOTE | 2025-01-24 10:15 | MHC.OFFVIS ---
Vital Signs 01/24/25 10:21 Height 5 ft 3 in Weight 220 lb BMI 39.0 BP 180/79 H Blood Pressure Location Rt brachial Position Sitting Pulse 96 Pulse Source Pulse Oximeter Pulse Oximetry (%) 96 Oxygen Delivery Method Room Air Intake Visit Reasons: PILL COUNT Intake Note: Carlota comes in today for a pill count to oxycodone, patient should have 33 tablets and presents with 32 tablets which she last took today 01/24/25 at 8:15am. Pain today 8/10 Allergies Seasonal Allergies Allergy (Intermediate, Verified 01/24/25 10:21) Cough semaglutide [From Ozempic] Allergy (Mild, Verified 01/24/25 10:21) pancreatitis amoxicillin [From Augmentin] Adverse Reaction (Severe, Verified 01/24/25 10:21) n/v/d clavulanic acid [From Augmentin] Adverse Reaction (Severe, Verified 01/24/25 10:21) n/v/d NSAIDS (Non-Steroidal Anti-Inflamma [NSAIDS (NON-STEROIDAL ANTI-INFLAMMA] Adverse Reaction (Intermediate, Verified 01/24/25 10:21) BLEEDING HPI Comments Details: Carlota presents back to the office today for follow chronic pain and chronic opioid medication management. She is prescribed oxycodone 10mg po TID prn. Patient arrived today with the expectation of having 33 pills, she presented 32 pills which were counted in the presence of two staff members and returned to the patient in the original prescription bottle. This demonstrates responsible attitude toward patient's opioid medications. Pain is reported today as 8/10 and last dose of pain medication was taken at 08:15 this morning. Denies side effects including constipation, nausea, shortness of breath, urinary retention or drowsiness. Prior visit with Dr Stanley: Carlota is back in my office after the trial I DDD with with morphine which was performed on 01/31/2023.? She does not report the same pain evaluation as it was with Dilaudid in September.? She received 150 micro g of morphine intrathecally.? However the patient developed what looks like post dural puncture headache immediately after the procedure.? The headache went away on itself however now we are not ready to implant anything for the patient.? I suggested that we might try in the future instead of fentanyl to go ahead with bupivacaine injections small dose intrathecally and have bupivacaine as the main medication in the intrathecal space if results of the trial will have no side effects and will have good pain relief.? I warned her that she may experience weakness in bilateral lower extremities after bupivacaine injection however the weakness will be only transient. We decided to wait a month or two PA and schedule the bupivacaine trial later. Prior:? Dilaudid which was performed of 10/06/2023.? The patient reports absence of pain for the 1st 48 hours after the procedure.? However she reports severe nausea and vomiting after surgery.? This is unwanted side effects.? I offered her reach trial with morphine versus read trial with fentanyl.? The patient reported that in the past she was taking morphine as a pain medication orally.? She denies any side effects.? I will try to perform the procedure with 150 mcg intrathecally? [facility] Medical History (Updated 01/15/25 @ 18:15 by Bhumika Lucas, [facility]) Right hip pain Diabetic nephropathy Chronic cough Chronic prescription opiate use Thoracic back pain Menopause Vasomotor symptoms due to menopause Elevated C-reactive protein (CRP) Proteinuria Type 2 diabetes mellitus with other diabetic kidney complication Sleep apnea PCOS (polycystic ovarian syndrome) Asthma Type 2 diabetes mellitus with hyperglycemia, with long-term current use of insulin Hyperlipidemia LDL goal <100 Obesity due to excess calories BMI 37.0-37.9, adult 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, uncontrolled intermediate (current) use of opiate analgesic Chronic pain syndrome Postlaminectomy syndrome, lumbar Surgical History (Updated 01/15/25 @ 12:59 by Bhumika Lucas, [facility]) Hx of colonoscopy (~2023) History of esophagogastroduodenoscopy (EGD) Hx of spinal surgery History of removal of cyst History of carpal tunnel release History of lumbar surgery Family History Father Diabetes Hypertension Mother Asthma Social History Household Members: Family Housing: Apartment Are you a primary care management assistant to a significant other at home: No Do you presently have 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) Alcohol intake: current Alcohol intake frequency: holidays/special occasions only Patient Tobacco Use Status: Current everyday Tobacco user Tobacco use type: Cigarette Cigarette Packs Per Day: 1 Cigarettes Per Day: 20.0 Years Smoked: 30 e-Cigarette/Vaping Use: Never Used Second Hand Smoke Exposure: Yes service: No Current occupational status: disabled Current occupational exposures/hazards: No Cognitive needs: No Hearing needs: No Vision needs: Yes Review of Systems Const All systems reviewed & are unremarkable except as noted in HPI and below Physical Exam Vital Signs: Last Vital Signs Pulse 96 01/24/25 10:21 BP 180/79 H 01/24/25 10:21 Pulse Ox 96 01/24/25 10:21 Oxygen Delivery Method Room Air 01/24/25 10:21 BMI result Body Mass Index 39.0 General: awake, alert, oriented. Answers questions appropriately. Fully engaged in examination. Skin: warm, dry, intact without visible rashes or lesions. HEENT: Normocephalic. Hearing intact. Cardiac: External chest normal in appearance. Respiratory: No signs of respiratory distress. Abdomen: without gross distension. MS: No obvious swelling or deformities. Neurological: Oriented to person, place, time and situation. Thought process intact. ambulating with use of cane. Psychiatric: Appropriate mood and affect. Good judgment and insight. Results Reviewed Results Reviewed: MR/MR abdomen wo/w con IMPRESSION: 1. No evidence of gallstone or hepatobiliary duct dilatation. 2. Unchanged Mild hepatic steatosis. 3. Unchanged Atrophic pancreas with trace inflammatory exudate surrounding the pancreatic uncinate process, compatible with residual interstitial edematous pancreatitis. No well loculated pseudocyst could be identified. 4. Persistent enhancing proximal superior peripancreatic lymph node and posterior periportal lymph node. 5. Bilateral renal cortical simple cysts are seen for which no follow-up imaging is recommended. 6. Advanced L5-S1 degenerative lumbar disc disease, moderate posterior L4-L5 and marked L5-S1 disc protrusions. 7. Small mesenteric hernia containing mesenteric fat. 10/12/2023 XR/XR thoracic spine 3V FINDINGS: There are mild multilevel degenerative changes of thoracic spine with marginal spurring. Pedicles are preserved there is no evidence of fractures soft tissues unremarkable. There is no spondylolysis or listhesis. IMPRESSION: Mild degenerative changes with marginal spurring. Thoracic spine. 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 No obvious signs of diversion, abuse or misuse of the opioid medications. Will send in prescription for oxycodone 10mg po tid #90 no refills All questions and concerns have been answered and patient agrees with the plan. Patient will follow up in 1 month, sooner if needed. Medications: Refilled oxycodone Partial Fill upon patient request. 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
[2025-01-24 10:21] VITALS: BP 180/79; PULSE 96; O2SAT 96; BMI 39.0
== END 2025-01-24 10:35 | disposition home or self-care (01) ==
LOC: HO.PMC 10:11
PROVIDERS: PCP Nurse Practitioner Family; Visit Provider Registered Nurse Emergency
DX: M96.1 Postlaminectomy syndrome, not elsewhere classified (principal); G89.4 Chronic pain syndrome; Z79.891 Long term (current) use of opiate analgesic; M79.18 Myalgia, other site
CPT/HCPCS: 99213; G2211

== ENCOUNTER → 2025-01-24 10:11 | Outpatient (BNVA) | payer OTHER, SELFPAY | PROVIDERS: PCP Nurse Practitioner Family; Visit Provider Registered Nurse Emergency | DX: E78.5 Hyperlipidemia, unspecified (principal); E11.21 Type 2 diabetes mellitus with diabetic nephropathy; E11.29 Type 2 diabetes mellitus with other diabetic kidney complication; I10 Essential (primary) hypertension; R80.9 Proteinuria, unspecified; M96.1 Postlaminectomy syndrome, not elsewhere classified; G89.4 Chronic pain syndrome; M79.18 Myalgia, other site; Z51.81 Encounter for therapeutic drug level monitoring; Z79.891 Long term (current) use of opiate analgesic | CPT/HCPCS: 99212 ==

== ENCOUNTER 2025-01-24 15:36 | Outpatient (AMB) | payer OTHER, SELFPAY ==
--- NOTE | 2025-01-24 15:43 | HO.NEPHOV ---
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: No Accompanied by: Self / Same As Patient Allergies Seasonal Allergies Allergy (Intermediate, Verified 01/24/25 15:44) Cough semaglutide [From Ozempic] Allergy (Mild, Verified 01/24/25 15:44) pancreatitis amoxicillin [From Augmentin] Adverse Reaction (Severe, Verified 01/24/25 15:44) n/v/d clavulanic acid [From Augmentin] Adverse Reaction (Severe, Verified 01/24/25 15:44) n/v/d NSAIDS (Non-Steroidal Anti-Inflamma [NSAIDS (NON-STEROIDAL ANTI-INFLAMMA] Adverse Reaction (Intermediate, Verified 01/24/25 15:44) BLEEDING HPI Comments Details: Carlota was seen by [facility] in follow up for proteinuria. She is 54 years of age and has been a diabetic from her 20s. Her blood sugars had not been well controlled all along. She has dyslipidemia and is on statins. She has no hypertension. She was told that she has some early signs of diabetic retinopathy in the eyes. She denies any coronary artery disease, congestive heart failure, CVA, renal artery stenosis, peripheral arterial disease or carotid stenosis. She is actively trying to lose some weight. Her serum creatinine is normal. She has no edema. She does not get recurrent urinary infections. She denies any macroscopic hematuria. She does not take any nonsteroidal anti-inflammatories. She has no epistaxis, photosensitivity, joint swellings, skin rashes. She is very worried and concerned about her protein in the urine. She has a family member in [place] who had from ESRD due to diabetic nephropathy. She is smoker. She had pancreatitis from Ozempic. She is followed up by Endocrinology closely [facility], [facility] Medical History (Updated 01/15/25 @ 18:15 by Bhumika Lucas, [facility]-) Right hip pain Diabetic nephropathy Chronic cough Chronic prescription opiate use Thoracic back pain Menopause Vasomotor symptoms due to menopause Elevated C-reactive protein (CRP) Proteinuria Type 2 diabetes mellitus with other diabetic kidney complication Sleep apnea PCOS (polycystic ovarian syndrome) Asthma Type 2 diabetes mellitus with hyperglycemia, with long-term current use of insulin Hyperlipidemia LDL goal <100 Obesity due to excess calories BMI 37.0-37.9, adult 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, 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 Chronic pain syndrome Postlaminectomy syndrome, lumbar Surgical History Hx of colonoscopy (~2023) History of esophagogastroduodenoscopy (EGD) Hx of spinal surgery History of removal of cyst History of carpal tunnel release History of lumbar surgery Family History Father Diabetes Hypertension Mother Asthma Social History Household Members: Family Housing: Apartment Are you a primary pet care associate to a significant other at home: No Do you presently have visiting nurse or 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) Alcohol intake: current Alcohol intake frequency: holidays/special occasions only Patient Tobacco Use Status: Current everyday Tobacco user Tobacco use type: Cigarette Cigarette Packs Per Day: 1 Cigarettes Per Day: 20.0 Years Smoked: 30 e-Cigarette/Vaping Use: Never Used Second Hand Smoke Exposure: Yes service: No Current occupational status: disabled Current occupational exposures/hazards: No Cognitive needs: No Hearing needs: No Vision needs: Yes Review of Systems Const All systems reviewed & are unremarkable except as noted in HPI and below Physical Exam Vital Signs: BMI result Body Mass Index 39.0 Telehealth Telehealth Telehealth Platform: Telephone Location of provider rendering services: practice address Location of patient: address on file Patient Identification confirmed using: Name, : Yes Telehealth method: voice only Patient verbally consented to treatment: Yes Patient verbally consented to billing insurance company: Yes Patient informed of any privacy concerns related to visit: No Minutes spent on Phone/Video with Pt.: 10 Results Reviewed Nephrology Results: Sodium 141 mmol/L (135-145) 01/10/25 Potassium 4.0 mmol/L (3.3-5.1) 01/10/25 Chloride 105 mmol/L (96-108) 01/10/25 Carbon Dioxide 30 mmol/L (22-29) H 01/10/25 BUN 11 mg/dL (9-16) 01/10/25 Creatinine 0.70 mg/dL (0.5-1.4) 01/10/25 Calcium 9.0 mg/dL (8.4-10.2) 01/10/25 Urine Protein 300 (3+) mg/dL (Neg-Trace) H 01/10/25 Urine Creatinine 132.77 mg/dL 01/10/25 Protein/Creatinin Ratio 2.27 (<0.2) H 01/10/25 Assessment & Plan Assessment & Plan (1) Diabetic nephropathy: Comment: Code(s): E11.21 - Type 2 diabetes mellitus with diabetic nephropathy Category: Medical Qualifiers: Diabetes mellitus type: type 2 Qualified Code(s): E11.21 - Type 2 diabetes mellitus with diabetic nephropathy (2) Type 2 diabetes mellitus with other diabetic kidney complication: Code(s): E11.29 - Type 2 diabetes mellitus with other diabetic kidney complication Category: Medical (3) Proteinuria: Code(s): R80.9 - Proteinuria, unspecified Category: Medical Qualifiers: Proteinuria type: unspecified Qualified Code(s): R80.9 - Proteinuria, unspecified Plan Carlota likely has diabetic nephropathy. She has significant proteinuria. Her blood pressure is at goal. Her diabetes is poorly controlled. She is on Jardiance 10 mg ( she is type 2 diabetic) which I increased to 25 mg daily. She does not get recurrent UTIs. She has no edema. Workup has been negative to date. I increased her lisinopril to 20 mg Am and 20 mg PM. I have discussed about renal biopsy which she wants to wait . She needs to lose weight. She needs to keep her blood sugar better controlled. She should avoid nonsteroidal anti-inflammatories and maintain good hydration. I did not make any other medication changes today. Answered all her questions. Follow-up appointment given Orders: Orders Electrolytes 4 Months E11.21 - Type 2 diabetes mellitus with diabetic nephropathy Protein Creatinine Ratio, Ur 4 Months E11.21 - Type 2 diabetes mellitus with diabetic nephropathy Complete Blood Count Auto Diff 4 Months E11.21 - Type 2 diabetes mellitus with diabetic nephropathy Blood Urea Nitrogen 4 Months E11.21 - Type 2 diabetes mellitus with diabetic nephropathy Creatinine 4 Months E11.21 - Type 2 diabetes mellitus with diabetic nephropathy Prothrombin Time INR 4 Months E11.21 - Type 2 diabetes mellitus with diabetic nephropathy Medications: Changed From empagliflozin (Jardiance) 10 mg PO DAILY 30 tabs 6RF To empagliflozin 25 mg PO DAILY 90 days 90 tabs 6RF From lisinopril take 2 AM and 1 PM 30 mg (3 x 10 mg) PO DAILY 90 days 270 tabs 3RF To lisinopril take 2 AM and 1 PM 20 mg PO BID 90 days 180 tabs 3RF Coding Level of Care Code Tele Est Pt Level 4 (99955) Diagnoses Diabetic nephropathy associated with type 2 diabetes mellitus E11.21 Diabetes mellitus type: type 2 Type 2 diabetes mellitus with other diabetic kidney complication E11.29 Proteinuria, unspecified type R80.9 Proteinuria type: unspecified
[2025-01-24 15:44] VITALS: BMI 39.0
== END 2025-01-24 16:50 | disposition home or self-care (01) ==
LOC: HO.HKA 15:37
PROVIDERS: PCP Nurse Practitioner Family; Visit Provider Internal Medicine Nephrology
DX: E11.21 Type 2 diabetes mellitus with diabetic nephropathy (principal); E11.29 Type 2 diabetes mellitus with other diabetic kidney complication; R80.9 Proteinuria, unspecified
CPT/HCPCS: 99214

== ENCOUNTER 2025-01-27 10:57 | Outpatient (AMB) | payer OTHER, SELFPAY ==
--- NOTE | 2025-01-27 11:02 | A.OFFVIS_ITS ---
Vital Signs 01/27/25 11:16 Weight 213 lb 13.574 oz BP 138/70 Blood Pressure Location Lt brachial Position Sitting Pulse 90 Intake Visit Reasons: 6 month follow up Intake Note: Carlota presents in the office as a 6 month follow up. CC: Epigastric bloating. Ever since she was diagnosed with pancreatitis - she feels full fast. [employer] Required: No Allergies Seasonal Allergies Allergy (Intermediate, Verified 01/24/25 15:44) Cough semaglutide [From Ozempic] Allergy (Mild, Verified 01/24/25 15:44) pancreatitis amoxicillin [From Augmentin] Adverse Reaction (Severe, Verified 01/24/25 15:44) n/v/d clavulanic acid [From Augmentin] Adverse Reaction (Severe, Verified 01/24/25 15:44) n/v/d NSAIDS (Non-Steroidal Anti-Inflamma [NSAIDS (NON-STEROIDAL ANTI-INFLAMMA] Adverse Reaction (Intermediate, Verified 01/24/25 15:44) BLEEDING HPI HPI 6 month follow up: Details: 54 yr old f with chronic back, neuropathy and joints pains here for f/u Recap: constipation controlled with linaclotide TESTS: CT 2020-- right sided colonic and TI thickening, hyperemia EGD/Colonoscopy:02/06 Endoscopy Findings: bile acid reflux gastritis Colonoscopy Findings: colon polyp internal hemorrhoids' Seen in hospital for pancreatitis suspected due to ozempic repeat CT with contrast 06/03/24 at [facility] with ?pancreatitis vs duodenitis, ?ovarian lesion ECG was normal LABS: minor ALT elevation, nml lipase (at [facility] mild alk phos and AST elevation) imaging with possible pancreatic infiltrate, small LN, small kidney stone INTERIM: she has issues with satiety since pancreaittis last year bloating no nausea denies constipation, happy with linaclotide appetite is fair no fevers no blood ins tool still taking PPI BID--no gerd with that I reviewed MRI and pancreas looks normal, as does GB and PD, stomach looks thickened she has chronic back pain, hips and sciatica pain in both legs she has been using a cane and wheelchair at times EXAM: GENERAL: The patient is well developed and nontoxic. VITAL SIGNS:see workflow HEENT: Nonicteric sclerae, PERRLA, EOMI. Oropharynx clear. Moist mucous membranes. Conjunctivae appear well perfused. No thyroid mass. CHEST: Chest wall is nontender. HEART: Regular rate and rhythm without murmurs. LUNGS: Clear to auscultation bilaterally. ABDOMEN: Soft, reduced bowel sounds, tender epigastric area, no organomegaly.no flank tenderness SKIN: No rash, no excessive bruising, petechiae, or purpura. NEUROLOGIC: Cranial nerves II-XII intact without motor/sensory deficit, redeced power both legs, using cane to walk antalgic gait, weak reflexes both legs Psych: nml affect A/P: 1/constipation--slow transit also due to opiate use-and recent illness 2/ ?pancreatitis 2/2 ozempic PLAN: 1/ cont linaclotide 2/ double dose PPI as doing, repeat EGD--if neg then GES 3/ filled in paperwork due to her issues needs extra help at home [facility] Medical History Right hip pain Diabetic nephropathy Chronic cough Chronic prescription opiate use Thoracic back pain Menopause Vasomotor symptoms due to menopause Elevated C-reactive protein (CRP) Proteinuria Type 2 diabetes mellitus with other diabetic kidney complication Sleep apnea PCOS (polycystic ovarian syndrome) Asthma Type 2 diabetes mellitus with hyperglycemia, with long-term current use of insulin Hyperlipidemia LDL goal <100 Obesity due to excess calories BMI 37.0-37.9, adult 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, 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 Chronic pain syndrome Postlaminectomy syndrome, lumbar Surgical History Hx of colonoscopy (~2023) History of esophagogastroduodenoscopy (EGD) Hx of spinal surgery History of removal of cyst History of carpal tunnel release History of lumbar surgery Family History Father Diabetes Hypertension Mother Asthma Social History Household Members: Family Housing: Apartment Are you a primary regular senior care provider to a significant other at home: No Do you presently have 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) Alcohol intake: current Alcohol intake frequency: holidays/special occasions only Patient Tobacco Use Status: Current everyday Tobacco user Tobacco use type: Cigarette Cigarette Packs Per Day: 1 Cigarettes Per Day: 20.0 Years Smoked: 30 e-Cigarette/Vaping Use: Never Used Second Hand Smoke Exposure: Yes service: No Current occupational status: disabled Current occupational exposures/hazards: No Cognitive needs: No Hearing needs: No Vision needs: Yes Physical Exam Vital Signs: Last Vital Signs Pulse 90 01/27/25 11:16 BP 138/70 01/27/25 11:16 Assessment & Plan Assessment & Plan (1) Early satiety: Code(s): R68.81 - Early satiety Category: Medical Plan: as above Coding Level of Care Code Est Pt Level 4 (47346) Diagnoses Early satiety R68.81
[2025-01-27 11:16] VITALS: BP 138/70; PULSE 90
== END 2025-01-27 12:13 | disposition home or self-care (01) ==
LOC: HO.HGI 10:57
PROVIDERS: PCP Nurse Practitioner Family; Visit Provider Internal Medicine Gastroenterology
DX: R68.81 Early satiety (principal)
CPT/HCPCS: 99214

== ENCOUNTER → 2025-01-27 10:57 | Outpatient (BNVA) | payer OTHER, SELFPAY | PROVIDERS: PCP Nurse Practitioner Family; Visit Provider Internal Medicine Gastroenterology | DX: R68.81 Early satiety (principal) | CPT/HCPCS: 99212 ==

== ENCOUNTER 2025-02-21 13:27 | Outpatient (AMB) | payer OTHER, SELFPAY ==
--- NOTE | 2025-02-21 13:30 | A.OFFVIS_ITS ---
Vital Signs 02/21/25 13:36 Height 5 ft 3 in Weight 216 lb BMI 38.3 BP 167/64 H Blood Pressure Location Rt brachial Position Sitting Pulse 91 Pulse Source Pulse Oximeter Pulse Oximetry (%) 98 Oxygen Delivery Method Room Air Intake Visit Reasons: Pill Count Intake Note: Carlota comes in today for a pill count to oxycodone, patient should have 42 tablets and presents with 44 tablets which she last took today 02/21/25 at 9am. Pain today 06/25 Welder Assistant Required: No Accompanied by: Self / Same As Patient Allergies Seasonal Allergies Allergy (Intermediate, Verified 02/21/25 13:37) Cough semaglutide [From Ozempic] Allergy (Mild, Verified 02/21/25 13:37) pancreatitis amoxicillin [From Augmentin] Adverse Reaction (Severe, Verified 02/21/25 13:37) n/v/d clavulanic acid [From Augmentin] Adverse Reaction (Severe, Verified 02/21/25 13:37) n/v/d NSAIDS (Non-Steroidal Anti-Inflamma [NSAIDS (NON-STEROIDAL ANTI-INFLAMMA] Adverse Reaction (Intermediate, Verified 02/21/25 13:37) BLEEDING HPI Comments Details: Carlota presents back to the office today for follow chronic pain and chronic opioid medication management. She is prescribed oxycodone 10mg po TID prn. Patient arrived today with the expectation of having 42 pills, she presented 44 pills which were counted in the presence of two staff members and returned to the patient in the original prescription bottle. This demonstrates responsible attitude toward patient's opioid medications. Pain is reported today as 06/25 and last dose of pain medication was taken at 9:00 this morning. Pain exacerbated today by the cold weather and rain. Also suffering with right sided dental infection. Taking abx, had appt with dentist this morning. Scheduled for tooth extraction in 2 weeks. Denies side effects including constipation, nausea, shortness of breath, urinary retention or drowsiness. Prior visit with Dr Stanley: Carlota is back in my office after the trial I DDD with with morphine which was performed on 01/31/2023.? She does not report the same pain evaluation as it was with Dilaudid in September.? She received 150 micro g of morphine intrathecally.? However the patient developed what looks like post dural puncture headache immed iately after the procedure.? The headache went away on itself however now we are not ready to implant anything for the patient.? I suggested that we might try in the future instead of fentanyl to go ahead with bupivacaine injections small dose intrathecally and have bupivacaine as the main medication in the intrathecal space if results of the trial will have no side effects and will have good pain relief.? I warned her that she may experience weakness in bilateral lower extremities after bupivacaine injection however the weakness will be only transient. We decided to wait a month or two PA and schedule the bupivacaine trial later. Prior:? Dilaudid which was performed of 10/06/2023.? The patient reports absence of pain for the 1st 48 hours after the procedure.? However she reports severe nausea and vomiting after surgery.? This is unwanted side effects.? I offered her reach trial with morphine versus read trial with fentanyl.? The patient reported that in the past she was taking morphine as a pain medication orally.? She denies any side effects.? I will try to perform the procedure with 150 mcg intrathecally? FORMERLY [facility], [facility] Medical History Right hip pain Diabetic nephropathy Chronic cough Chronic prescription opiate use Thoracic back pain Menopause Vasomotor symptoms due to menopause Elevated C-reactive protein (CRP) Proteinuria Type 2 diabetes mellitus with other diabetic kidney complication Sleep apnea PCOS (polycystic ovarian syndrome) Asthma Type 2 diabetes mellitus with hyperglycemia, with long-term current use of insulin Hyperlipidemia LDL goal <100 Obesity due to excess calories BMI 37.0-37.9, adult 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, uncontrolled nursing home (current) use of opiate analgesic Chronic pain syndrome Postlaminectomy syndrome, lumbar Surgical History Hx of colonoscopy (~2023) History of esophagogastroduodenoscopy (EGD) Hx of spinal surgery History of removal of cyst History of carpal tunnel release History of lumbar surgery Family History Father Diabetes Hypertension Mother Asthma Social History Household Members: Family Housing: Apartment Are you a primary respiratory care specialist to a significant other at home: No Do you presently have visiting nurse or other home services: Yes ([employer]) Alcohol intake: current Alcohol intake frequency: holidays/special occasions only Patient Tobacco Use Status: Current everyday Tobacco user Tobacco use type: Cigarette Cigarette Packs Per Day: 1 Cigarettes Per Day: 20.0 Years Smoked: 30 e-Cigarette/Vaping Use: Never Used Second Hand Smoke Exposure: Yes service: No Current occupational status: disabled Current occupational exposures/hazards: No Cognitive needs: No Hearing needs: No Vision needs: Yes Review of Systems Const All systems reviewed & are unremarkable except as noted in HPI and below Physical Exam General: awake, alert, oriented. Answers questions appropriately. Fully engaged in examination. Skin: warm, dry, intact without visible rashes or lesions. HEENT: Normocephalic. Hearing intact. Cardiac: External chest normal in appearance. Respiratory: No signs of respiratory distress. Abdomen: without gross distension. MS: No obvious swelling or deformities. Neurological: Oriented to person, place, time and situation. Thought process intact. ambulating with use of cane. Psychiatric: Appropriate mood and affect. Good judgment and insight. Results Reviewed Results Reviewed: MR/MR abdomen wo/w con IMPRESSION: 1. No evidence of gallstone or hepatobiliary duct dilatation. 2. Unchanged Mild hepatic steatosis. 3. Unchanged Atrophic pancreas with trace inflammatory exudate surrounding the pancreatic uncinate process, compatible with residual interstitial edematous pancreatitis. No well loculated pseudocyst could be identified. 4. Persistent enhancing proximal superior peripancreatic lymph node and posterior periportal lymph node. 5. Bilateral renal cortical simple cysts are seen for which no follow-up imaging is recommended. 6. Advanced L5-S1 degenerative lumbar disc disease, moderate posterior L4-L5 and marked L5-S1 disc protrusions. 7. Small mesenteric hernia containing mesenteric fat. 10/12/2023 XR/XR thoracic spine 3V FINDINGS: There are mild multilevel degenerative changes of thoracic spine with marginal spurring. Pedicles are preserved there is no evidence of fractures soft tissues unremarkable. There is no spondylolysis or listhesis. IMPRESSION: Mild degenerative changes with marginal spurring. Thoracic spine. Assessment & Plan Assessment & Plan (1) Postlaminectomy syndrome, lumbar: Code(s): M96.1 - Postlaminectomy syndrome, not elsewhere classified Category: Medical (2) Chronic pain syndrome: Code(s): G89.4 - Chronic pain syndrome Category: Medical (3) medical terminologist (current) use of opiate analgesic: Comment: Pain Management-chronic pain/back Code(s): Z79.891 - nursing home (current) use of opiate analgesic Category: Medical (4) Myofascial muscle pain: Code(s): M79.18 - Myalgia, other site Category: Medical Plan Masspat was reviewed and without concerns. No obvious signs of diversion, abuse or misuse of the opioid medications. Will send in prescription for oxycodone 10mg po tid #90 no refills Patient reminded of opioid contract, do not fill opioid prescriptions from outside providers unless discussed with our office. Pending dental extraction, if dentist wishes to send additional controlled medications patient will reach out to our office prior to filling these at the pharmacy. All questions and concerns have been answered and patient agrees with the plan. Patient will follow up in 1 month, sooner if needed. Medications: Refilled oxycodone Partial Fill upon patient request. 10 mg PO TID 30 days PRN 90 tabs 0RF pain G89.4 - Chronic pain syndrome, M96.1 - Postlaminectomy syndrome, not elsewhere classified Coding Level of Care Code Est Pt Level 3 (04643) Complex EM visit Add On G2211 Diagnoses Postlaminectomy syndrome, lumbar M96.1 Chronic pain syndrome G89.4 medical terminologist (current) use of opiate analgesic Z79.891 Myofascial muscle pain M79.18
[2025-02-21 13:36] VITALS: BP 167/64; PULSE 91; O2SAT 98; BMI 38.3
== END 2025-02-21 13:58 | disposition home or self-care (01) ==
LOC: HO.PMC 13:28
PROVIDERS: PCP Nurse Practitioner Family; Visit Provider Registered Nurse Emergency
DX: M96.1 Postlaminectomy syndrome, not elsewhere classified (principal); G89.4 Chronic pain syndrome; Z79.891 Long term (current) use of opiate analgesic; M79.18 Myalgia, other site
CPT/HCPCS: 99213; G2211

== ENCOUNTER → 2025-02-21 13:27 | Outpatient (BNVA) | payer OTHER, SELFPAY | PROVIDERS: PCP Nurse Practitioner Family; Visit Provider Registered Nurse Emergency | DX: M96.1 Postlaminectomy syndrome, not elsewhere classified (principal); G89.4 Chronic pain syndrome; M79.18 Myalgia, other site; Z51.81 Encounter for therapeutic drug level monitoring; Z79.891 Long term (current) use of opiate analgesic | CPT/HCPCS: 99212 ==

== ENCOUNTER 2025-03-21 12:50 | Outpatient (AMB) | payer OTHER, SELFPAY ==
[2025-03-21 12:58] VITALS: BP 191/79; PULSE 89; RESP 16; O2SAT 92; BMI 37.9
--- NOTE | 2025-03-21 12:58 | MHC.OFFVIS ---
Vital Signs 03/21/25 12:58 Height 5 ft 3 in Weight 214 lb BMI 37.9 BP 191/79 H Blood Pressure Location Lt brachial Position Sitting Respiration 16 Pulse 89 Pulse Source Pulse Oximeter Pulse Oximetry (%) 92 Oxygen Delivery Method Room Air Intake Visit Reasons: Pill Count Intake Note: Patient presents today 03/21/2025 for a pill count. Patients states she took Oxycodone at 8:30am. Per directions patient should have 33 pills. She presented with 35 pills. Installation And Service Technician Required: No Allergies Seasonal Allergies Allergy (Intermediate, Verified 03/21/25 13:01) Cough semaglutide [From Ozempic] Allergy (Mild, Verified 03/21/25 13:01) pancreatitis amoxicillin [From Augmentin] Adverse Reaction (Severe, Verified 03/21/25 13:01) n/v/d clavulanic acid [From Augmentin] Adverse Reaction (Severe, Verified 03/21/25 13:01) n/v/d NSAIDS (Non-Steroidal Anti-Inflamma [NSAIDS (NON-STEROIDAL ANTI-INFLAMMA] Adverse Reaction (Intermediate, Verified 03/21/25 13:01) BLEEDING HPI Comments Details: Carlota presents back to the office today for follow chronic pain and chronic opioid medication management. She is prescribed oxycodone 10mg po TID prn. Patient arrived today with the expectation of having 35 pills, she presented 35 pills which were counted in the presence of two staff members and returned to the patient in the original prescription bottle. This demonstrates responsible attitude toward patient's opioid medications. Pain is reported today as 8/10 and last dose of pain medication was taken this morning. Denies side effects including constipation, nausea, shortness of breath, urinary retention or drowsiness. Today complaining of pain over right GTB. She had good relief with previous GTB injection in the past, she would like to schedule a repeat injection. Prior visit with Dr Stanley: Carlota is back in my office after the trial I DDD with with morphine which was performed on 01/31/2023.? She does not report the same pain evaluation as it was with Dilaudid in September.? She received 150 micro g of morphine intrathecally.? However the patient developed what looks like post dural puncture headache immediately after the procedure.? The headache went away on itself however now we are not ready to implant anything for the patient.? I suggested that we might try in the future instead of fentanyl to go ahead with bupivacaine injections small dose intrathecally and have bupivacaine as the main medication in the intrathecal space if results of the trial will have no side effects and will have good pain relief.? I warned her that she may experience weakness in bilateral lower extremities after bupivacaine injection however the weakness will be only transient. We decided to wait a month or two PA and schedule the bupivacaine trial later. Prior:? Dilaudid which was performed of 10/06/2023.? The patient reports absence of pain for the 1st 48 hours after the procedure.? However she reports severe nausea and vomiting after surgery.? This is unwanted side effects.? I offered her reach trial with morphine versus read trial with fentanyl.? The patient reported that in the past she was taking morphine as a pain medication orally.? She denies any side effects.? I will try to perform the procedure with 150 mcg intrathecally? [facility] Medical History Right hip pain Diabetic nephropathy Chronic cough Chronic prescription opiate use Thoracic back pain Menopause Vasomotor symptoms due to menopause Elevated C-reactive protein (CRP) Proteinuria Type 2 diabetes mellitus with other diabetic kidney complication Sleep apnea PCOS (polycystic ovarian syndrome) Asthma Type 2 diabetes mellitus with hyperglycemia, with long-term current use of insulin Hyperlipidemia LDL goal <100 Obesity due to excess calories BMI 37.0-37.9, adult 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, uncontrolled [facility] (current) use of opiate analgesic Chronic pain syndrome Postlaminectomy syndrome, lumbar Surgical History Hx of colonoscopy (~2023) History of esophagogastroduodenoscopy (EGD) Hx of spinal surgery History of removal of cyst History of carpal tunnel release History of lumbar surgery Family History Father Diabetes Hypertension Mother Asthma Social History Household Members: Family Housing: Apartment Are you a primary summer child caregiver to a significant other at home: No Do you presently have visiting nurse or other home services: Yes (POLICE LIAISON) Alcohol intake: current Alcohol intake frequency: holidays/special occasions only Patient Tobacco Use Status: Current everyday Tobacco user Tobacco use type: Cigarette Cigarette Packs Per Day: 1 Cigarettes Per Day: 20.0 Years Smoked: 30 e-Cigarette/Vaping Use: Never Used Second Hand Smoke Exposure: Yes service: No Current occupational status: disabled Current occupational exposures/hazards: No Cognitive needs: No Hearing needs: No Vision needs: Yes Review of Systems Const All systems reviewed & are unremarkable except as noted in HPI and below Physical Exam Vital Signs: Last Vital Signs Pulse 89 03/21/25 12:58 Resp 16 03/21/25 12:58 BP 191/79 H 03/21/25 12:58 Pulse Ox 92 03/21/25 12:58 Oxygen Delivery Method Room Air 03/21/25 12:58 BMI result Body Mass Index 37.9 General: awake, alert, oriented. Answers questions appropriately. Fully engaged in examination. Skin: warm, dry, intact without visible rashes or lesions. HEENT: Normocephalic. Hearing intact. Cardiac: External chest normal in appearance. Respiratory: No signs of respiratory distress. Abdomen: without gross distension. MS: No obvious swelling or deformities. Tenderness to palpation over right GTB Neurological: Oriented to person, place, time and situation. Thought process intact. ambulating with use of cane. Psychiatric: Appropriate mood and affect. Good judgment and insight. Results Reviewed Results Reviewed: MR/MR abdomen wo/w con IMPRESSION: 1. No evidence of gallstone or hepatobiliary duct dilatation. 2. Unchanged Mild hepatic steatosis. 3. Unchanged Atrophic pancreas with trace inflammatory exudate surrounding the pancreatic uncinate process, compatible with residual interstitial edematous pancreatitis. No well loculated pseudocyst could be identified. 4. Persistent enhancing proximal superior peripancreatic lymph node and posterior periportal lymph node. 5. Bilateral renal cortical simple cysts are seen for which no follow-up imaging is recommended. 6. Advanced L5-S1 degenerative lumbar disc disease, moderate posterior L4-L5 and marked L5-S1 disc protrusions. 7. Small mesenteric hernia containing mesenteric fat. 10/12/2023 XR/XR thoracic spine 3V FINDINGS: There are mild multilevel degenerative changes of thoracic spine with marginal spurring. Pedicles are preserved there is no evidence of fractures soft tissues unremarkable. There is no spondylolysis or listhesis. IMPRESSION: Mild degenerative changes with marginal spurring. Thoracic spine. Assessment & Plan Assessment & Plan (1) Postlaminectomy syndrome, lumbar: Code(s): M96.1 - Postlaminectomy syndrome, not elsewhere classified Category: Medical (2) Chronic pain syndrome: Code(s): G89.4 - Chronic pain syndrome Category: Medical (3) medical terminologist (current) use of opiate analgesic: Comment: Pain Management-chronic pain/back Code(s): Z79.891 - [facility] (current) use of opiate analgesic Category: Medical (4) Myofascial muscle pain: Code(s): M79.18 - Myalgia, other site Category: Medical (5) Greater trochanteric bursitis of right hip: Code(s): M70.61 - Trochanteric bursitis, right hip Category: Medical Plan Masspat was reviewed and without concerns. No obvious signs of diversion, abuse or misuse of the opioid medications. Will send in prescription for oxycodone 10mg po tid #90 no refills Will plan for right GTB injection to be completed in the office. Patient will schedule follow up appointment for this. All questions and concerns have been answered and patient agrees with the plan. Patient will follow up as planned for injection, sooner if needed. Medications: Refilled oxycodone Partial Fill upon patient request. 10 mg PO TID PRN 90 tabs 0RF pain 30 days G89.4 - Chronic pain syndrome, M96.1 - Postlaminectomy syndrome, not elsewhere classified Coding Level of Care Code Est Pt Level 3 (54843) Complex EM visit Add On G2211 Diagnoses Postlaminectomy syndrome, lumbar M96.1 Chronic pain syndrome G89.4 [facility] (current) use of opiate analgesic Z79.891 Myofascial muscle pain M79.18 Greater trochanteric bursitis of right hip M70.61
== END 2025-03-21 13:28 | disposition home or self-care (01) ==
LOC: HO.PMC 12:51
PROVIDERS: PCP Nurse Practitioner Family; Visit Provider Registered Nurse Emergency
DX: M96.1 Postlaminectomy syndrome, not elsewhere classified (principal); G89.4 Chronic pain syndrome; Z79.891 Long term (current) use of opiate analgesic; M79.18 Myalgia, other site; M70.61 Trochanteric bursitis, right hip
CPT/HCPCS: 99213; G2211

== ENCOUNTER → 2025-03-21 12:50 | Outpatient (BNVA) | payer OTHER, SELFPAY | PROVIDERS: PCP Nurse Practitioner Family; Visit Provider Registered Nurse Emergency | DX: M70.61 Trochanteric bursitis, right hip (principal); M79.18 Myalgia, other site; G89.4 Chronic pain syndrome; M96.1 Postlaminectomy syndrome, not elsewhere classified; Z79.891 Long term (current) use of opiate analgesic | CPT/HCPCS: 99212 ==

== ENCOUNTER 2025-03-28 10:21 | Outpatient (AMB) | payer OTHER, SELFPAY ==
--- NOTE | 2025-03-28 10:24 | A.OFFVIS_ITS ---
Vital Signs 03/28/25 10:25 Height 5 ft 3 in Weight 216 lb BMI 38.3 BP 162/75 H Blood Pressure Location Lt brachial Position Sitting Respiration 16 Pulse 91 Pulse Source Pulse Oximeter Pulse Oximetry (%) 92 Oxygen Delivery Method Room Air Intake Visit Reasons: Rt GTB inj Tire Stripper Required: No Accompanied by: Self / Same As Patient Allergies Seasonal Allergies Allergy (Intermediate, Verified 03/28/25 10:30) Cough semaglutide [From Ozempic] Allergy (Mild, Verified 03/28/25 10:30) pancreatitis amoxicillin [From Augmentin] Adverse Reaction (Severe, Verified 03/28/25 10:30) n/v/d clavulanic acid [From Augmentin] Adverse Reaction (Severe, Verified 03/28/25 10:30) n/v/d NSAIDS (Non-Steroidal Anti-Inflamma [NSAIDS (NON-STEROIDAL ANTI-INFLAMMA] Adverse Reaction (Intermediate, Verified 03/28/25 10:30) BLEEDING HPI Comments Details: Patient presents to the office today for scheduled right greater trochanteric bursa injection. Denies changes in meds, past medical history, allergies or diagnoses since last visit. 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 Chronic pain syndrome Postlaminectomy syndrome, lumbar Surgical History Hx of colonoscopy (~2023) History of esophagogastroduodenoscopy (EGD) Hx of spinal surgery History of removal of cyst History of carpal tunnel release History of lumbar surgery Family History Father Diabetes Hypertension Mother Asthma Social History Household Members: Family Housing: Apartment Are you a primary rn managed care to a significant other at home: No Do you presently have visiting nurse or 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 home services: 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) Alcohol intake: current Alcohol intake frequency: holidays/special occasions only Patient Tobacco Use Status: Current everyday Tobacco user Tobacco use type: Cigarette Cigarette Packs Per Day: 1 Cigarettes Per Day: 20.0 Years Smoked: 30 e-Cigarette/Vaping Use: Never Used Second Hand Smoke Exposure: Yes service: No Current occupational status: disabled Current occupational exposures/hazards: No Cognitive needs: No Hearing needs: No Vision needs: Yes Review of Systems Const All systems reviewed & are unremarkable except as noted in HPI and below Physical Exam Vital Signs: Last Vital Signs Pulse 91 03/28/25 10:25 Resp 16 03/28/25 10:25 BP 162/75 H 03/28/25 10:25 Pulse Ox 92 03/28/25 10:25 Oxygen Delivery Method Room Air 03/28/25 10:25 BMI result Body Mass Index 38.3 General: awake, alert, oriented. Answers questions appropriately. Fully engaged in examination. Skin: warm, dry, intact without visible rashes or lesions. HEENT: Normocephalic. Hearing intact. Cardiac: External chest normal in appearance. Respiratory: No signs of respiratory distress. Abdomen: without gross distension. MS: No obvious swelling or deformities. Tenderness to palpation over right GTB Neurological: Oriented to person, place, time and situation. Thought process intact. ambulating with use of cane. Psychiatric: Appropriate mood and affect. Good judgment and insight. Office Procedures Therapeutic Injection Therapeutic Injection Details: Right Trochanteric Bursa Injection: After obtaining informed consent the patient exposed her right hip area. Time-out was obtained delineating correct site and side of the procedure. The area of trochanteric bursa on the right hip was prepped with ChloraPrep. Sterilely obtained Bupivacaine 0.5% 6cc mixed with Triamcinolone Acetonide 40mg was injected into the most pain painful point just above the palpated trochanter. Upon completion of the injection needle was withdrawn sterile Band-Aid was applied. The patient tolerated procedure well. No immediate side effects were noted. [id number] Point Injection 1 or 2 sites All charges added?: Procedure code (CPT) selection complete Office Meds triamcinolone acetonide 40 mg/mL suspension for injection Performing Provider: Rose Wilson APRN, CNP Performing Location: [facility] Administered by: Roes Wilson APRN, CNP on 03/28/25 11:14 Dose Route Admin Location Dispensed Lot Number Expiration Date [facility] Customer Marketing Assistant 40 mg Infiltration 1 mL [id number] 08/16/26 3957-5714-14 [employer] bupivacaine (PF) 0.5 % (5 mg/mL) injection solution Performing Provider: Rose Wilson APRN, CNP Performing Location: [facility] Administered by: Rose Wilson APRN, CNP on 03/28/25 11:14 Dose Route Admin Location Dispensed Lot Number Expiration Date [facility] Customer Marketing Assistant 6 mL Infiltration 10 mL [id number] 08/16/25 3286-6820-38 [facility] Assessment & Plan Assessment & Plan (1) Greater trochanteric bursitis of right hip: Code(s): M70.61 - Trochanteric bursitis, right hip Category: Medical Plan Right GTB injection performed as per above. Patient tolerated well. She was advised to monitor blood sugars closely, contact her PCP or seek treatment in the ER for blood sugars greater 300. Follow-up in our office as planned. Orders: Orders AMB Trigger Point Injection Today M70.61 - Trochanteric bursitis, right hip Coding Level of Care Code Procedure Only Diagnoses Greater trochanteric bursitis of right hip M70.61 CPT Codes Therapeutic Injection - Ther Injection 1: [id number] Point Injection 1 or 2 sites ([id number])
[2025-03-28 10:25] VITALS: BP 162/75; PULSE 91; RESP 16; O2SAT 92; BMI 38.3
== END 2025-03-28 10:43 | disposition home or self-care (01) ==
LOC: HO.PMC 10:22
PROVIDERS: PCP Nurse Practitioner Family; Visit Provider Registered Nurse Emergency
DX: M70.61 Trochanteric bursitis, right hip (principal)
CPT/HCPCS: 20610

== ENCOUNTER → 2025-03-28 10:21 | Outpatient (BNVA) | payer OTHER, SELFPAY | PROVIDERS: PCP Nurse Practitioner Family; Visit Provider Registered Nurse Emergency | DX: M70.61 Trochanteric bursitis, right hip (principal) | CPT/HCPCS: 20610; J0665; J3300 ==

== ENCOUNTER 2025-04-16 13:02 | Outpatient (AMB) | payer OTHER, SELFPAY ==
[2025-04-16 13:04] VITALS: BP 133/63; PULSE 85; RESP 16; O2SAT 95; BMI 38.3
--- NOTE | 2025-04-16 13:04 | MHC.OFFVIS ---
Vital Signs 04/16/25 13:04 Height 5 ft 3 in Weight 216 lb BMI 38.3 BP 133/63 Blood Pressure Location Rt brachial Position Sitting Respiration 16 Pulse 85 Pulse Source Pulse Oximeter Pulse Oximetry (%) 95 Oxygen Delivery Method Room Air Intake Visit Reasons: PILL COUNT Intake Note: Patient here for a routine pill count of Oxycodone. Per directions patient should have 45 pills. She presented 47 pills. She took last one at 8am. Accompanied by: Self / Same As Patient Allergies Seasonal Allergies Allergy (Intermediate, Verified 04/16/25 13:14) Cough semaglutide (From Ozempic) Allergy (Mild, Verified 04/16/25 13:14) pancreatitis amoxicillin (From Augmentin) Adverse Reaction (Severe, Verified 04/16/25 13:14) n/v/d clavulanic acid (From Augmentin) Adverse Reaction (Severe, Verified 04/16/25 13:14) n/v/d NSAIDS (Non-Steroidal Anti-Inflamma (NSAIDS (NON-STEROIDAL ANTI-INFLAMMA) Adverse Reaction (Intermediate, Verified 04/16/25 13:14) BLEEDING HPI Comments Details: Carlota presents back to the office today for follow chronic pain and chronic opioid medication management. She is prescribed oxycodone 10mg po TID prn. Patient arrived today with the expectation of having 45 pills, she presented 47 pills which were counted in the presence of two staff members and returned to the patient in the original prescription bottle. This demonstrates responsible attitude toward patient's opioid medications. Pain is reported today as 7/10 and last dose of pain medication was taken at 8:30 morning. Denies side effects including constipation, nausea, shortness of breath, urinary retention or drowsiness. Patient underwent right GTB injection 1 month ago, she reports significant improvement in the pain or this area. 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 Chronic pain syndrome Postlaminectomy syndrome, lumbar Surgical History Hx of colonoscopy (~2023) History of esophagogastroduodenoscopy (EGD) Hx of spinal surgery History of removal of cyst History of carpal tunnel release History of lumbar surgery Family History Father Diabetes Hypertension Mother Asthma Social History Household Members: Family Housing: Apartment Are you a primary certified social workers in health care to a significant other at home: No Do you presently have 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) Alcohol intake: current Alcohol intake frequency: holidays/special occasions only Patient Tobacco Use Status: Current everyday Tobacco user Tobacco use type: Cigarette Cigarette Packs Per Day: 1 Cigarettes Per Day: 20.0 Years Smoked: 30 e-Cigarette/Vaping Use: Never Used Second Hand Smoke Exposure: Yes service: No Current occupational status: disabled Current occupational exposures/hazards: No Cognitive needs: No Hearing needs: No Vision needs: Yes Review of Systems Const All systems reviewed & are unremarkable except as noted in HPI and below Physical Exam Vital Signs: Last Vital Signs Pulse 85 04/16/25 13:04 Resp 16 04/16/25 13:04 BP 133/63 04/16/25 13:04 Pulse Ox 95 04/16/25 13:04 Oxygen Delivery Method Room Air 04/16/25 13:04 BMI result Body Mass Index 38.3 General: awake, alert, oriented. Answers questions appropriately. Fully engaged in examination. Skin: warm, dry, intact without visible rashes or lesions. HEENT: Normocephalic. Hearing intact. Cardiac: External chest normal in appearance. Respiratory: No signs of respiratory distress. Abdomen: without gross distension. MS: No obvious swelling or deformities. Neurological: Oriented to person, place, time and situation. Thought process intact. ambulating with use of cane. Psychiatric: Appropriate mood and affect. Good judgment and insight. Results Reviewed Results Reviewed: MR/MR abdomen wo/w con IMPRESSION: 1. No evidence of gallstone or hepatobiliary duct dilatation. 2. Unchanged Mild hepatic steatosis. 3. Unchanged Atrophic pancreas with trace inflammatory exudate surrounding the pancreatic uncinate process, compatible with residual interstitial edematous pancreatitis. No well loculated pseudocyst could be identified. 4. Persistent enhancing proximal superior peripancreatic lymph node and posterior periportal lymph node. 5. Bilateral renal cortical simple cysts are seen for which no follow-up imaging is recommended. 6. Advanced L5-S1 degenerative lumbar disc disease, moderate posterior L4-L5 and marked L5-S1 disc protrusions. 7. Small mesenteric hernia containing mesenteric fat. 10/12/2023 XR/XR thoracic spine 3V FINDINGS: There are mild multilevel degenerative changes of thoracic spine with marginal spurring. Pedicles are preserved there is no evidence of fractures soft tissues unremarkable. There is no spondylolysis or listhesis. IMPRESSION: Mild degenerative changes with marginal spurring. Thoracic spine. Assessment & Plan Assessment & Plan (1) Postlaminectomy syndrome, lumbar: Code(s): M96.1 - Postlaminectomy syndrome, not elsewhere classified Category: Medical (2) Chronic pain syndrome: Code(s): G89.4 - Chronic pain syndrome Category: Medical (3) senior care (current) use of opiate analgesic: Comment: Pain Management-chronic pain/back Code(s): Z79.891 - senior care (current) use of opiate analgesic Category: Medical (4) Myofascial muscle pain: Code(s): M79.18 - Myalgia, other site Category: Medical (5) Greater trochanteric bursitis of right hip: Code(s): M70.61 - Trochanteric bursitis, right hip Category: Medical Plan Masspat was reviewed and without concerns. No obvious signs of diversion, abuse or misuse of the opioid medications. Will send in prescription for oxycodone 10mg po tid #90 no refills All questions and concerns have been answered and patient agrees with the plan. Patient will follow up as planned for injection, sooner if needed. Medications: Refilled oxycodone Partial Fill upon patient request. 10 mg PO TID PRN 90 tabs 0RF pain 30 days G89.4 - Chronic pain syndrome, M96.1 - Postlaminectomy syndrome, not elsewhere classified Coding Level of Care Code Est Pt Level 3 (14190) Complex EM visit Add On G2211 Diagnoses Postlaminectomy syndrome, lumbar M96.1 Chronic pain syndrome G89.4 senior care (current) use of opiate analgesic Z79.891 Myofascial muscle pain M79.18 Greater trochanteric bursitis of right hip M70.61
== END 2025-04-16 13:30 | disposition home or self-care (01) ==
LOC: HO.PMC 13:03
PROVIDERS: PCP Nurse Practitioner Family; Visit Provider Registered Nurse Emergency
DX: M96.1 Postlaminectomy syndrome, not elsewhere classified (principal); G89.4 Chronic pain syndrome; Z79.891 Long term (current) use of opiate analgesic; M79.18 Myalgia, other site; M70.61 Trochanteric bursitis, right hip
CPT/HCPCS: 99213; G2211

== ENCOUNTER → 2025-04-16 13:02 | Outpatient (BNVA) | payer OTHER, SELFPAY | PROVIDERS: PCP Nurse Practitioner Family; Visit Provider Registered Nurse Emergency | DX: M96.1 Postlaminectomy syndrome, not elsewhere classified (principal); G89.4 Chronic pain syndrome; M79.18 Myalgia, other site; M70.61 Trochanteric bursitis, right hip; Z79.891 Long term (current) use of opiate analgesic; E11.21 Type 2 diabetes mellitus with diabetic nephropathy; R05.3 Chronic cough; G47.30 Sleep apnea, unspecified; J45.909 Unspecified asthma, uncomplicated; E28.2 Polycystic ovarian syndrome | CPT/HCPCS: 99212 ==

== ENCOUNTER 2025-06-20 10:58 | Outpatient (AMB) | payer OTHER, SELFPAY ==
[2025-06-20 11:18] VITALS: BP 138/70; PULSE 94; RESP 18; O2SAT 97
--- NOTE | 2025-06-20 11:18 | MHC.OFFVIS ---
Vital Signs 06/20/25 11:18 Weight 217 lb BP 138/70 Blood Pressure Location Lt brachial Position Sitting Respiration 18 Pulse 94 Pulse Source Pulse Oximeter Pulse Oximetry (%) 97 Oxygen Delivery Method Room Air Intake Visit Reasons: Pill Count Intake Note: pt states she last took her oxycodone at 8am today 06/20/25 MassPAT says she should have 30 pill she presented with 32 Allergies Seasonal Allergies Allergy (Intermediate, Verified 06/20/25 11:17) Cough semaglutide (From Ozempic) Allergy (Mild, Verified 06/20/25 11:17) pancreatitis amoxicillin (From Augmentin) Adverse Reaction (Severe, Verified 06/20/25 11:17) n/v/d clavulanic acid (From Augmentin) Adverse Reaction (Severe, Verified 06/20/25 11:17) n/v/d NSAIDS (Non-Steroidal Anti-Inflamma (NSAIDS (NON-STEROIDAL ANTI-INFLAMMA) Adverse Reaction (Intermediate, Verified 06/20/25 11:17) BLEEDING HPI Comments Details: Carlota presents back to the office today for follow chronic pain and chronic opioid medication management. She is prescribed oxycodone 10mg po TID prn. Patient arrived today with the expectation of having 45 pills, she presented 47 pills which were counted in the presence of two staff members and returned to the patient in the original prescription bottle. This demonstrates responsible attitude toward patient's opioid medications. Pain is reported today as 7/10 and last dose of pain medication was taken at 8:30 morning. Denies side effects including constipation, nausea, shortness of breath, urinary retention or drowsiness. Still struggling with elevated blood sugars, working with her PCP but has not been able to tolerate right many of the medications. States last on A1c was around 10. Requesting referral to endocrinology. 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 Chronic pain syndrome Postlaminectomy syndrome, lumbar Surgical History Hx of colonoscopy (~2023) History of esophagogastroduodenoscopy (EGD) Hx of spinal surgery History of removal of cyst History of carpal tunnel release History of lumbar surgery Family History Father Diabetes Hypertension Mother Asthma Social History Household Members: Family Housing: Apartment Are you a primary health care marketing manager to a significant other at home: No Do you 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) Alcohol intake: current Alcohol intake frequency: holidays/special occasions only Patient Tobacco Use Status: Current everyday Tobacco user Tobacco use type: Cigarette Cigarette Packs Per Day: 1 Cigarettes Per Day: 20.0 Years Smoked: 30 e-Cigarette/Vaping Use: Never Used Second Hand Smoke Exposure: Yes service: No Current occupational status: disabled Current occupational exposures/hazards: No Cognitive needs: No Hearing needs: No Vision needs: Yes Review of Systems Const All systems reviewed & are unremarkable except as noted in HPI and below Physical Exam Exam Exam: General: awake, alert, oriented. Answers questions appropriately. Fully engaged in examination. Skin: warm, dry, intact without visible rashes or lesions. HEENT: Normocephalic. Hearing intact. Cardiac: External chest normal in appearance. Respiratory: No signs of respiratory distress. Abdomen: without gross distension. MS: No obvious swelling or deformities. Neurological: Oriented to person, place, time and situation. Thought process intact. ambulating with use of cane. Psychiatric: Appropriate mood and affect. Good judgment and insight. Vital Signs: Last Vital Signs Pulse 94 06/20/25 11:18 Resp 18 06/20/25 11:18 BP 138/70 06/20/25 11:18 Pulse Ox 97 06/20/25 11:18 Oxygen Delivery Method Room Air 06/20/25 11:18 Results Reviewed Results Reviewed: MR/MR abdomen wo/w con IMPRESSION: 1. No evidence of gallstone or hepatobiliary duct dilatation. 2. Unchanged Mild hepatic steatosis. 3. Unchanged Atrophic pancreas with trace inflammatory exudate surrounding the pancreatic uncinate process, compatible with residual interstitial edematous pancreatitis. No well loculated pseudocyst could be identified. 4. Persistent enhancing proximal superior peripancreatic lymph node and posterior periportal lymph node. 5. Bilateral renal cortical simple cysts are seen for which no follow-up imaging is recommended. 6. Advanced L5-S1 degenerative lumbar disc disease, moderate posterior L4-L5 and marked L5-S1 disc protrusions. 7. Small mesenteric hernia containing mesenteric fat. 10/12/2023 XR/XR thoracic spine 3V FINDINGS: There are mild multilevel degenerative changes of thoracic spine with marginal spurring. Pedicles are preserved there is no evidence of fractures soft tissues unremarkable. There is no spondylolysis or listhesis. IMPRESSION: Mild degenerative changes with marginal spurring. Thoracic spine. Assessment & Plan Assessment & Plan (1) Postlaminectomy syndrome, lumbar: Code(s): M96.1 - Postlaminectomy syndrome, not elsewhere classified Category: Medical (2) Chronic pain syndrome: Code(s): G89.4 - Chronic pain syndrome Category: Medical (3) intermediate (current) use of opiate analgesic: Comment: Pain Management-chronic pain/back Code(s): Z79.891 - intermediate (current) use of opiate analgesic Category: Medical (4) Myofascial muscle pain: Code(s): M79.18 - Myalgia, other site Category: Medical (5) Greater trochanteric bursitis of right hip: Code(s): M70.61 - Trochanteric bursitis, right hip Category: Medical Plan Masspat was reviewed and without concerns. No obvious signs of diversion, abuse or misuse of the opioid medications. Will send in prescription for oxycodone 10mg po tid #90 no refills Continue with gabapentin as prescribed Follow-up for interventional management/injections as needed. All questions and concerns have been answered and patient agrees with the plan. Patient will follow up as planned for injection, sooner if needed. Medications: Refilled oxycodone Partial Fill upon patient request. 10 mg PO TID PRN 90 tabs 0RF pain 30 days G89.4 - Chronic pain syndrome, M96.1 - Postlaminectomy syndrome, not elsewhere classified Coding Level of Care Code Est Pt Level 3 (00373) Complex EM visit Add On G2211 Diagnoses Postlaminectomy syndrome, lumbar M96.1 Chronic pain syndrome G89.4 intermediate (current) use of opiate analgesic Z79.891 Myofascial muscle pain M79.18 Greater trochanteric bursitis of right hip M70.61
== END 2025-06-20 11:44 | disposition home or self-care (01) ==
LOC: HO.PMC 10:59
PROVIDERS: PCP Nurse Practitioner Family; Visit Provider Registered Nurse Emergency
DX: M96.1 Postlaminectomy syndrome, not elsewhere classified (principal); G89.4 Chronic pain syndrome; Z79.891 Long term (current) use of opiate analgesic; M79.18 Myalgia, other site; M70.61 Trochanteric bursitis, right hip
CPT/HCPCS: 99213; G2211

== ENCOUNTER → 2025-06-20 10:58 | Outpatient (BNVA) | payer OTHER, SELFPAY | PROVIDERS: PCP Nurse Practitioner Family; Visit Provider Registered Nurse Emergency | DX: M96.1 Postlaminectomy syndrome, not elsewhere classified (principal); M79.18 Myalgia, other site; M70.61 Trochanteric bursitis, right hip; G89.4 Chronic pain syndrome; Z79.891 Long term (current) use of opiate analgesic | CPT/HCPCS: 99212 ==

== ENCOUNTER 2025-06-24 08:29 | Day surgery (SDC) | payer OTHER, SELFPAY ==
[2025-02-18 14:03] VITALS: BMI 37.7
--- OUTSIDE RECORDS SUMMARY | 2025-03-04 12:02 | XMS_ITS | Continuity of Care Document ---
Author Organization [facility] Address [address] [address]- Care Team Providers Care Nut Orchardist Name Role Phone Mark FOOD SERVICE UTILITY WORKER, Bhumika Sutton Primary Care Physician [phone] Encounter [facility] Date(s): 01/31/25 - 03/02/25 [facility] [address] [place] [id number] Encounter Type: Triage Allergies, Adverse Reactions, Alerts Substance Criticality Severity Reaction Reaction Severity Status Augmentin 1 vomitting nausea Active NSAIDs Active 1Per provider allergy to augmentin was nausea and vomitting. Pt will receive unasyn today Immunizations Given and Recorded Vaccine Date Status Refusal Reason tetanus/diphtheria/pertussis, acel(Tdap) 10/21/10 Given Influenza Vaccine (oldterm) 1 06/14/10 Given Influenza Virus Vaccine (oldterm) 2 10/23/07 Given Pneumococcal Poly (PPV23) (oldterm) 11/25/05 Given 1Admin Note: VIS GIVEN 2009-07 2Admin Note: VIS GIVEN 2007-05 Medications acetaminophen 325 mg oral tablet 650 mg, 2, tablet, By Mouth, Every 6 hours, PRN, # 24 tablet, Refills 0, Tot. Refills 0, Maintenance, as needed for fever, 01/20/23 12:49:00 AM EDT, Route to Pharmacy Electronically, [facility]/pharmacy #[id number], Partial fill upon patient request if the prescription is for a schedule II opioid drug., 160, cm, 01/20/23 0:20:00 EDT, Height, 100, kg, 01/20/23 0:20:00 EDT, Dry Weight Start Date: 01/20/23 Status: Ordered Quantity: 24.0 Unit: tablet Repeat number: 1 albuterol 0.083% inhalation solution 3 mL = 2.5 mg, Inhalation, Every 6 hours, PRN Wheezing/Shortness of Breath, # 100 each, 0 Refills, Maintenance, 03/14/22 2:08:00 PM EDT, Solution, [facility]/pharmacy #[id number], Partial fill upon patient requestif the prescription is for a schedule II opioid drug., 160, cm, 03/14/22 12:53:00 EDT, Height, 93.7, kg, 03/14/22 12:53:00 EDT, Dry Weight Start Date: 03/14/22 Status: Ordered Quantity: 100.0 Unit: each Repeat number: 1 albuterol CFC free 90 mcg/inh inhalation aerosol 2 puffs, Inhalation, 4 times a day, PRN for wheezing, # 25 Gm, 4 Refills, Maintenance, 07/27/10 9:25:24 AM EDT, Aerosol, [facility]/pharmacy #[id number] Start Date: 07/27/10 Status: Ordered Quantity: 25.0 Unit: g Repeat number: 5 atorvastatin 40 mg oral tablet See Instructions, # 30 tablet, Refills 11 Tot. Refills 11, TAKE 1 TABLET BY MOUTH ONCE DAILY, [facility] Start Date: 01/18/19 Status: Ordered Quantity: 30.0 Unit: tablet Repeat number: 12 AutoBIPAP EPAPmin 9 IPAPmax 18 PS 4 with heated humidification AutoBIPAP EPAPmin 9 IPAPmax 18 PS 4 with heated humidification, See Instructions, # 1 each, Refills0, Tot. Refills 0, Maintenance, use overnight and naps from [facility], 02/24/21 7:49:00 PM EDT, Compound Start Date: 02/24/21 Status: Ordered Quantity: 1.0 Unit: each Repeat number: 1 cetirizine 10 mg oral tablet 1 tablet, By Mouth, Daily, PRN NEEDED, # 90 tablet, 3 Refills, Maintenance, 04/05/21 4:52:00 PM EDT, [id number], 160, cm, 02/04/20 13:54:00 EDT, Height Start Date: 04/05/21 Status: Ordered Quantity: 90.0 Unit: tablet Repeat number: 1 famotidine 10 mg oral tablet 1 tablet = 10 mg, By Mouth, 2 times a day, # 28 tablet, 0 Refills, Maintenance, 02/19/25 12:38:00 PM EDT, Tablet, [facility]/pharmacy #[id number], Partial fill upon patient request if the prescription is for a schedule II opioid drug., 160, cm, 02/19/25 12:09:00 EDT, Height, 99.9, kg, 02/19/25 12:09:00 EDT, Dry Weight Start Date: 02/19/25 Stop Date: 03/05/25 Status: Ordered Quantity: 28.0 Unit: tablet Repeat number: 1 Flonase 50 mcg/inh nasal spray 2 sprays, Nares, Both, Daily, # 16 Gm, 0 Refills, Maintenance, 03/19/19 1:52:21 PM EDT, [facility] Start Date: 03/19/19 Status: Ordered Quantity: 16.0 Unit: g Repeat number: 1 Freestyle Lite Lancets See Instructions, # 1 box, Maintenance, Test TID, Dx IDDM, 07/30/10 8:49:05 PM EDT Start Date: 07/30/10 Status: Ordered Quantity: 1.0 Unit: box Repeat number: 1 ipratropium nasal 21 mcg/inh spray See Instructions, INSTILL 1 SPRAY INTO EACH NOSTRIL TWICE DAILY NEEDED FOR NASAL CONGESTION, # 90 Unknown, 5 Refills, Maintenance, 01/04/24 12:49:00 PM EDT, [id number], 90, INSTILL 1 SPRAY INTO EACH NOSTRIL TWICE DAILY NEEDED FOR NASAL CONGESTION, 160, cm, 01/20/23 1:13:00 EDT, Height, 100, kg, 01/20/23 1:13:00 EDT, Dry Weight Start Date: 01/04/24 Status: Ordered Quantity: 90.0 Unit: Unknown Repeat number: 1 Levemir FlexTouch 100 units/mL subcutaneous solution Subcutaneous Infusion, 0 Refills, Maintenance, 03/19/19 1:24:52 PM EDT Start Date: 03/19/19 Status: Ordered Repeat number: 1 lidocaine 5% topical ointment See Instructions, APPLY TO AFFECTED AREA 3 TIMES A DAY, # 35.44 Gm, 0 Refills, [id number], 30,APPLY TO AFFECTED AREA 3 TIMES A DAY, 160, cm, 08/02/19 10:19:00 EDT, Height Start Date: 10/02/19 Status: Ordered Quantity: 35.44 Unit: g Repeat number: 1 Metformin = 1,000 mg, By Mouth, 2 times a day, 0 Refills, Maintenance, 12/06/19 1:13:00 PM EST Start Date: 12/06/19 Status: Ordered Repeat number: 1 NovoLOG FlexPen 100 units/mL subcutaneous solution See Instructions, # 30 mL, Refills 9 Tot. Refills 9, inject 10-40 UNITS UNDER THE SKIN 4 TIMES DAILY NEEDED, [facility] [place] Start Date: 01/18/19 Status: Ordered Quantity: 30.0 Unit: mL Repeat number: 10 omeprazole 20 mg oral enteric coated capsule 1 capsule, By Mouth, Daily, # 90 capsule, 2 Refills, [id number], 160, cm, 06/01/21 17:51:00 EDT, Height, 93.5, kg, 06/01/21 17:51:00 EDT, Dry Weight Start Date: 12/24/21 Status: Ordered Quantity: 90.0 Unit: capsule Repeat number: 1 solriamfetol 150 mg oral tablet 1 tablet = 150 mg, By Mouth, Daily in AM, # 30 tablet, 5 Refills, Maintenance, 01/17/24 4:17:00 PM EDT, Tablet, [facility]/pharmacy #[id number], Partial fill upon patient request if the prescription is for a schedule II opioid drug., 160, cm, 01/20/23 1:13:00 EDT, Height, 100, kg, 01/20/23 1:13:00 EDT, Dry Weight Start Date: 01/17/24 Status: Ordered Quantity: 30.0 Unit: tablet Repeat number: 6 Trulicity Pen 0.75 mg/0.5 mL subcutaneous solution 0.5 mL = 0.75 mg, Subcutaneous Injection, Every week, rotate injection sites, # 2 mL, 0 Refills, Maintenance, 06/01/21 7:12:00 PM EDT, Solution, Partial fill upon patient request if the prescription is for a schedule II opioid drug. Start Date: 06/01/21 Status: Ordered Quantity: 2.0 Unit: mL Repeat number: 1 ULTRA-FINE MINI PEN NEEDLE 31 GX3/16 DIS NEEDLE See Instructions, # 180 each, Refills 2 Tot. Refills 2, USE 1 pen needle 5 TO 6 TIMES PER DAY, [facility] [place] Start Date: 07/09/19 Status: Ordered Quantity: 180.0 Unit: each Repeat number: 3 Problem List Condition Confirmation Course Effective Dates Status Health Status Informant Allergic rhinitis Confirmed Active Asthma Confirmed Active Back pain Confirmed Active Carpal tunnel syndrome Confirmed Active Chronic low back pain Confirmed Active Diabetes mellitus Confirmed Active Esophageal reflux Confirmed Active Hypercholesterolemia Confirmed Active Lichen simplex chronicus Confirmed Active Nicotine dependence Confirmed Active AURA (obstructive sleep apnea) Confirmed Active Severe obesity (BMI 35.0-39.9) with comorbidity Confirmed Active Shoulder pain Confirmed Active Snoring Confirmed Active Social History Social History Type Response Smoking Status 10 or more cigarette s (1/2 pack or more)/day in last 30 days entered on: 03/07/19 Sex Sex Representation Female (finding) Patient Care team information Care Team Personnel Name: Iqra Ortiz MA Position: [facility] Outreach Member Role: Lifetime Consulting Physician Name: Bhumika Flores NP Position: [facility] Outreach Member Role: PCP Address: [address] [place] [address]- Telecom: Care Team Related Persons Name: WILLIE JACINTO Name: CATIA MOSLEY Name: ALPHONSO MOSLEY Insurance Providers Guarantor name: [facility] Plan Information #: 1 Payer: [facility] [employer] Member Number: NA Policy Number: NA Group Number: NA
[2025-03-25 14:26] VITALS: BMI 38.4
--- NOTE | 2025-03-26 12:01 | HO.ANESPROP2 ---
HPI - Anesthesia Eval Consult details Narrative: 54yo F for Upper Endoscopy Anesthesia Pre-Procedure Meds Is the patient on any of the following meds?: GLP1/DPP4 and SGLT2 Inhib PMFSH Active Problems Active Problems: All Active Problems Greater trochanteric bursitis of right hip (Acute) Early satiety (Acute) RLS (restless legs syndrome) (Acute) Onychomycosis (Acute) AURA (obstructive sleep apnea) (Acute) Toenail fungus (Acute) Chronic cough (Acute) Urinary incontinence (Acute) Interstitial pancreatitis (Acute) Duodenitis (Acute) Myofascial muscle pain (Acute) Osteoarthritis of right hip (Acute) Gastritis, bile acid reflux (Acute) Diabetic nephropathy (Acute) Obesity (BMI 30-39.9) (Acute) Peripheral sensory neuropathy due to type 2 diabetes mellitus (Acute) Hyperlipidemia due to type 2 diabetes mellitus (Acute) Morbid obesity (Acute) FHx: rheumatoid arthritis (Acute) Generalized arthritis (Acute) Constipation due to pain medication (Acute) Cigarette smoker motivated to quit (Acute) Seasonal allergies (Acute) Bursitis of both hips (Acute) Menopause (Acute) Asthma (Acute) Proteinuria (Acute) Type 2 diabetes mellitus with other diabetic kidney complication (Acute) Type 2 diabetes mellitus with hyperglycemia, with long-term current use of insulin (Acute) Hyperlipidemia LDL goal <100 (Acute) director 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 (current) use of opiate analgesic (Acute) Chronic pain syndrome (Acute) Postlaminectomy syndrome, lumbar (Acute) Past Medical History Medical History Right hip pain Diabetic nephropathy Chronic cough Chronic prescription opiate use Thoracic back pain Menopause Vasomotor symptoms due to menopause Elevated C-reactive protein (CRP) Proteinuria Type 2 diabetes mellitus with other diabetic kidney complication Sleep apnea PCOS (polycystic ovarian syndrome) Asthma Type 2 diabetes mellitus with hyperglycemia, with long-term current use of insulin Hyperlipidemia LDL goal <100 Obesity due to excess calories BMI 37.0-37.9, adult 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, uncontrolled director 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 (current) use of opiate analgesic Chronic pain syndrome Postlaminectomy syndrome, lumbar Family History Family History Father Diabetes Hypertension Mother Asthma Family history of problems with anesthesia: No Surgical History Surgical History Hx of colonoscopy (~2023) History of esophagogastroduodenoscopy (EGD) Hx of spinal surgery History of removal of cyst History of carpal tunnel release History of lumbar surgery History of Problems with Anesthesia: No Social History Social History Household Members: Family Housing: Apartment Are you a primary animal care specialist to a significant other at home: No Do you presently have visiting nurse or 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 home services: 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) Alcohol intake: current Alcohol intake frequency: holidays/special occasions only Patient Tobacco Use Status: Current everyday Tobacco user Tobacco use type: Cigarette Cigarette Packs Per Day: 1 Cigarettes Per Day: 20.0 Years Smoked: 30 e-Cigarette/Vaping Use: Never Used Second Hand Smoke Exposure: Yes service: No Current occupational status: disabled Current occupational exposures/hazards: No Cognitive needs: No Hearing needs: No Vision needs: Yes Meds Allergies Allergy/AdvReac Type Severity Reaction Status Date / Time Seasonal Allergies Allergy Intermediate Cough Verified 03/21/25 13:01 semaglutide [From Ozempic] Allergy Mild pancreatiti Verified 03/21/25 13:01 s amoxicillin [From Augmentin] AdvReac Severe n/v/d Verified 03/21/25 13:01 clavulanic acid AdvReac Severe n/v/d Verified 03/21/25 13:01 [From Augmentin] NSAIDS (Non-Steroidal AdvReac Intermediate BLEEDING Verified 03/21/25 13:01 Anti-Inflamma [NSAIDS (NON-STEROIDAL ANTI-INFLAMMA] Home Medications ?Medication ?Instructions ?Recorded ?Confirmed ?Last Taken ?Type albuterol sulfate 2.5 mg/3 mL 2.5 mg inhalation Q6H PRN 03/24/22 01/15/25 2 Days Ago History (0.083 %) solution for nebulization SOB/Wheezing ~06/01/24 solriamfetol 150 mg tablet (Sunosi) 150 mg PO DAILY PRN Sleepiness 10/06/23 01/15/25 2 Days Ago History ~06/01/24 sitagliptin phos 50 mg-metformin tab PO 02/19/25 02/19/25 Unknown History ER 1,000 mg tablet,extend rel 24h mp (Janumet XR) clindamycin HCl 300 mg capsule 300 mg PO Q6H 02/21/25 Unknown History empagliflozin 10 mg tablet 10 mg PO DAILY 02/21/25 Unknown History (Jardiance) lisinopril 10 mg tablet 10 mg PO BID 02/21/25 Unknown History Exam Height,Weight and Vital Signs: Height 5 ft 3 in Weight 98.43 kg Pertinent Lab Results Pertinent Lab Results: Laboratory Tests 11/22/23 01/10/25 12:05 08:33 Sodium 140 141 Potassium 4.1 4.0 Chloride 104 105 Carbon Dioxide 30 H BUN 12 11 Creatinine 0.68 0.70 Assessment and Plan Assessment Anesthesia Assessment: Chart Reviewed Final Anesthetic Review Family History of Problems with Anesthesia: No History of Problems with Anesthesia: No
--- NOTE | 2025-06-23 12:05 | HO.ANESPROP2 ---
Documented by User: Tiffany Duff NP 06/23/25 12:09 HPI - Anesthesia Eval Consult details Narrative: 54 yr old female for upper endoscopy Type 2 DM: A1XC was 9.5% January 2025 AURA: not on CPAP Asthma: she is a current tobacco user Anesthesia Pre-Procedure Meds Is the patient on any of the following meds?: SGLT2 Inhib PMFSH Active Problems Active Problems: All Active Problems (Updated 03/21/25 @ 13:40 by Rose Wilson, PLASTIC STRAIGHTENING ROLL OPERATOR, QUICK PRINT OPERATOR) Greater trochanteric bursitis of right hip (Acute) Early satiety (Acute) RLS (restless legs syndrome) (Acute) Onychomycosis (Acute) AURA (obstructive sleep apnea) (Acute) Toenail fungus (Acute) Chronic cough (Acute) Urinary incontinence (Acute) Interstitial pancreatitis (Acute) Duodenitis (Acute) Myofascial muscle pain (Acute) Osteoarthritis of right hip (Acute) Gastritis, bile acid reflux (Acute) Diabetic nephropathy (Acute) Obesity (BMI 30-39.9) (Acute) Peripheral sensory neuropathy due to type 2 diabetes mellitus (Acute) Hyperlipidemia due to type 2 diabetes mellitus (Acute) Morbid obesity (Acute) FHx: rheumatoid arthritis (Acute) Generalized arthritis (Acute) Constipation due to pain medication (Acute) Cigarette smoker motivated to quit (Acute) Seasonal allergies (Acute) Bursitis of both hips (Acute) Menopause (Acute) Asthma (Acute) Proteinuria (Acute) Type 2 diabetes mellitus with other diabetic kidney complication (Acute) Type 2 diabetes mellitus with hyperglycemia, with long-term current use of insulin (Acute) Hyperlipidemia LDL goal <100 (Acute) 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 (Acute) Chronic pain syndrome (Acute) Postlaminectomy syndrome, lumbar (Acute) Past Medical History Medical History Right hip pain Diabetic nephropathy Chronic cough Chronic prescription opiate use Thoracic back pain Menopause Vasomotor symptoms due to menopause Elevated C-reactive protein (CRP) Proteinuria Type 2 diabetes mellitus with other diabetic kidney complication Sleep apnea PCOS (polycystic ovarian syndrome) Asthma Type 2 diabetes mellitus with hyperglycemia, with long-term current use of insulin Hyperlipidemia LDL goal <100 Obesity due to excess calories BMI 37.0-37.9, adult 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, uncontrolled MCFP (current) use of opiate analgesic Chronic pain syndrome Postlaminectomy syndrome, lumbar Family History Family History Father Diabetes Hypertension Mother Asthma Family history of problems with anesthesia: No Surgical History Surgical History Hx of colonoscopy (~2023) History of esophagogastroduodenoscopy (EGD) Hx of spinal surgery History of removal of cyst History of carpal tunnel release History of lumbar surgery History of Problems with Anesthesia: No Social History Social History Household Members: Family Housing: Apartment Are you a primary customer care specialist to a significant other at home: No 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) Alcohol intake: current Alcohol intake frequency: holidays/special occasions only Patient Tobacco Use Status: Current everyday Tobacco user Tobacco use type: Cigarette Cigarette Packs Per Day: 1 Cigarettes Per Day: 6 Years Smoked: 30 e-Cigarette/Vaping Use: Never Used Second Hand Smoke Exposure: Yes Use of substances other than those prescribed or required for medical reasons: No Are you DNR?: No Advance Directives: No Advance Directives Information Provided: Yes Patient : No : No Poor oral hygiene: No service: No Current occupational status: disabled Current occupational exposures/hazards: No Cognitive needs: No Hearing needs: No Vision needs: Yes Meds Allergies Allergy/AdvReac Type Severity Reaction Status Date / Time Seasonal Allergies Allergy Intermediate Cough Verified 06/20/25 11:17 semaglutide (From Ozempic) Allergy Mild pancreatiti Verified 06/20/25 11:17 s amoxicillin (From Augmentin) AdvReac Severe n/v/d Verified 06/20/25 11:17 clavulanic acid (From AdvReac Severe n/v/d Verified 06/20/25 11:17 Augmentin) NSAIDS (Non-Steroidal AdvReac Intermediate BLEEDING Verified 06/20/25 11:17 Anti-Inflamma (NSAIDS (NON-STEROIDAL ANTI-INFLAMMA) Home Medications ?Medication ?Instructions ?Recorded ?Confirmed ?Last Taken ?Type albuterol sulfate 2.5 mg/3 mL 2.5 mg inhalation Q6H PRN 03/24/22 01/15/25 2 Days Ago History (0.083 %) solution for nebulization SOB/Wheezing ~06/01/24 solriamfetol 150 mg tablet (Sunosi) 150 mg PO DAILY PRN Sleepiness 10/06/23 01/15/25 2 Days Ago History ~06/01/24 clindamycin HCl 300 mg capsule 300 mg PO Q6H 02/21/25 Unknown History lisinopril 10 mg tablet 10 mg PO BID 02/21/25 Unknown History Exam Height,Weight and Vital Signs: Height 5 ft 3 in Weight 98.43 kg Assessment and Plan Final Anesthetic Review Family History of Problems with Anesthesia: No History of Problems with Anesthesia: No Documented by User: Vick Beck MD 06/24/25 11:21 [facility] Past Medical History Medical History Right hip pain Diabetic nephropathy Chronic cough Chronic prescription opiate use Thoracic back pain Menopause Vasomotor symptoms due to menopause Elevated C-reactive protein (CRP) Proteinuria Type 2 diabetes mellitus with other diabetic kidney complication Sleep apnea PCOS (polycystic ovarian syndrome) Asthma Type 2 diabetes mellitus with hyperglycemia, with long-term current use of insulin Hyperlipidemia LDL goal <100 Obesity due to excess calories BMI 37.0-37.9, adult 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, uncontrolled 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 Chronic pain syndrome Postlaminectomy syndrome, lumbar Cognitive capacity: normal Functional capacity: independent ambulation Family History Family History Father Diabetes Hypertension Mother Asthma Family history of problems with anesthesia: No Surgical History Surgical History Hx of colonoscopy (~2023) History of esophagogastroduodenoscopy (EGD) Hx of spinal surgery History of removal of cyst History of carpal tunnel release History of lumbar surgery Social History Social History Household Members: Family Housing: Apartment Are you a primary customer care specialist to a significant other at home: No 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) Alcohol intake: current Alcohol intake frequency: holidays/special occasions only Patient Tobacco Use Status: Current everyday Tobacco user Tobacco use type: Cigarette Cigarette Packs Per Day: 1 Cigarettes Per Day: 6 Years Smoked: 30 e-Cigarette/Vaping Use: Never Used Second Hand Smoke Exposure: Yes Use of substances other than those prescribed or required for medical reasons: No Are you DNR?: No Advance Directives: No Advance Directives Information Provided: Yes Patient : No : No Poor oral hygiene: No service: No Current occupational status: disabled Current occupational exposures/hazards: No Cognitive needs: No Hearing needs: No Vision needs: Yes Meds Allergies Allergy/AdvReac Type Severity Reaction Status Date / Time Seasonal Allergies Allergy Intermediate Cough Verified 06/20/25 11:17 semaglutide (From Ozempic) Allergy Mild pancreatiti Verified 06/20/25 11:17 s amoxicillin (From Augmentin) AdvReac Severe n/v/d Verified 06/20/25 11:17 clavulanic acid (From AdvReac Severe n/v/d Verified 06/20/25 11:17 Augmentin) NSAIDS (Non-Steroidal AdvReac Intermediate BLEEDING Verified 06/20/25 11:17 Anti-Inflamma (NSAIDS (NON-STEROIDAL ANTI-INFLAMMA) Home Medications ?Medication ?Instructions ?Recorded ?Confirmed ?Last Taken ?Type albuterol sulfate 2.5 mg/3 mL 2.5 mg inhalation Q6H PRN 03/24/22 01/15/25 2 Days Ago History (0.083 %) solution for nebulization SOB/Wheezing ~06/01/24 solriamfetol 150 mg tablet (Sunosi) 150 mg PO DAILY PRN Sleepiness 10/06/23 01/15/25 2 Days Ago History ~06/01/24 clindamycin HCl 300 mg capsule 300 mg PO Q6H 02/21/25 Unknown History lisinopril 10 mg tablet 10 mg PO BID 02/21/25 Unknown History Exam Exam Date and Time: 06/24/3025 Airway Mallampati Class: II Loose/Missing/Broken Teeth: Yes Heart: rrr Lungs: cta Other: normal Assessment and Plan Assessment Anesthesia Assessment: Anesthesia Plan Discussed and Smoking Cess. Discussed Final Anesthetic Review Family History of Problems with Anesthesia: No ASA Class: II Final Preanesthetic Review: No Changes in Pt Med Stat, Meds/Allgs Chart Reviewed, Consent Obtained/Reviewed and Anes Risks/Benef Reviewed Patient Risk: Low Procedure Risk: Low Anesthetic Plan Anesthetic Plan: MAC: Disposition: Standard PACU
[2025-06-24 09:32] VITALS: BMI 39.3
[2025-06-24 09:50] VITALS: BP 152/57; PULSE 85; RESP 16; TEMP 36.7; O2SAT 95
[2025-06-24] MEDS: Lactated Ringers 1,000 ML 100 ML IVCONT (10:06)
--- NOTE | 2025-06-24 11:06 | P.HPSUR_ITS ---
Pre-Procedural Eval Section A - 24 Hr Update-Section A only Date of Service: 06/24/25 Section B - Complete if H&P > 30 days Chief Complaint: Early satiety Relevant Family History (Specify if Yes): No Relevant Social History: None Present Medications: see Short Stay Collaborative assessment Medical History: Significant History (Right hip pain Diabetic nephropathy Chronic cough Chronic prescription opiate use Thoracic back pain Menopause Vasomotor symptoms due to menopause Elevated C-reactive protein (CRP) Proteinuria Type 2 diabetes mellitus with other diabetic kidney complication Sleep apnea PCOS (polycystic ovarian syndr) History of Previous Operations: Relevant previous surgery/procedure and date(s) (Hx of colonoscopy (~2023) History of esophagogastroduodenoscopy (EGD) Hx of spinal surgery History of removal of cyst History of carpal tunnel release History of lumbar surgery) Allergies: Allergies Allergy/AdvReac Type Severity Reaction Status Date / Time Seasonal Allergies Allergy Intermediate Cough Verified 06/20/25 11:17 semaglutide (From Ozempic) Allergy Mild pancreatiti Verified 06/20/25 11:17 s amoxicillin (From Augmentin) AdvReac Severe n/v/d Verified 06/20/25 11:17 clavulanic acid (From AdvReac Severe n/v/d Verified 06/20/25 11:17 Augmentin) NSAIDS (Non-Steroidal AdvReac Intermediate BLEEDING Verified 06/20/25 11:17 Anti-Inflamma (NSAIDS (NON-STEROIDAL ANTI-INFLAMMA) Review of Systems Sugical H&P ROS: Negative: Constitution, Cardiovascular, Respiratory, Neurological, Psychiatric, Hem-Onc, Allergic/Immunologic, Gastrointestinal, Genitourinary, Musculoskeletal, Integumentary, Endocrine and Eyes/ Ears/Nose/Throat Exam Surgical H&P Exam: Normal: HEENT, Normal: Heart, Normal: Lungs, Normal: Extremities, Normal: Abdomen, Normal: Skin and Normal: Neurological Plan Diagnosis/Plan: Unchanged I have reviewed the history and physical and performed a pertinent physical examination on my patient. No changes have occurred unless specified. Time Spent With Patient Time: Total time managing care of this patient today ____ minutes.
--- NOTE | 2025-06-24 11:40 | W.PM.OPN ---
Operative Note Operative Note Date of Service: 06/24/25 Narrative: Procedure Description: EGD Indication: epigastric pain Anesthesia: MAC FLEXIBLE TRANSORAL UPPER GASTROINTESTINAL ENDOSCOPY UPPER ENDOSCOPY Consent: Indications for the procedure and potential complications of bleeding, perforation, reaction to medications and missed diagnosis were discussed with the patient and informed consent was obtained. Instrument: Olympus GIF H 190 J mid size upper endoscope Monitoring: Vital signs and clinical assessment, continuous EKG monitoring, Pulse oximetry, Carbon Dioxide monitoring and blood pressure monitoring were done throughout the procedure. Procedure: The patient was placed in the left lateral decubitis position and pre-procedure medications were administered and a bite block was placed. The endoscope was inserted into the mouth and advanced under direct vision to the third part of duodenum. A careful inspection was made as the upper endoscope was withdrawn including a retroflexed examination of the proximal stomach; Findings and interventions are described below. Findings: Larynx:normal Esophagus: GE junction at 40 cm, diaphragm hiatus at 40 cm, few islands of salmon pink tissue, bx taken to r/o barretts Stomach: patchy erythema . Biopsies were obtained. Grade 2 flap valve on retroflexed examination of the cardia. Pylorus seemed tight and using a wire it was dilated to 20 mm, no tears seen Duodenum: Normal bulb and descending duodenum, bx taken Intervention: Biopsies as noted above, wire guided balloon dilation Impression/Findings: gastritis possible barretts PLAN: check if taking PPI GERD precautions if ongoing sx then GES
[2025-06-24 11:45] VITALS: BP 129/64; PULSE 84; RESP 14; TEMP 36.4; O2SAT 96
[2025-06-24 12:00] VITALS: BP 142/68; PULSE 79; RESP 16; O2SAT 95
[2025-06-24 12:12] VITALS: BP 139/68; PULSE 77; RESP 16; TEMP 36.4; O2SAT 96
== END 2025-06-24 12:37 | disposition home or self-care (01) ==
PROVIDERS: PCP Nurse Practitioner Family; Visit Provider Internal Medicine Gastroenterology
PROC: 0DJ08ZZ Inspection of Upper Intestinal Tract, Via Natural or Artificial Opening Endoscopic (ICD-10-PCS; CPT 43235; principal; 2025-06-24 11:20)
DX: R68.81 Early satiety (principal); K29.60 Other gastritis without bleeding; E11.9 Type 2 diabetes mellitus without complications; E78.5 Hyperlipidemia, unspecified; D64.9 Anemia, unspecified; G89.4 Chronic pain syndrome; J45.909 Unspecified asthma, uncomplicated; F17.210 Nicotine dependence, cigarettes, uncomplicated; Z79.891 Long term (current) use of opiate analgesic
CPT/HCPCS: 43248; 43239; 88305; 88313; 88342; C1726; J2003; J2704; J3010

== ENCOUNTER → 2025-06-24 08:29 | Outpatient (BNV) | payer OTHER, SELFPAY | PROVIDERS: PCP Nurse Practitioner Family; Visit Provider Internal Medicine Gastroenterology | DX: R10.13 Epigastric pain (principal); K22.89 Other specified disease of esophagus; K29.70 Gastritis, unspecified, without bleeding | CPT/HCPCS: 43239; 43245 ==

== ENCOUNTER 2025-06-26 07:58 | Outpatient (AMB) | payer OTHER, SELFPAY ==
--- NOTE | 2025-06-26 08:01 | A.OFFVIS_ITS ---
Vital Signs 06/26/25 08:02 Height 5 ft 3 in Weight 224 lb 13.944 oz BMI 39.8 BP 120/78 Blood Pressure Location Rt brachial Position Sitting Pulse 83 Pulse Source Pulse Oximeter Pulse Oximetry (%) 96 Oxygen Delivery Method Room Air Intake Visit Reasons: DMT2/Diabetes Nephropathy/Pancreatitis Intake Note: NEW Patient presents today to establish treatment for DMT2/Diabetes Nephropathy/Pancreatitis: Last Diabetic eye exam was on: D[facility], [facility] will be calling to make an appt Last Podiatry exam was on: Patient does not see a Clerk Television Production Most recent HbA1c: 10.0%, 06/26/2025 Random Glucose: 154 mg/dL Memory Care Program Director Required: No Accompanied by: Self / Same As Patient Allergies Seasonal Allergies Allergy (Intermediate, Verified 06/26/25 08:02) Cough semaglutide (From Ozempic) Allergy (Mild, Verified 06/26/25 08:02) pancreatitis amoxicillin (From Augmentin) Adverse Reaction (Severe, Verified 06/26/25 08:02) n/v/d clavulanic acid (From Augmentin) Adverse Reaction (Severe, Verified 06/26/25 08:02) n/v/d NSAIDS (Non-Steroidal Anti-Inflamma (NSAIDS (NON-STEROIDAL ANTI-INFLAMMA) Adverse Reaction (Intermediate, Verified 06/26/25 08:02) BLEEDING HPI Comments Details: 54 years old female past medical history of obesity, type 2 diabetes, hyperlipidemia, multiple joint pains, seen for evaluation of type 2 diabetes. This is the 1st time that I see the patient. The patient has a history of diabetes since 1997, developed during . She has tried various treatments including insulin and oral medications. She reports adverse reactions to certain medications: vomiting with Trulicity, pancreatitis with Ozempic, and yeast infections with Jardiance. Currently, she is on Tresiba, metformin, and glipizide. Blood sugar levels frequently reach 300-400 mg/dL depending on food intake, with highest levels after consuming pasta. The patient experiences occasional missed doses of NovoLog due to forgetfulness. Most of the time, blood sugar levels are high, rarely low. The patient uses a Freestyle Bettye 2 sensor, which often falls off, and she is interested in switching to the Bettye 3. The patient has gained weight recently, up to 224 pounds from 216 pounds in April. 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 Chronic pain syndrome Postlaminectomy syndrome, lumbar Surgical History Hx of colonoscopy (~2023) History of esophagogastroduodenoscopy (EGD) Hx of spinal surgery History of removal of cyst History of carpal tunnel release History of lumbar surgery Family History Father Diabetes Hypertension Mother Asthma Social History Household Members: Family Housing: Apartment Are you a primary career guidance counselor to a significant other at home: No Do you presently have visiting nurse or other home services: 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) Alcohol intake: current Alcohol intake frequency: holidays/special occasions only Patient Tobacco Use Status: Current everyday Tobacco user Tobacco use type: Cigarette Cigarette Packs Per Day: 1 Cigarettes Per Day: 6 Years Smoked: 30 e-Cigarette/Vaping Use: Never Used Second Hand Smoke Exposure: Yes service: No Current occupational status: disabled Current occupational exposures/hazards: No Cognitive needs: No Hearing needs: No Vision needs: Yes Review of Systems Const Details: - Endocrine: Hyperglycemia with levels reaching up to 400 mg/dL - Gastrointestinal: Vomiting with certain medications (Trulicity) - Dermatological: Yeast infections with Jardiance - Neurological: Tingling and numbness in the left foot due to nerve damage - Weight: Recent weight gain Reports as per HPI Physical Exam Exam Exam: General: Alert, well-nourished, no acute distress. Neck: Supple, no thyromegaly Cardiac: Regular rate and rhythm, no murmurs. Peripheral pulses 1+, no edema. Lungs: Clear to auscultation bilaterally. Extremities: No ulcers, lesions, or edema Neuro: Alert, oriented. Cranial nerves intact. sensation normal to monofilament testing. Skin: Warm, dry, intact. No rashes or ulcers. Vital Signs: Last Vital Signs Pulse 83 06/26/25 08:02 BP 120/78 06/26/25 08:02 Pulse Ox 96 06/26/25 08:02 Oxygen Delivery Method Room Air 06/26/25 08:02 BMI result Body Mass Index 39.8 Results AMB Hemoglobin A1c AMB Hemoglobin A1c 10.0 % Last Edit by RACHEL Denton on 06/26/25 08:2 1 Results Reviewed Results Reviewed: Laboratory Last Values Glucose (Clinic) 154 mg/dL (60-115) H 06/26/25 08:11 Hgb A1c (Clinic) 10.0 % (4.0-6.0) H 06/26/25 08:21 01/10/2025 Creatinine 0.7 and GFR more than 60 Cholesterol of 159, LDL 97 and AST 838 Assessment & Plan Assessment & Plan (1) Type 2 diabetes mellitus with hyperglycemia, with long-term current use of insulin: Code(s): E11.65 - Type 2 diabetes mellitus with hyperglycemia; Z79.4 - assisted (current) use of insulin Category: Medical (2) Morbid obesity: Code(s): E66.01 - Morbid (severe) obesity due to excess calories Category: Medical Plan Assessment - Poorly controlled diabetes mellitus - Adverse drug reactions to multiple diabetes medications - Weight gain - Nerve damage affecting left foot Recommendations - Continue current medications with emphasis on carrying and using NovoLog regularly. - Switch to Freestyle Bettye 3 for continuous glucose monitoring. - Consider lifestyle modifications including dietary changes and increased activity. - Monitor blood sugar levels closely and adjust insulin dosages as needed based on data from Freestyle Bettye 3. - Referral to metallurgical specialist for foot care. - Consider future discussion on the potential use of an insulin pump if blood sugar control remains inadequate. 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
[2025-06-26 08:02] VITALS: BP 120/78; PULSE 83; O2SAT 96; BMI 39.8
[2025-06-26 08:16] LABS: Glucose, Whole Blood 154 mg/dL (60-115)
== END 2025-06-26 08:58 | disposition home or self-care (01) ==
LOC: HO.ENCR 07:59
PROVIDERS: PCP Nurse Practitioner Family; Visit Provider Student in an Organized Health Care Education/Training Program
DX: E11.65 Type 2 diabetes mellitus with hyperglycemia (principal); Z79.4 Long term (current) use of insulin; E66.01 Morbid (severe) obesity due to excess calories; E11.69 Type 2 diabetes mellitus with other specified complication; E78.5 Hyperlipidemia, unspecified; E11.29 Type 2 diabetes mellitus with other diabetic kidney complication
CPT/HCPCS: 99204

== ENCOUNTER → 2025-06-26 07:58 | Outpatient (BNVA) | payer OTHER, SELFPAY | PROVIDERS: PCP Nurse Practitioner Family; Visit Provider Student in an Organized Health Care Education/Training Program | DX: E11.65 Type 2 diabetes mellitus with hyperglycemia (principal); E11.69 Type 2 diabetes mellitus with other specified complication; E11.29 Type 2 diabetes mellitus with other diabetic kidney complication; E11.21 Type 2 diabetes mellitus with diabetic nephropathy; R80.9 Proteinuria, unspecified; E66.01 Morbid (severe) obesity due to excess calories; E78.5 Hyperlipidemia, unspecified; Z68.39 Body mass index [BMI] 39.0-39.9, adult | CPT/HCPCS: 82947; 83036; 99202 ==

== ENCOUNTER 2025-07-08 13:15 | Outpatient (AMB) | payer OTHER, SELFPAY ==
--- NOTE | 2025-07-08 13:11 | AM.OFFWIN_ITS ---
Intake Intake Visit Reasons: flu shot Patient Tobacco Use Status: Current everyday Tobacco user Allergies Seasonal Allergies Allergy (Intermediate, Verified 06/26/25 08:02) Cough semaglutide (From Ozempic) Allergy (Mild, Verified 06/26/25 08:02) pancreatitis amoxicillin (From Augmentin) Adverse Reaction (Severe, Verified 06/26/25 08:02) n/v/d clavulanic acid (From Augmentin) Adverse Reaction (Severe, Verified 06/26/25 08:02) n/v/d NSAIDS (Non-Steroidal Anti-Inflamma (NSAIDS (NON-STEROIDAL ANTI-INFLAMMA) Adverse Reaction (Intermediate, Verified 06/26/25 08:02) BLEEDING PFSH Medical History Right hip pain Diabetic nephropathy Chronic cough Chronic prescription opiate use Thoracic back pain Menopause Vasomotor symptoms due to menopause Elevated C-reactive protein (CRP) Proteinuria Type 2 diabetes mellitus with other diabetic kidney complication Sleep apnea PCOS (polycystic ovarian syndrome) Asthma Type 2 diabetes mellitus with hyperglycemia, with long-term current use of insulin Hyperlipidemia LDL goal <100 Obesity due to excess calories BMI 37.0-37.9, adult 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, uncontrolled [facility] (current) use of opiate analgesic Chronic pain syndrome Postlaminectomy syndrome, lumbar Surgical History Hx of colonoscopy (~2023) History of esophagogastroduodenoscopy (EGD) Hx of spinal surgery History of removal of cyst History of carpal tunnel release History of lumbar surgery Family History Father Diabetes Hypertension Mother Asthma Social History Household Members: Family Housing: Apartment Are you a primary nurse wound care to a significant other at home: No Do you presently have visiting nurse or 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 home 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) Alcohol intake: current Alcohol intake frequency: holidays/special occasions only Patient Tobacco Use Status: Current everyday Tobacco user Tobacco use type: Cigarette Cigarette Packs Per Day: 1 Cigarettes Per Day: 6 Years Smoked: 30 e-Cigarette/Vaping Use: Never Used Second Hand Smoke Exposure: Yes service: No Current occupational status: disabled Current occupational exposures/hazards: No Cognitive needs: No Hearing needs: No Vision needs: Yes Office Procedures Flu Questionnaire Does the patient have a severe egg allergy?: No Does the patient have severe life threatening allergies?: No Does the patient have a fever or illness today?: No Has the patient ever had Guillain-[place] Syndrome?: No Has the patient ever had any past reaction to a flu shot?: No Immunizations Fluarix [id number] (PF) 45 mcg (15 mcg x 3)/0.5 mL IM syringe Performing Provider: JALIL Clemons Performing Location: [facility] [place] [facility] Administered by: Puma Segal RN on 07/08/25 13:13 Dose Route Admin Location Dispensed Lot Number Expiration Date [facility] Credit Verifier 0.5 mL IM Left Deltoid 0.5 mL [id number] 04/14/26 [id number] [employer] VIS Given Date VIS Provided VIS Publication Date 07/08/25 Single Vaccine 24 Eligibility Eligibility Date Funding Source Not [facility] Eligible 07/08/25 Private Assessment & Plan Assessment & Plan (1) Influenza vaccination administered at current visit: Onset Date: ~07/08/25 Code(s): Z23 - Encounter for immunization Plan . Orders: Orders Influenza [id number] Immunization Today Z23 - Encounter for immunization Coding Level of Care Code Procedure Only Diagnoses Influenza vaccination administered at current visit Z23
== END 2025-07-08 13:16 | disposition home or self-care (01) ==
LOC: HO.HMCFM 13:15
PROVIDERS: PCP Nurse Practitioner Family; Visit Provider Nurse Practitioner Family
DX: Z23 Encounter for immunization (principal)

== ENCOUNTER → 2025-07-08 13:15 | Outpatient (BNVA) | payer OTHER, SELFPAY | PROVIDERS: PCP Nurse Practitioner Family; Visit Provider Nurse Practitioner Family | DX: Z23 Encounter for immunization (principal) | CPT/HCPCS: 90471; 90656 ==

== ENCOUNTER 2025-07-11 10:56 | Outpatient (AMB) | payer OTHER, SELFPAY ==
[2025-07-11 11:09] VITALS: BMI 39.7
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
== END 2025-07-11 11:36 | disposition home or self-care (01) ==
LOC: HO.HPODS 10:57
PROVIDERS: PCP Nurse Practitioner Family; Visit Provider Student in an Organized Health Care Education/Training Program
DX: L60.3 Nail dystrophy (principal); E11.65 Type 2 diabetes mellitus with hyperglycemia; Z79.4 Long term (current) use of insulin; B35.1 Tinea unguium; G62.9 Polyneuropathy, unspecified; M54.30 Sciatica, unspecified side; L60.8 Other nail disorders
CPT/HCPCS: 99205; G9226

== ENCOUNTER → 2025-07-11 10:56 | Outpatient (BNVA) | payer OTHER, SELFPAY | PROVIDERS: PCP Nurse Practitioner Family; Visit Provider Student in an Organized Health Care Education/Training Program | DX: L60.3 Nail dystrophy (principal); L60.8 Other nail disorders; E11.65 Type 2 diabetes mellitus with hyperglycemia; B35.1 Tinea unguium; E11.40 Type 2 diabetes mellitus with diabetic neuropathy, unspecified; Z79.4 Long term (current) use of insulin | CPT/HCPCS: 99202 ==

== ENCOUNTER 2025-09-05 14:42 | Outpatient (AMB) | payer OTHER, SELFPAY ==
--- NOTE | 2025-09-05 15:00 | A.OFFPC_ITS ---
Vital Signs 09/05/25 15:02 BMI Reason not done Patient refused/unable BP 136/64 Blood Pressure Location Lt brachial Position Sitting Respiration 14 Pulse 109 H Pulse Source Pulse Oximeter Temp 97.8 F Temp Source Oral Pulse Oximetry (%) 94 Oxygen Delivery Method Room Air Intake Visit Reasons: ER F/U Rothman on 08/26 regarding Bronchitis Intake Note: Hospital follow up. 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 Accompanied by: Significant Other Allergies Seasonal Allergies Allergy (Intermediate, Verified 09/05/25 15:00) Cough semaglutide (From Ozempic) Allergy (Mild, Verified 09/05/25 15:00) pancreatitis amoxicillin (From Augmentin) Adverse Reaction (Severe, Verified 09/05/25 15:00) n/v/d clavulanic acid (From Augmentin) Adverse Reaction (Severe, Verified 09/05/25 15:00) n/v/d NSAIDS (Non-Steroidal Anti-Inflamma (NSAIDS (NON-STEROIDAL ANTI-INFLAMMA) Adverse Reaction (Intermediate, Verified 09/05/25 15:00) BLEEDING Tobacco use date assessed: 09/05/25 Dental Screening Dental Screen Date: 01/15/25 HPI HPI Comments History of Present Illness Details 55-year-old female with type 2 diabetes, hypertension hyperlipidemia, AURA, PCOS, asthma, smoker, chronic pain syndrome, diverticulosis, coronary artery disease, pancreatitis 05/2024 d/t GLP-1 presenting for hospital follow up Hospitalized [facility] for shortness of breath. +rhinovirus, asthma, suspected COPD exacerbation. CXR without pneumonia. On steroids for 2 more additional days Last day of antibiotics today. Feels breathing is almost back to baseline Previously on symbicort. More recently on arnuity. She has not had pfts or pulm consult. She requests referral. ROS see HPI PHYSICAL EXAM: GENERAL: Alert and oriented x 3. NAD EYES: EOMI. Anicteric. HENT: Moist mucous membranes. No scleral icterus. No cervical lymphadenopathy. LUNGS: Clear to auscultation bilaterally. CARDIOVASCULAR: Regular rate and rhythm. No murmur. No JVD. ABDOMEN: Soft, non-tender +bs EXTREMITIES: No edema. Non-tender. SKIN: No rashes or lesions. Warm. NEUROLOGIC: No focal neurological deficits. CN II-XII grossly intact PSYCHIATRIC: Cooperative. Appropriate mood and affect. [facility] Medical History Sciatica Neuropathy Tinea unguium Pincer nail deformity Nail dystrophy Right hip pain Diabetic nephropathy Chronic cough Chronic prescription opiate use Thoracic back pain Menopause Vasomotor symptoms due to menopause Elevated C-reactive protein (CRP) Proteinuria Type 2 diabetes mellitus with other diabetic kidney complication Sleep apnea PCOS (polycystic ovarian syndrome) Asthma Type 2 diabetes mellitus with hyperglycemia, with long-term current use of insulin Hyperlipidemia LDL goal <100 Obesity due to excess calories BMI 37.0-37.9, adult 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, uncontrolled group home (current) use of opiate analgesic Chronic pain syndrome Postlaminectomy syndrome, lumbar Surgical History Hx of colonoscopy (~2023) History of esophagogastroduodenoscopy (EGD) Hx of spinal surgery History of removal of cyst History of carpal tunnel release History of lumbar surgery Family History Father Diabetes Hypertension Mother Asthma Social History Household Members: Family Housing: Apartment Are you a primary infant caregiver to a significant other at home: No Do you presently have visiting nurse or other home services: Yes ([employer]) Alcohol intake: current Alcohol intake frequency: holidays/special occasions only Patient Tobacco Use Status: Former Tobacco user Tobacco use type: Cigarette Cigarette Packs Per Day: 1 Cigarettes Per Day: 6 Years Smoked: 30 e-Cigarette/Vaping Use: Never Used Second Hand Smoke Exposure: Yes service: No Current occupational status: disabled Current occupational exposures/hazards: No Cognitive needs: No Hearing needs: No Vision needs: Yes Questionnaire Thrive Questionnaire Date Thrive assessed: 01/15/25 I am a: Patient What is your living situation today?: I have a steady place to live Within the past 12 months, did the food you bought not last and you didn't have the money to get more?: Never true Within the past 12 months, did you worry whether your food would run out before you got money to buy more?: Never true Do you have trouble paying for medicines?: No Do you have trouble getting transportation to medical appointments?: No Do you have trouble paying your heating and electricity bill?: Yes Do you have trouble taking care of your child, family member or friend?: No Do you have trouble with day-to-day activities such as bathing, preparing meals, shopping, managing finances, etc.?: Yes Are you currently unemployed and looking for a job?: No Are you interested in more education?: No Please select the resources that you would like help with: None Currently or been in a relationship where the following occur: No concerns reported THRIVE Score: 1 EDWIGE-7 AMB Questionnaire EDWIGE-7 Date EDWIGE - 7 assessed: 01/15/25 Source: Developed by Drs. Yrn Alexander, Frieda Rivera, John Archuleta and colleagues, with an educational cedrick from [employer]. Physical exam (Primary Care) Vital Signs: Last Vital Signs Temp 97.8 F 09/05/25 15:02 Pulse 109 H 09/05/25 15:02 Resp 14 09/05/25 15:02 BP 136/64 09/05/25 15:02 Pulse Ox 94 09/05/25 15:02 Oxygen Delivery Method Room Air 09/05/25 15:02 Tobacco/Smoking Status: Tobacco use Status Tobacco use date assessed 09/05/25 09/05/25 15:11 Patient Tobacco Use Status Former Tobacco user 09/05/25 15:11 Tobacco use type Cigarette 09/05/25 15:11 e-Cigarette/Vaping Use Never Used 09/05/25 15:11 Thrive Assessment: Date of Thrive Assessment Date Thrive assessed 01/15/25 09/05/25 15:08 Currently or been in a relationship where the following occur: No concerns reported Coding Level of Care Code Est Pt Level 4 (36660) Diagnoses Hospital discharge follow-up Z51.89 Moderate persistent asthma with acute exacerbation J45.41 Asthma complication type: with acute exacerbation Asthma persistence: persistent Asthma severity: moderate Assessment & Plan Assessment & Plan (1) Hospital discharge follow-up: Code(s): Z51.89 - Encounter for other specified aftercare (2) Asthma: Code(s): J45.909 - Unspecified asthma, uncomplicated Category: Medical Qualifiers: Asthma complication type: with acute exacerbation Asthma persistence: persistent Asthma severity: moderate Qualified Code(s): J45.41 - Moderate persistent asthma with (acute) exacerbation Plan 55 year old for hospital follow up Hospital course reviewed Complete medicaiton course. Restart symbicort. PFTs ordered. Referral pulm She will be scheduled for diabetic follow up with pcp Orders: Orders PFT pulmonary function test 09/05/25 J45.909 - Unspecified asthma, uncomplicated Referrals Pulmonology Referral J45.909 - Unspecified asthma, uncomplicated Medications: New budesonide-formoterol 160-4.5 mcg/actuation (Symbicort) 2 puffs inhalation BID 10.2 grams 3RF Discontinued fluticasone furoate 50 mcg/actuation (Arnuity Ellipta) Discontinued Reason: Doctor's Order 1 inh inhalation Q24H 30 days 30 ea 3RF
[2025-09-05 15:02] VITALS: BP 136/64; PULSE 109; RESP 14; TEMP 36.6; O2SAT 94
== END 2025-09-05 15:43 | disposition home or self-care (01) ==
LOC: HO.HMCFM 14:43
PROVIDERS: Visit Provider Nurse Practitioner Family
DX: Z51.89 Encounter for other specified aftercare (principal); J45.41 Moderate persistent asthma with (acute) exacerbation

== ENCOUNTER → 2025-09-05 14:42 | Outpatient (BNVA) | payer OTHER, SELFPAY | PROVIDERS: Visit Provider Nurse Practitioner Family | DX: Z51.89 Encounter for other specified aftercare (principal); J45.41 Moderate persistent asthma with (acute) exacerbation; Z87.891 Personal history of nicotine dependence | CPT/HCPCS: 99212 ==